=== PATIENT | male | born 1945 | race Caucasian/White ===

== ENCOUNTER → 2016-05-10 | Outpatient (CLI) | payer MEDICARE, BC ==
--- NOTE | 2016-05-10 08:05 | MR ---
MR lumbar spine wo con Leg numbness with low back pain Multiplanar, multiecho imaging of the lumbar spine was obtained without contrast on a 3 Bria magnet. REFERENCE:None. FINDINGS: There is an incompletely visualized 5.7 cm cystic lesion arising from the lower pole of th e right kidney. Paraspinal soft tissues are otherwise unremarkable. There is a mild retrolisthesis of L2 on L3 and L3-L4. Alignment is otherwise maintained. There is mil d wedging of the L2 vertebral body which appears chronic. There is marked hypertrophic spondylosis at the L2-3 level. Cord signal is normal. The conus ends at the level of the mid body of L1. At T12-L1, there is disc space loss and disc desiccation. Intervertebral foramina are reasonably well -maintained. There is a bilobed disc displacement. There is hypertrophic change in the facets. At L1-2, there is disc space loss and disc desiccation. There is mild hypertrophic spondylosis. The i ntervertebral foramina are reasonably well-maintained. There is a diffuse disc displacement. There ar e hypertrophic changes in the facets. At L2-3, there is mild retrograde listhesis of L2 on L3. This hypertrophic spondylosis. There is bila teral intervertebral foraminal narrowing. There is a pseudodisc. There are hypertrophic changes and c apsulitis within the facets. There is mild trefoiling of the thecal sac. At L3-4, there is disc desiccation and mild disc space loss. The intervertebral foramina are mildly n arrowed bilaterally. There is a diffuse disc displacement. There is hypertrophic change and capsuliti s within the facets. There is moderate central canal stenosis. At L4-5, the intervertebral foramina are reasonably well-maintained. There is a diffuse disc displace ment. There are fairly marked hypertrophic changes in the facets. There is mild lateral recess stenos is bilaterally and mild central canal compromise. At L5-S1, the intervertebral foramina are reasonably well-maintained. There is a minimal diffuse disc displacement. There are hypertrophic changes in the facets. IMPRESSION: 1. MILD, DIFFUSE DEGENERATIVE DISC DISEASE. 2. DIFFUSE FACET ARTHROPATHY. 3. BILATERAL INTERVERTEBRAL FORAMINAL NARROWING, L2-3 AND L3-4. 4. VARYING DEGREES OF CENTRAL CANAL COMPROMISE MOST MARKED AT L3-4. 5. MILD, BILATERAL LATERAL RECESS STENOSIS, L4-5. 6. RETROGRADE LISTHESIS OF L2 ON L3 AND L3 ON L4. 7. INCOMPLETELY VISUALIZED CYSTIC LESION ARISING FROM THE LOWER POLE THE RIGHT KIDNEY. ULTRASOUND OF THE KIDNEYS WOULD BE SUGGESTED.
== END | disposition home or self-care (01) ==
LOC: RADMRIMAIN 06:32
PROVIDERS: ATTEND Family Medicine
DX: M48.06 Spinal stenosis, lumbar region (principal); M99.73 Connective tissue and disc stenosis of intervertebral foramina of lumbar region; M43.16 Spondylolisthesis, lumbar region; M47.26 Other spondylosis with radiculopathy, lumbar region; M46.96 Unspecified inflammatory spondylopathy, lumbar region
CPT/HCPCS: 72148

== ENCOUNTER → 2018-05-16 | Outpatient (CLI) | payer MEDICARE, BC ==
--- NOTE | 2018-05-16 10:52 | XR ---
EXAMINATION TYPE: XR chest 2V DATE OF EXAM: 05/16/2018 COMPARISON: NONE HISTORY: Presurgical study. TECHNIQUE: Frontal and lateral views of the chest are obtained. FINDINGS: Overlying sternal wires with metallic aortic valve noted. There is some chronic parenchyma l change with left basilar linear scarring and/or atelectasis. Right lung is clear. No pleural effus ion or pneumothorax is seen bilaterally. The cardiac silhouette size is within normal limits with ath erosclerotic thoracic aorta. Multilevel moderate spurring anteriorly in thoracic spine is present. IMPRESSION: Chronic changes without acute pulmonary process.
[2018-05-16 11:08] LABS: HCT 42.1 % (39.0-53.0); HGB 13.8 gm/dL (13.0-17.5); MCH 28.6 pg (25.0-35.0); MCHC 32.8 g/dL (31.0-37.0); Mean Platelet Volume 6.8; Platelet Count 189 k/uL (150-450); RBC 4.83 m/uL (4.30-5.90); RDW 13.3 % (11.5-15.5); WBC 6.7 k/uL (3.8-10.6)
[2018-05-16 11:19] LABS: ALT 33 U/L (21-72); AST 23 U/L (17-59); Albumin 3.7 g/dL (3.5-5.0); Alkaline Phosphatase 70 U/L (38-126); Anion Gap 3 mmol/L; Blood Urea Nitrogen 24 mg/dL (9-20); Calcium 9.1 mg/dL (8.4-10.2); Carbon Dioxide 31 mmol/L (22-30); Chloride 107 mmol/L (98-107); Glucose 95 mg/dL (74-99); Potassium 5.1 mmol/L (3.5-5.1); Sodium 141 mmol/L (137-145); Total Bilirubin 0.8 mg/dL (0.2-1.3); Total Protein 6.4 g/dL (6.3-8.2)
== END | disposition home or self-care (01) ==
LOC: LABPAT 09:38
PROVIDERS: ATTEND Internal Medicine Cardiovascular Disease
DX: Z01.818 Encounter for other preprocedural examination (principal); Z01.812 Encounter for preprocedural laboratory examination; I25.709 Atherosclerosis of coronary artery bypass graft(s), unspecified, with unspecified angina pectoris; J98.4 Other disorders of lung
CPT/HCPCS: 71046; 80053; 85027

== ENCOUNTER → 2018-05-16 | Outpatient (CLI) | payer MEDICARE, BC | END | disposition home or self-care (01) | LOC: LABWHC1 10:31 | PROVIDERS: ATTEND Internal Medicine Cardiovascular Disease | DX: Z01.812 Encounter for preprocedural laboratory examination (principal); I20.9 Angina pectoris, unspecified | CPT/HCPCS: 36415; 80061 ==

== ENCOUNTER 2018-05-21 12:05 | Day surgery (SDC) | payer MEDICARE, BC ==
[~2018-05-21 12:05] MED LIST: ALPRAZolam 0.25 MG TAB PO PRN; ALPRAZolam 0.5 MG TAB PO PRN; ASPIRIN 325 MG TAB PO STA; ATORVASTATIN 80 MG TAB PO STA; NITROGLYCERIN SL TABS 0.4 MG TAB SUBLINGUAL PRN; SODIUM CHLORIDE 0.9% 1,000 ML in EMPTY BAG 1 BAG IV ONE
[2018-05-21] MEDS ORDERED: MIDAZOLAM (PF) 2 MG/2 ML VIAL IV ONE (14:08)
[2018-05-21] MEDS: fentaNYL (PF) 50 MCG/ML 2 ML AMP IV ONE ×2 (18:46→18:55)
[2018-05-21] MEDS ORDERED: MIDAZOLAM 2 MG/2 ML VIAL IV ONE (18:47)
[2018-05-21] MEDS ORDERED: LIDOCAINE 1% INJ 10MG/ML (20 ML MDV) SQ ONE (18:52)
[2018-05-21] MEDS ORDERED: IOPAMIDOL-370 50ML BTL INJ ONE (19:21)
[2018-05-21] MEDS ORDERED: IOPAMIDOL-370 125ML BTL INJ ONE (19:21)
[2018-05-21] MEDS ORDERED: RX INFO: IV CONTRAST WAS GIVEN 1 EACH MISC MISCELLANE PRN (19:37)
[2018-05-21] MEDS ORDERED: SODIUM CHLORIDE 0.9% 1,000 ML IV SCH (19:45)
[2018-05-21] MEDS ORDERED: HYDROmorphone 0.5 MG/0.5 ML SYRINGE IVP PRN (20:55)
[2018-05-21] MEDS ORDERED: BRIMONIDINE TARTRATE 0.2% DROPS 5 ML BTL BOTH EYES SCH (21:00)
[2018-05-21] MEDS ORDERED: TIMOLOL 0.5% OPHTH DROPS 5 ML BTL BOTH EYES SCH (21:00)
--- NOTE | 2018-05-21 22:13 | CC ---
CARDIAC CATHETERIZATION REPORT DATE OF SERVICE: 05/21/2018 PERFORMING PHYSICIAN: Kenn Su MD, [employer] operations consultant. PROCEDURE PERFORMED: 1. Selective left and right coronary angiogram. 2. Left internal mammary artery to LAD angiogram. 3. Aortic root angiogram. INDICATION: This is a 72-year-old gentleman who sees Dr. Wes Saeed in the office as an outpatient with known history of coronary artery disease and status post coronary artery bypass grafting with ROTHMAN to LAD and SVG to diagonal as well as aortic valve disease and status post aortic valve replacement as well as multiple comorbid conditions, including hypertension and dyslipidemia. He was experiencing progressive exertional dyspnea concerning for angina. He continues to be symptomatic in spite of maximized medical treatment, and because of that, a heart catheterization was advised. APPROACH: Right common femoral artery. COMPLICATIONS: None. LEVEL OF SEDATION: Moderate with sedation length of 27 minutes. PROCEDURE DESCRIPTION: After obtaining informed consent, the patient was brought to the cardiac laborer rags. The right common femoral artery was cannulated using micropuncture technique and the micropuncture wire passed easily. Then I placed a 6-[place] sheath in the right common femoral artery. I did after that selective left and right coronary angiogram using JL4 and JR4 catheters. After that I did left internal mammary artery angiogram using the JR4 catheter. I attempted to engage the graft to the diagonal and I was unable, in spite of using JR4 catheter and then an Amplatzer 1 catheter. After that I did aortic root angiogram just to assess if the graft is patent. I could not see the graft in spite of that. The procedure was completed without any complication. SELECTIVE CORONARY ANGIOGRAM: 1. The left main appeared to be angiographically normal. It bifurcates into left circumflex and left anterior descending artery. 2. The left circumflex is a medium-caliber vessel. It is a nondominant vessel. The proximal left circumflex itself appeared to be angiographically normal. 3. The LAD. The proximal LAD appeared to have intermediate lesion in the range of 50%. This is by the bifurcation of a medium-sized diagonal branch which has a lesion that appeared to be in the range of 70%, but it appeared to be unchanged compared to before. The mid LAD is subtotally occluded with competitive flow from the ROTHMAN. 4. The right coronary artery is a large-caliber vessel and a dominant vessel. The proximal right coronary artery is aneurysmal. The mid RCA appeared to have mild disease only and the RCA distally appeared to have mild disease only and bifurcates into PDA and PLV branches. Both appeared to be angiographically normal. ANGIOGRAM OF CORONARY BYPASSES: 1. The ROTHMAN to LAD is patent. 2. The SVG to diagonal appeared to be occluded. AORTIC ROOT ANGIOGRAM: The aortic root angiogram was performed in the IRAQI projection using a power injection. The aortic root appeared to be mildly dilated. At least 3 to 4+ AI was seen. CONCLUSION: 1. Severe single-vessel coronary artery disease involving the mid LAD. The LAD is protected by the ROTHMAN. 2. Severe disease involving the ostial first diagonal branch of the LAD. It appeared to be unchanged compared to before. 3. Normal left circumflex coronary artery. 4. 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 5. Three plus AI was seen. Given the above anatomy, I did recommend maximized medical treatment. If he continues to have symptoms of chest pain, I would consider doing PCI of the first diagonal branch of the LAD. MMODL / IJN: [id number] /
[2018-05-21 22:23] VITALS: BMI 31.1
[2018-05-22 07:39] VITALS: RESP 18
[2018-05-22] MEDS ORDERED: ASPIRIN 81 MG PO SCH (09:00)
[2018-05-22] MEDS ORDERED: CYANOCOBALAMIN 500 MCG TAB PO SCH (09:00)
[2018-05-22] MEDS ORDERED: LISINOPRIL 5 MG TAB PO SCH (09:00)
[2018-05-22] MEDS ORDERED: ATORVASTATIN 20 MG TAB PO SCH (09:00)
--- NOTE | 2018-05-22 11:51 | PN ---
PROGRESS NOTE This patient underwent cardiac catheterization yesterday, the ROTHMAN graft to the LAD was patent. The saphenous vein graft to the diagonal branch is occluded and the saphenous vein graft has ostial stenosis of 90%. There is a 40% to 50% stenosis in the distal RCA which is very tortuous. Patient also has about 2 to 3+ aortic regurgitation. I discussed the findings with the patient and explained. We will go ahead and schedule him for a stent to the diagonal branch. Dr. Su will do it tomorrow. After that, if he continues to have a significant problem with exertional shortness of breath, he will need a redo aortic valve replacement for his aortic regurgitation which by echocardiogram is moderate. MMODL / IJN: [id number] /
[2018-05-22 12:08] VITALS: BP 158/65; PULSE 62; TEMP 98
== END 2018-05-22 13:50 | disposition home or self-care (01) ==
LOC: CATHCVL 12:05 → 1SOBS 19:16 → CATHCVL 05-22 13:50
PROVIDERS: ATTEND Internal Medicine Cardiovascular Disease
DX: I25.110 Atherosclerotic heart disease of native coronary artery with unstable angina pectoris (principal); I25.41 Coronary artery aneurysm; I10 Essential (primary) hypertension; E78.00 Pure hypercholesterolemia, unspecified; E11.51 Type 2 diabetes mellitus with diabetic peripheral angiopathy without gangrene; Z79.4 Long term (current) use of insulin; E78.2 Mixed hyperlipidemia; Z72.0 Tobacco use; Z82.49 Family history of ischemic heart disease and other diseases of the circulatory system; Z95.2 Presence of prosthetic heart valve; Z95.1 Presence of aortocoronary bypass graft; Z79.82 Long term (current) use of aspirin; Z79.899 Other long term (current) drug therapy; Z88.3 Allergy status to other anti-infective agents
CPT/HCPCS: 93455; 93567; C1760; C1894; C1769 ×2; J2250 ×2; J2001; J3010; J1170; Q9967 ×2; 93454

== ENCOUNTER 2018-05-23 12:17 | Day surgery (SDC) | payer MEDICARE, BC ==
[~2018-05-23 12:17] MED LIST changes: +ASPIRIN 325 MG TAB PO ONE; -ASPIRIN 325 MG TAB PO STA; +ATORVASTATIN 80 MG TAB PO ONE; -ATORVASTATIN 80 MG TAB PO STA; -NITROGLYCERIN SL TABS 0.4 MG TAB SUBLINGUAL PRN
[2018-05-23] MEDS ORDERED: ASPIRIN 81 MG ONE (12:40)
[2018-05-23] MEDS ORDERED: ASPIRIN 81 MG PO ONE (12:45)
[2018-05-23 13:14] LABS: Anion Gap 8 mmol/L; Blood Urea Nitrogen 19 mg/dL (9-20); Calcium 9.6 mg/dL (8.4-10.2); Carbon Dioxide 27 mmol/L (22-30); Chloride 105 mmol/L (98-107); Glucose 92 mg/dL (74-99); Sodium 140 mmol/L (137-145)
[2018-05-23 13:23] LABS: Potassium 5.3 mmol/L (3.5-5.1)
[2018-05-23] MEDS ORDERED: LIDOCAINE 1% INJ 10MG/ML (20 ML MDV) SQ ONE (13:23)
[2018-05-23] MEDS: fentaNYL (PF) 50 MCG/ML 2 ML AMP IVP ONE ×2 (13:23→13:52)
[2018-05-23] MEDS: MIDAZOLAM 2 MG/2 ML VIAL IVP ONE ×2 (13:23→13:52)
[2018-05-23] MEDS ORDERED: BIVALIRUDIN BOLUS 250 MG/50 ML IV ONE (13:28)
[2018-05-23] MEDS ORDERED: BIVALIRUDIN 250 MG in SODIUM CHLORIDE 0.9% 36 ML IV ONE (13:28)
[2018-05-23] MEDS ORDERED: NITROGLYCERIN 1000MCG/10ML SYRINGE INTRACORON ONE (13:54)
[2018-05-23] MEDS ORDERED: CLOPIDOGREL 75 MG TAB PO ONE (14:01)
[2018-05-23] MEDS ORDERED: IOPAMIDOL-370 125ML BTL INJ ONE (14:07)
[2018-05-23] MEDS ORDERED: NITROGLYCERIN SL TABS 0.4 MG TAB SUBLINGUAL PRN ×2 (14:08→14:09)
[2018-05-23] MEDS ORDERED: ATROPINE SULFATE 0.1 MG/ML 10ML SYRINGE IV PRN (14:09)
[2018-05-23] MEDS ORDERED: ZOLPIDEM 5 MG TAB PO PRN (14:09)
[2018-05-23] MEDS ORDERED: MAG HYDROX/AL HYDROX/SIMETH 30 ML CUP PO PRN ×2 (14:09→15:39)
[2018-05-23] MEDS ORDERED: RX INFO: IV CONTRAST WAS GIVEN 1 EACH MISC MISCELLANE PRN (14:09)
[2018-05-23] MEDS ORDERED: SODIUM CHLORIDE 0.9% 1,000 ML IV SCH (14:15)
[2018-05-23 14:43] LABS: Glucose,Whole Blood 92 mg/dL (75-99)
--- NOTE | 2018-05-23 15:07 | LTR ---
May 23, 2018 To: Dr. Boston Re: Naif Jin (43) Dear Cabrera, Mr. Naif Jin underwent successful angioplasty and stenting of the LAD and diagonal branch with good angiographic results and without any complication. I want to thank you for allowing us to participate in his care, and please do not hesitate to call with any questions or concerns. Sincerely, MD ADAN Khoury / MARITA: [id number] /
--- NOTE | 2018-05-23 15:07 | PTCA ---
PERCUTANEOUSTRANS CORORONARY ANGIOGRAPHY DATE OF PROCEDURE: 05/23/2018 PERFORMING PHYSICIAN: Kenn Su MD, lard maker. PROCEDURE PERFORMED: 1. Atherectomy of the left anterior descending coronary artery and first diagonal branch of the left anterior descending coronary artery. 2. Successful stenting of the proximal left anterior descending coronary artery as well as proximal first diagonal branch of the left anterior descending coronary artery using a 3.0 x 23 mm Xience drug-eluting stent which was post dilated using a 3.5 mm NC balloon with an excellent angiographic result and reduction of stenosis from 90% to 0%. INDICATION: This is a 72-year-old gentleman who sees Dr. Wes Saeed in the office as an outpatient with known history of coronary artery disease and prior coronary artery bypass grafting. He was experiencing symptoms of unstable angina and underwent a heart catheterization where he was found to have the occlusion. He was found to have patent ROTHMAN to LAD and occluded SVG to diagonal. The diagonal was a large diagonal and unprotected, and because of that he was brought today to undergo an intervention on the diagonal and proximal LAD. APPROACH: Right common femoral artery. COMPLICATIONS: None. LEVEL OF SEDATION: Moderate, with sedation length of 42 minutes. PROCEDURE DESCRIPTION: After obtaining informed consent, the patient was brought to the cardiac label tacker. The right common femoral artery was cannulated using micropuncture technique. The micropuncture wire passed easily. Then I placed a 6-[place] sheath in the right common femoral artery. After that anticoagulation was initiated using Angiomax. After that I engaged the left main using an XB4 after I tried an XB3.5. Subsequently I wired the diagonal using a Whisper wire. I exchanged the Whisper for a ViperWire. After that I did atherectomy of the LAD and diagonal using the orbital atherectomy device from I. After that I did balloon angioplasty using a 2.5 x deployed a 3.0 x 23 mm Xience drug-eluting stent where the stent was positioned under fluoroscopic guidance and deployed under 14 atmospheres for 20 seconds. I post-dilated the stent using 3.5 mm balloon with the final angiogram showing excellent angiographic results and the procedure was completed without any complication. POST-PROCEDURE MANAGEMENT: 1. Dual anti-platelet therapy. 2. Risk factor modifications. 3. Follow up with the patient. MMODL / IJN: [id number] /
[2018-05-23] MEDS ORDERED: HYDROcodone/APAP 5-325MG 1 EACH TAB PO STA (15:48)
[2018-05-23 17:05] VITALS: BMI 30.9
[2018-05-23] MEDS: NITROGLYCERIN SL TABS 0.4 MG TAB SUBLINGUAL PRN ×2 (20:43→20:49)
[2018-05-23] MEDS ORDERED: TIMOLOL 0.5% OPHTH DROPS 5 ML BTL BOTH EYES SCH (21:00)
[2018-05-23] MEDS ORDERED: BRIMONIDINE TARTRATE 0.2% DROPS 5 ML BTL BOTH EYES SCH (21:00)
[2018-05-24 07:59] LABS: Basophils % (A) 1 %; Eosinophils # (A) 0.1 k/uL (0-0.7); Eosinophils % (A) 2 %; HCT 40.2 % (39.0-53.0); HGB 13.7 gm/dL (13.0-17.5); Lymphocytes # (A) 1.2 k/uL (1.0-4.8); Lymphocytes % (A) 15 %; MCH 28.6 pg (25.0-35.0); MCV 84.3 fL (80.0-100.0); Mean Platelet Volume 9.1; Monocytes # (A) 0.5 k/uL (0-1.0); Monocytes % (A) 6 %; Neutrophils # (A) 6.1 k/uL (1.3-7.7); Neutrophils % (A) 75 %; Platelet Count 167 k/uL (150-450); RBC 4.77 m/uL (4.30-5.90); RDW 15.6 % (11.5-15.5); WBC 8.1 k/uL (3.8-10.6)
[2018-05-24 08:21] LABS: Anion Gap 7 mmol/L; Blood Urea Nitrogen 17 mg/dL (9-20); Calcium 9.1 mg/dL (8.4-10.2); Carbon Dioxide 27 mmol/L (22-30); Chloride 102 mmol/L (98-107); Glucose 138 mg/dL (74-99); Potassium 4.4 mmol/L (3.5-5.1); Sodium 136 mmol/L (137-145)
[2018-05-24] MEDS ORDERED: ASPIRIN 81 MG PO SCH (09:00)
[2018-05-24] MEDS ORDERED: CYANOCOBALAMIN 500 MCG TAB PO SCH (09:00)
[2018-05-24] MEDS ORDERED: ATORVASTATIN 20 MG TAB PO SCH (09:00)
[2018-05-24] MEDS ORDERED: LISINOPRIL 5 MG TAB PO SCH (09:00)
--- NOTE | 2018-05-24 13:02 | DS ---
DISCHARGE SUMMARY DATE OF ADMISSION: 05/23/2018 DATE OF DISCHARGE: 05/24/2018 BRIEF HISTORY: This is a 72-year-old gentleman who sees Dr. Wes Saeed as an outpatient with history of coronary artery disease and prior coronary artery bypass grafting with ROTHMAN to LAD and SVG to diagonal, was experiencing lately exertional chest discomfort and exertional shortness of breath. I did perform a heart catheterization for him for Dr. Saeed and that revealed patent ROTHMAN to LAD with occluded SVG to diagonal. He was admitted to the hospital yesterday and underwent an atherectomy and balloon angioplasty and stenting of the first diagonal branch of the LAD with an excellent angiographic results and reduction of stenosis from 90% to 0%. On follow up with him today, he did have mild chest discomfort this morning. The EKG did not show any significant ST or T-wave abnormalities. Currently he is chest pain free. I am going to get the patient up and around and if he is chest pain-free, he might be able to go home today. I asked the patient and the nurse if he developed any more chest discomfort. I am going to keep the patient overnight and follow up with him tomorrow morning. If he continues to have any more episodes of chest discomfort, I would consider doing a coronary angiogram on him. He is going to be discharged on dual anti-platelet therapy along with a statin. MMODL / NATHALYN: [id number] /
[2018-05-24 13:20] VITALS: PULSE 73; RESP 18
[2018-05-24] MEDS ORDERED: CLOPIDOGREL 75 MG TAB PO SCH (14:10)
[2018-05-24 14:23] VITALS: BP 151/68; TEMP 98.8
== END 2018-05-24 17:12 | disposition home or self-care (01) ==
LOC: CATHCVL 12:17 → 3SCARD 14:55 → CATHCVL 05-24 17:12
PROVIDERS: ATTEND Internal Medicine Interventional Cardiology
DX: I25.710 Atherosclerosis of autologous vein coronary artery bypass graft(s) with unstable angina pectoris (principal); I25.110 Atherosclerotic heart disease of native coronary artery with unstable angina pectoris; I10 Essential (primary) hypertension; E11.9 Type 2 diabetes mellitus without complications; F17.290 Nicotine dependence, other tobacco product, uncomplicated; E78.2 Mixed hyperlipidemia; Z95.1 Presence of aortocoronary bypass graft; Z95.2 Presence of prosthetic heart valve; Z79.899 Other long term (current) drug therapy; Z79.82 Long term (current) use of aspirin; Z79.4 Long term (current) use of insulin; Z88.1 Allergy status to other antibiotic agents; Z88.8 Allergy status to other drugs, medicaments and biological substances; Z82.49 Family history of ischemic heart disease and other diseases of the circulatory system
CPT/HCPCS: 80048 ×2; 85025; C9602; C1760; C1769 ×5; C1725 ×2; C1887; C1894; C1714; C1874; J2250; J2001; J3010; J0583; Q9967

== ENCOUNTER 2018-07-09 00:06 | Inpatient (IN) | payer MEDICARE, BC ==
[2018-07-09] MEDS ORDERED: HEPARIN SODIUM,PORCINE 5,000 UNIT/ML 1 ML VIAL IV STA (00:21)
[2018-07-09] MEDS ORDERED: MORPHINE SULFATE 4 MG/ML SYRINGE IV STA (00:21)
[2018-07-09] MEDS ORDERED: ASPIRIN 81 MG PO STA (00:21)
[2018-07-09] MEDS ORDERED: NITROGLYCERIN SL TABS 0.4 MG TAB SUBLINGUAL STA (00:21)
--- NOTE | 2018-07-09 00:27 | ED ---
Chest Pain HPI - General Chief Complaint: Chest Pain Stated Complaint: Chest Pain Source: patient Mode of arrival: ambulatory Limitations: no limitations - History of Present Illness Initial Comments: This is a 72-year-old gentleman with known coronary artery disease status post bypass in the past as well as cardiac catheterization May of this month with stenting of occlusions of the bypass. Patient reports that around 9 PM tonight he was walking when he developed chest pain, he's noticed since it began chest pain improves slightly when he is resting gets worse when he gets up to walk at all. Pain is been persistent for 3 hours which prompted his to bring him to the emergency department for evaluation. Patient is on aspirin and Plavix daily. - Related Data Home Medications Medication Instructions Recorded Confirmed Aspirin [Adult Low Dose Aspirin EC] 81 mg PO DAILY 05/19/18 07/09/18 Brimonidine Tartrate/Timolol 1 drop BOTH EYES HS 05/19/18 07/09/18 [Combigan 0.2%-0.5% Eye Drops] Cyanocobalamin (Vitamin B-12) 2,500 mcg PO DAILY 05/19/18 07/09/18 [Vitamin B-12] Ibuprofen [Motrin Ib] 200 - 400 mg PO Q6H PRN 05/19/18 07/09/18 Lisinopril [Zestril] 5 mg PO DAILY 05/19/18 07/09/18 Simvastatin [Zocor] 40 mg PO DAILY 05/19/18 07/09/18 Ascorbic Acid [Vitamin C] 2,500 mg PO DAILY 05/23/18 07/09/18 Previous Rx's Medication Instructions Recorded Nitroglycerin Sl Tabs [Nitrostat] 0.4 mg SUBLINGUAL Q5M PRN #1 bottle 05/22/18 Clopidogrel [Plavix] 75 mg PO DAILY #90 tab 05/24/18 Allergies Allergy/AdvReac Type Severity Reaction Status Date / Time aloe Allergy Rash/Hives Verified 05/19/18 12:46 bacitracin Allergy Rash/Hives Verified 05/19/18 12:46 [From Neosporin ([id number])] neomycin Allergy Rash/Hives Verified 05/19/18 12:46 [From Neosporin ([id number])] polymyxin B Allergy Rash/Hives Verified 05/19/18 12:46 [From Neosporin ([id number])] Review of Systems ROS Statement: Those systems with pertinent positive or pertinent negative responses have been documented in the HPI. ROS Other: All systems not noted in ROS Statement are negative. EKG Findings - EKG Comments: EKG Findings:: EKG was obtained for evaluation of chest pain, EKG obtained at 12:17 AM, rate is 79 rhythm is sinus there is a normal axis, there are normal intervals, TN 184, curious 86, QTC 400, QTC 458, there are ST elevations in aVR and ST depressions diffusely including leads 1 to aVF and leads V2 through V6. When compared to EKG obtained last month on May 24 there are significant changes including ST elevations or depressions. Past Medical History Past Medical History: Coronary Artery Disease (CAD), Chest Pain / Angina, Diabetes Mellitus, Eye Disorder, Hyperlipidemia, Hypertension, Osteoarthritis (OA), Prostate Disorder Additional Past Medical History / Comment(s): thoracic aneurysm, mari glaucoma, kidney stones, neuropathy History of Any Multi-Drug Resistant Organisms: None Reported Past Surgical History: Cardiac Valve Replacement, Cholecystectomy, Coronary Bypass/CABG, Heart Catheterization, Orthopedic Surgery Additional Past Surgical History / Comment(s): aortic valve replaced 2003, CABG double bypass Past Psychological History: Depression Smoking Status: Former smoker Past Alcohol Use History: Occasional - Past Family History Father Family Medical History: Cancer Brother(s) Family Medical History: Cancer General Exam - General Exam Comments Initial Comments: Physical Exam GENERAL: Appears uncomfortable Diaphoretic HENT: Normocephalic, Atraumatic. EYES: PERRL, EOMI PULMONARY: Unlabored respirations. No audible rales rhonchi or wheezing was noted. CARDIOVASCULAR: There is a regular rate and rhythm Systolic murmur Bounding peripheral pulses ABDOMEN: Soft and nontender with normal bowel sounds. SKIN: Bruising in left upper extremity : Deferred NEUROLOGIC: Patient is alert and oriented x3. Moving all extremities spontaneously MUSCULOSKELETAL: Normal extremities with adequate strength and full range of motion. No lower extremity swelling or edema. No calf tenderness. PSYCHIATRIC: Appropriate situational anxiety Limitations: no limitations Course Vital Signs 07/09/18 07/09/18 07/09/18 00:09 00:20 00:26 Temperature 97.6 F Pulse Rate 79 81 Respiratory 20 18 18 Rate Blood Pressure 157/73 152/59 O2 Sat by Pulse 97 Oximetry 07/09/18 07/09/18 07/09/18 00:38 00:46 00:51 Temperature Pulse Rate 88 87 82 Respiratory 18 18 18 Rate Blood Pressure 110/46 110/47 119/51 O2 Sat by Pulse 98 95 97 Oximetry Chest Pain MDM - Core Measures AMI Core Measures Followed: Yes - Differential Diagnosis AMI - MDM She was seen and evaluated upon arrival to the emergency department exam this is a 72-year-old gentleman with extensive cardiac history and known coronary artery disease presenting with chest pain that began with exertion has been persistent since then but continues to worsen with any exertion. EKG is concerning for acute ischemia. EKG changes were discussed with cardiology Dr. Arriaga who recommends activation of the Audio Visual Secretary he will contact the patroller to discuss further patient care. STEMI activation was initiated. Labs were obtained. Patient reported chest pain improved from an 8 out of 10 intensity to a 4 out of 10 intensity with sublingual nitro patient taken 2 prior to arrival. Nitropaste was ordered. Patient care was discussed with Dr. Hinds patroller agrees with hot plate plywood press laborer activation will evaluate the patient in the Audio Visual Secretary. was admitted to inpatient, patient was transferred to the Audio Visual Secretary with Dr. Arriaga at bedside - KENAN Score Age > 65: (1) Yes 3 or more CAD Risk Factors: (1) Yes Known CAD with more than 50% Stenosis: (1) Yes Aspirin use within the Past 7 Days: (1) Yes ST Deviation Greater than 0.5mm: (1) Yes Critical Care Time Critical Care Time: Yes Total Critical Care Time: 45 Critical Care Time: Critical Care Time Critical care time was exclusive of separately billable procedures and treating other patients and teaching time. Critical care was necessary to treat or prevent imminent or life-threatening deterioration. Given the critical condition in which the patient arrived, the patient was immediately assessed by myself and the nurse, and cardiac monitoring initiated due to the potential for rapid decompensation of the patient's clinical condition. During the course of the patients stay, I spent a considerable amount of time at the bedside performing serial re-evaluations of the patient's hemodynamic and clinical status because of the recognized potential threat to life or limb in this condition. I then had a chance to review not only all of the available current laboratory and radiographic studies obtained today, but I also reviewed old records available to me at the time. Additionally, any ancillary information available including student life coordinator records were reviewed. Sequential vital signs were obtained. Disposition Clinical Impression: Angina pectoris Disposition: ADMITTED IP TO THIS HOSP Condition: Serious
[2018-07-09] MEDS ORDERED: HEPARIN SOD,PORK IN 0.45% NACL 25,000 UNIT in 0.45% NACL 1 250ML.BAG IV SCH (00:30)
[2018-07-09] MEDS ORDERED: NALOXONE 0.4 MG/ML 1 ML VIAL IV PRN (00:45)
[2018-07-09 00:46] LABS: Calcium 9.5 mg/dL (8.4-10.2); Total Bilirubin 0.8 mg/dL (0.2-1.3)
[2018-07-09 00:48] LABS: Basophils # (A) 0.1 k/uL (0-0.2); Basophils % (A) 1 %; Eosinophils # (A) 0.3 k/uL (0-0.7); Eosinophils % (A) 3 %; HCT 38.9 % (39.0-53.0); HGB 13.1 gm/dL (13.0-17.5); Lymphocytes # (A) 1.7 k/uL (1.0-4.8); Lymphocytes % (A) 21 %; MCHC 33.7 g/dL (31.0-37.0); MCV 86.2 fL (80.0-100.0); Mean Platelet Volume 7.8; Monocytes # (A) 0.7 k/uL (0-1.0); Monocytes % (A) 8 %; Neutrophils # (A) 5.3 k/uL (1.3-7.7); Neutrophils % (A) 64 %; Platelet Count 190 k/uL (150-450); RBC 4.51 m/uL (4.30-5.90); RDW 14.3 % (11.5-15.5); WBC 8.3 k/uL (3.8-10.6)
[2018-07-09] MEDS ORDERED: NITROGLYCERIN OINT 1 INCH/GM PACKET TOPICAL STA (00:51)
[2018-07-09 00:54] LABS: Albumin 4.2 g/dL (3.5-5.0); Magnesium 2.2 mg/dL (1.6-2.3); Potassium 4.9 mmol/L (3.5-5.1); Total Protein 6.9 g/dL (6.3-8.2)
--- NOTE | 2018-07-09 00:59 | XR ---
EXAM: XR Chest, 1 View CLINICAL HISTORY: ITS.REASON XR Reason: Chest Pain TECHNIQUE: Frontal view of the chest. COMPARISON: 05/16/18. FINDINGS: Redemonstrated left basilar atelectasis with elevation of the hemidiaphragm. No definite consolidation. No vascular congestion. Sternotomy for coronary revascularization. Calcified aorta. IMPRESSION: Stable chronic changes. No evidence of acute pulmonary disease.
[2018-07-09] MEDS ORDERED: LIDOCAINE 1% INJ 10MG/ML (20 ML MDV) ONE (01:01)
[2018-07-09] MEDS ORDERED: fentaNYL (PF) 50 MCG/ML 2 ML AMP ONE (01:01)
[2018-07-09] MEDS ORDERED: VERAPAMIL 2.5 MG/ML 2 ML AMP ONE (01:01)
[2018-07-09 01:06] LABS: Creatine Kinase MB 2.5 ng/mL (0.0-2.4)
[2018-07-09 01:07] LABS: Troponin I 0.042 ng/mL (0.000-0.034)
[2018-07-09] MEDS ORDERED: HEPARIN SODIUM 1,000 UN/ML (10ML VL) ONE (01:09)
--- NOTE | 2018-07-09 01:13 | P.CRDCN ---
History of Present Illness History of present illness: This is Dr. Arriaga dictating a consult on this patient The patient was interviewed and examined by me IMPRESSION / ASSESSMENT: Acute coronary syndrome/crescendo angina Coronary artery disease coronary artery bypass grafting Coronary stenting in May the proximal LAD and diagonal vessel Prostatic aortic valve leak Her decamps him Hypertension and type 2 diabetes PLAN: Continue IV heparin Nitropaste and proceed emergently to the [facility] Officer Discussed with the attending and Dr. Ambriz HPI 72-year-old male patient presenting to the hospital with recurrent chest discomfort with minimal exertion midsternal. Transient relief with sublingual nitroglycerin. Now on a Nitropaste and IV heparin According to his he's been having) chest discomfort for more than several days He was scheduled to have a JESSI with Dr. Saeed for paravalvular aortic valve leak He also has [place] aneurysm Past history of hypertension type 2 diabetes coronary artery disease coronary artery bypass grafting Recent coronary stenting to the proximal LAD and diagonal proximal LAD and diagonal vessel in May by Dr. Su Twelve-lead ECG shows sinus rhythm normal NE interval ST elevation in aVR and ST depression V2-V6 and in the lateral precordial leads ROS: No fever chills or rigors, no cough, phlegm or expectoration, no nausea, vomiting or diarrhea, no hematuria, dysuria, no musculoskeletal complaints, no strokes or seizures, no skin lesions. EXAMINATION: On examination he is resting comfortably in bed did currently pain-free Blood pressure 119/51 mmHg heart rate in the 80s normal respirations Mild bilateral lower extremity edema Murmur of aortic stenosis over the precordium Abdomen soft nontender Mild lower extremity edema bilaterally REVIEW OF LABS, ECG & MEDICAL DATA hemoglobin 13.1 potassium 4.9 BUN 29 and creatinine 1.13 Troponin 0.04 to BNP 1420 Normal liver function Past Medical History Past Medical History: Coronary Artery Disease (CAD), Chest Pain / Angina, Diabetes Mellitus, Eye Disorder, Hyperlipidemia, Hypertension, Osteoarthritis (OA), Prostate Disorder Additional Past Medical History / Comment(s): thoracic aneurysm, mari glaucoma, kidney stones, neuropathy History of Any Multi-Drug Resistant Organisms: None Reported Past Surgical History: Cardiac Valve Replacement, Cholecystectomy, Coronary Bypass/CABG, Heart Catheterization, Orthopedic Surgery Additional Past Surgical History / Comment(s): aortic valve replaced 2003, CABG double bypass Past Psychological History: Depression Smoking Status: Former smoker Past Alcohol Use History: Occasional - Past Family History Father Family Medical History: Cancer Brother(s) Family Medical History: Cancer Medications and Allergies Home Medications Medication Instructions Recorded Confirmed Type Aspirin [Adult Low Dose Aspirin EC] 81 mg PO DAILY 05/19/18 07/09/18 History Brimonidine Tartrate/Timolol 1 drop BOTH EYES HS 05/19/18 07/09/18 History [Combigan 0.2%-0.5% Eye Drops] Cyanocobalamin (Vitamin B-12) 2,500 mcg PO DAILY 05/19/18 07/09/18 History [Vitamin B-12] Ibuprofen [Motrin Ib] 200 - 400 mg PO Q6H PRN 05/19/18 07/09/18 History Lisinopril [Zestril] 5 mg PO DAILY 05/19/18 07/09/18 History Simvastatin [Zocor] 40 mg PO DAILY 05/19/18 07/09/18 History Nitroglycerin Sl Tabs [Nitrostat] 0.4 mg SUBLINGUAL Q5M PRN #1 bottle 05/22/18 07/09/18 Rx Ascorbic Acid [Vitamin C] 2,500 mg PO DAILY 05/23/18 07/09/18 History Clopidogrel [Plavix] 75 mg PO DAILY #90 tab 05/24/18 07/09/18 Rx Allergies Allergy/AdvReac Type Severity Reaction Status Date / Time aloe Allergy Rash/Hives Verified 05/19/18 12:46 bacitracin Allergy Rash/Hives Verified 05/19/18 12:46 [From Neosporin ([id number])] neomycin Allergy Rash/Hives Verified 05/19/18 12:46 [From Neosporin ([id number])] polymyxin B Allergy Rash/Hives Verified 05/19/18 12:46 [From Neosporin ([id number])] Physical Exam Vitals: Vital Signs Temp Pulse Resp BP Pulse Ox 07/09/18 00:51 82 18 119/51 97 07/09/18 00:46 87 18 110/47 95 07/09/18 00:38 88 18 110/46 98 07/09/18 00:26 81 18 152/59 07/09/18 00:20 18 07/09/18 00:09 97.6 F 79 20 157/73 97 Intake and Output 07/08/18 07/08/18 07/09/18 14:59 22:59 06:59 Other: Weight 107.955 kg Results 07/09/18 00:23 07/09/18 00:23 Cardiac Enzymes 07/09/18 07/09/18 Range/Units 00:23 00:23 AST 34 (17-59) U/L CK-MB (CK-2) 2.5 H (0.0-2.4) ng/mL Troponin I 0.042 H* (0.000-0.034) ng/mL CBC 07/09/18 Range/Units 00:23 WBC 8.3 (3.8-10.6) k/uL RBC 4.51 (4.30-5.90) m/uL Hgb 13.1 (13.0-17.5) gm/dL Hct 38.9 L (39.0-53.0) % Plt Count 190 (150-450) k/uL Comprehensive Metabolic Panel 07/09/18 Range/Units 00:23 Sodium 140 (137-145) mmol/L Potassium 4.9 (3.5-5.1) mmol/L Chloride 109 H (98-107) mmol/L Carbon Dioxide 24 (22-30) mmol/L BUN 29 H (9-20) mg/dL Creatinine 1.13 (0.66-1.25) mg/dL Glucose 108 H (74-99) mg/dL Calcium 9.5 (8.4-10.2) mg/dL AST 34 (17-59) U/L ALT 22 (21-72) U/L Alkaline Phosphatase 66 (38-126) U/L Total Protein 6.9 (6.3-8.2) g/dL Albumin 4.2 (3.5-5.0) g/dL Intake and Output 07/08/18 07/08/18 07/09/18 14:59 22:59 06:59 Other: Weight 107.955 kg Patient Weight 07/09/18 06:59 Weight 107.955 kg 07/09/18 00:23 07/09/18 00:23
[2018-07-09] MEDS ORDERED: SODIUM CHLORIDE 0.9% 1,000 ML IV ONE (01:15)
[2018-07-09 01:17] LABS: INR 1.1 (<1.2); Prothrombin Time 11.3 sec (9.0-12.0)
[2018-07-09] MEDS ORDERED: LIDOCAINE 1% INJ 10MG/ML (20 ML MDV) SQ ONE (01:21)
[2018-07-09] MEDS ORDERED: fentaNYL (PF) 50 MCG/ML 2 ML AMP IV ONE (01:22)
[2018-07-09 01:27] LABS: Partial Thromboplastin Time 67.7 sec (22.0-30.0)
[2018-07-09] MEDS ORDERED: IOPAMIDOL-370 125ML BTL INJ ONE (01:48)
[2018-07-09] MEDS ORDERED: RX INFO: IV CONTRAST WAS GIVEN 1 EACH MISC MISCELLANE PRN (01:56)
[2018-07-09] MEDS ORDERED: NITROGLYCERIN SL TABS 0.4 MG TAB SUBLINGUAL PRN (01:57)
[2018-07-09] MEDS ORDERED: SODIUM CHLORIDE 0.9% 1,000 ML IV SCH (02:00)
[2018-07-09 02:07] LABS: Glucose,Whole Blood 149 mg/dL (75-99)
[2018-07-09 02:23] VITALS: BMI 33.1
--- NOTE | 2018-07-09 07:03 | P.HPIM ---
History of Present Illness This is a pleasant 72 years old male with past medical history of coronary artery disease, status post CABG and stent placement to LAD in May , diabetes mellitus, hypertension, hyperlipidemia, osteoarthritis, thoracic aortic aneur ysm, bilateral glaucoma, kidney stones and neuropathy. He is a patient of Dr. hand. This Patient presents with chest pain, On the left side of a few days' duration radiating to the right arm as per patient. Nonspecific inequality about 8/10 in severity, and down to 4/10. Associated with some cough and white phlegm for 1 week, and some dyspnea. Vitals his stable and patient is afebrile. CBC and BMP were unremarkable. Creatinine 1.1. INR 1.1. Glucose is 149. Elevated troponin at 0.04 and 0.48. EKG showing normal sinus rhythm at 79, SCDs depression in the anterio-lateral leads . Chest x-ray: Chronic changes with no acute process. Patient is already on aspirin and Plavix. He is also on heparin drip started in the emergency room. Normal slightly attended later per hour. Patient today regarding his been evaluated by travograph operator and he underwent cardiac cath Review of Systems CONSTITUTIONAL: No fever, no malaise, no fatigue. HEENT: No recent visual problems or hearing problems. Denied any sore throat. CARDIOVASCULAR: No orthopnea, PND, no palpitations, no syncope. PULMONARY: No shortness of breath, no cough, no hemoptysis. GASTROINTESTINAL: No diarrhea, no nausea, no vomiting, no abdominal pain. Normoactive bowel sounds. NEUROLOGICAL: No headaches, no weakness, no numbness. HEMATOLOGICAL: Denies any bleeding or petechiae. GENITOURINARY: Denies any burning micturition, frequency, or urgency. MUSCULOSKELETAL/RHEUMATOLOGICAL: Denies any joint pain, swelling, or any muscle pain. ENDOCRINE: Denies any polyuria or polydipsia. Past Medical History Past Medical History: Coronary Artery Disease (CAD), Chest Pain / Angina, Diabetes Mellitus, Eye Disorder, Hyperlipidemia, Hypertension, Osteoarthritis (OA), Prostate Disorder Additional Past Medical History / Comment(s): thoracic aneurysm, mari glaucoma, kidney stones, neuropathy History of Any Multi-Drug Resistant Organisms: None Reported Past Surgical History: Cardiac Valve Replacement, Cholecystectomy, Coronary Bypass/CABG, Heart Catheterization, Orthopedic Surgery Additional Past Surgical History / Comment(s): aortic valve replaced 2003, CABG double bypass Past Anesthesia/Blood Transfusion Reactions: No Reported Reaction Additional Past Anesthesia/Blood Transfusion Reaction / Comment(s): no problems with anesthesia, unsure if patient has had blood transfusion in the past. Date of Last Stent Placement:: 05/23/18 Past Psychological History: Depression Smoking Status: Former smoker Past Alcohol Use History: Occasional - Past Family History Father Family Medical History: Cancer Brother(s) Family Medical History: Cancer Medications and Allergies Home Medications Medication Instructions Recorded Confirmed Type Aspirin [Adult Low Dose Aspirin EC] 81 mg PO DAILY 05/19/18 07/09/18 History Brimonidine Tartrate/Timolol 1 drop BOTH EYES HS 05/19/18 07/09/18 History [Combigan 0.2%-0.5% Eye Drops] Cyanocobalamin (Vitamin B-12) 2,500 mcg PO DAILY 05/19/18 07/09/18 History [Vitamin B-12] Ibuprofen [Motrin Ib] 200 - 400 mg PO Q6H PRN 05/19/18 07/09/18 History Lisinopril [Zestril] 5 mg PO DAILY 05/19/18 07/09/18 History Simvastatin [Zocor] 40 mg PO DAILY 05/19/18 07/09/18 History Nitroglycerin Sl Tabs [Nitrostat] 0.4 mg SUBLINGUAL Q5M PRN #1 bottle 05/22/18 07/09/18 Rx Ascorbic Acid [Vitamin C] 2,500 mg PO DAILY 05/23/18 07/09/18 History Clopidogrel [Plavix] 75 mg PO DAILY #90 tab 05/24/18 07/09/18 Rx Allergies Allergy/AdvReac Type Severity Reaction Status Date / Time aloe Allergy Rash/Hives Verified 05/19/18 12:46 bacitracin Allergy Rash/Hives Verified 05/19/18 12:46 [From Neosporin ([id number])] neomycin Allergy Rash/Hives Verified 05/19/18 12:46 [From Neosporin ([id number])] polymyxin B Allergy Rash/Hives Verified 05/19/18 12:46 [From Neosporin ([id number])] Physical Exam Vitals: Vital Signs Temp Pulse Pulse Resp BP BP Pulse Ox 07/09/18 06:00 77 18 118/48 90 L 07/09/18 05:41 73 13 118/48 91 L 07/09/18 05:00 73 17 110/50 91 L 07/09/18 04:52 75 23 110/50 92 L 07/09/18 04:41 73 16 110/50 95 07/09/18 03:56 74 18 07/09/18 03:41 74 18 119/45 92 L 07/09/18 03:11 80 15 131/50 93 L 07/09/18 02:41 73 16 116/49 91 L 07/09/18 02:26 76 20 118/42 95 07/09/18 02:11 75 20 119/47 93 L 07/09/18 02:10 97.7 F 74 24 121/49 93 L 07/09/18 01:00 119/51 07/09/18 00:51 82 18 119/51 97 07/09/18 00:50 84 20 110/47 94 L 07/09/18 00:46 87 18 110/47 95 07/09/18 00:40 91 20 110/46 94 L 07/09/18 00:38 88 18 110/46 98 07/09/18 00:30 84 14 152/59 98 07/09/18 00:26 81 18 152/59 07/09/18 00:21 81 13 07/09/18 00:20 18 07/09/18 00:09 97.6 F 79 20 157/73 97 Intake and Output 07/08/18 07/08/18 07/09/18 14:59 22:59 06:59 Intake Total 475 Output Total 400 Balance 75 Intake: IV 75 Intake, IV Titration 400 Amount Sodium Chloride 0.9% 1, 400 000 ml @ 100 mls/hr IV . Q10H [facility] Rx#:[id number] Output: Urine 400 Other: Voiding Method Urinal Weight 107.955 kg GENERAL: The patient is alert and oriented x3, not in any acute distress. Well developed, well nourished. HEENT: Pupils are round and equally reacting to light. EOMI. No scleral icterus. No conjunctival pallor. Normocephalic, atraumatic. No pharyngeal erythema. No thyromegaly. CARDIOVASCULAR: S1 and S2 present. No murmurs, rubs, or gallops. PULMONARY: Chest is clear to auscultation, no wheezing or crackles. ABDOMEN: Soft, nontender, nondistended, normoactive bowel sounds. No palpable organomegaly. MUSCULOSKELETAL: No joint swelling or deformity. EXTREMITIES: No cyanosis, clubbing, or pedal edema. NEUROLOGICAL: Gross neurological examination did not reveal any focal deficits. SKIN: No rashes. Results CBC & Chem 7: 07/09/18 00:23 07/09/18 00:23 Labs: Abnormal Lab Results - Last 24 Hours (Table) 07/09/18 07/09/18 07/09/18 Range/Units 00:23 00:23 00:23 Hct 38.9 L (39.0-53.0) % APTT (22.0-30.0) sec Chloride 109 H (98-107) mmol/L BUN 29 H (9-20) mg/dL Glucose 108 H (74-99) mg/dL POC Glucose (mg/dL) (75-99) mg/dL CK-MB (CK-2) 2.5 H (0.0-2.4) ng/mL Troponin I 0.042 H* (0.000-0.034) ng/mL 07/09/18 07/09/18 07/09/18 Range/Units 01:00 02:05 05:53 Hct (39.0-53.0) % APTT 67.7 H (22.0-30.0) sec Chloride (98-107) mmol/L BUN (9-20) mg/dL Glucose (74-99) mg/dL POC Glucose (mg/dL) 149 H (75-99) mg/dL CK-MB (CK-2) (0.0-2.4) ng/mL Troponin I 0.482 H* (0.000-0.034) ng/mL Thrombosis Risk Factor Assmnt - Choose All That Apply Any of the Below Risk Factors Present?: Yes Each Factor Represents 1 point: Medical pt on bed rest, Obesity (BMI >25) Other Risk Factors: Yes Each Risk Factor Represents 2 Points: Age 61-74 years Other congenital or acquired thrombophilia - If yes, enter type in comment: No Thrombosis Risk Factor Assessment Total Risk Factor Score: 4 Thrombosis Risk Factor Assessment Level: Moderate Risk Assessment and Plan Assessment: Acute coronary syndrome History of coronary artery disease, status post CABG Prosthetic aortic valve Essential hypertension Diabetes mellitus Hyperlipidemia Osteoarthritis History of bilateral glaucoma History of kidney stone History of neuropathy Plan: This is a pleasant 72 years old male who presents with acute coronary syndrome. Cardiology evaluation is appreciated. Patient is status post cardiac cath. Continue with aspirin and Plavix and anticoagulations as per cardiology recommendations. Labs and medication were reviewed.. Continue same treatment. Continue with symptomatic treatment. Resume home medication. Monitor lytes and vitals. DVT and GI prophylaxis. Further recommendations of the clinical course of the patient DVT prophylaxis:heparin GI Prophylaxis: Pepcid Prognosis is guarded
--- NOTE | 2018-07-09 07:22 | CC ---
CARDIAC CATHETERIZATION REPORT Mr. Jin is a 72-year-old male with a known history of aortic valve replacement, coronary artery bypass grafting who is followed by Dr. Wes Saeed who early in May, underwent cardiac catheterization by Dr. Su and was found to have patent ROTHMAN to the LAD and occluded saphenous vein graft to diagonal branch with lesion in the LAD and the diagonal branch. He underwent stenting of that vessel. He has a known history of at least moderate aortic regurgitation with paravalvular leak. Patient for the last few weeks has been complaining of chest discomfort, came into the emergency room and had diffuse ST-segment depression. He was evaluated by Dr. Arriaga and recommendation was made regarding cardiac catheterization. The procedure as well as the risks and complications were discussed with the patient who is in full understanding and agreement. PROCEDURE: Patient was brought to operations label clerk in a fasting semi-sedated state after receiving fentanyl and Benadryl and achieving moderate conscious sedated state. Using Xylocaine anesthesia and Seldinger technique, a 6-Bahamian sheath was introduced in the right femoral artery. Selective right and left coronary angiography were performed using 6- Bahamian EBU 4 guiding catheter and 6-Bahamian right [place] catheter. Images of the coronary arteries including hemiaxial views obtained. Following that, an PHYLICIA catheter was used to cannulate the ROTHMAN to LAD and images of the grafts were obtained. Following that, catheter and sheath were removed. Hemostasis was obtained with deployment of an Angio-Seal. There was no immediate complication. Patient was returned to his room in stable condition. FINDINGS: FLUOROSCOPY: There was calcification involving the coronary arteries. LEFT MAIN: This is a large-sized vessel bifurcating in left circumflex, left anterior descending artery. Left main coronary artery has no evidence of high-grade stenosis. LEFT ANTERIOR DESCENDING ARTERY: This vessel stented segment proximally extending into the diagonal branch is patent. There is no evidence of thrombosis and the flow into the diagonal branch is brisk. The LAD beyond the stent has competitive flow with slow antegrade flow and subsequently it appears to be totally occluded. LEFT CIRCUMFLEX: This is a small nondominant vessel giving rise to an obtuse marginal branch that has no evidence of high-grade stenosis. RIGHT CORONARY ARTERY: This is a large dominant vessel bifurcating distally PDA and posterolateral segment and branches. The vessel is aneurysmal. Proximally it has a 50% plaque and beyond that there is a large aneurysm. The vessel has diffuse intimal disease without any evidence of focal lesion. The ROTHMAN to LAD: The distal anastomotic site is patent. The flow into the LAD is brisk. There is retrograde flow into the second diagonal branch. LEFT VENTRICULOGRAM: Left ventriculogram is not performed. CONCLUSION: 1. Patent stent to the proximal LAD and the first diagonal branch. 2. Subtotally occluded mid LAD with patent ROTHMAN to the LAD. 3. 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 RECOMMENDATION: At this time, I see no progression of coronary artery disease compared with the images obtained in May. His chest discomfort could be related to his aortic regurgitation. We will obtain further evaluation by echocardiography to see if the aortic valve needs to be intervened on. Those findings and recommendations were discussed with the patient and his family who are in full understanding and agreement. DURATION OF PROCEDURE: 29 minutes. MMODL / IJN: [id number] /
[2018-07-09] MEDS: MORPHINE SULFATE 4 MG/ML SYRINGE IV PRN (07:34)
[2018-07-09] MEDS: CLOPIDOGREL 75 MG TAB PO SCH (08:26)
[2018-07-09] MEDS: ASPIRIN 81 MG PO SCH (08:26)
[2018-07-09] MEDS: LISINOPRIL 5 MG TAB PO SCH (08:26)
[2018-07-09] MEDS: ASCORBIC ACID 500 MG TAB PO SCH (08:27)
[2018-07-09] MEDS: CYANOCOBALAMIN 500 MCG TAB PO SCH (08:27)
[2018-07-09] MEDS: ISOSORBIDE MONONITRATE ER 60 MG TAB.ER.24H PO SCH (08:30)
[2018-07-09] MEDS: ATORVASTATIN 40 MG TAB PO SCH (08:30)
--- NOTE | 2018-07-09 08:37 | PN ---
PROGRESS NOTE Mr. Jin is a 72-year-old male with a history of coronary artery disease, status post aortic valve replacement and coronary artery bypass grafting with history of stenting done early in May to the proximal LAD as well as into the diagonal branch with patent ROTHMNA to the LAD who presented yesterday with symptoms of chest discomfort. He was evaluated by Dr. Arriaga and subsequently underwent cardiac catheterization that revealed a patent stent. He is having some discomfort this morning, but it is more respirophasic. His breathing is unchanged. He denies any dizziness or palpitation. Hemodynamically, he is stable. He had significant ST-segment depression yesterday across the precordial leads. He has no arrhythmia. His medications include aspirin once a day, Lipitor 20 mg daily, Plavix 75 mg daily, isosorbide mononitrate 30 mg daily, lisinopril 5 mg daily. PHYSICAL EXAMINATION: Blood pressure 119/50 with the heart rate in the 80s. LUNGS: Clear. HEART: Regular rate and rhythm. S1, S2. No S3 with systolic murmur and diastolic murmur at the base. No rub. ABDOMEN: Soft, nontender. EXTREMITIES: No edema. Right groin intact with no hematoma. EKG revealed sinus mechanism, rate of 76, normal axis and intervals with nonspecific T wave changes, much improved compared to yesterday. LAB DATA: Lab data revealed troponin 0.042 and 0.482. BUN and creatinine 29 and 1.13. Hemoglobin is 13.1. IMPRESSION: 1. Episode of chest discomfort with significant EKG changes with no evidence of progression of disease compared with the cardiac catheterization that was done in May with patent stent to the diagonal. 2. Aortic regurgitation with paravalvular leak according to the prior report, echo pending. 3. [id number] elevation myocardial infarction. 4. Hypertension. 5. Hyperlipidemia. RECOMMENDATION: From the cardiac standpoint, I will obtain echocardiogram with Doppler to evaluate left ventricular systolic function. We will follow his lab data. Increase his activity gradually. The etiology of his pain and EKG changes are unclear to me. I see no clear culprit lesion unless he had a vasospastic disease. Depending on results of testing, further recommendation will be made. MMODL / IJN: [id number] /
[2018-07-09] MEDS ORDERED: ISOSORBIDE MONONITRATE ER 30 MG TAB.ER.24H PO SCH (09:00)
[2018-07-09] MEDS ORDERED: ATORVASTATIN 20 MG TAB PO SCH (09:00)
[2018-07-09] MEDS ORDERED: SODIUM CHLORIDE 0.9% 500 ML 500 ML IV ONE (10:14)
--- NOTE | 2018-07-09 11:22 | ECHOF ---
Referral Reason:ai MEASUREMENTS -------- HEIGHT: 180.3 cm WEIGHT: 108.0 kg BP: 118/48 IVSd: 1.5 cm (0.6 - 1.1) LVIDd: 5.9 cm (3.9 - 5.3) LVPWd: 2.0 cm (0.6 - 1.1) IVSs: 2.4 cm LVIDs: 2.9 cm LVPWs: 2.5 cm MV E Surendra: 1.12 m/s MV DecT: 218 ms MV A Surendra: 0.61 m/s MV E/A Ratio: 1.82 AV maxP.12 mmHg AV meanP.72 mmHg AR PHT: 131 ms RAP: 5.00 mmHg RVSP: 10.80 mmHg FINDINGS -------- Sinus rhythm. This was a technically difficult study with suboptimal views. The left ventricular size is normal. There is moderate concentric left ventricular hypertrophy. O verall left ventricular systolic function is normal with, an EF between 55 - 60 %. The right ventricle is normal in size. The left atrial size is normal. The right atrial size is normal. Lumason used Interatrial and interventricular septum intact. There is mild aortic regurgitation. Peak/mean gradient across the Aortic Valve is 32.12mmHg / 17.72 mmHg. Normally functioning bioprosthetic valve. The mitral valve leaflets are mildly thickened. Mild mitral annular calcification present. Mild m itral regurgitation is present. Mild tricuspid regurgitation present. Right ventricular systolic pressure is normal at < 35 mmHg. There is no pulmonic regurgitation present. The aortic root size is normal. IVC Not well visulized. There is no pericardial effusion. CONCLUSIONS -------- 1. Sinus rhythm. 2. This was a technically difficult study with suboptimal views. 3. The left ventricular size is normal. 4. There is moderate concentric left ventricular hypertrophy. 5. Overall left ventricular systolic function is normal with, an EF between 55 - 60 %. 6. The right ventricle is normal in size. 7. The left atrial size is normal. 8. The right atrial size is normal. 9. Lumason used 10. Interatrial and interventricular septum intact. 11. There is mild aortic regurgitation. 12. Peak/mean gradient across the Aortic Valve is 32.12mmHg / 17.72mmHg. 13. Normally functioning bioprosthetic valve. 14. The mitral valve leaflets are mildly thickened. 15. Mild mitral annular calcification present. 16. Mild mitral regurgitation is present. 17. Mild tricuspid regurgitation present. 18. Right ventricular systolic pressure is normal at < 35 mmHg. 19. There is no pulmonic regurgitation present. 20. The aortic root size is normal. 21. IVC Not well visulized. 22. There is no pericardial effusion. GENERATION TECHNOLOGIST: Tiffany Vivas RDCS
[2018-07-09] MEDS: ACETAMINOPHEN TAB 325 MG TAB PO PRN (16:10)
--- NOTE | 2018-07-09 16:22 | P.CNPUL ---
History of Present Illness Consult date: 07/09/18 Reason for consult: dyspnea, chest pain History of present illness: This is a 72-year-old male patient came into the hospital yesterday because of recurrent chest pain and exertional pain and dyspnea. He had some transient relief with sublingual nitroglycerin. The patient is known to have coronary artery disease. The patient undergone previous bypass surgery. The patient also has undergone aortic valve replacement. The surgery was done and back in 2003. Note that the patient underwent a recent cardiac catheterization by Dr. Serrano and the patient was found to have patent ROTHMAN to LAD and occluded saphenous vein graft to diagonal branch with a lesion in the LAD and the diagonal branch. He underwent stenting of the vessel. The patient is also known to have moderate aortic regurgitation with paravalvular leak. He was started on IV heparin. He was started on Nitropaste. His troponins were minimally elevated and the patient had ST segment depression. The patient was taken for cardiac catheterization and the patient was found to have patent stent in the proximal LAD and first diagonal branch. There was subtotal occlusion in the mid LAD and patent ROTHMAN to LAD. 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 Based on this, no further intervention was done and the patient was brought back to the ICU. This morning, history of any chest pain. He was having some limited shortness of breath. Chest x-ray showed no acute abnormalities and the patient was on oxygen 2 L per minute nasal cannula. He has a harsh cardiac murmur and for that reason a repeat echocardiogram was ordered regarding his mitral regurgitation and paravalvular leak. He has no fever. No chills. No significant cough or sputum production. No nausea or vomiting or diarrhea. His troponin peaked at 2.4. Influenza screen was negative. The proBNP level was 1420 Review of Systems Constitutional: Reports fatigue Eyes: denies blurred vision, denies bulging eye, denies decreased vision Ears: deny: ear discharge, earache, tinnitus Ears, nose, mouth and throat: Denies headache, Denies sore throat Cardiovascular: Reports chest pain, Reports dyspnea on exertion Respiratory: Reports dyspnea Gastrointestinal: Denies abdominal pain, Denies diarrhea, Denies nausea, Denies vomiting Genitourinary: Reports as per HPI Musculoskeletal: Reports as per HPI Musculoskeletal: absent: ankle pain, ankle stiffness, ankle swelling Integumentary: Denies pruritus, Denies rash Neurological: Reports as per HPI Psychiatric: Reports as per HPI Endocrine: Reports as per HPI Hematologic/Lymphatic: Reports as per HPI Allergic/Immunologic: Reports as per HPI Past Medical History Past Medical History: Coronary Artery Disease (CAD), Chest Pain / Angina, Diabetes Mellitus, Eye Disorder, Hyperlipidemia, Hypertension, Osteoarthritis (OA), Prostate Disorder Additional Past Medical History / Comment(s): On the artery disease with previous bypass surgery in 2003, previous aortic valve replacement, previous coronary intervention and stenting as mentioned above in the HPI, diabetes chandan itus, hypertension, hyperlipidemia, thoracic aneurysm, bilateral glaucoma, any stones, peripheral neuropathy, osteoarthritis History of Any Multi-Drug Resistant Organisms: None Reported Past Surgical History: Cardiac Valve Replacement, Cholecystectomy, Coronary Bypass/CABG, Heart Catheterization, Orthopedic Surgery Additional Past Surgical History / Comment(s): aortic valve replaced 2003, CABG double bypass Past Anesthesia/Blood Transfusion Reactions: No Reported Reaction Additional Past Anesthesia/Blood Transfusion Reaction / Comment(s): no problems with anesthesia, unsure if patient has had blood transfusion in the past. Date of Last Stent Placement:: 05/23/18 Past Psychological History: Depression Smoking Status: Former smoker Past Alcohol Use History: Occasional - Past Family History Father Family Medical History: Cancer Brother(s) Family Medical History: Cancer Medications and Allergies Home Medications Medication Instructions Recorded Confirmed Type Aspirin [Adult Low Dose Aspirin EC] 81 mg PO DAILY 05/19/18 07/09/18 History Brimonidine Tartrate/Timolol 2 drop BOTH EYES HS 05/19/18 07/09/18 History [Combigan 0.2%-0.5% Eye Drops] Ibuprofen [Motrin Ib] 400 mg PO Q6H PRN 05/19/18 07/09/18 History Lisinopril [Zestril] 5 mg PO DAILY 05/19/18 07/09/18 History Nitroglycerin Sl Tabs [Nitrostat] 0.4 mg SUBLINGUAL Q5M PRN #1 bottle 05/22/18 07/09/18 Rx Clopidogrel [Plavix] 75 mg PO DAILY #90 tab /08/0607/09/18 Rx Rosuvastatin [Crestor] 20 mg PO DAILY 07/09/18 07/09/18 History Allergies Allergy/AdvReac Type Severity Reaction Status Date / Time aloe Allergy Rash/Hives Verified 07/09/18 07:52 bacitracin Allergy Rash/Hives Verified 07/09/18 07:52 [From Neosporin ([id number])] neomycin Allergy Rash/Hives Verified 07/09/18 07:52 [From Neosporin ([id number])] polymyxin B Allergy Rash/Hives Verified 07/09/18 07:52 [From Neosporin ([id number])] Physical Exam Vitals: Vital Signs Temp Pulse Pulse Resp BP BP Pulse Ox 07/09/18 15:00 79 23 103/41 93 L 07/09/18 14:00 79 25 H 98/43 93 L 07/09/18 13:00 81 24 110/60 93 L 07/09/18 12:50 80 30 H 110/60 93 L 07/09/18 12:40 79 23 110/60 92 L 07/09/18 12:30 80 13 110/60 92 L 07/09/18 12:20 75 25 H 110/60 92 L 07/09/18 12:10 75 21 110/60 92 L 07/09/18 12:00 98.7 F 75 22 103/39 93 L 07/09/18 11:50 73 17 103/39 92 L 07/09/18 11:40 73 20 103/39 91 L 07/09/18 11:30 74 22 103/39 92 L 07/09/18 11:20 73 25 H 103/39 93 L 07/09/18 11:10 74 21 103/39 92 L 07/09/18 11:00 74 23 111/44 93 L 07/09/18 10:50 76 24 111/44 94 L 07/09/18 10:40 76 19 120/49 93 L 07/09/18 10:30 81 24 92/43 94 L 07/09/18 10:20 70 24 88/41 93 L 07/09/18 10:00 73 22 128/50 88 L 07/09/18 09:00 77 17 121/44 93 L 07/09/18 08:00 98.1 F 75 26 H 125/47 90 L 07/09/18 07:00 84 22 119/46 87 L 07/09/18 06:00 77 18 118/48 90 L 07/09/18 05:41 73 13 118/48 91 L 07/09/18 05:00 73 17 110/50 91 L 07/09/18 04:52 75 23 110/50 92 L 07/09/18 04:41 73 16 110/50 95 07/09/18 03:56 74 18 07/09/18 03:41 74 18 119/45 92 L 07/09/18 03:11 80 15 131/50 93 L 07/09/18 02:41 73 16 116/49 91 L 07/09/18 02:26 76 20 118/42 95 07/09/18 02:11 75 20 119/47 93 L 07/09/18 02:10 97.7 F 74 24 121/49 93 L 07/09/18 01:00 119/51 07/09/18 00:51 82 18 119/51 97 07/09/18 00:50 84 20 110/47 94 L 07/09/18 00:46 87 18 110/47 95 07/09/18 00:40 91 20 110/46 94 L 07/09/18 00:38 88 18 110/46 98 07/09/18 00:30 84 14 152/59 98 07/09/18 00:26 81 18 152/59 07/09/18 00:21 81 13 07/09/18 00:20 18 07/09/18 00:09 97.6 F 79 20 157/73 97 Intake and Output 07/09/18 07/09/18 07/09/18 06:59 14:59 22:59 Intake Total 475 600 Output Total 400 0 0 Balance 75 600 0 Intake: IV 75 500 .9 500 ml bolus 500 Intake, IV Titration 400 100 Amount Sodium Chloride 0.9% 1, 400 100 000 ml @ 100 mls/hr IV . Q10H [facility] Rx#:[id number] Output: Urine 400 0 0 Other: Voiding Method Urinal Urinal # Voids 0 Weight 107.955 kg Gen. appearance, comfortable likely distress Head exam was generally normal. There was no scleral icterus or corneal arcus. Mucous membranes were moist. Neck was supple and without jugular venous distension, thyromegaly, or carotid bruits. Carotids were easily palpable bilaterally. There was no adenopathy. Lungs sounds are diminished bilaterally especially lung bases. Otherwise clear. Heart sounds are positive for a systolic ejection murmur grade 3/6 systolic the precordium. There is also diastolic murmur. The second heart sound is accentuated. No significant right ventricular heave or thrill. Abdominal exam revealed normal bowel sounds. The abdomen was soft, non-tender, and without masses, organomegaly, or appreciable enlargement of the abdominal aorta. Examination of the extremities revealed easily palpable radial, femoral and pedal pulses. There was no cyanosis, clubbing or edema. Examination of the skin revealed no evidence of significant rashes, suspicious appearing nevi or other concerning lesions. Neurologically the patient is awake and alert and there is no focal neurological deficits. Results - Laboratory Findings CBC and BMP: 07/09/18 00:23 07/09/18 00:23 PT/INR, D-dimer PT 11.3 sec (9.0-12.0) 07/09/18 01:00 INR 1.1 (<1.2) 07/09/18 01:00 Abnormal lab findings: Abnormal Labs 07/09/18 07/09/18 07/09/18 00:23 00:23 00:23 Hct 38.9 L APTT Chloride 109 H BUN 29 H Glucose 108 H POC Glucose (mg/dL) CK-MB (CK-2) 2.5 H Troponin I 0.042 H* 07/09/18 07/09/18 07/09/18 01:00 02:05 05:53 Hct APTT 67.7 H Chloride BUN Glucose POC Glucose (mg/dL) 149 H CK-MB (CK-2) Troponin I 0.482 H* 07/09/18 12:16 Hct APTT Chloride BUN Glucose POC Glucose (mg/dL) CK-MB (CK-2) Troponin I 2.420 H* - Diagnostic Findings Chest x-ray: image reviewed Assessment and Plan Plan: 1 acute chest pain/shortness of breath with ST segment depression and elevation of troponin, suggestive an acute non-ST segment elevation myocardial infarction. Nevertheless, the cardiac catheterization was done showed no progression of his disease compared to the previous cardiac catheterization from May 2018. The coronary stents were patent and the proximal LAD and the first diagonal branch. There is a subtotally occluded mid LAD with a patent ROTHMAN to LAD. 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 2 coronary artery disease with previous coronary artery bypass surgery, 2003 3 history aortic valve replacement with known history of perivalvular leak and aortic regurgitation 4 diabetes mellitus 5 hypertension 6 hyperlipidemia 7 questionable history of thoracic aortic aneurysm 8 history of glucoma 9 history of kidney stones PLAN No clear explanation for the patient's symptom. Obviously this point is elevated and the patient had some ST segment depression. The coronary anatomy is unchanged compared to May 2018. As such, this raises a concern for other possibilities including pulmonary embolism. The presentation is not consistent with dissection. In any rate, I think it's worthwhile to do a computed tomography scan of the chest using the CT angios protocol. This will be done 24 hours after the cardiac catheterization to prevent any contrast nephropathy. I would suggest doing this test first thing in the morning, 24 hours after administration of the contrast during catheterization. The patient will have an echocardiogram to reevaluate the aortic valve and LV function. The patient be kept in ICU for further monitoring. Cardiology is on the case. He is on aspirin. He is on Plavix. Outpatient medications of been ordered resume. W e'll continue to follow.
[2018-07-09] MEDS: Brimonidine Tartrate/Timolol [Combigan 0.2%-0.5% Eye Drops] BOTH EYES SCH (20:00)
[2018-07-10] MEDS: MORPHINE SULFATE 4 MG/ML SYRINGE IV PRN ×2 (00:19→08:38)
[2018-07-10 06:00] LABS: Basophils # (A) 0.1 k/uL (0-0.2); Basophils % (A) 1 %; Eosinophils # (A) 0.1 k/uL (0-0.7); Eosinophils % (A) 1 %; HCT 38.4 % (39.0-53.0); HGB 12.3 gm/dL (13.0-17.5); Lymphocytes # (A) 1.2 k/uL (1.0-4.8); Lymphocytes % (A) 12 %; MCH 28.3 pg (25.0-35.0); MCHC 32.1 g/dL (31.0-37.0); MCV 88.1 fL (80.0-100.0); Mean Platelet Volume 7.3; Monocytes # (A) 0.7 k/uL (0-1.0); Monocytes % (A) 8 %; Neutrophils # (A) 7.3 k/uL (1.3-7.7); Neutrophils % (A) 76 %; Platelet Count 154 k/uL (150-450); RBC 4.36 m/uL (4.30-5.90); RDW 14.4 % (11.5-15.5); WBC 9.6 k/uL (3.8-10.6)
[2018-07-10 06:10] LABS: Anion Gap 4 mmol/L; Blood Urea Nitrogen 24 mg/dL (9-20); Calcium 8.9 mg/dL (8.4-10.2); Carbon Dioxide 25 mmol/L (22-30); Chloride 106 mmol/L (98-107); Glucose 121 mg/dL (74-99); Potassium 4.6 mmol/L (3.5-5.1); Sodium 135 mmol/L (137-145)
[2018-07-10] MEDS: ATORVASTATIN 40 MG TAB PO SCH (08:36)
[2018-07-10] MEDS: ASPIRIN 81 MG PO SCH (08:36)
[2018-07-10] MEDS: CYANOCOBALAMIN 500 MCG TAB PO SCH (08:36)
[2018-07-10] MEDS: ASCORBIC ACID 500 MG TAB PO SCH (08:36)
[2018-07-10] MEDS: LISINOPRIL 5 MG TAB PO SCH (08:36)
[2018-07-10] MEDS: CLOPIDOGREL 75 MG TAB PO SCH (08:36)
[2018-07-10] MEDS: ISOSORBIDE MONONITRATE ER 60 MG TAB.ER.24H PO SCH (08:36)
[2018-07-10] MEDS: NITROGLYCERIN SL TABS 0.4 MG TAB SUBLINGUAL PRN (09:08)
--- NOTE | 2018-07-10 09:56 | XR ---
EXAMINATION TYPE: XR chest 1V portable DATE OF EXAM: 07/10/2018 COMPARISON: Prior chest x-ray 07/09/2018 HISTORY: Shortness of breath and chest pain TECHNIQUE: Single frontal view of the chest is obtained. FINDINGS: Patient is post median sternotomy. Heart is enlarged. Technique is apical lordotic. Inters titium is increased. There is blunting of the costophrenic angles. No pneumothorax. Aorta is dense. P erihilar vascular indistinctness noted. IMPRESSION: Findings suggest pulmonary venous hypertension and interstitial edema. Correlate. Follow -up recommended. There may be small effusions.
[2018-07-10] MEDS ORDERED: FUROSEMIDE 10 MG/ML 4 ML VIAL IV STA (10:08)
[2018-07-10] MEDS: HEPARIN SODIUM,PORCINE 5,000 UNIT/ML 1 ML VIAL SQ SCH ×3 (10:31→22:40)
[2018-07-10] MEDS: SENNOSIDES 8.6 MG TAB PO PRN (14:53)
[2018-07-10] MEDS: ACETAMINOPHEN TAB 325 MG TAB PO PRN (14:53)
--- NOTE | 2018-07-10 15:39 | P.PN ---
Subjective Progress Note Date: 07/10/18 This 72-year-old gentleman with history of hypertension, diabetes, coronary artery disease with prior bypass surgery, he underwent recent coronary stenting to the proximal LAD and diagonal in May by Dr. Serrano. He presented to the hospital with symptoms of recurrent chest discomfort. He was also scheduled as an outpatient to undergo a JESSI with Dr. Saeed for evaluation of his aortic valve. On presentation here, the patient's EKG showed diffuse ST segment depression in the anterior leads. He underwent a cardiac catheterization yesterday by Dr. Ambriz itch revealed a patent stent to the proximal LAD and first diagonal branch. 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 This morning patient developed symptoms of chest pressure and heaviness with mild associated shortness of breath, and EKG was performed which revealed significant ST depression in the anterior lateral leads. Patient was given a morphine by the nurse, by the time she went into given nitro his pain had a Mcelroy resolved. He did shortly thereafter become quite short of breath, stat chest x-ray was performed which did reveal evidence of interstitial edema. Patient was given a dose of IV Lasix, within an hour he was feeling quite well and has had no further symptoms of chest discomfort today. His blood pressure is 106/40 with a heart rate in the 70s, 96% on 5 L of oxygen. White blood cell count 9.6, hemoglobin 12.3, platelet count 154. Sodium 135, potassium 4.6, BUN 24 and creatinine 0.8. Troponin 2.7 this morning. Objective - Vital Signs Vital signs: Vital Signs Temp 98.4 F 07/10/18 15:03 Pulse 93 07/10/18 15:03 Resp 18 07/10/18 15:03 BP 107/45 07/10/18 15:03 Pulse Ox 96 07/10/18 15:03 Intake & Output 07/09/18 07/10/18 07/10/18 18:59 06:59 18:59 Intake Total 600 200 480 Output Total 0 Balance 600 200 480 Weight 105 kg Intake: IV 500 .9 500 ml bolus 500 Intake, IV Titration 100 Amount Sodium Chloride 0.9% 1, 100 000 ml @ 100 mls/hr IV . Q10H [facility] Rx#:[id number] Oral 200 480 Output: Urine 0 Other: Voiding Method Toilet Toilet Toilet Urinal Urinal Urinal # Voids 0 1 - Exam PHYSICAL EXAMINATION: GENERAL: 72-year-old gentleman in no acute distress at the time of my examination HEENT: Head is atraumatic, normocephalic. Pupils equal, round. Sclera anicteric. Conjunctiva are clear. Mucous membranes of the mouth are moist. Neck is supple. There is no elevated jugular venous pressure. No carotid bruit is heard. HEART EXAMINATION: S1 and S2 diastolic murmur is heard CHEST EXAMINATION: Lungs are clear to auscultation and precussion. No chest wall tenderness is noted on palpation or with deep breathing. ABDOMEN: Soft, nontender. Bowel sounds are heard. No organomegaly noted. EXTREMITIES: 2+ peripheral pulses with no evidence of peripheral edema and no calf tenderness noted. Right groin is soft, no evidence of any hematoma. NEUROLOGIC patient is awake, alert and oriented 3 . . - Labs CBC & Chem 7: 07/10/18 05:42 07/10/18 05:42 Labs: Abnormal Lab Results - Last 24 Hours (Table) 07/10/18 07/10/18 07/10/18 Range/Units 05:42 05:42 05:42 Hgb 12.3 L (13.0-17.5) gm/dL Hct 38.4 L (39.0-53.0) % Sodium 135 L (137-145) mmol/L BUN 24 H (9-20) mg/dL Glucose 121 H (74-99) mg/dL Troponin I 2.780 H* (0.000-0.034) ng/mL Assessment and Plan Plan: Assessment and plan #1 symptoms of chest discomfort with evidence of elevation in troponin, status post cardiac catheterization which revealed a patent stent in the LAD and diagonal branch, medical therapy advised #2 known history of coronary artery disease with prior bypass surgery and recent LAD and diagonal stenting #3 hypertension #4 hyperlipidemia #5 diabetes Plan Patient is currently on 60 mg of Imdur, we will continue to monitor him for another 24 hours. If patient has recurrence of symptoms, we may need to repeat a cardiac catheterization. We will repeat an EKG in the morning Further recommendations to follow. DNP note has been reviewed, I agree with a documented findings and plan of care. Patient was seen and examined.
[2018-07-10] MEDS: FUROSEMIDE 10 MG/ML 4 ML VIAL IV SCH (16:43)
--- NOTE | 2018-07-10 18:18 | P.PN ---
Subjective Progress Note Date: 07/10/18 Principal diagnosis: Dyspnea, chest pain, hypoxemia This is a 72-year-old male patient came into the hospital yesterday because of recurrent chest pain and exertional pain and dyspnea. He had some transient relief with sublingual nitroglycerin. The patient is known to have coronary artery disease. The patient undergone previous bypass surgery. The patient also has undergone aortic valve replacement. The surgery was done and back in 2003. Note that the patient underwent a recent cardiac catheterization by Dr. Serrano and the patient was found to have patent ROTHMAN to LAD and occluded saphenous vein graft to diagonal branch with a lesion in the LAD and the diagonal branch. He underwent stenting of the vessel. The patient is also known to have moderate aortic regurgitation with paravalvular leak. He was started on IV heparin. He was started on Nitropaste. His troponins were minimally elevated and the patient had ST segment depression. The patient was taken for cardiac catheterization and the patient was found to have patent stent in the proximal LAD and first diagonal branch. There was subtotal occlusion in the mid LAD and patent ROTHMAN to LAD. 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 Based on this, no further intervention was done and the patient was brought back to the ICU. This morning, history of any chest pain. He was having some limited shortness of breath. Chest x-ray showed no acute abnormalities and the patient was on oxygen 2 L per minute nasal cannula. He has a harsh cardiac murmur and for that reason a repeat echocardiogram was ordered regarding his mitral regurgitation and paravalvular leak. He has no fever. No chills. No significant cough or sputum production. No nausea or vomiting or diarrhea. His troponin peaked at 2.4. Influenza screen was negative. The proBNP level was 1420 On 07/10/2018 patient seen in follow-up on selective care unit, and patient is still having intermittent episodes of chest pain, and ST depression in anterolateral leads, and patient is been getting IV morphine with relief of his chest pain. Chest x-ray was obtained and revealed evidence of interstitial edema, patient was given a dose of IV Lasix with improvement of his shortness of breath and chest discomfort. Troponin is 2.7 this morning, cardiology is following. Patient was started on the oral Imdur. We will give the patient on the dose of IV Lasix, he is currently on 5 L of oxygen with a pulse ox of 94- 95%, she afebrile, lung sounds are clear, no rales, no rhonchi, no wheezes. His labs have been reviewed, no leukocytosis, electrolytes and renal profile are unremarkable. We will consult with cardiology in regards to obtaining ages chest to rule out possibility of pulmonary embolism Objective - Vital Signs Vital signs: Vital Signs Temp 98.4 F 07/10/18 15:03 Pulse 93 07/10/18 15:03 Resp 18 07/10/18 15:03 BP 107/45 07/10/18 15:03 Pulse Ox 97 07/10/18 16:15 Intake & Output 07/09/18 07/10/18 07/10/18 18:59 06:59 18:59 Intake Total 600 200 480 Output Total 0 Balance 600 200 480 Weight 105 kg Intake: IV 500 .9 500 ml bolus 500 Intake, IV Titration 100 Amount Sodium Chloride 0.9% 1, 100 000 ml @ 100 mls/hr IV . Q10H [facility] Rx#:[id number] Oral 200 480 Output: Urine 0 Other: Voiding Method Toilet Toilet Toilet Urinal Urinal Urinal # Voids 0 1 3 - Exam GENERAL EXAM: Alert, pleasant, 72-year-old white male liters of oxygen and the pulse ox of 94% comfortable in no apparent distress. HEAD: Normocephalic/atraumatic. EYES: Normal reaction of pupils, equal size. Conjunctiva pink, sclera white. NOSE: Clear with pink turbinates. THROAT: No erythema or exudates. NECK: No masses, no JVD, no thyroid enlargement, no adenopathy. CHEST: No chest wall deformity. Symmetrical expansion. LUNGS: Equal air entry with no crackles, wheeze, rhonchi or dullness. CVS: Regular rate and rhythm, normal S1 and S2, no gallops, no murmurs, no rubs ABDOMEN: Soft, nontender. No hepatosplenomegaly, normal bowel sounds, no guarding or rigidity. EXTREMITIES: No clubbing, no edema, no cyanosis, 2+ pulses and upper and lower extremities. MUSCULOSKELETAL: Muscle strength and tone normal. SPINE: No scoliosis or deformity SKIN: No rashes CENTRAL NERVOUS SYSTEM: Alert and oriented -3. No focal deficits, tone is normal in all 4 extremities. PSYCHIATRIC: Alert and oriented -3. Appropriate affect. Intact judgment and insight. - Labs CBC & Chem 7: 07/10/18 05:42 07/10/18 05:42 Labs: Abnormal Lab Results - Last 24 Hours (Table) 07/10/18 07/10/18 07/10/18 Range/Units 05:42 05:42 05:42 Hgb 12.3 L (13.0-17.5) gm/dL Hct 38.4 L (39.0-53.0) % Sodium 135 L (137-145) mmol/L BUN 24 H (9-20) mg/dL Glucose 121 H (74-99) mg/dL Troponin I 2.780 H* (0.000-0.034) ng/mL Assessment and Plan Plan: 1 acute chest pain/shortness of breath with ST segment depression and elevation of troponin, suggestive an acute non-ST segment elevation myocardial infarction. Nevertheless, the cardiac catheterization was done showed no progression of his disease compared to the previous cardiac catheterization from May 2018. The coronary stents were patent and the proximal LAD and the first diagonal branch. There is a subtotally occluded mid LAD with a patent ROTHMAN to LAD. 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 2 coronary artery disease with previous coronary artery bypass surgery, 2003 3 history aortic valve replacement with known history of perivalvular leak and aortic regurgitation 4 diabetes mellitus 5 hypertension 6 hyperlipidemia 7 questionable history of thoracic aortic aneurysm 8 history of glucoma 9 history of kidney stones Plan: Continue current medical treatment, will continue to closely follow with cardiology, patient was given a dose of IV Lasix 's morning, we will give patient on the dose of IV Lasix for evidence of interstitial edema fluid volume overload on the chest x-ray. Will consult with cardiology in regards to the possibility of obtaining CT angios chest to rule out possibility of pulmonary embolism. I performed a history & physical examination of the patient and discussed their management with my nurse practitioner, Natalia Krishna. I reviewed the nurse practitioner's note and agree with the documented findings and plan of care. Lung sounds are positive for clear breath sounds. The findings and the i mpression was discussed with the patient. I attest to the documentation by the nurse practitioner. Time with Patient: Less than 30
[2018-07-10] MEDS: Brimonidine Tartrate/Timolol [Combigan 0.2%-0.5% Eye Drops] BOTH EYES SCH (19:40)
[2018-07-11] MEDS: NITROGLYCERIN SL TABS 0.4 MG TAB SUBLINGUAL PRN (05:12)
[2018-07-11] MEDS: MORPHINE SULFATE 4 MG/ML SYRINGE IV PRN ×2 (05:29→20:48)
[2018-07-11 06:35] LABS: Anion Gap 7 mmol/L; Blood Urea Nitrogen 24 mg/dL (9-20); Calcium 8.6 mg/dL (8.4-10.2); Carbon Dioxide 26 mmol/L (22-30); Chloride 102 mmol/L (98-107); Glucose 104 mg/dL (74-99); Potassium 4.1 mmol/L (3.5-5.1); Sodium 135 mmol/L (137-145)
[2018-07-11] MEDS: FUROSEMIDE 10 MG/ML 4 ML VIAL IV SCH (08:48)
[2018-07-11] MEDS: CYANOCOBALAMIN 500 MCG TAB PO SCH (08:48)
[2018-07-11] MEDS: CLOPIDOGREL 75 MG TAB PO SCH (08:49)
[2018-07-11] MEDS: ASCORBIC ACID 500 MG TAB PO SCH (08:49)
[2018-07-11] MEDS: HEPARIN SODIUM,PORCINE 5,000 UNIT/ML 1 ML VIAL SQ SCH ×3 (08:49→23:07)
[2018-07-11] MEDS: LISINOPRIL 5 MG TAB PO SCH (08:49)
[2018-07-11] MEDS: ASPIRIN 81 MG PO SCH (08:49)
[2018-07-11] MEDS: ATORVASTATIN 40 MG TAB PO SCH (08:49)
[2018-07-11] MEDS: ISOSORBIDE MONONITRATE ER 60 MG TAB.ER.24H PO SCH (08:49)
[2018-07-11] MEDS ORDERED: ASPIRIN 325 MG TAB PO STA (11:19)
[2018-07-11] MEDS ORDERED: SODIUM CHLORIDE 0.9% 1,000 ML in EMPTY BAG 1 BAG IV ONE (11:19)
[2018-07-11] MEDS ORDERED: ATORVASTATIN 40 MG TAB PO STA (11:19)
[2018-07-11] MEDS ORDERED: ALPRAZolam 0.25 MG TAB PO PRN (11:19)
[2018-07-11] MEDS ORDERED: ALPRAZolam 0.5 MG TAB PO PRN (11:19)
[2018-07-11] MEDS ORDERED: NITROGLYCERIN SL TABS 0.4 MG TAB SUBLINGUAL PRN (11:19)
--- NOTE | 2018-07-11 12:10 | P.PN ---
Subjective Progress Note Date: 07/11/18 This 72-year-old gentleman with history of hypertension, diabetes, coronary artery disease with prior bypass surgery, he underwent recent coronary stenting to the proximal LAD and diagonal in May by Dr. Serrano. He presented to the hospital with symptoms of recurrent chest discomfort. He was also scheduled as an outpatient to undergo a JESSI with Dr. Saeed for evaluation of his aortic valve. On presentation here, the patient's EKG showed diffuse ST segment depression in the anterior leads. He underwent a cardiac catheterization yesterday by Dr. Ambriz itch revealed a patent stent to the proximal LAD and first diagonal branch. 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 This morning patient developed symptoms of chest pressure and heaviness with mild associated shortness of breath, and EKG was performed which revealed significant ST depression in the anterior lateral leads. Patient was given a morphine by the nurse, by the time she went into given nitro his pain had a Mcelroy resolved. He did shortly thereafter become quite short of breath, stat chest x-ray was performed which did reveal evidence of interstitial edema. Patient was given a dose of IV Lasix, within an hour he was feeling quite well and has had no further symptoms of chest discomfort today. His blood pressure is 106/40 with a heart rate in the 70s, 96% on 5 L of oxygen. White blood cell count 9.6, hemoglobin 12.3, platelet count 154. Sodium 135, potassium 4.6, BUN 24 and creatinine 0.8. Troponin 2.7 this morning. 07/11/2018 Patient seen and examined this morning, he did have another episode of chest discomfort earlier this morning, patient states that he feels more short of breath overall today. After the symptoms subsided, I did have the nurse ambulating in the hallway, his O2 sats dropped to 88% and he was quite short of breath. Blood pressure 115/40 with a heart rate in the 80s, 94% on 3 L. Sodium 135, potassium 4.1, BUN 24 and creatinine 0.9. Objective - Vital Signs Vital signs: Vital Signs Temp 99.2 F 07/11/18 12:00 Pulse 90 07/11/18 12:00 Resp 18 07/11/18 12:00 BP 115/45 07/11/18 12:00 Pulse Ox 94 L 07/11/18 12:00 Intake & Output 07/10/18 07/11/18 07/11/18 18:59 06:59 18:59 Intake Total 840 240 0 Balance 840 240 0 Weight 103.4 kg Intake: Oral 840 240 0 Other: Voiding Method Toilet Toilet Toilet Urinal Urinal Urinal # Voids 3 1 - Exam PHYSICAL EXAMINATION: GENERAL: 72-year-old gentleman in no acute distress at the time of my examination HEENT: Head is atraumatic, normocephalic. Pupils equal, round. Sclera anict jimmy. Conjunctiva are clear. Mucous membranes of the mouth are moist. Neck is supple. There is no elevated jugular venous pressure. No carotid bruit is heard. HEART EXAMINATION: S1 and S2 diastolic murmur is heard CHEST EXAMINATION: Lungs are clear to auscultation and precussion. No chest wall tenderness is noted on palpation or with deep breathing. ABDOMEN: Soft, nontender. Bowel sounds are heard. No organomegaly noted. EXTREMITIES: 2+ peripheral pulses with no evidence of peripheral edema and no calf tenderness noted. Right groin is soft, no evidence of any hematoma. NEUROLOGIC patient is awake, alert and oriented 3 . . - Labs CBC & Chem 7: 07/10/18 05:42 07/11/18 05:46 Labs: Abnormal Lab Results - Last 24 Hours (Table) 07/10/18 07/11/18 Range/Units 05:42 05:46 Sodium 135 L (137-145) mmol/L BUN 24 H (9-20) mg/dL Glucose 104 H (74-99) mg/dL Troponin I 2.780 H* (0.000-0.034) ng/mL Assessment and Plan Plan: Assessment and plan #1 symptoms of chest discomfort with evidence of elevation in troponin, status post cardiac catheterization which revealed a patent stent in the LAD and diagonal branch, medical therapy advised #2 known history of coronary artery disease with prior bypass surgery and recent LAD and diagonal stenting #3 hypertension #4 hyperlipidemia #5 diabetes Plan Chest the patient's recurrence in symptoms, he has been advised to undergo repeat cardiac catheterization, JESSI will also be performed to evaluate aortic valve. These procedures will be performed by Dr. Serrano today. Further recommendations will be based on these findings and patient's clinical course. DNP note has been reviewed, I agree with a documented findings and plan of care. Patient was seen and examined.
[2018-07-11] MEDS ORDERED: fentaNYL (PF) 50 MCG/ML 2 ML AMP ONE (12:25)
[2018-07-11 12:26] LABS: Glucose,Whole Blood 110 mg/dL (75-99)
[2018-07-11] MEDS ORDERED: IV FLUID CONTINUATION 950 ML IV ONE (12:55)
[2018-07-11] MEDS: BENZOCAINE SPRAY 1 CAN TOPICAL ONE ×2 (13:14→13:25)
[2018-07-11] MEDS ORDERED: MIDAZOLAM (PF) 2 MG/2 ML VIAL IVP ONE (13:27)
[2018-07-11] MEDS ORDERED: fentaNYL (PF) 50 MCG/ML 2 ML AMP IVP ONE (13:27)
--- NOTE | 2018-07-11 14:08 | P.PN ---
Subjective This is a pleasant 72 years old male with past medical history of coronary artery disease, status post CABG and stent placement to LAD in May , diabetes mellitus, hypertension, hyperlipidemia, osteoarthritis, thoracic aortic aneurysm, bilateral glaucoma, kidney stones and neuropathy. He is a patient of Dr. hand. This Patient presents with chest pain, On the left side of a few days' duration radiating to the right arm as per patient. Nonspecific inequality about 8/10 in severity, and down to 4/10. Associated with some cough and white phlegm for 1 week, and some dyspnea. Vitals his stable and patient is afebrile. CBC and BMP were unremarkable. Creatinine 1.1. INR 1.1. Glucose is 149. Elevated troponin at 0.04 and 0.48. EKG showing normal sinus rhythm at 79, SCDs depression in the anterio-lateral leads . Chest x-ray: Chronic changes with no acute process. Patient is already on aspirin and Plavix. He is also on heparin drip started in the emergency room. Normal slightly attended later per hour. Patient today regarding his been evaluated by onion farmer and he underwent cardiac cath 07/10/2018 Patient this morning having severe chest pain about 10/10 in severity, similar to the pain he came in with, associated with vomiting yellow stuff and food he ate this morning. He is fully awake and oriented however his in distress due to chest pain. Pain medication and antiemetic is a provided by the staff. Repeat EKG and labs were ordered. Vitas looks stable. CBC and BMP from this morning were reviewed. The looks stable with no significant changes. Troponin from last night was 2.4. Cardiology team are following the case with cardiac cath showing patent coronary arteries. Pulmonary team input is appreciated. Plan for CT angiogram of the thorax with contrast today, patient currently on aspirin and Plavix and lisinopril. Also he is on Lipitor and nitroglycerin is been added. 07/11/2018 Patient this morning has minimal chest pain of 2/10 in severity, similar to yesterday but much milder. By the time I seen him has been has subsided after he got nitroglycerin and morphine. However he remains with exertional dyspnea and desats at 88%. Hemodynamically remains stable and he is saturating 95% on 3 L. BMP was unremarkable. Cardiology team are planning to do repeat cardiac cath and JESSI. review of systems CONSTITUTIONAL: No fever, no malaise, no fatigue. HEENT: No recent visual problems or hearing problems. Denied any sore throat. CARDIOVASCULAR: No orthopnea, PND, no palpitations, no syncope. PULMONARY: no hemoptysis. GASTROINTESTINAL: No diarrhea, no nausea, no vomiting, no abdominal pain. Normoactive bowel sounds. NEUROLOGICAL: No headaches, no weakness, no numbness. HEMATOLOGICAL: Denies any bleeding or petechiae. GENITOURINARY: Denies any burning micturition, frequency, or urgency. MUSCULOSKELETAL/RHEUMATOLOGICAL: Denies any joint pain, swelling, or any muscle pain. ENDOCRINE: Denies any polyuria or polydipsia. Medication: Tylenol 650 mg, vitamin C 2500 mg, aspirin 81 mg, Lipitor 40 mg, 2 minimal eyedrops, Plavix 75 mg, vitamin B12 2500 g, Imdur 60 mg, lisinopril 5 mg daily, morphine sulfate 4 mg, nitroglycerin 0.4 mg. Objective - Vital Signs Vital signs: Vital Signs Temp 99.2 F 07/11/18 12:00 Pulse 81 07/11/18 13:50 Resp 16 07/11/18 13:50 BP 106/52 07/11/18 13:50 Pulse Ox 95 07/11/18 13:50 Intake & Output 07/10/18 07/11/18 07/11/18 18:59 06:59 18:59 Intake Total 840 240 50 Balance 840 240 50 Weight 103.4 kg Intake: IV 50 Oral 840 240 0 Other: Voiding Method Toilet Toilet Toilet Urinal Urinal Urinal # Voids 3 1 - Exam GENERAL: The patient is alert and oriented x3, not in any acute distress. Well developed, well nourished. HEENT: Pupils are round and equally reacting to light. EOMI. No scleral icterus. No conjunctival pallor. Normocephalic, atraumatic. No pharyngeal erythema. No thyromegaly. CARDIOVASCULAR: S1 and S2 present. No murmurs, rubs, or gallops. PULMONARY: Chest is clear to auscultation, no wheezing or crackles. ABDOMEN: Soft, nontender, nondistended, normoactive bowel sounds. No palpable organomegaly. MUSCULOSKELETAL: No joint swelling or deformity. EXTREMITIES: No cyanosis, clubbing, or pedal edema. NEUROLOGICAL: Gross neurological examination did not reveal any focal deficits. SKIN: No rashes. - Labs CBC & Chem 7: 07/10/18 05:42 07/11/18 05:46 Labs: Abnormal Lab Results - Last 24 Hours (Table) 07/11/18 07/11/18 Range/Units 05:46 12:24 Sodium 135 L (137-145) mmol/L BUN 24 H (9-20) mg/dL Glucose 104 H (74-99) mg/dL POC Glucose (mg/dL) 110 H (75-99) mg/dL Assessment and Plan Assessment: Chest pain with cardiac cath showing patent coronary arteries. Elevated troponins. Cardiology and pulmonary team are following. Plan for CT thorax with contrast Nausea vomiting, secondary to above History of coronary artery disease, status post CABG Prosthetic aortic valve Essential hypertension Diabetes mellitus Hyperlipidemia Osteoarthritis History of bilateral glaucoma History of kidney stone History of neuropathy Plan: This is a pleasant 72 years old male who presents with acute coronary syndrome. Cardiology evaluation is appreciated. Patient is status post cardiac cath with patent coronary arteries. Continue with aspirin and Plavix as per cardiology recommendations. Pulmonary team input is appreciated possible repeat CAT scan of the thorax today . However because of persistence of symptoms cardiology team decided to repeat the cardiac cath and JESSI. Labs and medication were reviewed.. Continue same treatment. Continue with symptomatic treatment. Resume home medication. Monitor lytes and vitals. DVT and GI prophylaxis. Further recommendations of the clinical course of the patient DVT prophylaxis:heparin GI Prophylaxis: Pepcid Prognosis is guarded
--- NOTE | 2018-07-11 14:18 | ECHOT ---
TRANSESOPHAGEAL ECHOCARDIOGRAM DATE OF SERVICE: 07/09/2018 PERFORMING PHYSICIAN: Kenn Su MD. PROCEDURE PERFORMED: Transesophageal echocardiogram. INDICATION: This is a 72-year-old gentleman with history of coronary artery disease and prior coronary artery bypass grafting as well as stenting and known aortic valve replacement with bioprosthetic valve, was experiencing intermittent episodes of chest discomfort and also he was having heart failure. He underwent a transthoracic echocardiogram, which revealed only mild aortic insufficiency. Because there was concern about the heart murmur, we did pursue with a JESSI for further clarification of the aortic insufficiency severity. COMPLICATION: None. LEVEL OF SEDATION: Moderate with sedation length of 15 minutes. PROCEDURE DESCRIPTION: After obtaining an informed consent, explaining the procedure, benefits, risks, complications and alternatives, the patient was brought to the transesophageal echocardiogram suite. A pulse oximetry and heart rate monitors were attached to the patient prior to the procedure. The patient's throat was sprayed using lidocaine locally. Following that, the patient was turned into left lateral position. A bite guard was placed and the patient was then sedated with the above doses of Versed and fentanyl in divided doses. Following that, the transesophageal echocardiogram probe was advanced through the bite guard into the mid esophagus where 2-D echocardiogram images as well as color Doppler images of various cardiac structures were obtained. We evaluated the interatrial septum using 2-D echocardiogram, color Doppler, and contrast study. The procedure was completed. There were no complications. FINDINGS: The left ventricular dimension appeared to be within normal limits. The left ventricular systolic function appeared to be normal with EF between 50%-55%. The right ventricle appeared to be mildly dilated. The left atrium appeared to be also mildly dilated. The interatrial septum appeared to be intact without any evidence of shunt. The aortic valve is bioprosthetic valve with evidence of valvular and perivalvular leak with severe aortic insufficiency by color-flow Doppler, by vena contractile, as well as by reversal flow in the descending aorta. The mitral valve seems to be mildly thickened with mild MR. There was mild tricuspid regurgitation seen. CONCLUSION: 1. Bioprosthetic aortic valve with evidence of valvular and perivalvular aortic insufficiency, appeared to be severe by color-flow Doppler, by vena contractile, as well as by reversal flow in the aorta. The vena contractile was 1.3 cm. 2. Normal left ventricular dimension and systolic function. 3. Thickened mitral valve leaflets with mild MR. 4. Mild tricuspid regurgitation. 5. Mild pulmonic insufficiency. 6. Intact interatrial septum without any evidence of shunt. 7. No evidence of pericardial effusion. MMODL / IJN: [id number] /
--- NOTE | 2018-07-11 14:41 | P.PN ---
Subjective Progress Note Date: 07/11/18 Principal diagnosis: Dyspnea, chest pain, hypoxemia This is a 72-year-old male patient came into the hospital yesterday because of recurrent chest pain and exertional pain and dyspnea. He had some transient relief with sublingual nitroglycerin. The patient is known to have coronary artery disease. The patient undergone previous bypass surgery. The patient also has undergone aortic valve replacement. The surgery was done and back in 2003. Note that the patient underwent a recent cardiac catheterization by Dr. Serrano and the patient was found to have patent ROTHMAN to LAD and occluded saphenous vein graft to diagonal branch with a lesion in the LAD and the diagonal branch. He underwent stenting of the vessel. The patient is also known to have moderate aortic regurgitation with paravalvular leak. He was started on IV heparin. He was started on Nitropaste. His troponins were minimally elevated and the patient had ST segment depression. The patient was taken for cardiac catheterization and the patient was found to have patent stent in the proximal LAD and first diagonal branch. There was subtotal occlusion in the mid LAD and patent ROTHMAN to LAD. 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 Based on this, no further intervention was done and the patient was brought back to the ICU. This morning, history of any chest pain. He was having some limited shortness of breath. Chest x-ray showed no acute abnormalities and the patient was on oxygen 2 L per minute nasal cannula. He has a harsh cardiac murmur and for that reason a repeat echocardiogram was ordered regarding his mitral regurgitation and paravalvular leak. He has no fever. No chills. No significant cough or sputum production. No nausea or vomiting or diarrhea. His troponin peaked at 2.4. Influenza screen was negative. The proBNP level was 1420 On 07/10/2018 patient seen in follow-up on selective care unit, and patient is still having intermittent episodes of chest pain, and ST depression in anterolateral leads, and patient is been getting IV morphine with relief of his chest pain. Chest x-ray was obtained and revealed evidence of interstitial edema, patient was given a dose of IV Lasix with improvement of his shortness of breath and chest discomfort. Troponin is 2.7 this morning, cardiology is following. Patient was started on the oral Imdur. We will give the patient on the dose of IV Lasix, he is currently on 5 L of oxygen with a pulse ox of 94- 95%, she afebrile, lung sounds are clear, no rales, no rhonchi, no wheezes. His labs have been reviewed, no leukocytosis, electrolytes and renal profile are unremarkable. We will consult with cardiology in regards to obtaining ages chest to rule out possibility of pulmonary embolism On 07/11/2018 patient seen in follow-up on selective care unit. The patient had another episode of chest pain last night, no chest pain this morning, he sitting up in the chair, in no acute distress, he is currently down to 3 L of oxygen, with a pulse ox of 95%, he has been diuresed, and he was given an additional dose of IV Lasix this morning per cardiology, his weight is down by 1.6 kg in the last 24 hours, lung sounds are diminished, no rales or rhonchi, no wheezing. The patient is scheduled for transesophageal echocardiogram Dr. Serrano today. Objective - Vital Signs Vital signs: Vital Signs Temp 99.2 F 07/11/18 12:00 Pulse 81 07/11/18 13:50 Resp 16 07/11/18 13:50 BP 106/52 07/11/18 13:50 Pulse Ox 95 07/11/18 13:50 Intake & Output 07/10/18 07/11/18 07/11/18 18:59 06:59 18:59 Intake Total 840 240 50 Balance 840 240 50 Weight 103.4 kg Intake: IV 50 Oral 840 240 0 Other: Voiding Method Toilet Toilet Toilet Urinal Urinal Urinal # Voids 3 1 - Exam GENERAL EXAM: Alert, pleasant, 72-year-old white male liters of oxygen and the pulse ox of 94% comfortable in no apparent distress. HEAD: Normocephalic/atraumatic. EYES: Normal reaction of pupils, equal size. Conjunctiva pink, sclera white. NOSE: Clear with pink turbinates. THROAT: No erythema or exudates. NECK: No masses, no JVD, no thyroid enlargement, no adenopathy. CHEST: No chest wall deformity. Symmetrical expansion. LUNGS: Equal air entry with no crackles, wheeze, rhonchi or dullness. CVS: Regular rate and rhythm, normal S1 and S2, no gallops, no murmurs, no rubs ABDOMEN: Soft, nontender. No hepatosplenomegaly, normal bowel sounds, no guarding or rigidity. EXTREMITIES: No clubbing, no edema, no cyanosis, 2+ pulses and upper and lower extremities. MUSCULOSKELETAL: Muscle strength and tone normal. SPINE: No scoliosis or deformity SKIN: No rashes CENTRAL NERVOUS SYSTEM: Alert and oriented -3. No focal deficits, tone is normal in all 4 extremities. PSYCHIATRIC: Alert and oriented -3. Appropriate affect. Intact judgment and insight. - Labs CBC & Chem 7: 07/10/18 05:42 07/11/18 05:46 Labs: Abnormal Lab Results - Last 24 Hours (Table) 07/11/18 07/11/18 Range/Units 05:46 12:24 Sodium 135 L (137-145) mmol/L BUN 24 H (9-20) mg/dL Glucose 104 H (74-99) mg/dL POC Glucose (mg/dL) 110 H (75-99) mg/dL Assessment and Plan Plan: 1 acute chest pain/shortness of breath with ST segment depression and elevation of troponin, suggestive an acute non-ST segment elevation myocardial infarction. Nevertheless, the cardiac catheterization was done showed no progression of his disease compared to the previous cardiac catheterization from May 2018. The coronary stents were patent and the proximal LAD and the first diagonal branch. There is a subtotally occluded mid LAD with a patent ROTHMAN to LAD. 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 2 coronary artery disease with previous coronary artery bypass surgery, 2004 3 history aortic valve replacement with known history of perivalvular leak and aortic regurgitation 4 diabetes mellitus 5 hypertension 6 hyperlipidemia 7 questionable history of thoracic aortic aneurysm 8 history of glucoma 9 history of kidney stones Plan: We'll continue to follow along with cardiology, patient received an additional dose of IV Lasix, for JESSI today. I performed a history & physical examination of the patient and discussed their management with my nurse practitioner, Natalia Krishna. I reviewed the nurse practitioner's note and agree with the documented findings and plan of care. Lung sounds are positive for clear breath sounds. The findings and the impression was discussed with the patient. I attest to the documentation by the nurse practitioner. Time with Patient: Less than 30
[2018-07-11] MEDS: SENNOSIDES 8.6 MG TAB PO PRN (15:58)
[2018-07-11 16:09] VITALS: RESP 18
[2018-07-11 17:26] LABS: T4, Free (Free Thyroxine) 1.41 ng/dL (0.78-2.19)
--- NOTE | 2018-07-11 17:33 | P.GSCN ---
History of Present Illness Consult date: 07/11/18 Reason for Consult: Severe aortic insufficiency, surgical recommendations Requesting physician: Kenn Su History of present illness: This is a 72-year-old gentleman who follows on an outpatient basis with Dr. [place]. He has a previous medical history of coronary artery disease and aortic stenosis status post CABG 2 with bioprosthetic aortic valve replacement completed in 2003, with subsequent drug-eluting stent to the [place] proximal LAD and diagonal coronary artery on 05/23/2018, hypertension, hyperlipidemia, diabetes mellitus, previous tobacco dependence, daily EtOH, and family history of cancer. He has been following with [facility] months for continued follow-up related to his aortic valve, and was in fact scheduled for transesophageal echocardiogram next month to evaluate known paravalvular aortic valve leak. He presented to [facility] emergency room on 07/09/2018 with complaints of chest pain and shortness of breath. Apparently he has been having substernal chest pain and shortness of breath off and on for months, however the pain and shortness of breath increased to the point of needing emergency care. His 12-lead EKG demonstrated ST depression in leads I, II aVL, and V2-V6. In addition his troponins were elevated, he was ruled in for non-STEMI, and taken urgently to the cardiac director of labor relations where Dr. Ambriz performed heart catheterization which demonstrated a patent stent to the proximal LAD and first diagonal branch, subtotally occluded mid LAD with patent ROTHMAN to the LAD and aneurysmal right coronary artery with moderate disease and n o progression of the disease compared with his heart catheterization films in May, and no interventions were completed. He had a transthoracic echocardiogram demonstrating normal LV function with EF 55-60%, mild aortic regurgitation, peak/mean gradient across aortic valve 32.12 mmHg/17.72 mmHg with a normally functioning bioprosthetic valve, mild mitral and mild tricuspid regurgitation. He was managed medically and started on Imdur and given IV Lasix. Due to a very loud harsh murmur a transesophageal echocardiogram was completed today confirming normal LV function with EF 50-55%, but the bioprosthetic aortic valve did have evidence of perivalvular leak and there was severe aortic insufficiency seen by color flow Doppler, by vena contractile which was 1.3 cm, as well as by reversal flow in the aorta. Due to these findings Dr. Aparicio from cardiothoracic surgery was consulted for surgical recommendations. Review of Systems Review of systems was completed and was negative except as noted. - Cardiovascular Reports chest pain, Reports decreased exercise tolerance, Reports dyspnea on exertion, Reports shortness of breath Past Medical History Past Medical History: Coronary Artery Disease (CAD), Chest Pain / Angina, Diabetes Mellitus, Eye Disorder, Hyperlipidemia, Hypertension, Osteoarthritis (OA), Prostate Disorder Additional Past Medical History / Comment(s): On the artery disease with previous bypass surgery in 2003, previous aortic valve replacement, previous coronary intervention and stenting as mentioned above in the HPI, diabetes mellitus, hypertension, hyperlipidemia, thoracic aneurysm, bilateral glaucoma, any stones, peripheral neuropathy, osteoarthritis History of Any Multi-Drug Resistant Organisms: None Reported Past Surgical History: Cardiac Valve Replacement, Cholecystectomy, Coronary Bypass/CABG, Heart Catheterization, Orthopedic Surgery Additional Past Surgical History / Comment(s): aortic valve replaced 2003, CABG double bypass ; drug-eluting stent to the proximal LAD and diagonal May 2018 Past Anesthesia/Blood Transfusion Reactions: No Reported Reaction Additional Past Anesthesia/Blood Transfusion Reaction / Comm: no problems with anesthesia, unsure if patient has had blood transfusion in the past. Date of Last Stent Placement:: 05/23/18 Past Psychological History: Depression Smoking Status: Former smoker Past Alcohol Use History: Daily Additional Past Alcohol Use History / Comment(s): Drinks 1 beer daily Past Drug Use History: None Reported - Past Family History Father Family Medical History: Cancer Brother(s) Family Medical History: Cancer Medications and Allergies Home Medications Medication Instructions Recorded Confirmed Type Aspirin [Adult Low Dose Aspirin EC] 81 mg PO DAILY 05/19/18 07/09/18 History Brimonidine Tartrate/Timolol 2 drop BOTH EYES HS 05/19/18 07/09/18 History [Combigan 0.2%-0.5% Eye Drops] Ibuprofen [Motrin Ib] 400 mg PO Q6H PRN 05/19/18 07/09/18 History Lisinopril [Zestril] 5 mg PO DAILY 05/19/18 07/09/18 History Nitroglycerin Sl Tabs [Nitrostat] 0.4 mg SUBLINGUAL Q5M PRN #1 bottle 05/22/18 07/09/18 Rx Clopidogrel [Plavix] 75 mg PO DAILY #90 tab 04/06/19 05/22/19 Rx Rosuvastatin [Crestor] 20 mg PO DAILY 07/09/18 07/09/18 History Allergies Allergy/AdvReac Type Severity Reaction Status Date / Time aloe Allergy Rash/Hives Verified 07/09/18 07:52 bacitracin Allergy Rash/Hives Verified 07/09/18 07:52 [From Neosporin ([id number])] neomycin Allergy Rash/Hives Verified 07/09/18 07:52 [From Neosporin ([id number])] polymyxin B Allergy Rash/Hives Verified 07/09/18 07:52 [From Neosporin ([id number])] Surgical - Exam Vital Signs Temp Pulse Resp BP Pulse Ox 97.6 F 79 20 157/73 97 07/09/18 00:09 07/09/18 00:09 07/09/18 00:09 07/09/18 00:09 07/09/18 00:09 - General well developed, well nourished, no distress, no pain, obese - Eyes PERRL, normal ocular movement - ENT no hearing loss - Neck no masses, no bruits, trachea midline - Respiratory Lung sounds diminished bilaterally. Respirations even, nonlabored. Currently on 3 L nasal cannula with oxygen saturation 93%. - Cardiovascular S1, S2 present, loud harsh murmur heard. Regular rate and rhythm, sinus rhythm on telemetry. Palpable peripheral pulses bilaterally. No edema present. No calf pain or tenderness noted. No varicosities noted. - Abdomen Abdomen: soft, non tender, bowel sounds - Genitourinary Deferred - Rectum Deferred - Integumentary Well-healed midsternal chest scar, left lower extremity EVH site. no rash, no growths - Neurologic normal coordination, normal sensation - Musculoskeletal normal posture - Psychiatric oriented to time, oriented to person, oriented to place, speech is normal, memory intact Results - Labs 07/10/18 05:42 07/11/18 05:46 Abnormal Lab Results - Last 24 Hours (Table) 07/11/18 07/11/18 07/11/18 Range/Units 05:46 05:46 12:24 Sodium 135 L (137-145) mmol/L BUN 24 H (9-20) mg/dL Glucose 104 H (74-99) mg/dL POC Glucose (mg/dL) 110 H (75-99) mg/dL Troponin I (0.000-0.034) ng/mL TSH 6.320 H (0.465-4.680) mIU/L 07/11/18 Range/Units 15:00 Sodium (137-145) mmol/L BUN (9-20) mg/dL Glucose (74-99) mg/dL POC Glucose (mg/dL) (75-99) mg/dL Troponin I 3.620 H* (0.000-0.034) ng/mL TSH (0.465-4.680) mIU/L Diabetes panel 07/11/18 Range/Units 05:46 Sodium 135 L (137-145) mmol/L Potassium 4.1 (3.5-5.1) mmol/L Chloride 102 (98-107) mmol/L Carbon Dioxide 26 (22-30) mmol/L BUN 24 H (9-20) mg/dL Creatinine 0.96 (0.66-1.25) mg/dL Glucose 104 H (74-99) mg/dL Calcium 8.6 (8.4-10.2) mg/dL Thyroid panel 07/11/18 Range/Units 05:46 TSH 6.320 H (0.465-4.680) mIU/L Calcium panel 07/11/18 Range/Units 05:46 Calcium 8.6 (8.4-10.2) mg/dL Pituitary panel 07/11/18 07/11/18 Range/Units 05:46 05:46 Sodium 135 L (137-145) mmol/L Potassium 4.1 (3.5-5.1) mmol/L Chloride 102 (98-107) mmol/L Carbon Dioxide 26 (22-30) mmol/L BUN 24 H (9-20) mg/dL Creatinine 0.96 (0.66-1.25) mg/dL Glucose 104 H (74-99) mg/dL Calcium 8.6 (8.4-10.2) mg/dL TSH 6.320 H (0.465-4.680) mIU/L Adrenal panel 07/11/18 Range/Units 05:46 Sodium 135 L (137-145) mmol/L Potassium 4.1 (3.5-5.1) mmol/L Chloride 102 (98-107) mmol/L Carbon Dioxide 26 (22-30) mmol/L BUN 24 H (9-20) mg/dL Creatinine 0.96 (0.66-1.25) mg/dL Glucose 104 H (74-99) mg/dL Calcium 8.6 (8.4-10.2) mg/dL - Imaging Chest x-ray: report reviewed, image reviewed EKG: image reviewed Additional studies: Heart catheterization films, echocardiogram films reviewed Assessment and Plan Assessment: 1. Severe aortic insufficiency 2. History of coronary artery disease, status post 2 vessel CABG in 2003, with subsequent drug-eluting stent placed to the proximal LAD and diagonal on 05/23/2018 3. History of aortic stenosis status post bioprosthetic aortic valve replacement in 2003 4. Hypertension 5. Hyperlipidemia 6. Diabetes mellitus 7. Previous tobacco dependence 8. Daily beer consumption 9. Family history of cancer Plan: The patient was seen and examined at the bedside. Chart/diagnostics were reviewed. The case was discussed in detail with Dr. Aparicio from cardiothoracic surgery. The states they were told the patient would be a possible candidate for transcatheter aortic valve replacement, and they are really not interested in an open procedure. TAVR is not an urgent or emergent procedure, and the patient would need specific computed tomography scan of the chest to be performed in a TAVR facility, as well as dental clearance prior to surgery. This was discussed in detail with the patient and his family. At this time we will obtain preoperative testing. We will calculate a risk score to determine eligibility for TAVR. In the meantime, patient's current acute issues continue to be managed by primary care, cardiology, and pulmonology. Continue aspirin and statin, Imdur. Slowly increase activity as patient tolerates. More recommendations to follow once testing completed and risk score calculated. Thank you Dr. Su for this consult. We look forward to working with you in the care of this patient. Time with Patient: Greater than 30
--- NOTE | 2018-07-11 17:43 | US ---
EXAMINATION TYPE: US carotid duplex BILAT DATE OF EXAM: 07/11/2018 COMPARISON: NONE CLINICAL HISTORY: preop open heart. Pre op cardiac surgery - valve replacement EXAM MEASUREMENTS: RIGHT: Peak Systolic Velocity (PSV) cm/sec ----- Right CCA: 127.4 ----- Right ICA: 137.1 ----- Right ECA: 238.9 ICA/CCA ratio: 1.1 RIGHT: End Diastole cm/sec ----- Right CCA: 14.4 ----- Right ICA: 16.0 ----- Right ECA: 0.0 LEFT: Peak Systolic Velocity (PSV) cm/sec ----- Left CCA: 143.6 ----- Left ICA: 157.4 ----- Left ECA: 192.1 ICA/CCA ratio: 1.1 LEFT: End Diastole cm/sec ----- Left CCA: 2.2 ----- Left ICA: 11.6 ----- Left ECA: 0.0 VERTEBRALS (direction of flow): Right Vertebral: Antegrade Left Vertebral: Antegrade Rhythm: Normal Moderate plaque bilateral bifurcations. Generally increased velocities throughout bilaterally, with h ighest velocities at bilateral ECA's and left ICA IMPRESSION: There is antegrade flow in the vertebral arteries. The images and measurements suggest 50-70% stenosis in both internal and external carotid arteries. Bilateral plaque formation. Criteria for Assigning % of Stenosis / Diameter reduction (Estimation based on the indirect measurements of the internal carotid artery velocities (ICA PSV). 1. Normal (no stenosis)=ICA PSV < 125 cm/s: ratio < 2.0: ICA EDV<40 cm/s. 2. Less than 50% stenosis=ICA PSV < 125 cm/s: ratio < 2.0: ICA EDV<40 cm/s. 3. 50 to 69% stenosis=ICA PSV of 125 to 230 cm/s: ration 2.0 ? 4.0: ICA EDV 40-100 cm/s. 4. Greater than 70% stenosis to near occlusion= ICA PSV > 230 cm/s: ratio > 4.0: ICA EDV > 100 cm/s. 5. Near occlusion= ICA PSV velocities may be low or undetectable: variable ratio and ICA EDV. 6. Total occlusion=unable to detect flow.
[2018-07-11] MEDS: Brimonidine Tartrate/Timolol [Combigan 0.2%-0.5% Eye Drops] BOTH EYES SCH (20:53)
[2018-07-11 21:17] LABS: Hemoglobin A1C 6.1 % (4.0-6.0)
[2018-07-12 06:27] LABS: Basophils # (A) 0.1 k/uL (0-0.2); Basophils % (A) 1 %; Eosinophils # (A) 0.2 k/uL (0-0.7); Eosinophils % (A) 2 %; HCT 36.7 % (39.0-53.0); HGB 11.7 gm/dL (13.0-17.5); Lymphocytes # (A) 1.1 k/uL (1.0-4.8); Lymphocytes % (A) 12 %; MCH 27.9 pg (25.0-35.0); MCHC 31.9 g/dL (31.0-37.0); MCV 87.4 fL (80.0-100.0); Mean Platelet Volume 7.5; Monocytes # (A) 0.8 k/uL (0-1.0); Monocytes % (A) 9 %; Neutrophils # (A) 6.5 k/uL (1.3-7.7); Neutrophils % (A) 73 %; Platelet Count 148 k/uL (150-450); RDW 14.4 % (11.5-15.5); WBC 8.9 k/uL (3.8-10.6)
[2018-07-12] MEDS: HEPARIN SODIUM,PORCINE 5,000 UNIT/ML 1 ML VIAL SQ SCH (09:18)
[2018-07-12] MEDS: CLOPIDOGREL 75 MG TAB PO SCH (09:19)
[2018-07-12] MEDS: ISOSORBIDE MONONITRATE ER 60 MG TAB.ER.24H PO SCH (09:19)
[2018-07-12] MEDS: FUROSEMIDE 10 MG/ML 4 ML VIAL IV SCH (09:19)
[2018-07-12] MEDS: CYANOCOBALAMIN 500 MCG TAB PO SCH (09:19)
[2018-07-12] MEDS: ATORVASTATIN 40 MG TAB PO SCH (09:19)
[2018-07-12] MEDS: ASPIRIN 81 MG PO SCH (09:19)
[2018-07-12] MEDS: ASCORBIC ACID 500 MG TAB PO SCH (09:19)
[2018-07-12] MEDS: LISINOPRIL 5 MG TAB PO SCH (09:19)
--- NOTE | 2018-07-12 10:12 | P.PN ---
Subjective Progress Note Date: 07/12/18 This 72-year-old gentleman with history of hypertension, diabetes, coronary artery disease with prior bypass surgery, he underwent recent coronary stenting to the proximal LAD and diagonal in May by Dr. Serrano. He presented to the hospital with symptoms of recurrent chest discomfort. He was also scheduled as an outpatient to undergo a JESSI with Dr. Saeed for evaluation of his aortic valve. On presentation here, the patient's EKG showed diffuse ST segment depression in the anterior leads. He underwent a cardiac catheterization yesterday by Dr. Ambriz itch revealed a patent stent to the proximal LAD and first diagonal branch. 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 This morning patient developed symptoms of chest pressure and heaviness with mild associated shortness of breath, and EKG was performed which revealed significant ST depression in the anterior lateral leads. Patient was given a morphine by the nurse, by the time she went into given nitro his pain had a Mcel[place] resolved. He did shortly thereafter become quite short of breath, stat chest x-ray was performed which did reveal evidence of interstitial edema. Patient was given a dose of IV Lasix, within an hour he was feeling quite well and has had no further symptoms of chest discomfort today. His blood pressure is 106/40 with a heart rate in the 70s, 96% on 5 L of oxygen. White blood cell count 9.6, hemoglobin 12.3, platelet count 154. Sodium 135, potassium 4.6, BUN 24 and creatinine 0.8. Troponin 2.7 this morning. 07/11/2018 Patient seen and examined this morning, he did have another episode of chest discomfort earlier this morning, patient states that he feels more short of breath overall today. After the symptoms subsided, I did have the nurse ambulating in the hallway, his O2 sats dropped to 88% and he was quite short of breath. Blood pressure 115/40 with a heart rate in the 80s, 94% on 3 L. Sodium 135, potassium 4.1, BUN 24 and creatinine 0.9. 07/12/2018 Patient was seen and examined this morning, he did have a couple more episodes of difficulty in breathing with some chest pressure. The patient underwent a JESSI yesterday, the bioprosthetic aortic valve showed evidence of valvular and perivalvular aortic insufficiency which appear to be severe by color flow Doppler, by vena contractile as well as by reversal flow in the aorta. The vena contractile was 1.3 cm. Normal left ventricular dimension and systolic function. Thickened mitral valve leaflets with mild MR. Mild tricuspid regurg, mild pulmonic insufficiency, intact intra-atrial septum without any evidence of shunt and no evidence of pericardial effusion. Cardiothoracic surgery has been consulted regarding aortic valve replacement. Blood pressure this morning 104/60, heart rate in the 80s. White blood cell count 8.9, hemoglobin 11.7, platelet count 148. We did have a discussion with the patient this morning regarding his aortic valve replacement and the fact that he may need an open aortic valve replacement, he is willing to proceed with either TAVR or open procedure, which ever is recommended . Objective - Vital Signs Vital signs: Vital Signs Temp 98.2 F 07/12/18 03:40 Pulse 104 H 07/12/18 03:40 Resp 18 07/12/18 03:40 BP 152/60 07/12/18 03:40 Pulse Ox 95 07/12/18 03:40 Intake & Output 07/11/18 07/12/18 07/12/18 18:59 06:59 18:59 Intake Total 150 Output Total 200 Balance 150 -200 Weight 102.3 kg Intake: IV 150 .9 500 ml bolus 100 Oral 0 Output: Urine 200 Other: Voiding Method Toilet Toilet Urinal Urinal # Voids 1 - Exam PHYSICAL EXAMINATION: GENERAL: 72-year-old gentleman in no acute distress at the time of my examination HEENT: Head is atraumatic, normocephalic. Pupils equal, round. Sclera anicteric. Conjunctiva are clear. Mucous membranes of the mouth are moist. Neck is supple. There is no elevated jugular venous pressure. No carotid bruit is heard. HEART EXAMINATION: S1 and S2 holodiastolic murmur is heard across the left sternal border CHEST EXAMINATION: Lungs are clear to auscultation and precussion. No chest wall tenderness is noted on palpation or with deep breathing. ABDOMEN: Soft, nontender. Bowel sounds are heard. No organomegaly noted. EXTREMITIES: 2+ peripheral pulses with no evidence of peripheral edema and no calf tenderness noted. Right groin is soft, no evidence of any hematoma. NEUROLOGIC patient is awake, alert and oriented 3 . . - Labs CBC & Chem 7: 07/12/18 05:40 07/11/18 05:46 Labs: Abnormal Lab Results - Last 24 Hours (Table) 07/11/18 07/11/18 07/11/18 Range/Units 05:42 05:46 12:24 RBC (4.30-5.90) m/uL Hgb (13.0-17.5) gm/dL Hct (39.0-53.0) % Plt Count (150-450) k/uL POC Glucose (mg/dL) 110 H (75-99) mg/dL Hemoglobin A1c 6.1 H (4.0-6.0) % Troponin I (0.000-0.034) ng/mL TSH 6.320 H (0.465-4.680) mIU/L 07/11/18 07/12/18 Range/Units 15:00 05:40 RBC 4.20 L (4.30-5.90) m/uL Hgb 11.7 L (13.0-17.5) gm/dL Hct 36.7 L (39.0-53.0) % Plt Count 148 L (150-450) k/uL POC Glucose (mg/dL) (75-99) mg/dL Hemoglobin A1c (4.0-6.0) % Troponin I 3.620 H* (0.000-0.034) ng/mL TSH (0.465-4.680) mIU/L Assessment and Plan Plan: Assessment and plan #1 symptoms of chest discomfort with evidence of elevation in troponin, status post cardiac catheterization which revealed a patent stent in the LAD and diagonal branch, medical therapy advised #2 known history of coronary artery disease with prior bypass surgery and recent LAD and diagonal stenting #3 hypertension #4 hyperlipidemia #5 diabetes #6 severe symptomatic aortic insufficiency Plan JESSI which was performed revealed valvular and paravalvular aortic insufficiency, severe. Cardiothoracic surgery has been consulted to see the patient regarding aortic valve replacement, either by open procedure or TAVR. Patient and family are willing to proceed with either procedure, which ever is recommended. At this point in time we will recommend to continue the patient on his current medications. Await evaluation of the patient by cardiothoracic surgery. DNP note has been reviewed, I agree with a documented findings and plan of care. Patient was seen and examined.
--- NOTE | 2018-07-12 11:02 | P.PN ---
Subjective Progress Note Date: 07/12/18 Principal diagnosis: Severe aortic insufficiency. Previous medical history of coronary artery disease and aortic stenosis status post CABG with bioprosthetic aortic valve replacement in 2003, with subsequent drug-eluting stent to the [place] proximal LAD and diagonal coronary artery on 05/23/2018, hypertension, hyperlipidemia, bilateral carotid artery stenosis 50-79%, diabetes mellitus with hemoglobin A1c 6.1%, previous tobacco dependence, mild COPD with FEV1 63% of predicted, social EtOH use, and family history of cancer. Patient is currently sitting up in a recliner in no acute distress. He does state he had several episodes of chest pain last night, some of which he reported to the nursing staff. States nitro does not relieve his chest pain. Currently denies pain. Discussed in detail with both patient and his surgical versus transcatheter aortic valve replacement, all questions answered to the best of my ability. Objective - Vital Signs Vital signs: Vital Signs Temp 98.2 F 07/12/18 03:40 Pulse 104 H 07/12/18 03:40 Resp 18 07/12/18 03:40 BP 152/60 07/12/18 03:40 Pulse Ox 95 07/12/18 03:40 Intake & Output 07/11/18 07/12/18 07/12/18 18:59 06:59 18:59 Intake Total 150 Output Total 200 Balance 150 -200 Weight 102.3 kg Intake: IV 150 .9 500 ml bolus 100 Oral 0 Output: Urine 200 Other: Voiding Method Toilet Toilet Urinal Urinal # Voids 1 - Constitutional General appearance: Present: cooperative, no acute distress, obese - Respiratory Details: Lungs sounds diminished bilaterally. Respirations even, nonlabored. Currently on 3 L nasal cannula with oxygen saturation 95%. Able to achieve 2000 mL on his incentive spirometry. - Cardiovascular Details: S1, S2 present with loud harsh murmur. Regular rate and rhythm, sinus rhythm on telemetry. Palpable peripheral pulses bilaterally. No edema present. No calf pain or tenderness noted. - Gastrointestinal Gastrointestinal Comment(s): Abdomen soft, nontender, nondistended. Active bowel sounds present 4 quadrants. Tolerating diet. - Genitourinary Genitourinary Comment(s): Voiding per urinal - Integumentary Integumentary Comment(s): Skin is warm and dry with evidence of good perfusion. Anterior chest scar as well as left lower extremity EVH site well healed - Neurologic Neurologic: Present: CNII-XII intact - Musculoskeletal Musculoskeletal: Present: gait normal, strength equal bilaterally - Psychiatric Psychiatric: Present: A&O x's 3, appropriate affect, intact judgment & insight - Allied health notes Allied health notes reviewed: nursing - Labs CBC & Chem 7: 07/12/18 05:40 07/11/18 05:46 Labs: Abnormal Lab Results - Last 24 Hours (Table) 07/11/18 07/11/18 07/11/18 Range/Units 05:42 05:46 12:24 RBC (4.30-5.90) m/uL Hgb (13.0-17.5) gm/dL Hct (39.0-53.0) % Plt Count (150-450) k/uL POC Glucose (mg/dL) 110 H (75-99) mg/dL Hemoglobin A1c 6.1 H (4.0-6.0) % Troponin I (0.000-0.034) ng/mL TSH 6.320 H (0.465-4.680) mIU/L 07/11/18 07/12/18 Range/Units 15:00 05:40 RBC 4.20 L (4.30-5.90) m/uL Hgb 11.7 L (13.0-17.5) gm/dL Hct 36.7 L (39.0-53.0) % Plt Count 148 L (150-450) k/uL POC Glucose (mg/dL) (75-99) mg/dL Hemoglobin A1c (4.0-6.0) % Troponin I 3.620 H* (0.000-0.034) ng/mL TSH (0.465-4.680) mIU/L - Imaging and Cardiology Carotid Dopplers, pulmonary function test results reviewed Assessment and Plan Assessment: 1. Severe aortic insufficiency 2. History of coronary artery disease, status post 2 vessel CABG in 2003, with subsequent drug-eluting stent placed to the proximal LAD and diagonal on 05/23/2018 3. History of aortic stenosis status post bioprosthetic aortic valve replacement in 2003 4. Hypertension 5. Hyperlipidemia 6. Bilateral internal carotid artery stenosis 50-79% 7. Diabetes mellitus with hemoglobin A1c 6.1% 8. Previous tobacco dependence 9. Mild COPD with FEV1 63% of predicted 10. Daily beer consumption 11. Family history of cancer Plan: The patient was seen and examined at the bedside. Chart/diagnostics were reviewed. The case was discussed in detail with Dr. Bueno and Dr. Chau, including results of heart catheterization, transthoracic and transesophageal echocardiograms. STS risk score was calculated and discussed with the patient and his . Due to the patient's continuing symptoms and the fact that he had aortic valve replacement previously, he is a candidate for transcatheter aortic valve replacement, however TAVRs are not completed at this site. TAVR is not an urgent or emergent procedure, however due to the patient's continuing symptoms the patient is to be transferred to [facility] in order to expedite the process for TAVR. The patient has been on Plavix which would make open aortic valve replacement a prohibitive risk for 5-7 days. There are no openings for TAVR at [facility] this week, and we feel the patient should have surgery as soon as possible to decrease his symptomatology. This was discussed in detail with the patient and his family and they are in agreement. This was discussed with Dr. Su as well. Time with Patient: Greater than 30
[2018-07-12 11:23] VITALS: TEMP 96.9
[2018-07-12 12:25] VITALS: BP 90/30; PULSE 84
--- NOTE | 2018-07-12 14:19 | P.PN ---
Subjective Progress Note Date: 07/12/18 On today's evaluation of 07/12/2018 the patient is calm and comfortable. No cervical shortness of breath. The patient has no chest pain. The results of the JESSI was noted from yesterday and the case was further discussed with cardiothoracic surgery and cardiology. The patient is being transferred to [facility] for possible TAVR. He is agreeable to that. No other issues for now. He is on room air. He responded nicely to diuretics at was given to him yesterday. Objective - Vital Signs Vital signs: Vital Signs Temp 96.9 F L 07/12/18 08:00 Pulse 84 07/12/18 12:00 Resp 18 07/12/18 03:40 BP 90/30 07/12/18 12:00 Pulse Ox 95 07/12/18 12:00 Intake & Output 07/11/18 07/12/18 07/12/18 18:59 06:59 18:59 Intake Total 150 600 Output Total 200 Balance 150 400 Weight 102.3 kg Intake: IV 150 .9 500 ml bolus 100 Oral 0 600 Output: Urine 200 Other: Voiding Method Toilet Toilet Urinal Urinal # Voids 1 - Exam GENERAL EXAM: Alert, pleasant, 72-year-old white male liters of oxygen and the pulse ox of 94% comfortable in no apparent distress. HEAD: Normocephalic/atraumatic. EYES: Normal reaction of pupils, equal size. Conjunctiva pink, sclera white. NOSE: Clear with pink turbinates. THROAT: No erythema or exudates. NECK: No masses, no JVD, no thyroid enlargement, no adenopathy. CHEST: No chest wall deformity. Symmetrical expansion. LUNGS: Equal air entry with no crackles, wheeze, rhonchi or dullness. CVS: Regular rate and rhythm, normal S1 and S2, no gallops, no murmurs, no rubs ABDOMEN: Soft, nontender. No hepatosplenomegaly, normal bowel sounds, no guarding or rigidity. EXTREMITIES: No clubbing, no edema, no cyanosis, 2+ pulses and upper and lower extremities. MUSCULOSKELETAL: Muscle strength and tone normal. SPINE: No scoliosis or deformity SKIN: No rashes CENTRAL NERVOUS SYSTEM: Alert and oriented -3. No focal deficits, tone is normal in all 4 extremities. PSYCHIATRIC: Alert and oriented -3. Appropriate affect. Intact judgment and insight. - Labs CBC & Chem 7: 07/12/18 05:40 07/11/18 05:46 Labs: Abnormal Lab Results - Last 24 Hours (Table) 07/11/18 07/11/18 07/11/18 Range/Units 05:42 05:46 15:00 RBC (4.30-5.90) m/uL Hgb (13.0-17.5) gm/dL Hct (39.0-53.0) % Plt Count (150-450) k/uL Hemoglobin A1c 6.1 H (4.0-6.0) % Troponin I 3.620 H* (0.000-0.034) ng/mL TSH 6.320 H (0.465-4.680) mIU/L 07/12/18 Range/Units 05:40 RBC 4.20 L (4.30-5.90) m/uL Hgb 11.7 L (13.0-17.5) gm/dL Hct 36.7 L (39.0-53.0) % Plt Count 148 L (150-450) k/uL Hemoglobin A1c (4.0-6.0) % Troponin I (0.000-0.034) ng/mL TSH (0.465-4.680) mIU/L Assessment and Plan Plan: 1 coronary artery disease currently free of any chest pain. The previous cardiac catheterization from May 2018. The coronary stents were patent and the proximal LAD and the first diagonal branch. There is a subtotally occluded mid LAD with a patent ROTHMAN to LAD. 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 Nevertheless, further investigation showed that the patient has severe aortic regurgitation and the patient is going to be transferred to [facility] for possible TaVR. 2 coronary artery disease with previous coronary artery bypass surgery, 2004 3 history aortic valve replacement with known history of perivalvular leak and aortic regurgitation, please refer to the results of the JESSI 4 diabetes mellitus 5 hypertension 6 hyperlipidemia 7 questionable history of thoracic aortic aneurysm 8 history of glucoma 9 history of kidney stones PLAN Likely stable. The patient is having any significant shortness of breath or chest pain for now. He'll be transferred to [facility] for possible TaVR.
--- NOTE | 2018-07-12 22:07 | P.PN ---
Subjective This is a pleasant 72 years old male with past medical history of coronary artery disease, status post CABG and stent placement to LAD in May , diabetes mellitus, hypertension, hyperlipidemia, osteoarthritis, thoracic aortic aneurysm, bilateral glaucoma, kidney stones and neuropathy. He is a patient of Dr. hand. This Patient presents with chest pain, On the left side of a few days' duration radiating to the right arm as per patient. Nonspecific inequality about 8/10 in severity, and down to 4/10. Associated with some cough and white phlegm for 1 week, and some dyspnea. Vitals his stable and patient is afebrile. CBC and BMP were unremarkable. Creatinine 1.1. INR 1.1. Glucose is 149. Elevated troponin at 0.04 and 0.48. EKG showing normal sinus rhythm at 79, SCDs depression in the anterio-lateral leads . Chest x-ray: Chronic changes with no acute process. Patient is already on aspirin and Plavix. He is also on heparin drip started in the emergency room. Normal slightly attended later per hour. Patient today regarding his been evaluated by cost estimating engineer and he underwent cardiac cath 07/10/2018 Patient this morning having severe chest pain about 10/10 in severity, similar to the pain he came in with, associated with vomiting yellow stuff and food he ate this morning. He is fully awake and oriented however his in distress due to chest pain. Pain medication and antiemetic is a provided by the staff. Repeat EKG and labs were ordered. Vitas looks stable. CBC and BMP from this morning were reviewed. The looks stable with no significant changes. Troponin from last night was 2.4. Cardiology team are following the case with cardiac cath showing patent coronary arteries. Pulmonary team input is appreciated. Plan for CT angiogram of the thorax with contrast today, patient currently on aspirin and Plavix and lisinopril. Also he is on Lipitor and nitroglycerin is been added. 07/11/2018 Patient this morning has minimal chest pain of 2/10 in severity, similar to yesterday but much milder. By the time I seen him has been has subsided after he got nitroglycerin and morphine. However he remains with exertional dyspnea and desats at 88%. Hemodynamically remains stable and he is saturating 95% on 3 L. BMP was unremarkable. Cardiology team are planning to do repeat cardiac cath and JESSI. 06/12/2018 Patient's sitting in chair comfortable not in distress. He has recurrent chest pain and dyspnea. However by the time I saw the patient and he was chest pain free and he has minimal tachypnea. On exam he still has bilateral basal crepitation but there were mild. Her Short patient has severe aortic regurgitation, thoracal surgeon team evaluated the patient and they transferred the patient to tertiary care facility to be evaluated by cardiothoracic surgeon for his valve disease. review of systems CONSTITUTIONAL: No fever, no malaise, no fatigue. HEENT: No recent visual problems or hearing problems. Denied any sore throat. CARDIOVASCULAR: No orthopnea, PND, no palpitations, no syncope. PULMONARY: no hemoptysis. GASTROINTESTINAL: No diarrhea, no nausea, no vomiting, no abdominal pain. Normoactive bowel sounds. NEUROLOGICAL: No headaches, no weakness, no numbness. HEMATOLOGICAL: Denies any bleeding or petechiae. GENITOURINARY: Denies any burning micturition, frequency, or urgency. MUSCULOSKELETAL/RHEUMATOLOGICAL: Denies any joint pain, swelling, or any muscle pain. ENDOCRINE: Denies any polyuria or polydipsia. Medication: Tylenol 650 mg, vitamin C 2500 mg, aspirin 81 mg, Lipitor 40 mg, 2 minimal eyedrops, Plavix 75 mg, vitamin B12 2500 g, Imdur 60 mg, lisinopril 5 mg daily, morphine sulfate 4 mg, nitroglycerin 0.4 mg. Objective - Vital Signs Vital signs: Vital Signs Temp 96.9 F L 07/12/18 08:00 Pulse 84 07/12/18 12:00 Resp 18 07/12/18 03:40 BP 90/30 07/12/18 12:00 Pulse Ox 95 07/12/18 12:00 Intake & Output 07/11/18 07/12/18 07/12/18 18:59 06:59 18:59 Intake Total 150 Output Total 200 Balance 150 -200 Weight 102.3 kg Intake: IV 150 .9 500 ml bolus 100 Oral 0 Output: Urine 200 Other: Voiding Method Toilet Toilet Urinal Urinal # Voids 1 - Exam GENERAL: The patient is alert and oriented x3, not in any acute distress. Well developed, well nourished. HEENT: Pupils are round and equally reacting to light. EOMI. No scleral icterus. No conjunctival pallor. Normocephalic, atraumatic. No pharyngeal erythema. No thyromegaly. CARDIOVASCULAR: S1 and S2 present. No murmurs, rubs, or gallops. PULMONARY: Chest is clear to auscultation, no wheezing or crackles. ABDOMEN: Soft, nontender, nondistended, normoactive bowel sounds. No palpable organomegaly. MUSCULOSKELETAL: No joint swelling or deformity. EXTREMITIES: No cyanosis, clubbing, or pedal edema. NEUROLOGICAL: Gross neurological examination did not reveal any focal deficits. SKIN: No rashes. - Labs CBC & Chem 7: 07/12/18 05:40 07/11/18 05:46 Labs: Abnormal Lab Results - Last 24 Hours (Table) 07/11/18 07/11/18 07/11/18 Range/Units 05:42 05:46 15:00 RBC (4.30-5.90) m/uL Hgb (13.0-17.5) gm/dL Hct (39.0-53.0) % Plt Count (150-450) k/uL Hemoglobin A1c 6.1 H (4.0-6.0) % Troponin I 3.620 H* (0.000-0.034) ng/mL TSH 6.320 H (0.465-4.680) mIU/L 07/12/18 Range/Units 05:40 RBC 4.20 L (4.30-5.90) m/uL Hgb 11.7 L (13.0-17.5) gm/dL Hct 36.7 L (39.0-53.0) % Plt Count 148 L (150-450) k/uL Hemoglobin A1c (4.0-6.0) % Troponin I (0.000-0.034) ng/mL TSH (0.465-4.680) mIU/L Assessment and Plan Assessment: Chest pain with cardiac cath showing patent coronary arteries. Elevated troponins. Severe aortic regurgitation Nausea vomiting, secondary to above get improved History of coronary artery disease, status post CABG Prosthetic aortic valve Essential hypertension Diabetes mellitus Hyperlipidemia Osteoarthritis History of bilateral glaucoma History of kidney stone History of neuropathy Plan: This is a pleasant 72 years old male who presents with signs and symptoms similar to heart attack, secondary to severe aortic regurgitation, associated with chest dyspnea. Symptoms is more stable now. Cardiology and cardiothoracic surgery team evaluated the patient and recommended patient to be transferred to a tertiary center to be evaluated for his valve disease. Patient and at bedside agree with the transfer. Labs and medication were reviewed.. Continue same treatment. Continue with symptomatic treatment. Resume home medication. Monitor lytes and vitals. DVT and GI prophylaxis. Further recommendations of the clinical course of the patient DVT prophylaxis:heparin GI Prophylaxis: Pepcid Prognosis is guarded
== END 2018-07-12 13:31 | disposition short-term general hospital (02) | DRG 287 ==
LOC: EC 00:06 → 2SICU 00:45 → EC 00:59 → 3SCARD 19:37
PROVIDERS: ADMIT Internal Medicine; ATTEND Internal Medicine
PROC: B2131ZZ Fluoroscopy of Multiple Coronary Artery Bypass Grafts using Low Osmolar Contrast (ICD-10-PCS; principal; 2018-07-09 00:55)
DX: I08.3 Combined rheumatic disorders of mitral, aortic and tricuspid valves (principal); E11.42 Type 2 diabetes mellitus with diabetic polyneuropathy; E78.5 Hyperlipidemia, unspecified; F32.9 Major depressive disorder, single episode, unspecified; H40.9 Unspecified glaucoma; M19.90 Unspecified osteoarthritis, unspecified site; I10 Essential (primary) hypertension; I65.23 Occlusion and stenosis of bilateral carotid arteries; J44.9 Chronic obstructive pulmonary disease, unspecified; Z80.9 Family history of malignant neoplasm, unspecified; Z79.899 Other long term (current) drug therapy; Z79.82 Long term (current) use of aspirin; Z79.02 Long term (current) use of antithrombotics/antiplatelets; Z87.442 Personal history of urinary calculi; Z90.89 Acquired absence of other organs; Z90.49 Acquired absence of other specified parts of digestive tract; Z95.1 Presence of aortocoronary bypass graft; Z95.3 Presence of xenogenic heart valve; Z95.5 Presence of coronary angioplasty implant and graft; Z87.891 Personal history of nicotine dependence; Z88.1 Allergy status to other antibiotic agents; Z88.9 Allergy status to unspecified drugs, medicaments and biological substances
CPT/HCPCS: 36415; 71045; 80048; 80053; 82550; 82553; 83036; 83735; 83880; 84439; 84443; 84484; 85025; 85347; 85610; 85730; 87040; 87502; 93005; 93306; 93312; 93320; 93325; 93455; 93880; 94150; 94760; 96365; 96375; 96376; 99291

== ENCOUNTER → 2018-07-21 | Outpatient (CLI) | payer MEDICARE, BC ==
[2018-07-21 18:19] LABS: Anion Gap 7.3 mmol/L (4.00-12.00); Carbon Dioxide 25.7 mmol/L (21.6-31.8); Potassium 4.5 mmol/L (3.5-5.5)
== END ==
LOC: LABWHC1 11:52
PROVIDERS: ATTEND Internal Medicine Cardiovascular Disease
DX: Z09 Encounter for follow-up examination after completed treatment for conditions other than malignant neoplasm (principal); Z95.820 Peripheral vascular angioplasty status with implants and grafts
CPT/HCPCS: 36415; 80051; 82565; 84520

== ENCOUNTER 2018-07-31 11:04 | Observation (INO) | payer MEDICARE, BC ==
[2018-07-31] MEDS ORDERED: NITROGLYCERIN OINT 1 INCH/GM PACKET TOPICAL STA (12:26)
[2018-07-31] MEDS ORDERED: ASPIRIN 81 MG PO STA (12:26)
--- NOTE | 2018-07-31 12:29 | ED ---
General Adult HPI - General Chief complaint: Shortness of Breath Stated complaint: fluid on lungs, chest pain Time Seen by Provider: 07/31/18 11:25 Source: patient, RN notes reviewed Mode of arrival: ambulatory Limitations: no limitations - History of Present Illness Initial comments: This a 73-year-old male who presents emergency Department with a past medical history of an aortic valve replacement as well as multiple stent placements. Patient comes in today complaining of shortness of breath and chest pain. Patient states started this morning and his pressure sensation. Patient denies radiation of the pain. Patient states his shortness of breath is what really is bothering him. Patient denies any diaphoretic episodes. Patient denies nausea patient patient any abdominal pain. Patient denies any vomiting or diarrhea. Patient denies any lightheadedness dizziness or near syncopal episode. Patient denies headache patient denies numbness weakness per patient denies any swelling to the legs or calf tenderness. - Related Data Home Medications Medication Instructions Recorded Confirmed Aspirin [Adult Low Dose Aspirin EC] 81 mg PO DAILY 05/19/18 07/31/18 Brimonidine Tartrate/Timolol 1 drop BOTH EYES HS 05/19/18 07/31/18 [Combigan 0.2%-0.5% Eye Drops] Lisinopril [Zestril] 5 mg PO DAILY 05/19/18 07/31/18 Ascorbic Acid [Vitamin C] 500 mg PO DAILY 07/31/18 07/31/18 Atorvastatin [Lipitor] 40 mg PO HS 07/31/18 07/31/18 Cyanocobalamin (Vitamin B-12) 1,000 mcg PO DAILY 07/31/18 07/31/18 [Vitamin B-12] Furosemide [Lasix] 40 mg PO DAILY 07/31/18 07/31/18 Metoprolol Tartrate [Lopressor] 50 mg PO BID 07/31/18 07/31/18 Previous Rx's Medication Instructions Recorded Nitroglycerin Sl Tabs [Nitrostat] 0.4 mg SUBLINGUAL Q5M PRN #1 bottle 05/22/18 Clopidogrel [Plavix] 75 mg PO DAILY #90 tab 05/24/18 Allergies Allergy/AdvReac Type Severity Reaction Status Date / Time aloe Allergy Rash/Hives Verified 07/31/18 13:09 bacitracin Allergy Rash/Hives Verified 07/31/18 13:09 [From Neosporin ([id number])] neomycin Allergy Rash/Hives Verified 07/31/18 13:09 [From Neosporin ([id number])] polymyxin B Allergy Rash/Hives Verified 07/31/18 13:09 [From Neosporin ([id number])] Review of Systems ROS Statement: Those systems with pertinent positive or pertinent negative responses have been documented in the HPI. ROS Other: All systems not noted in ROS Statement are negative. Past Medical History Past Medical History: Coronary Artery Disease (CAD), Chest Pain / Angina, Diabetes Mellitus, Eye Disorder, Hyperlipidemia, Hypertension, Osteoarthritis (OA), Prostate Disorder Additional Past Medical History / Comment(s): On the artery disease with previous bypass surgery in 2003, previous aortic valve replacement, previous coronary intervention and stenting as mentioned above in the HPI, diabetes mellitus, hypertension, hyperlipidemia, thoracic aneurysm, bilateral glaucoma, any stones, peripheral neuropathy, osteoarthritis History of Any Multi-Drug Resistant Organisms: None Reported Past Surgical History: Cardiac Valve Replacement, Cholecystectomy, Coronary Bypass/CABG, Heart Catheterization, Orthopedic Surgery Additional Past Surgical History / Comment(s): aortic valve replaced 2003, CABG double bypass ; drug-eluting stent to the proximal LAD and diagonal May 2018 Past Anesthesia/Blood Transfusion Reactions: No Reported Reaction Additional Past Anesthesia/Blood Transfusion Reaction / Comment(s): no problems with anesthesia, unsure if patient has had blood transfusion in the past. Date of Last Stent Placement:: 05/23/18 Past Psychological History: Depression Smoking Status: Former smoker Past Alcohol Use History: Occasional Past Drug Use History: None Reported - Past Family History Father Family Medical History: Cancer Brother(s) Family Medical History: Cancer General Exam - General Exam Comments Initial Comments: GENERAL: Patient is well-developed and well-nourished. Patient is nontoxic and well-hydr ated and is in mild distress. ENT: Neck is soft and supple. No significant lymphadenopathy is noted. Oropharynx is clear. Moist mucous membranes. Neck has full range of motion without eliciting any pain. EYES: The sclera were anicteric and conjunctiva were pink and moist. Extraocular movements were intact and pupils were equal round and reactive to light. Eyelids were unremarkable. PULMONARY: Unlabored respirations. Good breath sounds bilaterally. No audible rales rhonchi or wheezing was noted. CARDIOVASCULAR: There is a regular rate and rhythm without any murmurs gallops or rubs. ABDOMEN: Soft and nontender with normal bowel sounds. No palpable organomegaly was noted. There is no palpable pulsatile mass. SKIN: Skin is clear with no lesions or rashes and otherwise unremarkable. NEUROLOGIC: Patient is alert and oriented x3. Cranial nerves II through XII are grossly in tact. Motor and sensory are also intact. Normal speech, volume and content. Symmetrical smile. MUSCULOSKELETAL: Normal extremities with adequate strength and full range of motion. No lower extremity swelling or edema. No calf tenderness. LYMPHATICS: No significant lymphadenopathy is noted PSYCHIATRIC: Normal psychiatric evaluation. Limitations: no limitations Course Vital Signs 07/31/18 11:24 Temperature 97.6 F Pulse Rate 67 Respiratory 18 Rate Blood Pressure 137/85 O2 Sat by Pulse 97 Oximetry Medical Decision Making - Medical Decision Making EKG shows a sinus bradycardia 59 bpm WI interval is 210 QRS is 82 QT interval 442 QTC is 437. Patient has no ST segment elevation or depression. Patient does have some T-wave inversions in leads 1 and aVL. This is seen on old EKG. There is chest x-ray shows no acute abnormality. I started the patient heparin because the symptoms. I spoke with Dr. gupta he agreed to accept the patient admitted the patient wrote admitting orders and consult cardiology continued heparin and aspirin Nitropaste on the floor. - Lab Data Result diagrams: 07/31/18 12:29 07/31/18 12:29 Lab Results 07/31/18 07/31/18 07/31/18 Range/Units 12:29 12:29 12:29 WBC 6.5 (3.8-10.6) k/uL RBC 4.71 (4.30-5.90) m/uL Hgb 13.1 (13.0-17.5) gm/dL Hct 40.5 (39.0-53.0) % MCV 86.0 (80.0-100.0) fL MCH 27.9 (25.0-35.0) pg MCHC 32.4 (31.0-37.0) g/dL RDW 15.4 (11.5-15.5) % Plt Count 272 (150-450) k/uL Neutrophils % 63 % Lymphocytes % 20 % Monocytes % 7 % Eosinophils % 7 % Basophils % 1 % Neutrophils # 4.1 (1.3-7.7) k/uL Lymphocytes # 1.3 (1.0-4.8) k/uL Monocytes # 0.4 (0-1.0) k/uL Eosinophils # 0.5 (0-0.7) k/uL Basophils # 0.1 (0-0.2) k/uL PT (9.0-12.0) sec INR (<1.2) APTT (22.0-30.0) sec Sodium 141 (137-145) mmol/L Potassium 4.5 (3.5-5.1) mmol/L Chloride 106 (98-107) mmol/L Carbon Dioxide 25 (22-30) mmol/L Anion Gap 10 mmol/L BUN 30 H (9-20) mg/dL Creatinine 0.93 (0.66-1.25) mg/dL Est GFR (CKD-EPI)AfAm >90 (>60 ml/min/1.73 sqM) Est GFR (CKD-EPI)NonAf 81 (>60 ml/min/1.73 sqM) Glucose 91 (74-99) mg/dL Calcium 9.8 (8.4-10.2) mg/dL Magnesium 2.4 H (1.6-2.3) mg/dL Total Bilirubin 0.6 (0.2-1.3) mg/dL AST 22 (17-59) U/L ALT 14 L (21-72) U/L Alkaline Phosphatase 87 (38-126) U/L Troponin I (0.000-0.034) ng/mL NT-Pro-B Natriuret Pep 977 pg/mL Total Protein 7.3 (6.3-8.2) g/dL Albumin 4.3 (3.5-5.0) g/dL 07/31/18 07/31/18 Range/Units 12:29 12:29 WBC (3.8-10.6) k/uL RBC (4.30-5.90) m/uL Hgb (13.0-17.5) gm/dL Hct (39.0-53.0) % MCV (80.0-100.0) fL MCH (25.0-35.0) pg MCHC (31.0-37.0) g/dL RDW (11.5-15.5) % Plt Count (150-450) k/uL Neutrophils % % Lymphocytes % % Monocytes % % Eosinophils % % Basophils % % Neutrophils # (1.3-7.7) k/uL Lymphocytes # (1.0-4.8) k/uL Monocytes # (0-1.0) k/uL Eosinophils # (0-0.7) k/uL Basophils # (0-0.2) k/uL PT 10.1 (9.0-12.0) sec INR 0.9 (<1.2) APTT 20.9 L (22.0-30.0) sec Sodium (137-145) mmol/L Potassium (3.5-5.1) mmol/L Chloride (98-107) mmol/L Carbon Dioxide (22-30) mmol/L Anion Gap mmol/L BUN (9-20) mg/dL Creatinine (0.66-1.25) mg/dL Est GFR (CKD-EPI)AfAm (>60 ml/min/1.73 sqM) Est GFR (CKD-EPI)NonAf (>60 ml/min/1.73 sqM) Glucose (74-99) mg/dL Calcium (8.4-10.2) mg/dL Magnesium (1.6-2.3) mg/dL Total Bilirubin (0.2-1.3) mg/dL AST (17-59) U/L ALT (21-72) U/L Alkaline Phosphatase (38-126) U/L Troponin I <0.012 (0.000-0.034) ng/mL NT-Pro-B Natriuret Pep pg/mL Total Protein (6.3-8.2) g/dL Albumin (3.5-5.0) g/dL Critical Care Time Critical Care Time: Yes Total Critical Care Time: 35 Disposition Clinical Impression: Unstable angina Disposition: ADMITTED IP TO THIS [facility] Time of Disposition: 13:49
[2018-07-31 12:50] LABS: ALT 14 U/L (21-72); AST 22 U/L (17-59); African American GFR (CKD) >90 (>60 ml/min/1.73 sqM); Albumin 4.3 g/dL (3.5-5.0); Alkaline Phosphatase 87 U/L (38-126); Anion Gap 10 mmol/L; Basophils # (A) 0.1 k/uL (0-0.2); Basophils % (A) 1 %; Blood Urea Nitrogen 30 mg/dL (9-20); Calcium 9.8 mg/dL (8.4-10.2); Carbon Dioxide 25 mmol/L (22-30); Chloride 106 mmol/L (98-107); Eosinophils # (A) 0.5 k/uL (0-0.7); Eosinophils % (A) 7 %; Glucose 91 mg/dL (74-99); HCT 40.5 % (39.0-53.0); HGB 13.1 gm/dL (13.0-17.5); Lymphocytes # (A) 1.3 k/uL (1.0-4.8); Lymphocytes % (A) 20 %; MCH 27.9 pg (25.0-35.0); MCHC 32.4 g/dL (31.0-37.0); Magnesium 2.4 mg/dL (1.6-2.3); Mean Platelet Volume 6.8; Monocytes # (A) 0.4 k/uL (0-1.0); Monocytes % (A) 7 %; Neutrophils # (A) 4.1 k/uL (1.3-7.7); Neutrophils % (A) 63 %; Platelet Count 272 k/uL (150-450); Potassium 4.5 mmol/L (3.5-5.1); RBC 4.71 m/uL (4.30-5.90); RDW 15.4 % (11.5-15.5); Sodium 141 mmol/L (137-145); Total Bilirubin 0.6 mg/dL (0.2-1.3); Total Protein 7.3 g/dL (6.3-8.2); WBC 6.5 k/uL (3.8-10.6)
--- NOTE | 2018-07-31 13:00 | XR ---
EXAMINATION TYPE: XR chest 2V DATE OF EXAM: 07/31/2018 COMPARISON: 07/10/2018 TECHNIQUE: PA and lateral views submitted. HISTORY: Chest pain FINDINGS: Aortic stent valve surgery with postsurgical changes noted. There remains prominence of the right per ihilar region likely related to aortic aneurysm. Subsegmental consolidation left lower lobe. No overt failure. No pneumothorax. Hypertrophic and degenerative change of the spine. IMPRESSION: 1. Left basilar atelectasis favored over pneumonia correlate clinically. 2. Prominence the right perihilar region could related the aorta or aortic aneurysm.
[2018-07-31 13:01] LABS: INR 0.9 (<1.2); Prothrombin Time 10.1 sec (9.0-12.0)
[2018-07-31 13:04] LABS: Partial Thromboplastin Time 20.9 sec (22.0-30.0)
[2018-07-31] MEDS ORDERED: NITROGLYCERIN SL TABS 0.4 MG TAB SUBLINGUAL PRN (13:49)
[2018-07-31] MEDS ORDERED: HEPARIN SODIUM,PORCINE 5,000 UNIT/ML 1 ML VIAL IV ONE (13:51)
[2018-07-31] MEDS ORDERED: HEPARIN SOD,PORK IN 0.45% NACL 25,000 UNIT in 0.45% NACL 1 250ML.BAG IV SCH (14:00)
[2018-07-31 21:01] VITALS: BMI 30.2
[2018-07-31] MEDS: NITROGLYCERIN OINT 1 INCH/GM PACKET TOPICAL SCH ×2 (21:01→23:08)
[2018-08-01] MEDS ORDERED: HEPARIN SODIUM,PORCINE 5,000 UNIT/ML 1 ML VIAL IV PRN (00:53)
[2018-08-01 03:24] LABS: Cholesterol 152 mg/dL (<200); HDL Cholesterol 30 mg/dL (40-60); LDL Cholesterol,Calculated 89 mg/dL (0-99); Triglycerides 167 mg/dL (<150)
[2018-08-01] MEDS: NITROGLYCERIN OINT 1 INCH/GM PACKET TOPICAL SCH (06:44)
[2018-08-01 06:46] LABS: Glucose,Whole Blood 114 mg/dL (75-99)
[2018-08-01] MEDS ORDERED: NITROGLYCERIN SL TABS 0.4 MG TAB SUBLINGUAL PRN (07:18)
--- NOTE | 2018-08-01 08:11 | XR ---
EXAMINATION TYPE: XR chest 2V DATE OF EXAM: 08/01/2018 COMPARISON: 07/31/2018 HISTORY: Chest discomfort and shortness of breath TECHNIQUE: Frontal and lateral views of the chest are obtained. FINDINGS: Aortic valvular replacement and endovascular stent are again seen within the ascending tho racic aorta. Tortuosity is similar to the prior likely relating to aortic aneurysm. This is seen in b oth the ascending and descending thoracic aorta. This results in an enlarged cardiomediastinal silhou ette. Similar left basilar platelike subsegmental atelectasis and new right midlung platelike subsegm ental atelectasis are seen. Remainder the lungs are clear with no focal consolidation, pleural effusi on or pneumothorax. Moderate multilevel degenerative changes of the spine are seen with bridging ante rior osteophytes. IMPRESSION: 1. Redemonstration of aortic aneurysm with aortic valvular replacement and endovascular stent. 2. Similar appearing left basilar subsegmental atelectasis and new minimal right subsegmental atelect asis.
--- NOTE | 2018-08-01 08:17 | CONS ---
CONSULTATION Mr. Jin is a 73-year-old male who was recently admitted to the hospital with symptoms of chest discomfort and dyspnea, has a known history of coronary artery disease, status post coronary artery bypass grafting and stenting that was performed by Dr. Su. He also has a history of aortic valve replacement. He underwent cardiac catheterization on July 09 because of EKG changes and symptoms of chest discomfort and was found to have patent stent to the LAD in the first diagonal branch with subtotal occluded mid LAD and patent ROTHMAN to LAD with aneurysmal right coronary artery disease without any significant progression of disease, but he had significant aortic regurgitation with recurrent symptoms of dyspnea and congestive heart failure at that time. He underwent transesophageal echocardiogram and was transferred to [facility], underwent valve and valve TAVR procedure. He presented to the hospital with symptoms of dyspnea with no clear chest discomfort. He denies any dizziness or palpitation. He denies any significant peripheral edema. No syncope. No clear PND nor orthopnea. His coronary risk factors are remarkable for history of hypertension, hyperlipidemia. He is nondiabetic, nonsmoker. MEDICATIONS: Lopressor 50 mg twice a day, Zestril 5 mg daily, Lasix 40 mg daily, Plavix 75 mg daily, aspirin once a day, Lipitor 40 mg daily, timolol eye drops and vitamin C. REVIEW OF SYSTEMS: RESPIRATORY SYSTEM: He had dyspnea on exertion. No recent wheezing or cough. GI SYSTEM: No recent GI bleeding. No peptic ulcer disease. SYSTEM: No dysuria or hematuria. NERVOUS SYSTEM: No stroke or seizure. PHYSICAL EXAMINATION: He is a 73-year-old male, alert, oriented, in no apparent distress. Blood pressure 123/60 with a heart rate in the 60s. HEAD: Normocephalic. EYES: Sclerae nonicteric. NECK: Good upstroke, no bruit, no jugular venous distention. LUNGS: Clear to auscultation. HEART: Regular rate and rhythm, S1, S2. No S3 with systolic murmur at the base. No diastolic murmur, no rub. ABDOMEN: Soft, nontender. Positive bowel sounds, no organomegaly. EXTREMITIES: No edema, intact pulses. LAB DATA: Revealed troponin less than 0.012, 0.013 and 0.013. NT proBNP of 977, cholesterol of 152, LDL of 89. BUN and creatinine 30 and 0.93. Hemoglobin of 13.1. EKG revealed a sinus mechanism with T-wave inversion in lead 1 and aVL and minor nonspecific ST wave changes compared with the EKG performed during last admission. There is no acute changes. At that time, when he was having symptoms, he had the significant ST-segment depression. The chest x-ray performed yesterday revealed left basilar atelectasis. IMPRESSION: 1. Symptoms of dyspnea of unclear etiology, no evidence of congestive heart failure and no evidence to suggest an acute ischemic event. 2. Status post TAVR with valve in valve procedure. 3. History of coronary artery disease. 4. History of hypertension. 5. Hyperlipidemia. RECOMMENDATION: From the cardiac standpoint, I will stop the IV heparin. Will continue his home medication. I will obtain echocardiogram with Doppler. I will try to obtain the prior workup that was done at [place]. Increase his level of activity remains stable I am hopeful that he will be able to be discharged home soon. Thank you for this consult. Will follow with you. ADAN / MARITA: [phone] /
[2018-08-01] MEDS: METOPROLOL TARTRATE 50 MG TAB PO SCH ×2 (08:22→21:11)
[2018-08-01] MEDS: LISINOPRIL 5 MG TAB PO SCH (08:22)
[2018-08-01] MEDS: CYANOCOBALAMIN 500 MCG TAB PO SCH (08:22)
[2018-08-01] MEDS: ASPIRIN 81 MG PO SCH (08:22)
[2018-08-01] MEDS: CLOPIDOGREL 75 MG TAB PO SCH (08:22)
[2018-08-01] MEDS: FUROSEMIDE 40 MG TAB PO SCH (08:22)
[2018-08-01 08:38] LABS: Basophils # (A) 0.1 k/uL (0-0.2); Basophils % (A) 1 %; Eosinophils # (A) 0.4 k/uL (0-0.7); Eosinophils % (A) 6 %; HCT 37.6 % (39.0-53.0); Lymphocytes # (A) 1.5 k/uL (1.0-4.8); Lymphocytes % (A) 22 %; MCH 28.3 pg (25.0-35.0); MCV 88.6 fL (80.0-100.0); Mean Platelet Volume 6.3; Monocytes # (A) 0.4 k/uL (0-1.0); Monocytes % (A) 6 %; Neutrophils # (A) 4.4 k/uL (1.3-7.7); Neutrophils % (A) 63 %; Platelet Count 240 k/uL (150-450); RBC 4.25 m/uL (4.30-5.90); RDW 13.8 % (11.5-15.5)
[2018-08-01] MEDS ORDERED: ASPIRIN 325 MG TAB PO SCH (09:00)
[2018-08-01 09:43] LABS: African American GFR (CKD) >90 (>60 ml/min/1.73 sqM); Anion Gap 7 mmol/L; Blood Urea Nitrogen 25 mg/dL (9-20); Calcium 8.9 mg/dL (8.4-10.2); Carbon Dioxide 24 mmol/L (22-30); Chloride 108 mmol/L (98-107); Glucose 97 mg/dL (74-99); Potassium 4.7 mmol/L (3.5-5.1); Sodium 139 mmol/L (137-145)
[2018-08-01 11:44] LABS: Glucose,Whole Blood 109 mg/dL (75-99)
--- NOTE | 2018-08-01 13:10 | ECHOF ---
Referral Reason:ar MEASUREMENTS -------- HEIGHT: 180.3 cm WEIGHT: 98.4 kg BP: IVSd: 1.6 cm (0.6 - 1.1) LVIDd: 4.1 cm (3.9 - 5.3) LVPWd: 1.7 cm (0.6 - 1.1) IVSs: 2.0 cm LVIDs: 1.8 cm LVPWs: 2.0 cm Ao Diam: 3.1 cm (2.0 - 3.7) AV Cusp: 1.3 cm (1.5 - 2.6) LA Diam: 2.8 cm (2.7 - 3.8) MV EXCURSION: 15.965 mm (> 18.000) MV EF SLOPE: 100 mm/s (70 - 150) EPSS: 3.4 cm MV E Surendra: 0.88 m/s MV DecT: 322 ms MV A Surendra: 1.15 m/s MV E/A Ratio: 0.77 AV maxP.78 mmHg AV meanP.70 mmHg RAP: 5.00 mmHg RVSP: 14.20 mmHg FINDINGS -------- Sinus rhythm. This was a technically difficult study with suboptimal views. Post TAVR procedure The left ventricular size is normal. There is severe concentric left ventricular hypertrophy. Ove rall left ventricular systolic function is mildly impaired with, an EF between 45 - 50 %. There is paradoxical/dysynergic septal motion consistent with post-operative status. The right ventricle is normal in size. The left atrial size is normal. The right atrial size is normal. Lumason used The aortic valve was not well visualized. Peak/mean gradient across the Aortic Valve is 14.78mmHg / 10.70mmHg. Normally functioning bioprosthetic valve. The mitral valve leaflets are mildly thickened. There is trace mitral regurgitation. Trace tricuspid regurgitation present. There is no evidence of pulmonary hypertension. The right ventricular systolic pressure, as measured by Doppler, is 14.20mmHg. There is no pulmonic regurgitation present. The aortic root size is normal. IVC Not well visulized. There is no pericardial effusion. CONCLUSIONS -------- 1. Sinus rhythm. 2. This was a technically difficult study with suboptimal views. 3. Post TAVR procedure 4. The left ventricular size is normal. 5. There is severe concentric left ventricular hypertrophy. 6. Overall left ventricular systolic function is mildly impaired with, an EF between 45 - 50 %. 7. There is paradoxical/dysynergic septal motion consistent with post-operative status. 8. The left atrial size is normal. 9. Lumason used 10. The aortic valve was not well visualized. 11. Peak/mean gradient across the Aortic Valve is 14.78mmHg / 10.70mmHg. 12. Normally functioning bioprosthetic valve. 13. The mitral valve leaflets are mildly thickened. 14. There is trace mitral regurgitation. 15. Trace tricuspid regurgitation present. 16. There is no evidence of pulmonary hypertension. 17. There is no pulmonic regurgitation present. 18. The aortic root size is normal. 19. IVC Not well visulized. 20. There is no pericardial effusion. UNCLAIMED PROPERTY OFFICER: Tiffany Vivas RDCS
[2018-08-01 16:59] LABS: Glucose,Whole Blood 110 mg/dL (75-99)
[2018-08-01 20:09] LABS: Glucose,Whole Blood 168 mg/dL (75-99)
[2018-08-01] MEDS ORDERED: ATORVASTATIN 40 MG TAB PO SCH (21:00)
[2018-08-01] MEDS ORDERED: TIMOLOL 0.5% OPHTH DROPS 5 ML BTL BOTH EYES SCH (21:00)
[2018-08-01] MEDS ORDERED: BRIMONIDINE TARTRATE 0.2% DROPS 5 ML BTL BOTH EYES SCH (21:00)
--- NOTE | 2018-08-02 05:34 | P.HPIM ---
History of Present Illness This is a pleasant 72 years old male with past medical history of coronary artery disease, status post CABG and stent placement to LAD in May , diabetes mellitus, hypertension, hyperlipidemia, osteoarthritis, thoracic aortic aneur ysm, bilateral glaucoma, kidney stones and neuropathy. He is a patient of Dr. Boston He was recently admitted to the hospital with severe dyspnea and elevated troponin secondary to severe aortic regurgitation, patient went to [facility] where he got TAPVR placed on 07/15/2018 as per patient and at bedside. 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 No coughing. He came to emergency room and his symptoms are significantly improved with Nitropaste, as per patient he still limited his back to his usual state with no more dyspnea or chest tightness. He is hemodynamically stable, saturating 94% on room air. CBC and BMP and liver enzymes were unremarkable. EKG showing sinus bradycardia with first-degree AV block at [address]-T abnormality. Chest x-ray showing atelectasis and prominent right perihilar region We checked the patient blood pressure in his right arm is 106/66 in the left arm 112/69 Review of Systems CONSTITUTIONAL: No fever, no malaise, no fatigue. HEENT: No recent visual problems or hearing problems. Denied any sore throat. CARDIOVASCULAR: No orthopnea, PND, no palpitations, no syncope. PULMONARY: No shortness of breath, no cough, no hemoptysis. GASTROINTESTINAL: No diarrhea, no nausea, no vomiting, no abdominal pain. Normoactive bowel sounds. NEUROLOGICAL: No headaches, no weakness, no numbness. HEMATOLOGICAL: Denies any bleeding or petechiae. GENITOURINARY: Denies any burning micturition, frequency, or urgency. MUSCULOSKELETAL/RHEUMATOLOGICAL: Denies any joint pain, swelling, or any muscle pain. ENDOCRINE: Denies any polyuria or polydipsia. Past Medical History Past Medical History: Coronary Artery Disease (CAD), Chest Pain / Angina, Diabetes Mellitus, Eye Disorder, Hyperlipidemia, Hypertension, Osteoarthritis (OA), Prostate Disorder Additional Past Medical History / Comment(s): On the artery disease with previous bypass surgery in 2003, previous aortic valve replacement, previous coronary intervention and stenting as mentioned above in the HPI, diabetes mellitus, hypertension, hyperlipidemia, thoracic aneurysm, bilateral glaucoma, any stones, peripheral neuropathy, osteoarthritis History of Any Multi-Drug Resistant Organisms: None Reported Past Surgical History: Cardiac Valve Replacement, Cholecystectomy, Coronary Bypass/CABG, Heart Catheterization, Orthopedic Surgery Additional Past Surgical History / Comment(s): aortic valve replaced 2003, CABG double bypass ; drug-eluting stent to the proximal LAD and diagonal May 2018 Past Anesthesia/Blood Transfusion Reactions: No Reported Reaction Additional Past Anesthesia/Blood Transfusion Reaction / Comment(s): no problems with anesthesia, unsure if patient has had blood transfusion in the past. Date of Last Stent Placement:: 05/23/18 Past Psychological History: Depression Smoking Status: Former smoker Past Alcohol Use History: Occasional Past Drug Use History: None Reported - Past Family History Father Family Medical History: Cancer Brother(s) Family Medical History: Cancer Medications and Allergies Home Medications Medication Instructions Recorded Confirmed Type Aspirin [Adult Low Dose Aspirin EC] 81 mg PO DAILY 05/19/18 07/31/18 History Brimonidine Tartrate/Timolol 1 drop BOTH EYES HS 05/19/18 07/31/18 History [Combigan 0.2%-0.5% Eye Drops] Lisinopril [Zestril] 5 mg PO DAILY 05/19/18 07/31/18 History Nitroglycerin Sl Tabs [Nitrostat] 0.4 mg SUBLINGUAL Q5M PRN #1 bottle 05/22/18 07/31/18 Rx Clopidogrel [Plavix] 75 mg PO DAILY #90 tab 05/24/18 07/31/18 Rx Ascorbic Acid [Vitamin C] 500 mg PO DAILY 07/31/18 07/31/18 History Atorvastatin [Lipitor] 40 mg PO HS 07/31/18 07/31/18 History Cyanocobalamin (Vitamin B-12) 1,000 mcg PO DAILY 07/31/18 07/31/18 History [Vitamin B-12] Furosemide [Lasix] 40 mg PO DAILY 07/31/18 07/31/18 History Metoprolol Tartrate [Lopressor] 50 mg PO BID 07/31/18 07/31/18 History Allergies Allergy/AdvReac Type Severity Reaction Status Date / Time aloe Allergy Rash/Hives Verified 07/31/18 13:09 bacitracin Allergy Rash/Hives Verified 07/31/18 13:09 [From Neosporin ([id number])] neomycin Allergy Rash/Hives Verified 07/31/18 13:09 [From Neosporin ([id number])] polymyxin B Allergy Rash/Hives Verified 07/31/18 13:09 [From Neosporin ([id number])] Physical Exam Vitals: Vital Signs Temp Pulse Resp BP Pulse Ox 07/31/18 14:20 57 L 18 119/54 94 L 07/31/18 11:24 97.6 F 67 18 137/85 97 Intake and Output 07/31/18 07/31/18 07/31/18 06:59 14:59 22:59 Other: Weight 98.43 kg GENERAL: The patient is alert and oriented x3, not in any acute distress. Well developed, well nourished. HEENT: Pupils are round and equally reacting to light. EOMI. No scleral icterus. No conjunctival pallor. Normocephalic, atraumatic. No pharyngeal erythema. No thyromegaly. CARDIOVASCULAR: S1 and S2 present. No murmurs, rubs, or gallops. PULMONARY: Chest is clear to auscultation, no wheezing or crackles. ABDOMEN: Soft, nontender, nondistended, normoactive bowel sounds. No palpable organomegaly. MUSCULOSKELETAL: No joint swelling or deformity. EXTREMITIES: No cyanosis, clubbing, or pedal edema. NEUROLOGICAL: Gross neurological examination did not reveal any focal deficits. SKIN: No rashes. Results CBC & Chem 7: 08/01/18 07:25 08/01/18 07:25 Labs: Abnormal Lab Results - Last 24 Hours (Table) 07/31/18 07/31/18 Range/Units 12:29 12:29 APTT 20.9 L (22.0-30.0) sec BUN 30 H (9-20) mg/dL Magnesium 2.4 H (1.6-2.3) mg/dL ALT 14 L (21-72) U/L Assessment and Plan Assessment: Dyspnea, rule out cardiac etiologies recent cardiac cath showing patent coronary arteries. Elevated troponins. Severe aortic regurgitation, status post TAVR, Done on 07/15/2018 prominent right lung perihilum History of coronary artery disease, status post CABG Prosthetic aortic valve Essential hypertension Diabetes mellitus Hyperlipidemia Osteoarthritis History of bilateral glaucoma History of kidney stone History of neuropathy Plan: This is a pleasant 72 years old male who presents with dyspnea, associated with chest dyspnea. Symptoms is more stable now. Cardiology and cardiothoracic surgery team evaluated the patient and recommended patient to be transferred to a tertiary center to be evaluated for his valve disease. Patient and at bedside agree with the transfer. Labs and medication were reviewed.. Continue same treatment. Continue with symptomatic treatment. Resume home medication. Monitor lytes and vitals. DVT and GI prophylaxis. Further recommendations of the clinical course of the patient DVT prophylaxis:heparin GI Prophylaxis: Pepcid Prognosis is guarded
--- NOTE | 2018-08-02 05:43 | P.PN ---
Subjective This is a pleasant 72 years old male with past medical history of coronary artery disease, status post CABG and stent placement to LAD in May , diabetes mellitus, hypertension, hyperlipidemia, osteoarthritis, thoracic aortic aneurysm, bilateral glaucoma, kidney stones and neuropathy. He is a patient of Dr. oBston He was recently admitted to the hospital with severe dyspnea and elevated troponin secondary to severe aortic regurgitation, patient went to [facility] where he got TAPVR placed on 07/15/2018 as per patient and at bedside. 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 No coughing. He came to emergency room and his symptoms are significantly improved with Nitropaste, as per patient he still limited his back to his usual state with no more dyspnea or chest tightness. He is hemodynamically stable, saturating 94% on room air. CBC and BMP and liver enzymes were unremarkable. EKG showing sinus bradycardia with first-degree AV block at [address]-T abnormality. Chest x-ray showing atelectasis and prominent right perihilar region We checked the patient blood pressure in his right arm is 106/66 in the left arm 112/69 08/01/2018 pt feels better with no chest pain or dyspnea . 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 vitals stable, pt has repeat chest x-ray showing aortic aneurysm with aortic valve replacement . there is no significant difference in blood pressure between both arm checked yesterday. we will call cardio-thoracic surgery for consult. Objective - Vital Signs Vital signs: Vital Signs Temp 98.1 F 08/01/18 19:38 Pulse 67 08/01/18 19:38 Resp 15 08/01/18 19:38 BP 111/71 08/01/18 19:38 Pulse Ox 97 08/01/18 19:38 Intake & Output 08/01/18 08/01/18 08/02/18 06:59 18:59 06:59 Intake Total 89.333 Output Total 400 Balance -310.667 Intake: Intake, IV Titration 89.333 Amount Heparin Sod,Pork in 0.45% 89.333 NaCl 25,000 unit In 0.45 % NaCl 1 250ml.bag @ 10. 16 UNITS/KG/HR 10 mls/hr IV .Q24H FRANCESCO Rx#: [id number] Output: Urine 400 Other: Voiding Method Urinal Urinal Urinal # Voids 2 - Exam GENERAL: The patient is alert and oriented x3, not in any acute distress. Well developed, well nourished. HEENT: Pupils are round and equally reacting to light. EOMI. No scleral icterus. No conjunctival pallor. Normocephalic, atraumatic. No pharyngeal erythema. No thyromegaly. CARDIOVASCULAR: S1 and S2 present. No murmurs, rubs, or gallops. PULMONARY: Chest is clear to auscultation, no wheezing or crackles. ABDOMEN: Soft, nontender, nondistended, normoactive bowel sounds. No palpable organomegaly. MUSCULOSKELETAL: No joint swelling or deformity. EXTREMITIES: No cyanosis, clubbing, or pedal edema. NEUROLOGICAL: Gross neurological examination did not reveal any focal deficits. SKIN: No rashes. - Labs CBC & Chem 7: 08/01/18 07:25 08/01/18 07:25 Labs: Abnormal Lab Results - Last 24 Hours (Table) 07/31/18 07/31/18 08/01/18 Range/Units 12:29 23:27 06:45 RBC (4.30-5.90) m/uL Hgb (13.0-17.5) gm/dL Hct (39.0-53.0) % APTT 35.9 H (22.0-30.0) sec Chloride (98-107) mmol/L BUN (9-20) mg/dL POC Glucose (mg/dL) 114 H (75-99) mg/dL Triglycerides 167 H (<150) mg/dL HDL Cholesterol 30 L (40-60) mg/dL 08/01/18 08/01/18 08/01/18 Range/Units 07:21 07:25 07:25 RBC 4.25 L (4.30-5.90) m/uL Hgb 12.0 L (13.0-17.5) gm/dL Hct 37.6 L (39.0-53.0) % APTT 77.9 H (22.0-30.0) sec Chloride 108 H (98-107) mmol/L BUN 25 H (9-20) mg/dL POC Glucose (mg/dL) (75-99) mg/dL Triglycerides (<150) mg/dL HDL Cholesterol (40-60) mg/dL 08/01/18 08/01/18 08/01/18 Range/Units 11:43 16:48 20:08 RBC (4.30-5.90) m/uL Hgb (13.0-17.5) gm/dL Hct (39.0-53.0) % APTT (22.0-30.0) sec Chloride (98-107) mmol/L BUN (9-20) mg/dL POC Glucose (mg/dL) 109 H 110 H 168 H (75-99) mg/dL Triglycerides (<150) mg/dL HDL Cholesterol (40-60) mg/dL Assessment and Plan Assessment: Dyspnea, rule out cardiac etiologies recent cardiac cath showing patent coronary arteries. Elevated troponins. Severe aortic regurgitation, status post TAVR, Done on 07/15/2018 prominent right lung perihilum History of coronary artery disease, status post CABG Prosthetic aortic valve Essential hypertension Diabetes mellitus Hyperlipidemia Osteoarthritis History of bilateral glaucoma History of kidney stone History of neuropathy Plan: This is a pleasant 72 years old male who presents with dyspnea, associated with chest dyspnea. pt symptoms improved. cardiology already evaluated pt . 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 Continue same treatment. Continue with symptomatic treatment. Resume home medication. Monitor lytes and vitals. DVT and GI prophylaxis. Further recommendations of the clinical course of the patient Prognosis is guarded
[2018-08-02 06:41] LABS: Glucose,Whole Blood 122 mg/dL (75-99)
[2018-08-02] MEDS: CYANOCOBALAMIN 500 MCG TAB PO SCH (08:44)
[2018-08-02] MEDS: ASPIRIN 81 MG PO SCH (08:45)
[2018-08-02] MEDS: METOPROLOL TARTRATE 50 MG TAB PO SCH (08:45)
[2018-08-02] MEDS: CLOPIDOGREL 75 MG TAB PO SCH (08:45)
[2018-08-02] MEDS: LISINOPRIL 5 MG TAB PO SCH (08:45)
[2018-08-02] MEDS: FUROSEMIDE 40 MG TAB PO SCH (08:45)
--- NOTE | 2018-08-02 10:34 | P.PN ---
Subjective Progress Note Date: 08/02/18 This is 73-year-old gentleman with known case of ischemic heart disease with previous bypass surgery and also stenting done by Dr. Serrano. He had. Patient also has history of aortic valve replacement. He had a cardiac catheterization in June of this year for symptoms of chest pain and was found to have patent stent in the LAD with subtotal occluded mid LAD, patent ROTHMAN to the LAD with and is in the right coronary artery disease without any significant progression of the disease. Patient was found to have significant aortic regurgitation and subsequently underwent TAVR procedure at [facility] for replacement of the aortic valve. Patient is admitted now to the hospital with complaints of i ncreasing shortness of breath. Clinically there is no evidence of congestive heart failure. His proBNP was only 977. Echo cardiogram showed an ejection fraction of 45-50%. The prosthetic valve is functioning normally. At this point. Cardiac-bower, patient is stable. He is waiting to be evaluated by cardiac surgeon for aneurysm. From cardiac standpoint patient is stable. He could be discharged home to have follow-up with Dr. Serrano Objective - Vital Signs Vital signs: Vital Signs Temp 97.5 F L 08/02/18 08:00 Pulse 72 08/02/18 08:00 Resp 18 08/02/18 08:00 BP 127/76 08/02/18 08:00 Pulse Ox 95 08/02/18 08:00 Intake & Output 08/01/18 08/02/18 08/02/18 18:59 06:59 18:59 Other: Voiding Method Urinal Urinal Urinal # Voids 2 - Exam GENERAL EXAM: Patient is alert and oriented and doesn't appear to be in any acute distress HEENT: Normocephalic. Normal reaction of pupils, equal size, normal range of extraocular motion. No erythema or exudates in the throat. NECK: No masses, no nuchal rigidity. CHEST: No chest wall deformity. LUNGS: Equal air entry with no crackles or wheeze. HEART: S1 and S2 normal with no audible mumurs or gallops. Regular rhythm, femorals equal on both sides.. ABDOMEN: No hepatosplenomegaly, normal bowel sounds, no guarding or rigidity. SKIN: No rashes CENTRAL NERVOUS SYSTEM: No focal deficits. EXTREMITIES: No cyanosis, clubbing or edema. - Labs CBC & Chem 7: 08/01/18 07:25 08/01/18 07:25 Labs: Abnormal Lab Results - Last 24 Hours (Table) 08/01/18 08/01/18 08/01/18 Range/Units 11:43 16:48 20:08 POC Glucose (mg/dL) 109 H 110 H 168 H (75-99) mg/dL 08/02/18 Range/Units 06:39 POC Glucose (mg/dL) 122 H (75-99) mg/dL Assessment and Plan (1) Dyspnea Current Visit: Yes Status: Acute Code(s): R06.00 - DYSPNEA, UNSPECIFIED SNOMED Code(s): 650695836 (2) Coronary artery disease Current Visit: Yes Status: Acute Code(s): I25.10 - ATHSCL HEART DISEASE OF [place] CORONARY ARTERY W/O ANG PCTRS SNOMED Code(s): 02386739 (3) Status post aortic valve replacement Current Visit: Yes Status: Acute Code(s): Z95.2 - PRESENCE OF PROSTHETIC HEART VALVE SNOMED Code(s): 7114769061794 Plan: From cardiac standpoint. Patient is stable. Patient could be discharged home to follow-up with Dr. Serrano as an outpatient
[2018-08-02 11:49] LABS: Glucose,Whole Blood 91 mg/dL (75-99)
[2018-08-02 12:17] VITALS: BP 108/65; PULSE 59; RESP 16; TEMP 97.7
--- NOTE | 2018-08-02 12:35 | P.GSCN ---
History of Present Illness Consult date: 08/02/18 Reason for Consult: Possible thoracic aortic aneurysm Requesting physician: Emile E Sheet History of present illness: This is a 73-year-old gentleman who is followed by Dr. Arvind Boston an outpatient basis. The patient has a past medical history of surgical valve restenosis with aortic insufficiency, coronary artery disease status post coronary artery bypass grafting surgery in 2003 and stent placement to his left anterior descending coronary artery, diagonal coronary artery and drug-eluting stent placement to his right coronary artery in June 2018, diabetes mellitus, hyperlipidemia, hypertension, osteoarthritis, history of kidney stones, bilateral glaucoma, and neuropathy. On 07/15/2018 the patient underwent a TAVR procedure with a 26 mm core valve placed for bioprosthetic valve failure, aortic insufficiency and also underwent a drug-eluting stent was placed to his right coronary artery completed at [facility]. Subsequently, on 07/31/2018 the patient presented to the emergency department here at [facility] with complaints of chest pain and shortness of breath with exertion. The patient denies any palpitations, nausea, vomiting, fever, chills, presyncope or syncope. While in the emergency department a chest x-ray was completed which showed left basilar atelectasis, and prominence to his right perihilar region which was suspicious for an aortic aneurysm. On 07/15/2018 the patient underwent a CT angiography of the chest, abdomen and pelvis which demonstrated no evidence for aortic aneurysm or dissection. The patient also underwent a 2-D echocardiogram which was completed yesterday 08/01/2018 which demonstrated a normal aortic root size, and overall left ventricular systolic function to be mildly impaired with an ejection fraction between 45 and 50%, a peak gradient across the aortic valve of 14.78 mmHg and a mean gradient of 10.70 mmHg. A 12- lead EKG was completed which showed sinus bradycardia with a first-degree AV block heart rate 59 BPM. His initial lab results showed his troponins to be within normal limits, BUN 30, WBC 6.5 and hemoglobin 13.1. Due to the patient's chest x-ray completed in the emergency department suspicious for aortic aneurysm a consult was placed to Dr. Lisa Aparicio from cardiothoracic surgery for further evaluation. Currently the patient denies any complaints of pain or shortness of breath. He is on room air with oxygen saturation 96% and is afebrile. Review of Systems A 14 point review of systems was completed was negative except as mentioned in the HPI. Past Medical History Past Medical History: Atrial Fibrillation (Paroxysmal atrial fibrillation post CABG in 2003.), Coronary Artery Disease (CAD), Chest Pain / Angina, Diabetes Mellitus, Eye Disorder, Hyperlipidemia, Hypertension, Osteoarthritis (OA), Prostate Disorder Additional Past Medical History / Comment(s): On the artery disease with previous bypass surgery in 2003, previous aortic valve replacement, previous coronary intervention and stenting as mentioned above in the HPI, bilateral glaucoma, any stones, peripheral neuropathy. History of Any Multi-Drug Resistant Organisms: None Reported Past Surgical History: Appendectomy, Cardiac Valve Replacement, Cholecystectomy, Coronary Bypass/CABG, Heart Catheterization Additional Past Surgical History / Comment(s): aortic valve replaced 2003, CABG double bypass ; drug-eluting stent to the proximal LAD and diagonal, and a drug-eluting stent placement to his right coronary artery in June of 2018 completed at [facility]. TAVR 07/15/2018 with a 26 mm core valve completed at [facility]. Past Anesthesia/Blood Transfusion Reactions: No Reported Reaction Additional Past Anesthesia/Blood Transfusion Reaction / Comm: no problems with anesthesia, unsure if patient has had blood transfusion in the past. Date of Last Stent Placement:: 07/15/2018 Past Psychological History: Depression Smoking Status: Former smoker Past Alcohol Use History: Occasional Past Drug Use History: None Reported - Past Family History Father Family Medical History: Cancer Brother(s) Family Medical History: Cancer Medications and Allergies Home Medications Medication Instructions Recorded Confirmed Type Aspirin [Adult Low Dose Aspirin EC] 81 mg PO DAILY 05/19/18 07/31/18 History Brimonidine Tartrate/Timolol 1 drop BOTH EYES HS 05/19/18 07/31/18 History [Combigan 0.2%-0.5% Eye Drops] Lisinopril [Zestril] 5 mg PO DAILY 05/19/18 07/31/18 History Nitroglycerin Sl Tabs [Nitrostat] 0.4 mg SUBLINGUAL Q5M PRN #1 bottle 05/22/18 07/31/18 Rx Clopidogrel [Plavix] 75 mg PO DAILY #90 tab 05/24/18 07/31/18 Rx Ascorbic Acid [Vitamin C] 500 mg PO DAILY 07/31/18 07/31/18 History Atorvastatin [Lipitor] 40 mg PO HS 07/31/18 07/31/18 History Cyanocobalamin (Vitamin B-12) 1,000 mcg PO DAILY 07/31/18 07/31/18 History [Vitamin B-12] Furosemide [Lasix] 40 mg PO DAILY 07/31/18 07/31/18 History Metoprolol Tartrate [Lopressor] 50 mg PO BID 07/31/18 07/31/18 History Allergies Allergy/AdvReac Type Severity Reaction Status Date / Time aloe Allergy Rash/Hives Verified 07/31/18 13:09 bacitracin Allergy Rash/Hives Verified 07/31/18 13:09 [From Neosporin ([id number])] neomycin Allergy Rash/Hives Verified 07/31/18 13:09 [From Neosporin ([id number])] polymyxin B Allergy Rash/Hives Verified 07/31/18 13:09 [From Neosporin ([id number])] Surgical - Exam Vital Signs Temp Pulse Resp BP Pulse Ox 97.6 F 67 18 137/85 97 07/31/18 11:24 07/31/18 11:24 07/31/18 11:24 07/31/18 11:24 07/31/18 11:24 - General well developed, well nourished, no distress, no pain, obese - Eyes PERRL, normal ocular movement - ENT normal pinna, normal nares, normal mucosa, no hearing loss, no congestion - Neck Neck is supple, no lymphadenopathy, no thyromegaly. no masses, no bruits, trachea midline, no venous distension - Respiratory Lung sounds essentially clear throughout. No wheezing, rhonchi or crackles. Respirations are symmetrical and nonlabored. - Cardiovascular Regular rhythm and rate. S1 and S2 present, negative for S3, positive systolic murmur 2/6. No edema present. - Abdomen Abdomen is soft, nontender nondistended. Active bowel sounds all 4 abdominal quadrants. No guarding or rigidity. No organomegaly. - Genitourinary Deferred - Rectum Deferred - Integumentary no rash, no growths, no abnormal pigmentation - Neurologic normal coordination, normal sensation - Musculoskeletal normal gait, normal posture - Psychiatric oriented to time, oriented to person, oriented to place, speech is normal, memory intact Results - Labs 08/01/18 07:25 08/01/18 07:25 Abnormal Lab Results - Last 24 Hours (Table) 08/01/18 08/01/18 08/01/18 Range/Units 11:43 16:48 20:08 POC Glucose (mg/dL) 109 H 110 H 168 H (75-99) mg/dL 08/02/18 Range/Units 06:39 POC Glucose (mg/dL) 122 H (75-99) mg/dL - Imaging Chest x-ray: report reviewed, image reviewed Additional studies: 2-D echocardiogram results and CT angiogram of the chest, abdomen and pelvis fro m 07/15/2018 obtained from [facility] and on the chart. Assessment and Plan Assessment: 1. Dyspnea 2. Status post aortic valve replacement, TAVR procedure 3. History of coronary artery disease with previous stent placement to his LAD, diagonal and right coronary arteries 4. Prominent right lung perihilum 5. Hypertension 6. Hyperlipidemia 7. Diabetes mellitus Plan: The patient was seen and examined in the observation unit. His chart and diagnostics were reviewed. The CT angiographically study of his chest, abdomen and pelvis was obtained from [facility] and reviewed. The CT angiography results showed no evidence for aortic aneurysm or dissection. A 2-D echocardiogram results were reviewed from yesterday 08/01/2018 which demonstrated a normal aortic root size. The case was reviewed with Dr. Lisa Aparicio from cardiothoracic surgery. Due to the findings on the CT angiography and 2-D echocardiogram resultsare surgical intervention is warranted at this time. Continue instructed discharge instructions post TAVR. Maintain good blood pressure control. Medical management per primary care service. Per the cardiothoracic surgery standpoint the patient can be discharged home and follow up on an outpatient basis when okay with primary care service. Thank you Dr. Seals for this consult, and we will look forward to working with you in the care of your patient. We will follow the patient on an as-needed basis. Time with Patient: Greater than 30
== END 2018-08-02 13:20 | disposition home or self-care (01) ==
LOC: EC 11:04 → 1SOBS 13:49
PROVIDERS: ADMIT Internal Medicine; ATTEND Internal Medicine
DX: R06.00 Dyspnea, unspecified (principal); R07.89 Other chest pain; I71.2 Thoracic aortic aneurysm, without rupture; I25.10 Atherosclerotic heart disease of native coronary artery without angina pectoris; Z95.2 Presence of prosthetic heart valve; I44.0 Atrioventricular block, first degree; I48.0 Paroxysmal atrial fibrillation; I11.0 Hypertensive heart disease with heart failure; I50.9 Heart failure, unspecified; M19.90 Unspecified osteoarthritis, unspecified site; H40.9 Unspecified glaucoma; E78.5 Hyperlipidemia, unspecified; E11.42 Type 2 diabetes mellitus with diabetic polyneuropathy; R00.1 Bradycardia, unspecified; J98.11 Atelectasis; N42.9 Disorder of prostate, unspecified; F32.9 Major depressive disorder, single episode, unspecified; Z79.82 Long term (current) use of aspirin; Z79.02 Long term (current) use of antithrombotics/antiplatelets; Z79.899 Other long term (current) drug therapy; Z88.1 Allergy status to other antibiotic agents; Z91.048 Other nonmedicinal substance allergy status; Z95.1 Presence of aortocoronary bypass graft; Z95.5 Presence of coronary angioplasty implant and graft; Z87.442 Personal history of urinary calculi; Z87.891 Personal history of nicotine dependence; Z80.9 Family history of malignant neoplasm, unspecified
CPT/HCPCS: 96366 ×3; 96376 ×2; 96365; 99291; 36415; 93005; 83880; 80061; 80053; 80048; 83735; 84484; 85025 ×2; 85610; 85730 ×2; 71046 ×2; G0378 ×3; C8929; J1644 ×3; Q9950; 93306

== ENCOUNTER → 2019-04-24 | Outpatient (CLI) | payer MEDICARE, BC ==
[2019-04-24 18:25] LABS: Potassium 4.5 mmol/L (3.5-5.1)
[2019-04-24 18:27] LABS: HCT 45.3 % (39.0-53.0); HGB 14.3 gm/dL (13.0-17.5); MCH 28.1 pg (25.0-35.0); MCHC 31.6 g/dL (31.0-37.0); MCV 89.1 fL (80.0-100.0); Mean Platelet Volume 7.3; Platelet Count 250 k/uL (150-450); RBC 5.08 m/uL (4.30-5.90); RDW 13.5 % (11.5-15.5); WBC 8.1 k/uL (3.8-10.6)
== END | disposition home or self-care (01) ==
LOC: LABPAT 16:29
PROVIDERS: ATTEND Internal Medicine Interventional Cardiology
DX: Z01.812 Encounter for preprocedural laboratory examination (principal); I25.10 Atherosclerotic heart disease of native coronary artery without angina pectoris
CPT/HCPCS: 80051; 82565; 84520; 85027

== ENCOUNTER 2019-08-02 18:40 | Emergency (ER) | payer MEDICARE, BC ==
[2019-08-02 18:46] VITALS: BP 165/84; PULSE 59; RESP 16; TEMP 97.4
--- NOTE | 2019-08-02 19:37 | XR ---
EXAMINATION TYPE: XR elbow complete LT DATE OF EXAM: 08/02/2019 COMPARISON: NONE HISTORY: Elbow pain TECHNIQUE: 3 views FINDINGS: There is soft tissue swelling over the olecranon process of the ulna. I see no fracture nor dislocation. There is no sign of joint effusion. There is some spurring on the radial head. IMPRESSION: No fracture. Soft tissue swelling posteriorly could relate to olecranon bursitis.
--- NOTE | 2019-08-02 19:58 | ED ---
Trauma HPI - General Chief Complaint: Extremity Injury, Upper Stated Complaint: fall/elbow pain Time Seen by Provider: 08/02/19 18:45 Source: patient Mode of arrival: ambulatory Limitations: no limitations - History of Present Illness Initial Comments: The patient is a 74-year-old male with past history of A. fib, coronary artery disease, hypertension who presents to the emergency department with complaint of left elbow swelling. The patient reports that he was attempting to sit down on a bench. He did hit his left elbow on in ornament that decorated the bench. He began having swelling to the left lateral aspect. Denies overlying ecchymosis. Denies any restrictive range of motion. Reports that his pain is about 2 out of 10. Denies any numbness, tingling or weakness. He is on Plavix because of his significant cardiac history. Denies any other trauma. No fevers or chills. There are no other alleviating, Perceptin or modifying factors - Related Data Home Medications Medication Instructions Recorded Confirmed Aspirin [Adult Low Dose Aspirin EC] 81 mg PO DAILY 05/19/18 07/31/18 Brimonidine Tartrate/Timolol 1 drop BOTH EYES HS 05/19/18 07/31/18 [Combigan 0.2%-0.5% Eye Drops] Lisinopril [Zestril] 5 mg PO DAILY 05/19/18 07/31/18 Ascorbic Acid [Vitamin C] 500 mg PO DAILY 07/31/18 07/31/18 Atorvastatin [Lipitor] 40 mg PO HS 07/31/18 07/31/18 Cyanocobalamin (Vitamin B-12) 1,000 mcg PO DAILY 07/31/18 07/31/18 [Vitamin B-12] Furosemide [Lasix] 40 mg PO DAILY 07/31/18 07/31/18 Metoprolol Tartrate [Lopressor] 50 mg PO BID 07/31/18 07/31/18 Previous Rx's Medication Instructions Recorded Nitroglycerin Sl Tabs [Nitrostat] 0.4 mg SUBLINGUAL Q5M PRN #1 bottle 05/22/18 Clopidogrel [Plavix] 75 mg PO DAILY #90 tab 05/24/18 Allergies Allergy/AdvReac Type Severity Reaction Status Date / Time aloe Allergy Rash/Hives Verified 08/02/19 18:46 bacitracin Allergy Rash/Hives Verified 08/02/19 18:46 [From Neosporin ([id number])] neomycin Allergy Rash/Hives Verified 08/02/19 18:46 [From Neosporin ([id number])] polymyxin B Allergy Rash/Hives Verified 08/02/19 18:46 [From Neosporin ([id number])] Review of Systems ROS Statement: Those systems with pertinent positive or pertinent negative responses have been documented in the HPI. ROS Other: All systems not noted in ROS Statement are negative. Past Medical History Past Medical History: Atrial Fibrillation, Coronary Artery Disease (CAD), Chest Pain / Angina, Diabetes Mellitus, Eye Disorder, Hyperlipidemia, Hypertension, Osteoarthritis (OA), Prostate Disorder Additional Past Medical History / Comment(s): On the artery disease with previous bypass surgery in 2003, previous aortic valve replacement, previous coronary intervention and stenting as mentioned above in the HPI, bilateral glaucoma, any stones, peripheral neuropathy. History of Any Multi-Drug Resistant Organisms: None Reported Past Surgical History: Appendectomy, Cardiac Valve Replacement, Cholecystectomy, Coronary Bypass/CABG, Heart Catheterization Additional Past Surgical History / Comment(s): aortic valve replaced 2003, CABG double bypass ; drug-eluting stent to the proximal LAD and diagonal, and a drug- eluting stent placement to his right coronary artery in June of [address] [facility]. TAVR 07/15/2018 with a 26 mm core valve completed at [facility]. Past Anesthesia/Blood Transfusion Reactions: No Reported Reaction Additional Past Anesthesia/Blood Transfusion Reaction / Comment(s): no problems with anesthesia, unsure if patient has had blood transfusion in the past. Date of Last Stent Placement:: 07/15/2018 Past Psychological History: Depression Smoking Status: Former smoker Past Alcohol Use History: Occasional Past Drug Use History: None Reported - Past Family History Father Family Medical History: Cancer Brother(s) Family Medical History: Cancer General Exam Limitations: no limitations General appearance: alert, in no apparent distress Head exam: Present: atraumatic, normocephalic, normal inspection Extremities exam: Present: other (swelll lateral aspect left elbow. No joint effusion. No ecchymosis. No restrictive ROM at the shoulders or elbows. 2+ radial and ulnar pulses. Intact sensation) Course Vital Signs 08/02/19 18:44 Temperature 97.4 F L Pulse Rate 59 L Respiratory 16 Rate Blood Pressure 165/84 O2 Sat by Pulse 98 Oximetry Medical Decision Making - Medical Decision Making Upon arrival the patient is placed in room 20. A thorough history and physical exam is performed. Patient has no restrictive range of motion. He is not requesting anything for pain at this time. Clinical appearance does appear consistent with a bursitis however department x-ray the patient's left elbow. No fracture or joint effusion. Soft tissue swelling consistent with an olecranon bursitis. At this time I did discuss diagnosis, differential treatment options. The patient is wrapped in an Damian bandage with compression. He is instructed to rest, ice and elevate the extremity. Follow-up with primary care doctor in 2-4 days. Return to the emergency room if he has any new or wor sening symptoms. Patient agreement with the treatment plan and was discharged home in stable condition Disposition Clinical Impression: Traumatic bursitis Disposition: HOME SELF-CARE Condition: Stable Instructions (If sedation given, give patient instructions): Elbow Bursitis (ED ) Additional Instructions: Please follow-up with your primary care doctor in 2-4 days. Rest, ice and elevate the extremity. Wear the Damian bandage with some compression on it while active. Removed at nighttime. Follow up with the orthopedic associates if your symptoms do not improve Is patient prescribed a controlled substance at d/c from ED?: No Referrals: Digna Boston III, MD [Primary Care Provider] - 1-2 days Rene Dillon MD [STAFF PHYSICIAN] - 1-2 days Time of Disposition: 19:58
== END 2019-08-02 20:19 | disposition home or self-care (01) ==
LOC: EC 18:40
DX: M70.32 Other bursitis of elbow, left elbow (principal); I10 Essential (primary) hypertension; I25.119 Atherosclerotic heart disease of native coronary artery with unspecified angina pectoris; E78.5 Hyperlipidemia, unspecified; H40.9 Unspecified glaucoma; M19.90 Unspecified osteoarthritis, unspecified site; Z79.82 Long term (current) use of aspirin; Z79.899 Other long term (current) drug therapy; Z79.02 Long term (current) use of antithrombotics/antiplatelets; Z91.048 Other nonmedicinal substance allergy status; Z88.1 Allergy status to other antibiotic agents; Z87.891 Personal history of nicotine dependence; Z95.2 Presence of prosthetic heart valve; Z95.1 Presence of aortocoronary bypass graft
CPT/HCPCS: 99283

== ENCOUNTER 2020-01-01 16:33 | Emergency (ER) | payer MEDICARE, BC ==
[2020-01-01] MEDS ORDERED: ROCURONIUM 10 MG/ML (10 ML VIAL) IV STA (16:40)
[2020-01-01] MEDS ORDERED: NALOXONE 0.4 MG/ML 1 ML VIAL IVP STA (16:44)
[2020-01-01 16:47] LABS: Glucose,Whole Blood 133 mg/dL (75-99)
[2020-01-01] MEDS ORDERED: SODIUM CHLORIDE 0.9% 1,000 ML IV STA (16:50)
--- NOTE | 2020-01-01 16:57 | ED ---
General Adult HPI - General Stated complaint: Bull Attack Time Seen by Provider: 01/01/20 16:50 - History of Present Illness Initial comments: Dictation was produced using [employer] dictation software. please excuse any grammatical, word or spelling errors. This patient was cared for during a federal and state declared state of emergency secondary to Covid 19 Chief Complaint: 74-year-old male presents unresponsive History of Present Illness: Patient is 74-year-old male brought in by EMS after being found unresponsive. According to EMS patient was found unconscious and unresponsive in the middle of a field. Apparently there was loose cows. Enforcement went out to the scene and found patient face down with head injury. Patient allegedly has history of cardiac disease. EMS reports upon initial evaluation he was moving all extremities already wasn't making any purposeful movements or following any commands. PHYSICAL EXAM: General Impression: Obtunded, eyes closed, GCS 3 HEENT: Hematoma and facial laceration to the right maxilla Cardiovascular: Heart regular rate and rhythm Chest: Bilateral breath sounds Abdomen: Mild ecchymoses to the epigastric area Musculoskeletal: Pulses present and equal in all extremities, no peripheral edema, no step-offs crepitus or deformities to the back, weak rectal tone Neurological: Obtunded, pupils pinpoint bilaterally ED course: 74-year-old male discovered to be unresponsive in an area where there were loose animals concerned that patient was injured from a loose bull. Vital signs upon arrival are within acceptable limits. Patient does have facial trauma. He is currently GCS 3. Level I trauma was paged. Patient was intubated for airway protection. There is no other obvious signs of injury to anywhere besides the face. Patient was intubated by nurse mechanical design drafter. Given patient's pinpoint pupils and sonorous respirations he was given Narcan with no improvement of mental status. Chest x-ray and pelvis x-ray showed no acute processes. There was good placement of endotracheal tube. CT images were reviewed. There appeared to be 2 small areas of subarachnoid hemorrhage to the right hemisphere concerning for intracranial bleed. Considering that patient has signs of facial trauma is likely traumatic subarachnoid hemorrhage. No obvious findings were seen on CT of the chest abdomen and pelvis. Case was discussed with Dr. Gill and Janice Melendez was went except patient care for transfer. We're for transfer was performed at approximately 5:35 PM. According to medical office secretary there are significant delays given EMS system is very busy and EMS was able to physical transfer patient until around 6:15 PM. Radiology reads are now available. Computed tomography scan of the head and C- spine shows subarachnoid hemorrhage and zygomatic arch fracture. CT of the c hest and pelvis shows anterior abdominal hematoma. No traumatic injuries noted at this time. Patient will be transferred to [facility]. In order to not delay transfer any longer laceration will not be repaired at this time. - Related Data Home Medications Medication Instructions Recorded Confirmed Aspirin [Adult Low Dose Aspirin EC] 81 mg PO DAILY 05/19/18 07/31/18 Brimonidine Tartrate/Timolol 1 drop BOTH EYES HS 05/19/18 07/31/18 [Combigan 0.2%-0.5% Eye Drops] lisinopriL [Zestril] 5 mg PO DAILY 05/19/18 07/31/18 Ascorbic Acid [Vitamin C] 500 mg PO DAILY 07/31/18 07/31/18 Atorvastatin [Lipitor] 40 mg PO HS 07/31/18 07/31/18 Cyanocobalamin (Vitamin B-12) 1,000 mcg PO DAILY 07/31/18 07/31/18 [Vitamin B-12] Furosemide [Lasix] 40 mg PO DAILY 07/31/18 07/31/18 Metoprolol Tartrate [Lopressor] 50 mg PO BID 07/31/18 07/31/18 Previous Rx's Medication Instructions Recorded Nitroglycerin Sl Tabs [Nitrostat] 0.4 mg SUBLINGUAL Q5M PRN #1 bottle 05/22/18 Clopidogrel [Plavix] 75 mg PO DAILY #90 tab 05/24/18 Allergies Allergy/AdvReac Type Severity Reaction Status Date / Time aloe Allergy Rash/Hives Verified 08/02/19 18:46 bacitracin Allergy Rash/Hives Verified 08/02/19 18:46 [From Neosporin ([id number])] neomycin Allergy Rash/Hives Verified 08/02/19 18:46 [From Neosporin ([id number])] polymyxin B Allergy Rash/Hives Verified 08/02/19 18:46 [From Neosporin ([id number])] Review of Systems ROS Statement: Those systems with pertinent positive or pertinent negative responses have been documented in the HPI. ROS Other: All systems not noted in ROS Statement are negative. Past Medical History Past Medical History: Atrial Fibrillation, Coronary Artery Disease (CAD), Chest Pain / Angina, Diabetes Mellitus, Eye Disorder, Hyperlipidemia, Hypertension, Osteoarthritis (OA), Prostate Disorder Additional Past Medical History / Comment(s): On the artery disease with previous bypass surgery in 2003, previous aortic valve replacement, previous coronary intervention and stenting as mentioned above in the HPI, bilateral glaucoma, any stones, peripheral neuropathy. History of Any Multi-Drug Resistant Organisms: None Reported Past Surgical History: Appendectomy, Cardiac Valve Replacement, Cholecystectomy, Coronary Bypass/CABG, Heart Catheterization Additional Past Surgical History / Comment(s): aortic valve replaced 2003, CABG double bypass ; drug-eluting stent to the proximal LAD and diagonal, and a drug- eluting stent placement to his right coronary artery in June of 2018 completed at [facility]. TAVR 07/15/2018 with a 26 mm core valve completed at [facility]. Past Anesthesia/Blood Transfusion Reactions: No Reported Reaction Additional Past Anesthesia/Blood Transfusion Reaction / Comment(s): no problems with anesthesia, unsure if patient has had blood transfusion in the past. Date of Last Stent Placement:: 07/15/2018 Past Psychological History: Depression Past Alcohol Use History: Occasional Past Drug Use History: None Reported - Past Family History Father Family Medical History: Cancer Brother(s) Family Medical History: Cancer Procedures - Intubation Sedative: Propofol Paralytic: Rocuronium Laryngoscope: Frank Size: 2 Assist Device Used: Bougie ET Tube Size: 8 ET Tube Uncuffed: No Tube Secured Depth (cm): 22 Tube Secured Location: lips Tube Placement Confirmation: visualized tube passing through cords, equal breath sounds bilaterally Patient Tolerated Procedure: well Intubation Complications: none Medical Decision Making - Lab Data Lab Results 01/01/20 01/01/20 Range/Units 16:45 17:43 Sample Site R radial ABG pH 7.36 (7.35-7.45) ABG pCO2 42 (35-45) mmHg ABG pO2 326 H (83-108) mmHg ABG HCO3 24 (21-25) mmol/L ABG Total CO2 25 H (19-24) mmol/L ABG O2 Saturation 99.3 H (94-97) % ABG Base Excess -1.7 mmol/L Gautam Test Yes FiO2 100 % POC Glucose (mg/dL) 133 H (75-99) mg/dL POC Glu Bead Cutter ID Piero Krishnaary Critical Care Time Critical Care Time: Yes Total Critical Care Time: 33 Disposition Clinical Impression: Traumatic injury of head Disposition: OTHER INSTITUTION NOT DEFINED Condition: Critical Referrals: None,Stated [Primary Care Provider] - 1-2 days Time of Disposition: 17:53 - Out of Hospital Transfer - Req. Specs Out of Hospital Transfer - Requested Specifics: Other Emergency Center ([facility])
--- NOTE | 2020-01-01 17:08 | XR ---
EXAMINATION TYPE: XR pelvis AP view DATE OF EXAM: 01/01/2020 COMPARISON: NONE HISTORY: Trauma. Pain. TECHNIQUE: FINDINGS: The pelvic ring appears intact. Proximal femurs and hip joints are intact. There is mild ac etabular spurring. Sacroiliac joints appear normal. IMPRESSION: No acute abnormality the pelvis. No fracture.
--- NOTE | 2020-01-01 17:09 | XR ---
EXAMINATION TYPE: XR chest 1V portable DATE OF EXAM: 01/01/2020 COMPARISON: 08/01/2018 HISTORY: Trauma. Chest pain. TECHNIQUE: FINDINGS: Heart is normal. There are sternal wires. Lungs are clear of consolidation. Endotracheal tu be is 3.3 cm from the cathleen. There is no pleural effusion. There is no sign of a pneumothorax. There are chest leads. IMPRESSION: Inspiration decreased compared to old exam. Endotracheal tube in good position.
[2020-01-01] MEDS ORDERED: DIPH,PERTUS(ACELL)TETVAC-LF 0.5 ML VIAL IM ONE (17:18)
--- NOTE | 2020-01-01 17:38 | CT ---
EXAMINATION TYPE: CT ChestAbdPelvis w con DATE OF EXAM: 01/01/2020 COMPARISON: None HISTORY: Trauma, Multiple injuries and bruising. CT DLP: 2772.6 mGycm Automated exposure control for dose reduction was used. CONTRAST: Performed with IV Contrast, patient injected with 100 mL of Isovue 300. There is bilateral lower lobe patchy pulmonary airspace consolidation and atelectasis. Heart is sligh tly enlarged. There is small right pleural effusion. There is endotracheal tube. There is no pneumoth orax. There is nasogastric tube in the stomach. There is distended fluid-filled stomach. Thoracic aorta is atheromatous. There is aortic valve surgery. There is 4.4 cm aneurysm of the ascend ing aorta. There is no dissection. There are no hilar masses. There is no mediastinal adenopathy. Liver shows no focal defect. There are clips from cholecystectomy. Spleen is intact. There is no panc reatic mass. There is no adrenal mass. Kidneys show satisfactory contrast opacification. There is no hydronephrosi s. There is 6 cm cortical cyst lower pole right kidney. There is 3.5 cm cortical cyst upper pole left kidney. Ureters are not dilated. There is no retroperitoneal adenopathy. Abdominal aorta is atheroma tous. There is Bal catheter in the urinary bladder. Bladder is almost empty. There is no evidence o f a pelvic mass. There is no inguinal hernia. There is no free fluid in the pelvis. Appendix appears normal. There is no mesenteric edema. There is no ascites or free air. There is subc utaneous high density fluid collection in the anterior mid abdomen. This measures 1.5 cm in thickness . There is no abdominal wall hernia. There is no evidence of a bowel obstruction. There are sternal wires. Thoracic and lumbar vertebra show fairly normal alignment. There is multilev el spondylotic changes. There is no compression fracture. The ribs appear intact. The bony pelvis is intact. Proximal femurs and hip joints are intact. The pelvic ring is intact. There is some spurring at both hip joints. There is no evidence of hip fracture. I see no evidence of a rib fracture. The sh oulder joints appear intact. IMPRESSION: Small right pleural effusion with bilateral lower lobe pulmonary infiltrates and atelectasis. Thoracic aortic aneurysm. Subcutaneous hematoma over the anterior mid abdomen.
[2020-01-01 17:46] LABS: ABG Base Excess -1.7 mmol/L; ABG HCO3 24 mmol/L (21-25); ABG Oxygen Saturation 99.3 % (94-97); ABG PCO2 42 mmHg (35-45); ABG PH 7.36 (7.35-7.45); ABG PO2 326 mmHg (83-108); ABG TCO2 25 mmol/L (19-24); Allen Test Performed? Yes
--- NOTE | 2020-01-01 17:49 | CT ---
EXAMINATION TYPE: CT brain katie wo con DATE OF EXAM: 01/01/2020 COMPARISON: None HISTORY: Trauma, Multiple injuries and bruising. CT DLP: 2772.6 mGycm Automated exposure control for dose reduction was used. There is high attenuation in a sulcus of the right posterior temporal lobe. There is high attenuation along the right cerebellar tentorium. There is also some high attenuation along the interhemispheric fissure consistent with hemorrhage along the cerebral falx. There is no midline shift. There is no m ass effect. There is extensive soft tissue swelling and subcutaneous hematoma over the right zygoma. There is dep ressed fracture right zygomatic arch. The orbital margins appear intact. There is no evidence of a bl owout fracture. Ventricles have normal size. There is mild cerebral atrophy. Cervical vertebra have normal alignment. There is no compression fracture. There is hypertrophic mild spurring in the mid lower and mid cervical spine. There is multilevel cervical hypertrophic facet ar thropathy. The skull base is intact. There is normal aeration of the mastoid sinuses. Occipital bone is intact. IMPRESSION: There is acute subarachnoid hemorrhage involving right temporal parietal lobe and right occipital lob e along the cerebellar tentorium and cerebral falx. No definite parenchymal hemorrhage.. Spondylotic changes in the cervical spine. No fracture. Large right side facial hematoma with depressed fracture of the right zygomatic arch. Soft tissue air seen posteriorly consistent with laceration. Exam was discussed with ER physician at 5:45 PM.
[2020-01-01 18:05] LABS: ALT 18 U/L (4-49); AST 33 U/L (17-59); African American GFR (CKD) 66 (>60 ml/min/1.73 sqM); Albumin 3.5 g/dL (3.5-5.0); Alcohol <10 mg/dL; Alkaline Phosphatase 75 U/L (38-126); Anion Gap 9 mmol/L; Blood Urea Nitrogen 26 mg/dL (9-20); Calcium 8.8 mg/dL (8.4-10.2); Carbon Dioxide 21 mmol/L (22-30); Chloride 109 mmol/L (98-107); Glucose 107 mg/dL (74-99); Non-African American GFR(CKD) 57 (>60 ml/min/1.73 sqM); Potassium 4.6 mmol/L (3.5-5.1); Sodium 139 mmol/L (137-145); Total Bilirubin 0.6 mg/dL (0.2-1.3); Total Protein 6.2 g/dL (6.3-8.2)
[2020-01-01 18:07] LABS: Appearance,Urine Clear (Clear); Bilirubin,Urine Negative (Negative); Blood,Urine Trace (Negative); Color,Urine Yellow; Glucose,Urine (UA) Negative (Negative); Hyaline Casts,Urine 37 /lpf (0-2); Ketones,Urine Negative (Negative); Leukocyte Esterase,Urine Negative (Negative); Mucus,Urine Few /hpf; Nitrite,Urine Negative (Negative); PH, Urine 5.5 (5.0-8.0); Protein,Urine 1+ (Negative); RBC,Urine 2 /hpf (0-5); Specific Gravity,Urine 1.024 (1.001-1.035); Urobilinogen,Urine <2.0 mg/dL (<2.0); WBC,Urine 1 /hpf (0-5)
[2020-01-01 18:09] LABS: Amphetamine Screen,Urine Not Detected (NotDetected); Barbiturate Screen,Urine Not Detected (NotDetected); Benzodiazepines Screen,Urine Not Detected (NotDetected); Cocaine Screen,Urine Not Detected (NotDetected); Methadone Screen, Urine Not Detected (NotDetected); Opiate Screen,Urine Not Detected (NotDetected); Oxycodone Screen, Urine Not Detected (NotDetected); Phencyclidine Screen,Urine Not Detected (NotDetected); Tricyclic Antidepressant,Urine Not Detected (NotDetected); Urn Cannabinoid Scrn Not Detected (NotDetected)
--- NOTE | 2020-01-01 18:45 | P.GSCN ---
History of Present Illness Consult date: 01/01/20 History of present illness: 74-year-old male presents to the emergency department as a priority 1 trauma after being found unresponsive in the field, apparently next to a raging bull. EMS stated that on the scene, patient was moving extremities but was verbally not comprehensible. On my arrival to the emergency department, patient was already intubated. He was noted to have a significant ecchymotic area to the right orbit. There was no open laceration noted. Patient's pupils were pinpoint. He also was noted to have a significant amount of ecchymosis in the e pigastrium. No obvious additional deformities were noted on all extremities. No additional abrasions or lacerations were noted. FAST exam was performed by emergency department physician and was noted to be negative. Review of Systems ROS unobtainable: due to endotracheal tube Past Medical History Past Medical History: Atrial Fibrillation, Coronary Artery Disease (CAD), Chest Pain / Angina, Diabetes Mellitus, Eye Disorder, Hyperlipidemia, Hypertension, Osteoarthritis (OA), Prostate Disorder Additional Past Medical History / Comment(s): On the artery disease with previous bypass surgery in 2003, previous aortic valve replacement, previous coronary intervention and stenting as mentioned above in the HPI, bilateral glaucoma, any stones, peripheral neuropathy. History of Any Multi-Drug Resistant Organisms: None Reported Past Surgical History: Appendectomy, Cardiac Valve Replacement, Cholecystectomy, Coronary Bypass/CABG, Heart Catheterization Additional Past Surgical History / Comment(s): aortic valve replaced 2003, CABG double bypass ; drug-eluting stent to the proximal LAD and diagonal, and a drug-eluting stent placement to his right coronary artery in June of 2018 completed at [facility]. TAVR 07/15/2018 with a 26 mm core valve completed at [facility]. Past Anesthesia/Blood Transfusion Reactions: No Reported Reaction Additional Past Anesthesia/Blood Transfusion Reaction / Comm: no problems with anesthesia, unsure if patient has had blood transfusion in the past. Date of Last Stent Placement:: 07/15/2018 Past Psychological History: Depression Past Alcohol Use History: Occasional Past Drug Use History: None Reported - Past Family History Father Family Medical History: Cancer Brother(s) Family Medical History: Cancer Medications and Allergies Home Medications Medication Instructions Recorded Confirmed Type Aspirin [Adult Low Dose Aspirin EC] 81 mg PO DAILY 05/19/18 07/31/18 History Brimonidine Tartrate/Timolol 1 drop BOTH EYES HS 05/19/18 07/31/18 History [Combigan 0.2%-0.5% Eye Drops] lisinopriL [Zestril] 5 mg PO DAILY 05/19/18 07/31/18 History Nitroglycerin Sl Tabs [Nitrostat] 0.4 mg SUBLINGUAL Q5M PRN #1 bottle 05/22/18 07/31/18 Rx Clopidogrel [Plavix] 75 mg PO DAILY #90 tab 05/24/18 07/31/18 Rx Ascorbic Acid [Vitamin C] 500 mg PO DAILY 07/31/18 07/31/18 History Atorvastatin [Lipitor] 40 mg PO HS 07/31/18 07/31/18 History Cyanocobalamin (Vitamin B-12) 1,000 mcg PO DAILY 07/31/18 07/31/18 History [Vitamin B-12] Furosemide [Lasix] 40 mg PO DAILY 07/31/18 07/31/18 History Metoprolol Tartrate [Lopressor] 50 mg PO BID 07/31/18 07/31/18 History Allergies Allergy/AdvReac Type Severity Reaction Status Date / Time aloe Allergy Rash/Hives Verified 08/02/19 18:46 bacitracin Allergy Rash/Hives Verified 08/02/19 18:46 [From Neosporin ([id number])] neomycin Allergy Rash/Hives Verified 08/02/19 18:46 [From Neosporin ([id number])] polymyxin B Allergy Rash/Hives Verified 08/02/19 18:46 [From Neosporin ([id number])] Surgical - Exam Osteopathic Statement: *. No significant issues noted on an osteopathic structural exam other than those noted in the History and Physical/Consult. - General Intubated, not responsive to verbal or sensory stimuli - Eyes Large amount of ecchymosis around the right orbit, bilateral pinpoint pupils - ENT Normal mucosa, no notable hemorrhage - Neck no masses, trachea midline - Respiratory Patient is ventilated and intubated, equal chest rise bilateral - Cardiovascular Tachycardic - Abdomen Soft, ecchymosis noted in the epigastrium, nondistended, no abrasions - Integumentary no rash, no growths - Psychiatric GCS of 3T Results - Labs 01/01/20 17:50 Abnormal Lab Results - Last 24 Hours (Table) 01/01/20 Range/Units 16:45 POC Glucose (mg/dL) 133 H (75-99) mg/dL Assessment and Plan Plan: 74-year-old male found down and nonresponsive in a field next to a raging bull. - Patient was evaluated within 30 minutes of the priority 1 trauma alert - CT of the head and neck was performed. CT of the head does show an acute subarachnoid hemorrhage and right zygomatic arch fracture. - CT of the chest abdomen and pelvis was also performed with significant ecchymosis noted in the mid abdominal wall - Currently, patient is stable for transfer to a trauma center for higher acuity care. The patient will require neurosurgical evaluation due to the neurologic findings with a subarachnoid hemorrhage and unresponsive stature. Patient will also require all manifest evaluation due to the right zygomatic arch fracture. At this point, we will plan for transfer to a higher acuity trauma center.
[2020-01-01 19:58] VITALS: BP 150/87; PULSE 66; RESP 16; TEMP 97.1
== END 2020-01-01 19:57 | disposition short-term general hospital (02) ==
LOC: EC 16:33
DX: S06.6X9A Traumatic subarachnoid hemorrhage with loss of consciousness of unspecified duration, initial encounter (principal); S02.40EA Zygomatic fracture, right side, initial encounter for closed fracture; S30.1XXA Contusion of abdominal wall, initial encounter; S01.81XA Laceration without foreign body of other part of head, initial encounter; R40.2430 Glasgow coma scale score 3-8, unspecified time; Z23 Encounter for immunization; Z91.048 Other nonmedicinal substance allergy status; Z88.1 Allergy status to other antibiotic agents; Z88.8 Allergy status to other drugs, medicaments and biological substances; W55.22XA Struck by cow, initial encounter
CPT/HCPCS: 36415; 36600; 93005; 80053; 82805; 84484; 81001; 80306; 72170; 71045; 72125; 70450; 71260; 74177; 90715; 99291; 90471; 96374; 31500; G0480; J2310; J2704; Q9967; 80320; 94002

== ENCOUNTER 2020-01-31 21:43 | Emergency (ER) | payer MEDICARE, BC ==
[2020-01-31 22:01] VITALS: TEMP 97.9
--- NOTE | 2020-01-31 23:04 | CT ---
EXAMINATION TYPE: CT brain cspine wo con DATE OF EXAM: 01/31/2020 COMPARISON: 01/01/2020 HISTORY: Fall CT DLP: 1568.3 mGycm Automated exposure control for dose reduction was used. There is some cerebral cortical atrophy. There is widening of the subdural space over both frontal lo bes. There is no mass effect nor midline shift. There is no sign of intracranial hemorrhage. The calv arium is intact. Skull base is intact. Cervical vertebra have normal alignment. There is degenerative disc space narrowing at C4-5 C5-6 C6-7 . There is multilevel mild cervical hypertrophic facet arthropathy. IMPRESSION: Cerebral atrophy. Widening of the subdural space over both frontal lobes consistent with subdural hyg romas which appear new compared to recent exam. There is clearing of the subarachnoid acute hemorrhag e compared to old exam. There is clearing of the scalp and facial soft tissue swelling compared to ol d exam. No acute hemorrhage seen. Spondylotic changes in the cervical spine. No fracture. No change compared to recent exam.
--- NOTE | 2020-01-31 23:10 | XR ---
EXAMINATION TYPE: XR pelvis AP view DATE OF EXAM: 01/31/2020 COMPARISON: 01/01/2020 HISTORY: Pain TECHNIQUE: Single view FINDINGS: Pelvic ring is intact. There is left-sided acetabular spurring. Sacroiliac joints are intac t. Proximal femurs are intact. There is no evidence of a fracture. IMPRESSION: No acute abnormality the pelvis. No change.
--- NOTE | 2020-01-31 23:11 | XR ---
EXAMINATION TYPE: XR chest 1V DATE OF EXAM: 01/31/2020 COMPARISON: 01/01/2020 HISTORY: Chest pain. Fall. TECHNIQUE: FINDINGS: There is some mild atelectasis and linear infiltrate right lung base. There is no heart greg lure. There are sternal wires. Thoracic aorta is atheromatous. Costophrenic angles are fairly clear. IMPRESSION: There is new mild infiltrate and atelectasis at the right lung base compared to old exam. No heart failure.
[2020-01-31 23:25] VITALS: BP 101/79; PULSE 90; RESP 17
[2020-01-31] MEDS ORDERED: AZITHROMYCIN 500 MG TAB PO STA (23:56)
[2020-02-01] MEDS ORDERED: ACETAMINOPHEN TAB 325 MG TAB PO STA (00:35)
--- NOTE | 2020-02-01 01:41 | ED ---
General Adult HPI - General Chief complaint: Fall Stated complaint: Fall Time Seen by Provider: 01/31/20 22:10 Source: EMS, RN notes reviewed, old records reviewed Mode of arrival: EMS Limitations: no limitations - History of Present Illness Initial comments: 74 year-old male patient to ED for evaluation she doesn't history of any trauma approximate one month ago which resulted in intracranial bleed resulting in a traumatic brain injury. Patient did not have any surgery. Patient is sent in for evaluation because he has had a few falls that his facility in the last couple days and they want him evaluated. No known trauma to the head of the neck. Patient is currently at his baseline. Systemic: Pt denies fatigue, fever/chills, rash. Pt denies weakness, night sweats, weight loss. Neuro: Pt denies headache, visual disturbances, syncope or pre-syncope. HEENT: Pt denies ocular discharge or irritation, otalgia, rhinorrhea, pharyngitis or notable lymphadenopathy. Cardiopulmonary: Pt denies chest pain, SOB, heart palpitations, dyspnea on exertion. Abdominal/GI: Pt denies abdominal pain, n/v/d. : Pt denies dysuria, burning w/ urination, frequency/urgency. Denies new onset urinary or bowel incontinence. MSK: Pt denies myalgia, loss of strength or function in extremities. Neuro: Pt denies new onset weakness, paresthesias. - Related Data Home Medications Medication Instructions Recorded Confirmed Brimonidine Tartrate/Timolol 2 drops BOTH EYES HS@199905/19/18 01/31/20 [Combigan 0.2%-0.5% Eye Drops] lisinopriL [Zestril] 5 mg PO DAILY 05/19/18 01/31/20 Furosemide [Lasix] 40 mg PO DAILY 07/31/18 01/31/20 Metoprolol Tartrate [Lopressor] 50 mg PO BID@0700,1900 07/31/18 01/31/20 Acetaminophen Tab [Tylenol] 650 mg PO TID@0500,1300,2100 01/31/20 01/31/20 Aspirin 81 mg PO DAILY 01/31/20 01/31/20 Doxazosin [Cardura] 2 mg PO DAILY 01/31/20 01/31/20 Modafinil [Provigil] 50 mg PO DAILY 01/31/20 01/31/20 Tamsulosin HCl [Flomax] 0.4 mg PO HS@2000 01/31/20 01/31/20 levETIRAcetam [Keppra] 250 mg PO BID@0700,1900 01/31/20 01/31/20 Previous Rx's Medication Instructions Recorded Clopidogrel [Plavix] 75 mg PO DAILY #90 tab 05/24/18 Azithromycin [Zithromax Z-pack (6 0 mg PO DIRECTED 5 Days #6 tab 02/01/20 tabs)] Allergies Allergy/AdvReac Type Severity Reaction Status Date / Time aloe Allergy Rash/Hives Verified 01/31/20 23:04 bacitracin Allergy Rash/Hives Verified 01/31/20 23:04 [From Neosporin ([id number])] neomycin Allergy Rash/Hives Verified 01/31/20 23:04 [From Neosporin ([id number])] polymyxin B Allergy Rash/Hives Verified 01/31/20 23:04 [From Neosporin ([id number])] Review of Systems ROS Statement: Those systems with pertinent positive or pertinent negative responses have been documented in the HPI. ROS Other: All systems not noted in ROS Statement are negative. Past Medical History Past Medical History: Atrial Fibrillation, Coronary Artery Disease (CAD), Chest Pain / Angina, Diabetes Mellitus, Eye Disorder, Hyperlipidemia, Hypertension, Osteoarthritis (OA), Prostate Disorder Additional Past Medical History / Comment(s): On the artery disease with previous bypass surgery in 2003, previous aortic valve replacement, previous coronary intervention and stenting as mentioned above in the HPI, bilateral glaucoma, any stones, peripheral neuropathy. History of Any Multi-Drug Resistant Organisms: None Reported Past Surgical History: Appendectomy, Cardiac Valve Replacement, Cholecystectomy, Coronary Bypass/CABG, Heart Catheterization Additional Past Surgical History / Comment(s): aortic valve replaced 2003, CABG double bypass ; drug-eluting stent to the proximal LAD and diagonal, and a drug- eluting stent placement to his right coronary artery in June of 2018 completed at [facility]. TAVR 07/15/2018 with a 26 mm core valve completed at [facility]. Past Anesthesia/Blood Transfusion Reactions: No Reported Reaction Additional Past Anesthesia/Blood Transfusion Reaction / Comment(s): no problems with anesthesia, unsure if patient has had blood transfusion in the past. Date of Last Stent Placement:: 07/15/2018 Past Psychological History: Depression Smoking Status: Never smoker Past Alcohol Use History: Occasional Past Drug Use History: None Reported - Past Family History Father Family Medical History: Cancer Brother(s) Family Medical History: Cancer General Exam - General Exam Comments Initial Comments: Constitutional: NAD, AOX1, Pt has pleasant affect. HEENT: NC/AT, trachea midline, neck supple, no lymphadenopathy. External ears appear normal, without discharge. Mucous membranes moist. Eyes PERRLA, EOM intact. There is no scleral icterus. No pallor noted. Cardiopulmonary: RRR, no murmurs, rubs or gallops, no JVD noted. Lungs CTAB in anterior and posterior swanson. No peripheral edema. Abdominal exam: Abdomen soft and non-distended. Abdomen non-tender to palpation in all 4 quadrants. Bowel sounds active in LLQ. No hepatosplenomegaly. Neuro: CN II-XII grossly intact. No nuchal rigidity. No raccon eyes, no henson sign, no hemotympanum. No cervical spinal tenderness. No thoracic or lumbar tenderness. MSK: ROM in extremities intact. No signs of trauma. Limitations: no limitations Course Vital Signs 01/31/20 01/31/20 21:44 23:22 Temperature 97.9 F Pulse Rate 99 90 Respiratory 18 17 Rate Blood Pressure 133/80 101/79 O2 Sat by Pulse 96 97 Oximetry Medical Decision Making - Medical Decision Making 74-year-old male patient to ED for evaluation falls. Physical exam is negative for acute pathology. She is at his baseline per her [id number] who is a nurse. DT brain C-spine displayed subdural hygroma spinal like changes in the cervical spine no fracture. Plain film of pelvis negative for acute pathology. Chest x-ray displayed mild infiltrate right lung base controlled to old exam no heart failure. Patient has not been coughing does not have any fever. Long discussion with [id number] who discussed all these findings with patient's . Patient was offered transfer to [facility] for neurosurgery evaluation. This they would like to decline. I also attempted to contact patient neurologist which was unsuccessful. Daughter in law and patient are comfortable with discharge, outpatient follow up and return precautions. Patient will be placed on azithromycin. Case discussed in depth with Dr. Benjamin. Disposition Clinical Impression: Fall, Subdural hygroma Disposition: HOME SELF-CARE Condition: Stable Instructions (If sedation given, give patient instructions): Fall Prevention ( ED) Additional Instructions: Follow up with PCP and neurologist tomorrow. Return to ED with any worsening symptoms. Prescriptions: Azithromycin [Zithromax Z-pack (6 tabs)] 0 mg PO DIRECTED 5 Days #6 tab Is patient prescribed a controlled substance at d/c from ED?: No Referrals: Digna Boston III, MD [Primary Care Provider] - 1-2 days
== END 2020-02-01 02:27 | disposition home or self-care (01) ==
LOC: SUPCPDRO 21:43 → EC 21:43
DX: G96.08 Other cranial cerebrospinal fluid leak (principal); R91.8 Other nonspecific abnormal finding of lung field; I10 Essential (primary) hypertension; I25.119 Atherosclerotic heart disease of native coronary artery with unspecified angina pectoris; H40.9 Unspecified glaucoma; M19.90 Unspecified osteoarthritis, unspecified site; F32.9 Major depressive disorder, single episode, unspecified; Z79.82 Long term (current) use of aspirin; Z79.899 Other long term (current) drug therapy; Z88.1 Allergy status to other antibiotic agents; Z91.048 Other nonmedicinal substance allergy status
CPT/HCPCS: 70450; 71045; 72125; 72170; 99284

== ENCOUNTER 2020-02-03 16:48 | Emergency (ER) | payer MEDICARE, BC ==
[2020-02-03 16:56] VITALS: PULSE 88
--- NOTE | 2020-02-03 17:09 | ED ---
Fall HPI - General Chief Complaint: Fall Stated Complaint: Fall Time Seen by Provider: 02/03/20 16:48 Source: patient, EMS, RN notes reviewed, old records reviewed Mode of arrival: EMS - History of Present Illness Initial Comments: This is a 74-year-old male who is wheelchair bound he has a history of multiple medical problems who fell out of his wheelchair. He states he slipped and fell he purely struck his head against a waterfall but he denies any head neck or back pain a new findings nausea vomiting blurry vision loss of function to his upper or lower extremities. No other modifying factors MD Complaint: fall - Related Data Home Medications Medication Instructions Recorded Confirmed Brimonidine Tartrate/Timolol 2 drops BOTH EYES HS@199905/19/18 01/31/20 [Combigan 0.2%-0.5% Eye Drops] lisinopriL [Zestril] 5 mg PO DAILY 05/19/18 01/31/20 Furosemide [Lasix] 40 mg PO DAILY 07/31/18 01/31/20 Metoprolol Tartrate [Lopressor] 50 mg PO BID@0700,1900 07/31/18 01/31/20 Acetaminophen Tab [Tylenol] 650 mg PO TID@0500,1300,2100 01/31/20 01/31/20 Aspirin 81 mg PO DAILY 01/31/20 01/31/20 Doxazosin [Cardura] 2 mg PO DAILY 01/31/20 01/31/20 Modafinil [Provigil] 50 mg PO DAILY 01/31/20 01/31/20 Tamsulosin HCl [Flomax] 0.4 mg PO HS@199901/31/20 01/31/20 levETIRAcetam [Keppra] 250 mg PO BID@0700,1900 01/31/20 01/31/20 Previous Rx's Medication Instructions Recorded Clopidogrel [Plavix] 75 mg PO DAILY #90 tab 05/24/18 Azithromycin [Zithromax Z-pack (6 0 mg PO DIRECTED 5 Days #6 tab 02/01/20 tabs)] Allergies Allergy/AdvReac Type Severity Reaction Status Date / Time aloe Allergy Rash/Hives Verified 02/03/20 16:56 bacitracin Allergy Rash/Hives Verified 02/03/20 16:56 [From Neosporin ([id number])] neomycin Allergy Rash/Hives Verified 02/03/20 16:56 [From Neosporin ([id number])] polymyxin B Allergy Rash/Hives Verified 02/03/20 16:56 [From Neosporin ([id number])] Review of Systems ROS Statement: Those systems with pertinent positive or pertinent negative responses have been documented in the HPI. ROS Other: All systems not noted in ROS Statement are negative. Past Medical History Past Medical History: Atrial Fibrillation, Coronary Artery Disease (CAD), Chest Pain / Angina, Diabetes Mellitus, Eye Disorder, Hyperlipidemia, Hypertension, Osteoarthritis (OA), Prostate Disorder Additional Past Medical History / Comment(s): On the artery disease with previous bypass surgery in 2003, previous aortic valve replacement, previous coronary intervention and stenting as mentioned above in the HPI, bilateral glaucoma, any stones, peripheral neuropathy. History of Any Multi-Drug Resistant Organisms: None Reported Past Surgical History: Appendectomy, Cardiac Valve Replacement, Cholecystectomy, Coronary Bypass/CABG, Heart Catheterization Additional Past Surgical History / Comment(s): aortic valve replaced 2003, CABG double bypass ; drug-eluting stent to the proximal LAD and diagonal, and a drug- eluting stent placement to his right coronary artery in June of 2018 completed at . TAVR 07/15/2018 with a 26 mm core valve completed at . Past Anesthesia/Blood Transfusion Reactions: No Reported Reaction Additional Past Anesthesia/Blood Transfusion Reaction / Comment(s): no problems with anesthesia, unsure if patient has had blood transfusion in the past. Date of Last Stent Placement:: 07/15/2018 Past Psychological History: Depression Smoking Status: Never smoker Past Alcohol Use History: Occasional Past Drug Use History: None Reported - Past Family History Father Family Medical History: Cancer Brother(s) Family Medical History: Cancer General Exam - General Exam Comments Initial Comments: This is a well-developed well-nourished awake alert oriented times female he did come with a cervical collar in place. Limitations: no limitations General appearance: alert, in no apparent distress Head exam: Present: atraumatic, normocephalic, normal inspection Eye exam: Present: normal appearance, PERRL, EOMI. Absent: scleral icterus, conjunctival injection, periorbital swelling ENT exam: Present: normal exam, mucous membranes moist Neck exam: Present: normal inspection, full ROM, other (I did clear his neck clinically no tenderness palpation over the spinous processes no pain with range of motion). Absent: tenderness, meningismus, lymphadenopathy Respiratory exam: Present: normal lung sounds bilaterally. Absent: respiratory distress, wheezes, rales, rhonchi, stridor Cardiovascular Exam: Present: regular rate, normal rhythm, normal heart sounds. Absent: systolic murmur, diastolic murmur, rubs, gallop, clicks GI/Abdominal exam: Present: soft, normal bowel sounds. Absent: distended, tenderness, guarding, rebound, rigid Extremities exam: Present: normal inspection, full ROM, normal capillary refill. Absent: tenderness, pedal edema, joint swelling, calf tenderness Back exam: Present: normal inspection Neurological exam: Present: alert, oriented X3, CN II-XII intact Psychiatric exam: Present: normal affect, normal mood Skin exam: Present: warm, dry, intact, normal color. Absent: rash Course Vital Signs 02/03/20 16:53 Temperature 98.4 F Pulse Rate 88 Respiratory 18 Rate Blood Pressure 137/64 O2 Sat by Pulse 98 Oximetry - Reevaluation(s) Reevaluation #1: 02/03/20 17:09 Due to the patient's previous history CAT scan will be ordered. Medical Decision Making - Medical Decision Making Patient will be discharged back to his facility no overt abnormality seen on exam or imaging - Radiology Data Radiology results: report reviewed (Image reviewed no acute findings.), image reviewed Disposition Clinical Impression: Fall, Scalp contusion Disposition: HOME SELF-CARE Condition: Good Instructions (If sedation given, give patient instructions): Fall Prevention for Older Adults (ED), Scalp Contusion in Adults (ED) Is patient prescribed a controlled substance at d/c from ED?: No Referrals: Sree Roberson MD [Primary Care Provider] - 1-2 days
--- NOTE | 2020-02-03 17:38 | CT ---
EXAMINATION TYPE: CT brain wo con DATE OF EXAM: 02/03/2020 COMPARISON: 01/31/2020 HISTORY: Fall today with injury CT DLP: 1188.4 mGycm Automated exposure control for dose reduction was used. There is cerebral cortical atrophy. There is no mass effect nor midline shift. There is no sign of in tracranial hemorrhage. There is slight widening of the subdural space over the right frontoparietal l obe compared to the left. The calvarium is intact. IMPRESSION: Cerebral atrophy. Mild right side subdural hygroma without change compared to recent exam. No acute i ntracranial abnormality.
[2020-02-03] MEDS ORDERED: ACETAMINOPHEN TAB 500 MG TAB PO STA (18:31)
[2020-02-03 18:36] VITALS: BP 138/73; RESP 16; TEMP 98.3
== END 2020-02-03 19:14 | disposition home or self-care (01) ==
LOC: EC 16:48
DX: S00.03XA Contusion of scalp, initial encounter (principal); I25.119 Atherosclerotic heart disease of native coronary artery with unspecified angina pectoris; I10 Essential (primary) hypertension; M19.90 Unspecified osteoarthritis, unspecified site; H40.9 Unspecified glaucoma; F32.9 Major depressive disorder, single episode, unspecified; Z79.82 Long term (current) use of aspirin; Z79.899 Other long term (current) drug therapy; Z88.1 Allergy status to other antibiotic agents; Z91.09 Other allergy status, other than to drugs and biological substances; Z90.49 Acquired absence of other specified parts of digestive tract; Z90.89 Acquired absence of other organs; Z99.3 Dependence on wheelchair; W05.0XXA Fall from non-moving wheelchair, initial encounter
CPT/HCPCS: 70450; 99284

== ENCOUNTER 2020-02-04 12:45 | Observation (INO) | payer MEDICARE, BC ==
--- NOTE | 2020-02-04 13:12 | ED ---
General Adult HPI - General Chief complaint: Fall Stated complaint: Fall Time Seen by Provider: 02/04/20 12:54 Source: patient, EMS, RN notes reviewed, old records reviewed Mode of arrival: EMS Limitations: no limitations - History of Present Illness Initial comments: 74-year-old male presents for evaluation head injury. Patient currently resides in senior living, and has had multiple falls in the past several days. Apparently according to staff he stood without assistance and fell for striking his head. He is on aspirin and Plavix. He had recent severe injury including intracranial hemorrhage after being attacked by a loose bull. Patient had prolonged stay at [facility] and was ultimately discharged to the senior living where he currently resides. Patient states he did fall. He is unable to give the exact historic details. He denies current pain complaints including no chest pain, no abdominal pain. No headache or neck pain. - Related Data Home Medications Medication Instructions Recorded Confirmed Brimonidine Tartrate/Timolol 1 drop BOTH EYES BID@0700,1900 05/19/18 02/04/20 [Combigan 0.2%-0.5% Eye Drops] lisinopriL [Zestril] 5 mg PO DAILY 05/19/18 02/04/20 Furosemide [Lasix] 40 mg PO DAILY 07/31/18 02/04/20 Metoprolol Tartrate [Lopressor] 50 mg PO BID@0700,1900 07/31/18 02/04/20 Acetaminophen Tab [Tylenol] 650 mg PO TID@0500,1300,2100 01/31/20 02/04/20 Aspirin 81 mg PO DAILY 01/31/20 02/04/20 Doxazosin [Cardura] 2 mg PO DAILY 01/31/20 02/04/20 Modafinil [Provigil] 50 mg PO DAILY 01/31/20 02/04/20 Tamsulosin HCl [Flomax] 0.4 mg PO HS@199901/31/20 02/04/20 levETIRAcetam [Keppra] 250 mg PO BID@0700,1900 01/31/20 02/04/20 Azithromycin [Zithromax Z-pack (6 See Taper PO DAILY 02/04/20 02/04/20 tabs)] Meloxicam [Mobic] See Taper PO DAILY 02/04/20 02/04/20 Pantoprazole Sodium [Protonix] 40 mg PO DAILY 02/04/20 02/04/20 Previous Rx's Medication Instructions Recorded Clopidogrel [Plavix] 75 mg PO DAILY #90 tab 05/24/18 Allergies Allergy/AdvReac Type Severity Reaction Status Date / Time aloe Allergy Rash/Hives Verified 02/04/20 13:02 bacitracin Allergy Rash/Hives Verified 02/04/20 13:02 [From Neosporin ([id number])] neomycin Allergy Rash/Hives Verified 02/04/20 13:02 [From Neosporin ([id number])] polymyxin B Allergy Rash/Hives Verified 02/04/20 13:02 [From Neosporin ([id number])] Review of Systems ROS Statement: Those systems with pertinent positive or pertinent negative responses have been documented in the HPI. ROS Other: All systems not noted in ROS Statement are negative. Past Medical History Past Medical History: Atrial Fibrillation, Coronary Artery Disease (CAD), Chest Pain / Angina, Diabetes Mellitus, Eye Disorder, Hyperlipidemia, Hypertension, Osteoarthritis (OA), Prostate Disorder Additional Past Medical History / Comment(s): On the artery disease with previous bypass surgery in 2003, previous aortic valve replacement, previous coronary intervention and stenting as mentioned above in the HPI, bilateral glaucoma, any stones, peripheral neuropathy. History of Any Multi-Drug Resistant Organisms: None Reported Past Surgical History: Appendectomy, Cardiac Valve Replacement, Cholecystectomy, Coronary Bypass/CABG, Heart Catheterization Additional Past Surgical History / Comment(s): aortic valve replaced 2003, CABG double bypass ; drug-eluting stent to the proximal LAD and diagonal, and a drug- eluting stent placement to his right coronary artery in June of [address] [facility]. TAVR 07/15/2018 with a 26 mm core valve completed at [facility]. Past Anesthesia/Blood Transfusion Reactions: No Reported Reaction Additional Past Anesthesia/Blood Transfusion Reaction / Comment(s): no problems with anesthesia, unsure if patient has had blood transfusion in the past. Date of Last Stent Placement:: 07/15/2018 Past Psychological History: Depression Smoking Status: Never smoker Past Alcohol Use History: Occasional Past Drug Use History: None Reported - Past Family History Father Family Medical History: Cancer Brother(s) Family Medical History: Cancer General Exam Limitations: no limitations General appearance: alert Head exam: Present: other (Hematoma and 2 cm laceration on the right forehead) Eye exam: Present: normal appearance, PERRL ENT exam: Present: normal exam Neck exam: Present: normal inspection. Absent: tenderness, meningismus Respiratory exam: Present: normal lung sounds bilaterally. Absent: respiratory distress, wheezes Cardiovascular Exam: Present: regular rate, normal rhythm GI/Abdominal exam: Present: soft. Absent: distended, tenderness, guarding Extremities exam: Present: normal inspection, normal capillary refill. Absent: pedal edema, calf tenderness Neurological exam: Present: alert. Absent: motor sensory deficit Psychiatric exam: Present: normal affect, normal mood Skin exam: Present: warm, dry Course Vital Signs 02/04/20 02/04/20 02/04/20 12:48 13:57 14:00 Temperature 98.2 F Pulse Rate 84 83 83 Respiratory 18 18 18 Rate Blood Pressure 93/48 100/63 100/63 O2 Sat by Pulse 97 96 96 Oximetry EKG Findings - EKG Comments: EKG Findings:: EKG: Normal sinus rhythm, rate of 85, DE interval 204, QRS duration 88, QTC 459, no ST segment elevation. Medical Decision Making - Medical Decision Making Patient has had frequent falls and family is concerned that the Dania is receiving at the senior living is not adequate. He's fallen multiple times and has been seen both at this hospital and outside hospitals. Head CT performed which is negative for acute intracranial hemorrhage or mass effect, and CT cervical spine is negative for fracture or subluxation. Brain CT does show subacute subdural, unchanged compared to prior. Family wishes to take the patient home but need to arrange for support and resources. They request the p atient be admitted while these logistical issues are taking care of. The patient has been admitted to Dr. Weiss who is aware of the patient. Chest x-ray as well as lumbar spinal x-rays have been performed. Results pending Disposition Clinical Impression: Scalp contusion, Fall, Frequent falls Disposition: ADMITTED IP TO THIS [facility] Condition: Stable Is patient prescribed a controlled substance at d/c from ED?: No Referrals: Digna Boston III, MD [Primary Care Provider] - 1-2 days Decision to Admit Reason: Admit from EC Decision Date: 02/04/20 Decision Time: 14:42
[2020-02-04] MEDS ORDERED: MORPHINE SULFATE 2 MG/ML SYRINGE IVP STA (14:21)
[2020-02-04] MEDS ORDERED: TOPICAL SKIN ADHESIVE 1 EACH AMP TOPICAL ONE (14:21)
[2020-02-04] MEDS ORDERED: MORPHINE SULFATE 4 MG/ML SYRINGE IVP STA (14:21)
[2020-02-04] MEDS ORDERED: MORPHINE SULFATE 4 MG/ML SYRINGE IV PRN (14:38)
[2020-02-04] MEDS ORDERED: ACETAMINOPHEN TAB 325 MG TAB PO PRN (14:38)
[2020-02-04] MEDS ORDERED: NALOXONE 0.4 MG/ML 1 ML VIAL IV PRN (14:38)
--- NOTE | 2020-02-04 14:43 | CT ---
EXAMINATION TYPE: CT brain katie wo con DATE OF EXAM: 02/04/2020 COMPARISON: 02/03/2020 HISTORY: Fall, head trauma CT DLP: 1368 mGycm, Automated exposure control for dose reduction was used. CONTRAST: Patient injected with 0 mL of Isovue 300. CT of the brain is performed utilizing 3 mm thick sections through the posterior fossa and 5 mm thick sections through the remaining calvarium. Study is performed within 24 hours of arrival to the hospital. There is a subacute subdural hematoma along the right frontal region. No hyperdensity is present to s uggest acute hemorrhage within this subacute approaching chronic subdural hematoma. Maximum depth is 0.9 cm. No abnormal hyperdensity is present to suggest an acute intracranial hemorrhage. No mass lesion is evident. No acute infarcts are evident. Ventricles and sulci are prominent for the patient age. Paranasal sinuses and mastoid air cells within the [id number]-wn-[id number] are clear. IMPRESSIONS: 1. Subacute to chronic subdural hematoma right frontal region extending towards the right occipital r egion. Maximum depth of 0.9 cm. No significant change from comparison 2. Atrophy CT cervical spine. COMPARISON: None CT of the cervical spine is performed in the axial plane at 2 mm thick sections. Reconstructed image s in the coronal, and sagittal plane are reviewed on the computer. No acute fractures are evident. Vertebral body alignment is normal. Diffuse disc space narrowing is present. Note is made of anterior vertebral body spurring C4, C5, C6, and C7. This is greatest at C6-7 level Vertebral body heights are preserved. No spinal canal stenosis is evident. Uncovertebral joint hypertrophy is present contributing to severe bilateral foraminal stenosis IMPRESSIONS: 1. Degenerative changes and degenerative disc changes discussed above. 2. No acute osseous abnormality cervical spine
[2020-02-04] MEDS ORDERED: SODIUM CHLORIDE 0.9% 1,000 ML IV SCH (14:45)
--- NOTE | 2020-02-04 15:07 | XR ---
EXAMINATION TYPE: XR chest 2V DATE OF EXAM: 02/04/2020 COMPARISON: Chest x-ray [address] January 01, 2020 HISTORY: Fall injury with pain. TECHNIQUE: Frontal and lateral views of the chest are obtained. FINDINGS: Low lung volumes with patchy bibasilar opacities are redemonstrated. Overlying sternal wir es again seen. Metallic stent in the aortic root redemonstrated The cardiac silhouette size is stable and mildly enlarged with atherosclerotic and ectatic aorta. Multilevel spurring in thoracic spine re demonstrated. IMPRESSION: Low lung volumes and cardiomegaly with patchy bibasilar opacity favoring linear scarring and/or atelectasis redemonstrated. No significant change from recent x-ray.
--- NOTE | 2020-02-04 15:10 | XR ---
EXAMINATION TYPE: XR lumbar spine 2 or 3V DATE OF EXAM: 02/04/2020 CLINICAL HISTORY: Fall injury with pain TECHNIQUE: Frontal and lateral images of the lumbar spine are obtained. COMPARISON: Lumbar spine x-ray July 26, 2011 FINDINGS: There are 5 lumbar type vertebral bodies redemonstrated. Loss of normal lumbar lordosis ag ain seen. Moderate to severe anterior and lateral spurring or thoracolumbar junction with interval pr ogression. Murr-gg-pararecd disc space narrowing L1-L2 and L2-L3 levels. Facet arthropathy in the low er lumbar spine. Vascular calcification overlying abdominal aorta. Mild anterior wedging L2 level fav ored chronic. Alignment stable. IMPRESSION: As above. No acute fracture or dislocation in lumbar spine is clearly seen.
[2020-02-04] MEDS ORDERED: TAMSULOSIN 0.4 MG CAP.ER.24H PO SCH (20:00)
[2020-02-04] MEDS: levETIRAcetam 250 MG TAB PO SCH (20:53)
[2020-02-04] MEDS: METOPROLOL TARTRATE 12.5 MG TAB PO SCH (20:53)
[2020-02-04] MEDS: ACETAMINOPHEN TAB 325 MG TAB PO SCH (20:56)
[2020-02-04] MEDS: BRIMONIDINE TARTRATE 0.2% DROPS 5 ML BTL BOTH EYES SCH (20:58)
[2020-02-04] MEDS: TIMOLOL 0.5% OPHTH DROPS 5 ML BTL BOTH EYES SCH (20:59)
[2020-02-04 21:40] VITALS: RESP 16
--- NOTE | 2020-02-04 22:33 | P.HPIM ---
History of Present Illness H&P Date: 02/04/20 Chief Complaint: Multiple falls Patient is a 74-year-old male With a known history of coronary artery disease status post CABG several years ago and stent placement to the LAD in May 2018, status post TAVR in June 2018 due to severe aortic regurgitation, hypertension, hyperlipidemia, osteoarthritis, thoracic aortic aneurysm, bilateral glaucoma and renal stones and nephropathy was seen in the ER for evaluation of head injury. Patient had recent head injury and was sent to rehab. Patient had severe head injury with fractures of the facial bones and intracranial hemorrhage after being attacked by a loose bull. Patient had prolonged hospital stay to [facility] and discharged to correction few days back. Patient is currently resides in the hospital for special care. He has been having multiple falls. According to the [facility] he was trying to stand up without assistance and fell striking his head on the right frontal region with laceration and bleeding. Patient is not on any full anticoagulation now. Currently on aspirin and Plavix. Denies any headache. No neck pain. No chest pain or shortness of breath. CT head showed no acute intracranial hemorrhage or mass-effect. Does show subacute subdural unchanged compared to prior. CT cervical spine is negative for acute fractures or dislocations. Family does not want the patient to be sent to rehab and wants him to be discharged home with assistance. Review of Systems Constitutional: Patient denies any fever or chills . No generalized weakness or weight loss. Abdomen: Patient denied nausea vomiting and diarrhea and abdominal pain. Cardiovascular: Patient denies any chest pain or short of breath no palpitations. Respiratory: patient denied any cough or sputum production. No shortness of breath Neurologic: Patient denied any numbness or tingling headache. Musculoskeletal: Patient denies any complaints of joint swelling or deformity. Complete review of systems could not be obtained from the patient. Past Medical History Past Medical History: Atrial Fibrillation, Coronary Artery Disease (CAD), Chest Pain / Angina, Diabetes Mellitus, Eye Disorder, Hyperlipidemia, Hypertension, Osteoarthritis (OA), Prostate Disorder Additional Past Medical History / Comment(s): On the artery disease with previous bypass surgery in 2003, previous aortic valve replacement, previous coronary intervention and stenting as mentioned above in the HPI, bilateral glaucoma, any stones, peripheral neuropathy. History of Any Multi-Drug Resistant Organisms: None Reported Past Surgical History: Appendectomy, Cardiac Valve Replacement, Cholecystectomy, Coronary Bypass/CABG, Heart Catheterization Additional Past Surgical History / Comment(s): aortic valve replaced 2003, CABG double bypass ; drug-eluting stent to the proximal LAD and diagonal, and a drug- eluting stent placement to his right coronary artery in June of 2018 completed at [facility]. TAVR 07/15/2018 with a 26 mm core valve completed at [facility]. Past Anesthesia/Blood Transfusion Reactions: No Reported Reaction Additional Past Anesthesia/Blood Transfusion Reaction / Comment(s): no problems with anesthesia, unsure if patient has had blood transfusion in the past. Date of Last Stent Placement:: 07/15/2018 Past Psychological History: Depression Additional Psychological History / Comment(s): Mild OCC Smoking Status: Never smoker Past Alcohol Use History: Occasional Additional Past Alcohol Use History / Comment(s): Drinks 1 beer daily Past Drug Use History: None Reported Additional Drug Use History / Comment(s): Used to smoke cigars many years ago. - Past Family History Father Family Medical History: Cancer Brother(s) Family Medical History: Cancer Medications and Allergies Home Medications Medication Instructions Recorded Confirmed Type RX: Brimonidine Tartrate/Timolol 1 drop BOTH EYES BID@0700,1900 05/19/18 02/04/20 History [Combigan 0.2%-0.5% Eye Drops] RX: lisinopriL [Zestril] 5 mg PO DAILY 05/19/18 02/04/20 History RX: Clopidogrel [Plavix] 75 mg PO DAILY #90 tab 05/24/18 02/04/20 Rx RX: Furosemide [Lasix] 40 mg PO DAILY 07/31/18 02/04/20 History RX: Metoprolol Tartrate [Lopressor] 50 mg PO BID@0700,1900 07/31/18 02/04/20 History Acetaminophen Tab [Tylenol] 650 mg PO TID@0500,1300,2100 01/31/20 02/04/20 History Doxazosin [Cardura] 2 mg PO DAILY 01/31/20 02/04/20 History Modafinil [Provigil] 50 mg PO DAILY 01/31/20 02/04/20 History RX: Aspirin 81 mg PO DAILY 01/31/20 02/04/20 History Tamsulosin HCl [Flomax] 0.4 mg PO HS@199901/31/20 02/04/20 History levETIRAcetam [Keppra] 250 mg PO BID@0700,1900 01/31/20 02/04/20 History Meloxicam [Mobic] See Taper PO DAILY 02/04/20 02/04/20 History Pantoprazole Sodium [Protonix] 40 mg PO DAILY 02/04/20 02/04/20 History RX: Azithromycin [Zithromax Z-pack See Taper PO DAILY 02/04/20 02/04/20 History (6 tabs)] Allergies Allergy/AdvReac Type Severity Reaction Status Date / Time aloe Allergy Rash/Hives Verified 02/04/20 13:02 bacitracin Allergy Rash/Hives Verified 02/04/20 13:02 [From Neosporin ([id number])] neomycin Allergy Rash/Hives Verified 02/04/20 13:02 [From Neosporin ([id number])] polymyxin B Allergy Rash/Hives Verified 02/04/20 13:02 [From Neosporin ([id number])] Physical Exam Vitals: Vital Signs Temp Pulse Pulse Resp BP BP Pulse Ox 02/04/20 19:40 97.4 F L 89 16 158/93 97 02/04/20 15:24 98.2 F 80 18 109/62 96 02/04/20 15:19 97.4 F L 74 16 96/55 98 02/04/20 15:00 80 18 109/62 96 02/04/20 14:00 83 18 100/63 96 02/04/20 13:57 83 18 100/63 96 02/04/20 12:48 98.2 F 84 18 93/48 97 Intake and Output 02/04/20 02/04/20 02/04/20 06:59 14:59 22:59 Other: Weight 83.461 kg 83.461 kg PHYSICAL EXAMINATION: Patient is lying in the bed comfortably, no acute distress, awake alert and oriented but drowsy. HEENT: Normocephalic. Neck is supple. Pupils reactive. Nostrils clear. Oral cavity is moist. Ears reveal no drainage. Right-sided facial contusion and right forehead laceration with no active bleeding. Neck reveals no JVD, carotid bruits, or thyromegaly. CHEST EXAMINATION: Trachea is central. Symmetrical expansion.Bibasilar diminished air entry. Lung swanson clear to auscultation and percussion. CARDIAC: Normal S1, S2 with no gallops. No murmurs ABDOMEN: Soft. Bowel sounds normal. No organomegaly. No abdominal bruits. Extremities: reveal no edema. No clubbing or cyanosis Neurologically awake, alert, oriented x2-3 .. Able to move extremities., No gross focal deficits noted Skin: No rash or skin lesions. Psychiatric: Coperative. Nonsuicidal Musculoskeletal: No joint swelling or deformity. Normal range of motion. Thrombosis Risk Factor Assmnt - DVT/VTE Prophylaxis DVT/VTE Prophylaxis: Mechanical Prophylaxis ordered - Choose All That Apply Each Risk Factor Represents 3 Points: Age 75 years or older Thrombosis Risk Factor Assessment Total Risk Factor Score: 3 Thrombosis Risk Factor Assessment Level: Moderate Risk Assessment and Plan Assessment: Status post frequent falls and right scalp contusion and forehead laceration. Recent history of attacked by loose body and multiple facial fractures and intracranial hemorrhage with prolonged hospital stay at [facility]. Coronary artery disease history of stent placement and prior CABG History of aortic valve replacement/TAVR in June 2018 due to severe AR Hypertension Hyperlipidemia Diabetes type 2 vog-rqhizsk-uubnjolcu BPH Bilateral glaucoma Diabetic peripheral neuropathy DVT prophylaxis with SCDs due to recent intracranial hemorrhage. Plan: Patient will be continued on pain management and continue with home medications including aspirin Plavix and antiepileptic medications. Follow-up CBC and BMP tomorrow. Continue to follow closely and social work will be consulted. Possible discharge with home with home PT versus rehab.Plan discussed with his at bedside in detail. Time with Patient: Greater than 30
[2020-02-05] MEDS: ACETAMINOPHEN TAB 325 MG TAB PO SCH ×3 (03:24→12:17)
[2020-02-05] MEDS ORDERED: HALOPERIDOL LACTATE 5 MG/ML 1 ML VIAL IM ONE ×2 (05:00→05:30)
[2020-02-05 06:27] LABS: Basophils # (A) 0.1 k/uL (0-0.2); Basophils % (A) 1 %; Eosinophils # (A) 0.3 k/uL (0-0.7); Eosinophils % (A) 3 %; HCT 32.5 % (39.0-53.0); HGB 10.8 gm/dL (13.0-17.5); Lymphocytes # (A) 0.9 k/uL (1.0-4.8); Lymphocytes % (A) 10 %; MCH 29.2 pg (25.0-35.0); MCHC 33.1 g/dL (31.0-37.0); MCV 88.2 fL (80.0-100.0); Mean Platelet Volume 6.5; Monocytes # (A) 0.5 k/uL (0-1.0); Monocytes % (A) 6 %; Neutrophils # (A) 7.3 k/uL (1.3-7.7); Neutrophils % (A) 80 %; Platelet Count 372 k/uL (150-450); RBC 3.68 m/uL (4.30-5.90); RDW 14.1 % (11.5-15.5); WBC 9.1 k/uL (3.8-10.6)
[2020-02-05 08:58] VITALS: BP 97/63; PULSE 95; TEMP 97.3
[2020-02-05] MEDS ORDERED: ASPIRIN 81 MG PO SCH (09:00)
[2020-02-05] MEDS ORDERED: PANTOPRAZOLE 40 MG TABLET PO SCH (09:00)
[2020-02-05] MEDS ORDERED: CLOPIDOGREL 75 MG TAB PO SCH (09:00)
[2020-02-05] MEDS ORDERED: MELOXICAM 7.5 MG TAB PO SCH (09:00)
[2020-02-05] MEDS ORDERED: modafiniL 100 MG TAB PO SCH (09:00)
[2020-02-05] MEDS: levETIRAcetam 250 MG TAB PO SCH (09:20)
[2020-02-05] MEDS: TIMOLOL 0.5% OPHTH DROPS 5 ML BTL BOTH EYES SCH ×2 (09:21→09:22)
[2020-02-05] MEDS: METOPROLOL TARTRATE 12.5 MG TAB PO SCH (09:22)
[2020-02-05] MEDS: BRIMONIDINE TARTRATE 0.2% DROPS 5 ML BTL BOTH EYES SCH (09:22)
[2020-02-05 09:27] LABS: African American GFR (CKD) 75.7 (60.0-200.0); Albumin 3.7 g/dL (3.80-4.90); Albumin/Globulin Ratio 1.95 (1.60-3.17); Anion Gap 8.1 mmol/L (4.00-12.00); BUN/Creat Ratio 14.55 Ratio (12.00-20.00); Calcium 9.3 mg/dL (8.7-10.3); Carbon Dioxide 27.9 mmol/L (21.6-31.8); Globulin 1.9 g/dL (1.6-3.3); Magnesium 1.9 mg/dL (1.5-2.4); Non-African American GFR(CKD) 65.3 (60.0-200.0); Potassium 4.3 mmol/L (3.5-5.5); Total Bilirubin 0.6 mg/dL (0.2-1.2); Total Protein 5.6 g/dL (6.2-8.2)
--- NOTE | 2020-02-05 11:47 | P.DS ---
Providers Date of admission: 02/04/20 14:51 Expected date of discharge: 02/05/20 Attending physician: Felipe Weiss Primary care physician: Digna Boston Hospital Course: Final diagnosis Status post frequent falls and right scalp contusion and forehead laceration. Recent history of attacked by loose bull and multiple facial fractures and intracranial hemorrhage with prolonged hospital stay at [facility]. Coronary artery disease history of stent placement and prior CABG History of aortic valve replacement/TAVR in June 2018 due to severe AR Hypertension Hyperlipidemia Diabetes type 2 cze-cagaqud-ofcjyatzu BPH Bilateral glaucoma Diabetic peripheral neuropathy DVT prophylaxis Discharge disposition Patient is being discharged in a stable condition with guarded prognosis to home with home care. Patient will follow-up with Dr. Boston in the outpatient setting upon discharge. Total time taken is greater than 35 minutes. History of present illness This is a 74-year-old male who was recently admitted with frequent falls while at the [facility] facility with a right frontal scalp contusion and forehead laceration and was being closely monitored. Patient was recently hospitalized for prolonged. For head injury with fractures of the facial bones and intracranial hemorrhage and went to [facility] for continued PT/OT therapy. Apparently patient has been falling multiple times while at the facility and family's wishes are for the patient to return home with home care and will have multiple family members to assist with patient care. Descriptions provided for bedside commode as the patient is room confined along with hospital bed as the head of the bed needs to be elevated 30-45 at all times for his history of heart failure with most recent echo from 2019 showing EF of 50-55% as patient has severe aortic insuff iciency with mild tricuspid regurgitation and mild pulmonic insufficiency. Patient does have a history of CABG with stenting. Patient will also require a Haroon lift in the home as he is bedbound requiring 2 person assist to get up and into the wheelchair. Patient also will require a wheelchair to assist with ADLs that cannot be resolved with a cane or walker as patient continues to have unsteady gait and frequent falls. Patient does have a caregiver that can assist with wheelchair use and has the ability to propel the wheelchair. All of this was discussed at length with and provider and would like to take him home today. Currently no reports of chest pain, shortness of breath, or palpitations. Patient is afebrile. No reports of nausea or vomiting and patient is tolerating diet. Patient will be going home today. On exam vital signs are stable. Temp is 97.3F, pulse is 95, respirations are 16, blood pressure is 97/63, oxygen saturation is 97% on room air. Cardio S1, S2 are muffled. Respiratory system shows diminished breath sounds at the bases with no wheezing or rhonchi noted. Abdomen is soft and nontender. Nervous system shows diffuse weakness. Please refer to medication reconciliation sheet for a list of medications. Patient Condition at Discharge: Stable Plan - Discharge Summary Discharge Rx Participant: Yes New Discharge Prescriptions: No Action lisinopriL [Zestril] 5 mg PO DAILY Brimonidine Tartrate/Timolol [Combigan 0.2%-0.5% Eye Drops] 1 drop BOTH EYES BID@0700,1900 Clopidogrel [Plavix] 75 mg PO DAILY #90 tab Metoprolol Tartrate [Lopressor] 50 mg PO BID@0700,1900 Furosemide [Lasix] 40 mg PO DAILY levETIRAcetam [Keppra] 250 mg PO BID@0700,1900 Acetaminophen Tab [Tylenol] 650 mg PO TID@0500,1300,2100 Modafinil [Provigil] 50 mg PO DAILY Tamsulosin HCl [Flomax] 0.4 mg PO HS@2000 Doxazosin [Cardura] 2 mg PO DAILY Aspirin 81 mg PO DAILY Azithromycin [Zithromax Z-pack (6 tabs)] See Taper PO DAILY Meloxicam [Mobic] See Taper PO DAILY Pantoprazole Sodium [Protonix] 40 mg PO DAILY Discharge Medication List Brimonidine Tartrate/Timolol [Combigan 0.2%-0.5% Eye Drops] 1 drop BOTH EYES BID@0700,1900 05/19/18 [History] lisinopriL [Zestril] 5 mg PO DAILY 05/19/18 [History] Clopidogrel [Plavix] 75 mg PO DAILY #90 tab 05/24/18 [Rx] Furosemide [Lasix] 40 mg PO DAILY 07/31/18 [History] Metoprolol Tartrate [Lopressor] 50 mg PO BID@0700,1900 07/31/18 [History] Acetaminophen Tab [Tylenol] 650 mg PO TID@0500,1300,2100 01/31/20 [History] Aspirin 81 mg PO DAILY 01/31/20 [History] Doxazosin [Cardura] 2 mg PO DAILY 01/31/20 [History] Modafinil [Provigil] 50 mg PO DAILY 01/31/20 [History] Tamsulosin HCl [Flomax] 0.4 mg PO HS@2000 01/31/20 [History] levETIRAcetam [Keppra] 250 mg PO BID@0700,1900 01/31/20 [History] Azithromycin [Zithromax Z-pack (6 tabs)] See Taper PO DAILY 02/04/20 [History] Meloxicam [Mobic] See Taper PO DAILY 02/04/20 [History] Pantoprazole Sodium [Protonix] 40 mg PO DAILY 02/04/20 [History] Follow up Appointment(s)/Referral(s): Digna Boston III, MD [Primary Care Provider] - 1-2 days
== END 2020-02-05 16:30 | disposition home health service (06) ==
LOC: EC 12:45 → 5NMEDONC 14:51
PROVIDERS: ADMIT Internal Medicine; ATTEND Internal Medicine
DX: S01.81XA Laceration without foreign body of other part of head, initial encounter (principal); I48.91 Unspecified atrial fibrillation; I25.10 Atherosclerotic heart disease of native coronary artery without angina pectoris; E78.5 Hyperlipidemia, unspecified; I10 Essential (primary) hypertension; M19.90 Unspecified osteoarthritis, unspecified site; H40.9 Unspecified glaucoma; E11.42 Type 2 diabetes mellitus with diabetic polyneuropathy; G62.9 Polyneuropathy, unspecified; F32.9 Major depressive disorder, single episode, unspecified; N40.0 Benign prostatic hyperplasia without lower urinary tract symptoms; I35.1 Nonrheumatic aortic (valve) insufficiency; I11.0 Hypertensive heart disease with heart failure; I50.9 Heart failure, unspecified; Z74.01 Bed confinement status; R29.6 Repeated falls; Z91.81 History of falling; Z79.02 Long term (current) use of antithrombotics/antiplatelets; Z79.82 Long term (current) use of aspirin; W18.30XA Fall on same level, unspecified, initial encounter; Y92.129 Unspecified place in nursing home as the place of occurrence of the external cause; Z79.899 Other long term (current) drug therapy; Z79.1 Long term (current) use of non-steroidal anti-inflammatories (NSAID); Z88.1 Allergy status to other antibiotic agents; Z95.1 Presence of aortocoronary bypass graft; Z95.5 Presence of coronary angioplasty implant and graft; Z95.2 Presence of prosthetic heart valve; Z90.49 Acquired absence of other specified parts of digestive tract; Z87.891 Personal history of nicotine dependence; Z87.442 Personal history of urinary calculi; Z80.9 Family history of malignant neoplasm, unspecified
CPT/HCPCS: 96372; 96374; 99285; 97163; 97167; 80053; 83735; 85025; 72100; 71046; 72125; 70450; G0378 ×2; J2270; J1630; 93005

== ENCOUNTER 2020-02-24 12:33 | Inpatient (IN) | payer MEDICARE, BC ==
[2020-02-24 14:03] LABS: Basophils # (A) 0.1 k/uL (0-0.2); Basophils % (A) 1 %; Eosinophils # (A) 0.1 k/uL (0-0.7); Eosinophils % (A) 1 %; HCT 31.7 % (39.0-53.0); HGB 10.4 gm/dL (13.0-17.5); Lymphocytes # (A) 1.2 k/uL (1.0-4.8); Lymphocytes % (A) 12 %; MCH 27.6 pg (25.0-35.0); MCHC 32.8 g/dL (31.0-37.0); MCV 84.2 fL (80.0-100.0); Mean Platelet Volume 6.4; Monocytes # (A) 0.7 k/uL (0-1.0); Monocytes % (A) 7 %; Neutrophils # (A) 7.4 k/uL (1.3-7.7); Neutrophils % (A) 78 %; Platelet Count 576 k/uL (150-450); RBC 3.77 m/uL (4.30-5.90); RDW 14.4 % (11.5-15.5); WBC 9.5 k/uL (3.8-10.6)
--- NOTE | 2020-02-24 14:12 | ED ---
Chest Pain HPI - General Chief Complaint: Chest Pain Stated Complaint: Pain all over Time Seen by Provider: 02/24/20 13:00 Source: family, EMS, RN notes reviewed, old records reviewed Mode of arrival: EMS Limitations: no limitations - History of Present Illness Initial Comments: This is a 74-year-old male was brought in by EMS for complaints of not eating for the past several days decreased oral intake also inability to walk also developed some chest pain. This is a patient who had recently been treated for being kicked in the head by a ball and since that time is been demonstrate cognitive disability Also is having some difficulty urinating. Also left knee pain with swelling. He is a poor historian MD Complaint: chest pain, other - Related Data Home Medications Medication Instructions Recorded Confirmed Aspirin 81 mg PO DAILY@69901/31/20 02/24/20 ARIPiprazole [Abilify] 5 mg PO DAILY@189902/24/20 02/24/20 Acetaminophen [Tylenol] 1,000 mg PO Q4-6H PRN 02/24/20 02/24/20 Atorvastatin Calcium [Lipitor] 20 mg PO DAILY@69902/24/20 02/24/20 Celecoxib [CeleBREX] 200 mg PO DAILY@69902/24/20 02/24/20 Clopidogrel [Plavix] 75 mg PO DAILY@69902/24/20 02/24/20 Docusate [Colace] 200 mg PO HS@199902/24/20 02/24/20 Dorzolamide-Timol 2.23%/0.68% 1 drop BOTH EYES BID@699,189902/24/20 02/24/20 [Cosopt] Glucosam/Segundo-Msm1/C/Anderson/Bosw 1 tab PO DAILY@69902/24/20 02/24/20 [Glucosamine-Chondroitin Tablet] Previous Rx's Medication Instructions Recorded Metoprolol Tartrate [Lopressor] 12.5 mg PO BID@699,1899 30 Days 02/05/20 #60 tab Tamsulosin HCl [Flomax] 0.4 mg PO HS@1999 30 Days #30 cap 02/05/20 levETIRAcetam [Keppra] 250 mg PO BID@699,1899 30 Days 02/05/20 #60 tab Allergies Allergy/AdvReac Type Severity Reaction Status Date / Time aloe Allergy Rash/Hives Verified 02/24/20 15:47 bacitracin Allergy Rash/Hives Verified 02/24/20 15:47 [From Neosporin ([id number])] neomycin Allergy Rash/Hives Verified 02/24/20 15:47 [From Neosporin ([id number])] polymyxin B Allergy Rash/Hives Verified 02/24/20 15:47 [From Neosporin ([id number])] Review of Systems ROS Statement: Those systems with pertinent positive or pertinent negative responses have been documented in the HPI. ROS Other: All systems not noted in ROS Statement are negative. Past Medical History Past Medical History: Atrial Fibrillation, Coronary Artery Disease (CAD), Chest Pain / Angina, Diabetes Mellitus, Eye Disorder, Hyperlipidemia, Hypertension, Osteoarthritis (OA), Prostate Disorder Additional Past Medical History / Comment(s): On the artery disease with previous bypass surgery in 2003, previous aortic valve replacement, previous coronary intervention and stenting as mentioned above in the HPI, bilateral glaucoma, any stones, peripheral neuropathy. 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 History of Any Multi-Drug Resistant Organisms: None Reported Past Surgical History: Appendectomy, Cardiac Valve Replacement, Cholecystectomy, Coronary Bypass/CABG, Heart Catheterization Additional Past Surgical History / Comment(s): aortic valve replaced 2003, CABG double bypass ; drug-eluting stent to the proximal LAD and diagonal, and a drug- eluting stent placement to his right coronary artery in June of 2018 completed at [facility]. TAVR 07/15/2018 with a 26 mm core valve completed at [facility]. Past Anesthesia/Blood Transfusion Reactions: No Reported Reaction Additional Past Anesthesia/Blood Transfusion Reaction / Comment(s): no problems with anesthesia, unsure if patient has had blood transfusion in the past. Date of Last Stent Placement:: 07/15/2018 Past Psychological History: Depression Smoking Status: Never smoker Past Alcohol Use History: Occasional Past Drug Use History: None Reported - Past Family History Father Family Medical History: Cancer Brother(s) Family Medical History: Cancer General Exam - General Exam Comments Initial Comments: This a well-developed well-nourished lethargic male Limitations: no limitations General appearance: lethargic Head exam: Present: atraumatic, normocephalic, normal inspection Eye exam: Present: normal appearance, PERRL, EOMI. Absent: scleral icterus, conjunctival injection, periorbital swelling ENT exam: Present: mucous membranes dry Neck exam: Present: normal inspection, full ROM, other (No stridor JVD or bruits). Absent: tenderness, meningismus, lymphadenopathy Respiratory exam: Present: normal lung sounds bilaterally. Absent: respiratory distress, wheezes, rales, rhonchi, stridor Cardiovascular Exam: Present: regular rate, normal rhythm, normal heart sounds. Absent: systolic murmur, diastolic murmur, rubs, gallop, clicks GI/Abdominal exam: Present: soft, normal bowel sounds. Absent: distended, tenderness, guarding, rebound, rigid, bruit, pulsatile mass Extremities exam: Present: full ROM, normal capillary refill, other (Edema seen to the left knee no overt step-off or crepitation equivocal increased localized temperature.). Absent: tenderness, pedal edema, joint swelling, calf tenderness Back exam: Present: normal inspection Neurological exam: Present: alert, altered, CN II-XII intact Psychiatric exam: Present: flat affect Skin exam: Present: warm, dry, intact, normal color. Absent: rash Course Vital Signs 02/24/20 12:37 Temperature 98.1 F Pulse Rate 96 Respiratory 16 Rate Blood Pressure 141/82 O2 Sat by Pulse 96 Oximetry - Reevaluation(s) Reevaluation #1: 02/24/20 17:20 The patient does have x-rays which do show evidence of infiltrates Chest Pain MDM - MDM Mildly elevated troponin noted on evaluation. X-ray show the infiltrates as stated CAT scan shows no evidence of pulmonary embolism. I did a long discussion with the patient's as well as [id number] was present p oralia does have advanced directives and after long discussion patient will be made supportive care no code. Dr. Beyer did come the emergency department and has seen the patient also. Disposition Clinical Impression: Dehydration, Failure to thrive in adult, Elevated troponin, Chest pain, Pneumonitis Disposition: ADMITTED IP TO THIS HOSP Condition: Fair Referrals: Digna Boston III, MD [Primary Care Provider] - 1-2 days
[2020-02-24 14:17] LABS: ALT 93 U/L (4-49); AST 47 U/L (17-59); African American GFR (CKD) >90 (>60 ml/min/1.73 sqM); Albumin 3.4 g/dL (3.5-5.0); Alkaline Phosphatase 165 U/L (38-126); Anion Gap 10 mmol/L; Blood Urea Nitrogen 15 mg/dL (9-20); Carbon Dioxide 25 mmol/L (22-30); Chloride 98 mmol/L (98-107); Creatine Kinase 33 U/L (55-170); Glucose 104 mg/dL (74-99); Lipase 49 U/L (23-300); Magnesium 1.9 mg/dL (1.6-2.3); Non-African American GFR(CKD) >90 (>60 ml/min/1.73 sqM); Potassium 4.6 mmol/L (3.5-5.1); Sodium 133 mmol/L (137-145); Total Bilirubin 0.5 mg/dL (0.2-1.3); Total Protein 6.9 g/dL (6.3-8.2)
--- NOTE | 2020-02-24 14:38 | XR ---
EXAMINATION TYPE: XR knee complete LT DATE OF EXAM: 02/24/2020 CLINICAL HISTORY: Pain and swelling. TECHNIQUE: Three views of the left knee are obtained. COMPARISON: Bilateral knee x-rays May 12, 2012. FINDINGS: There is no acute fracture/dislocation evident in left knee. Moderate to severe narrowing and spurring patellofemoral and medial tibiofemoral compartments with progression from 2013 study not ed. Persistent large suprapatellar joint effusion. Posterior vascular calcification is more prominent . IMPRESSION: As above.
--- NOTE | 2020-02-24 14:43 | XR ---
EXAMINATION TYPE: XR chest 2V DATE OF EXAM: 02/24/2020 COMPARISON: Chest x-ray February 04, 2020 HISTORY: Chest pain. TECHNIQUE: Frontal and lateral views of the chest are obtained. FINDINGS: There is persistent low lung volumes with patchy bibasilar opacities. Overlying sternal wi res and mediastinal clips are redemonstrated. The cardiac silhouette size is stable and enlarged with stent graft in the aortic root redemonstrated. The osseous structures are intact. IMPRESSION: Overall stable findings, low lung volumes and cardiomegaly with patchy bibasilar opaciti es redemonstrated. No new infiltrates are present.
[2020-02-24 14:56] LABS: Appearance,Urine Clear (Clear); Bilirubin,Urine Negative (Negative); Blood,Urine Negative (Negative); Color,Urine Yellow; Glucose,Urine (UA) Negative (Negative); Ketones,Urine Negative (Negative); Leukocyte Esterase,Urine Negative (Negative); Mucus,Urine Few /hpf; Nitrite,Urine Negative (Negative); Protein,Urine 1+ (Negative); RBC,Urine 1 /hpf (0-5); Specific Gravity,Urine 1.032 (1.001-1.035); Squamous Epithelial Cell,Urine <1 /hpf (0-4); Urobilinogen,Urine <2.0 mg/dL (<2.0); WBC,Urine 1 /hpf (0-5)
[2020-02-24 15:08] LABS: INR 1.1 (<1.2); Partial Thromboplastin Time 23.9 sec (22.0-30.0); Prothrombin Time 11.2 sec (9.0-12.0)
[2020-02-24 15:10] LABS: D-Dimer 2.41 mg/L FEU (<0.60)
[2020-02-24] MEDS ORDERED: HYDROmorphone 1 MG/ML 1 ML SYRINGE IVP STA (15:47)
[2020-02-24] MEDS ORDERED: LORazepam 2 MG/ML INJ IV STA (15:47)
--- NOTE | 2020-02-24 16:46 | CT ---
CT CHEST FOR PULMONARY EMBOLISM. EXAMINATION TYPE: CT angio chest DATE OF EXAM: 02/24/2020 INDICATION: Positive d-dimer CT DLP: 489.5 mGycm, Automated exposure control for dose reduction was used. CONTRAST: Patient injected with 100 mL of Isovue 370. COMPARISON: 01/01/2020 TECHNIQUE: CT of the chest is performed on a spiral scan at 2 mm thick sections. Study is performed with intravenous contrast timed for evaluation for pulmonary embolism. This will limit additional po rtions of the evaluation. 3-D MIP images reconstructed by the technologist are reviewed on the compu ter in the coronal and sagittal planes. FINDINGS: No persistent filling defects are evident to suggest an acute pulmonary embolism. No mediastinal or hilar adenopathy enlarged by CT criteria is evident. The ascending aorta diameter at the level of the main pulmonary artery is 4.8 cm. The main pulmonary artery diameter at the bifur cation is 2.7 cm. No suspicious consolidations are evident. Some mild nonspecific infiltrate may be present. Limited CT section through the upper abdomen are unremarkable. IMPRESSIONS: 1. No acute pulmonary embolism.
[2020-02-24] MEDS ORDERED: NALOXONE 0.4 MG/ML 1 ML VIAL IV PRN (17:24)
[2020-02-24] MEDS ORDERED: ACETAMINOPHEN TAB 325 MG TAB PO PRN (17:24)
[2020-02-24] MEDS ORDERED: cefTRIAXone IN SWFI 1,000 MG/10 ML SYRINGE IVP STA (17:27)
[2020-02-24] MEDS ORDERED: VANCOMYCIN IV PER PHARMACY 1 EACH MISC MISCELLANE PRN (17:33)
--- NOTE | 2020-02-24 18:19 | CT ---
EXAMINATION TYPE: CT brain wo con DATE OF EXAM: 02/24/2020 COMPARISON: 02/04/2020 HISTORY: altered mental status CT DLP: 1359.4 mGycm Automated exposure control for dose reduction was used. There is cerebral cortical atrophy. There is no mass effect nor midline shift. There is some intermed iate density over the right frontal lobe convexity. This is consistent with combined acute and chroni c subdural hematoma. There is slight widening of the subdural space over the frontal lobes.: Impression Cerebral atrophy. Mixed attenuation over the right frontal lobe convexity consistent with subdural hy groma as well as small component of subacute subdural hematoma. This measures up to 5 mm in thickness . This appears new compared to old exam. This was discussed with Dr. Escalante at 6:20 PM.
[2020-02-24] MEDS ORDERED: VANCOMYCIN 1,500 MG in SODIUM CHLORIDE 0.9% 250 ML IVPB ONE (18:30)
[2020-02-24] MEDS: SODIUM CHLORIDE 0.9% 1,000 ML IV SCH (18:31)
[2020-02-24] MEDS: PANTOPRAZOLE 40 MG/10 ML VIAL IVP SCH (18:42)
[2020-02-24] MEDS: PIPERACILLIN-TAZOBACTAM 3.375 GM in SODIUM CHLORIDE 0.9% 100 ML IVPB SCH (18:42)
--- NOTE | 2020-02-24 19:00 | HP ---
HISTORY AND PHYSICAL DATE OF SERVICE: 02/24/2020 CHIEF COMPLAINTS: Shortness of breath, change in mental status and pain all over the body. HISTORY OF PRESENT ILLNESS: This 74-year-old gentleman with a past medical history of multiple medical problems, including CAD, history of atrial fibrillation, history of diabetes mellitus, type 2, hypertension, hyperlipidemia, history of DJD, history of prostate disorder, being followed by Dr. Boston in the outpatient setting, was recently admitted to [facility] with intracranial bleeding secondary to a pit bull attack. The patient had multiple diffuse lesions and the patient was apparently mechanically intubated and was in the hospital for more than 30 days. Patient was in [facility], and because of apparently falling, the family took the patient home. Currently the patient was getting weaker, confused with some shortness of breath and cough, and the patient was taken to [facility] and was admitted for further evaluation and treatment. Bilateral pneumonia was suspected. The patient was slightly agitated and is sedated at this time. Patient unable to give a coherent history. Most of the history is taken from my discussion with staff and review of the chart at this time. PAST MEDICAL HISTORY: History of atrial fibrillation, CAD, diabetes mellitus, type 2, hypertension, hyperlipidemia, history of DJD, history of cardiac valve replacement, history of CAD, CABG. HOME MEDICATIONS: Glucosamine, Colace, Celebrex, Cosopt, Lipitor, Flomax, Abilify, Keppra. Lopressor, Plavix, aspirin, Tylenol. FAMILY HISTORY: History of cancer, leukemia. SOCIAL HISTORY: Previous history of smoking. Occasional alcohol intake. REVIEW OF SYSTEMS: Review of systems could not be taken; the patient is sedated at this time. PHYSICAL EXAMINATION: Patient is sedated. Pulse is 91, blood pressure 133/80, respirations 16, temperature normal, pulse ox 98% on room air. HEENT: Conjunctivae normal. NECK: No jugular venous distention. CARDIOVASCULAR SYSTEM: S1, S2 muffled. RESPIRATORY SYSTEM: Breath sounds diminished at the bases. A few scattered rhonchi and crackles. ABDOMEN: Soft, non-tender. No mass palpable. LEGS: No edema. No swelling. NERVOUS SYSTEM: Higher functions as mentioned earlier. Moves all 4 limbs. No focal motor or sensory deficit. LYMPHATICS: No lymph node palpable in neck, axillae or groin. SKIN: No ulcer, rash, bleeding. JOINTS: No active deforming arthropathy. LABS/IMAGING: Labs at this time show WBC 9.2, hemoglobin 10.4, and D-dimer is 2.41. Sodium is 133. Troponin 0.052. ALT is 93, alkaline phosphatase 165. Creatine kinase 33. Chest x-ray and CTA are personally reviewed. ASSESSMENT: 1. Possible bilateral pneumonia with possible sepsis, present on admission, with change in mental status, acute metabolic encephalopathy, multifactorial. 2. Hyponatremia. 3. Rule out COVID-19. 4. Troponin 0.052. Rule out acute pyc-SA-rtxfddm-elevation myocardial infarction. 5. Increased ALT. 6. Anemia, normocytic. 7. Increased platelets. 8. History of recent pit bull attack and intracranial hemorrhage. 9. History of atrial fibrillation. 10.History of coronary artery disease. 11.Diabetes mellitus, type 2. 12.Hypertension. 13.Hyperlipidemia. 14.History of gait dysfunction. 15.History of prostate disorder. 16.Coronary artery disease, coronary artery bypass grafting. 17.Depression. 18.NO CODE, NO CPR, NO VENT. RECOMMENDATIONS AND DISCUSSION: In this 74-year-old gentleman who presented with multiple complex medical issues, we will monitor the patient closely, continue the current medications, continue symptomatic treatment. Initiate broad-spectrum IV antibiotics. Obtain cultures. PT/OT evaluation. I would also recommend a cardiology consultation and neurology consultation, CT scan of the brain. Prognosis guarded because of multiple complex medical issues. Further recommendations to follow. A copy of this dictation is being forwarded to Dr. Boston, who is the primary physician. Discussed with family at length. The patient is also planning to go to [facility] home after discharge. Prognosis guarded. MMODL / IJN: [id number] /
[2020-02-24] MEDS: ARIPiprazole 5 MG TAB PO SCH (23:52)
[2020-02-24] MEDS: DORZOLAMIDE-TIMOLOL 2.23%/0.68 10ML BTL BOTH EYES SCH (23:52)
[2020-02-24] MEDS: levETIRAcetam 250 MG TAB PO SCH (23:53)
[2020-02-24] MEDS: HEPARIN SODIUM,PORCINE 5,000 UNIT/ML 1 ML VIAL SQ SCH (23:53)
[2020-02-24] MEDS: DOCUSATE 100 MG CAP PO SCH (23:53)
[2020-02-24] MEDS: TAMSULOSIN 0.4 MG CAP.ER.24H PO SCH (23:53)
[2020-02-24] MEDS: METOPROLOL TARTRATE 12.5 MG TAB PO SCH (23:53)
[2020-02-25] MEDS: SODIUM CHLORIDE 0.9% 1,000 ML IV SCH ×2 (01:59→15:47)
[2020-02-25] MEDS: PIPERACILLIN-TAZOBACTAM 3.375 GM in SODIUM CHLORIDE 0.9% 100 ML IVPB SCH ×3 (02:06→17:10)
[2020-02-25] MEDS: VANCOMYCIN 1,500 MG in SODIUM CHLORIDE 0.9% 250 ML IVPB SCH ×2 (05:59→17:11)
[2020-02-25 06:15] LABS: Basophils # (A) 0.1 k/uL (0-0.2); Basophils % (A) 1 %; Eosinophils % (A) 1 %; HCT 31.4 % (39.0-53.0); HGB 10.1 gm/dL (13.0-17.5); Hypochromasia Slight; Lymphocytes # (A) 0.7 k/uL (1.0-4.8); Lymphocytes % (A) 9 %; MCHC 32.1 g/dL (31.0-37.0); MCV 84.1 fL (80.0-100.0); Mean Platelet Volume 6.2; Monocytes # (A) 0.7 k/uL (0-1.0); Monocytes % (A) 8 %; Neutrophils # (A) 6.8 k/uL (1.3-7.7); Neutrophils % (A) 80 %; Platelet Count 501 k/uL (150-450); RBC 3.73 m/uL (4.30-5.90); RDW 14.6 % (11.5-15.5); WBC 8.5 k/uL (3.8-10.6)
[2020-02-25 06:53] LABS: ALT 72 U/L (4-49); AST 35 U/L (17-59); African American GFR (CKD) >90 (>60 ml/min/1.73 sqM); Albumin/Globulin Ratio 0.9; Alkaline Phosphatase 157 U/L (38-126); Anion Gap 9 mmol/L; Blood Urea Nitrogen 12 mg/dL (9-20); Calcium 9.4 mg/dL (8.4-10.2); Carbon Dioxide 24 mmol/L (22-30); Chloride 99 mmol/L (98-107); Globulin 3.3 g/dL; Glucose 93 mg/dL (74-99); Non-African American GFR(CKD) >90 (>60 ml/min/1.73 sqM); Potassium 4.5 mmol/L (3.5-5.1); Sodium 132 mmol/L (137-145); Total Bilirubin 0.5 mg/dL (0.2-1.3); Total Protein 6.3 g/dL (6.3-8.2)
[2020-02-25] MEDS ORDERED: NON FORMULARY DRUG (Glucosam/Chon-Msm1/C/Mang/Bosw [Glucosamine-Chondroitin Tablet] 1 EACH PO SCH (07:00)
[2020-02-25] MEDS ORDERED: ASPIRIN 81 MG PO SCH (07:00)
[2020-02-25] MEDS: HEPARIN SODIUM,PORCINE 5,000 UNIT/ML 1 ML VIAL SQ SCH ×2 (07:13→22:06)
[2020-02-25] MEDS: CLOPIDOGREL 75 MG TAB PO SCH (07:14)
[2020-02-25] MEDS: DORZOLAMIDE-TIMOLOL 2.23%/0.68 10ML BTL BOTH EYES SCH ×2 (07:14→17:11)
[2020-02-25] MEDS: levETIRAcetam 250 MG TAB PO SCH (07:14)
[2020-02-25] MEDS: ATORVASTATIN 20 MG TAB PO SCH (07:14)
[2020-02-25] MEDS: METOPROLOL TARTRATE 12.5 MG TAB PO SCH ×2 (07:14→17:11)
[2020-02-25] MEDS: MELOXICAM 7.5 MG TAB PO SCH (07:14)
[2020-02-25] MEDS: PANTOPRAZOLE 40 MG/10 ML VIAL IVP SCH (07:15)
--- NOTE | 2020-02-25 09:34 | P.CNNES ---
History of Present Illness Consult date: 02/25/20 Requesting physician: Christine Beyer Reason for Consult: altered mental status History of Present Illness: This is a 74-year-old gentleman with history of atrial fibrillation, coronary artery disease status post stenting and CABG as well as aortic valve replacement, diabetes, hyperlipidemia, hypertension and bilateral glaucoma that presented to the emergency department on 02/24/2020 for chest pain. History is obtained from medical records since the patient is unable to provide history. Patient has been having decreased oral intake for the last several days. It is documented By the primary team that the patient was admitted that to [facility] with intracranial bleed secondary to a pit bull attack. The patient had multiple diffusion lesion and the patient was apparently mechanically intubated and was in the hospital for more than 30 days. The patient was in the ER matter lodged and because of apparent following, and the family took the patient home. Currently the patient was getting weaker, confused with some shortness of breath and cough as a result the patient was taken to [facility] and the patient was slightly agitated in the ED and as a result he was given Ativan 1 mg. Upon reviewing the home medication the patient is on Keppra 250 mg 1 tablet twice a day. Upon seeing the patient he was agitated and he said "get me out of here". Per the patient nurse, he's been agitated and restless wanting to leave. There is no seizure-like activity. Per the patient nurse that she stated that the his mentation has been the same since the the pit bull attack. Workup in the hospital consisted of: Initial vitals: Blood pressure of 141/82, heart rate of 96, respiratory of 16, temperature of 98.1 Fahrenheit oral and pulse ox of 96% at room air. CT of the head is reported as cerebral atrophy. Mixed attenuation over the right frontal lobe convexity consistent with subdural hygroma as well as small component of subacute subdural hematoma. This measures up to 5 mm in thickness. This appears new compared to the old exam on the 02/04/2020. Personally reviewed the images and I also compared with old images the patient had subdural on 01/31/2020 over right hemisphere mostly in the right frontal region and the I feel like this subdural sizre compared to the 01/31/2020 and 02/04/2020 image seems to be improving. If the patient does have new subdural over the right frontal seems very minimal and is seems the subacute and not acute. White blood cell is 9 provide initial presentation repeated is 8.5 as normal. Platelets is 576 was seems high and likely reactive. ESR is 96. S x-ray and a showed overall stable finding, low lung volume on cardiomegaly with patchy bibasilar opacities redemonstrated. No new infiltrates are present Initial sodium is 133. Initial serum glucose is 104. AST of 47 and ALT of 93. TSH is 3.7-0. Troponin is 0.052. The CRP is 254. Urine analysis is negative for urinary tract infection. Coronavirus PCR was not detected. Yesterday, I was contacted by the nurse practitioner from the primary team regarding that CT of the head findings and she notified me that the family does not want any intervention/neurosurgery. She stated that the patient is DO NOT RESUSCITATE. The primary team feels the patient possibly has bilateral pneumonia Review of Systems Review of system is limited because of patient's condition but the pertinent positive and negative as per HPI. Past Medical History Past Medical History: Atrial Fibrillation, Coronary Artery Disease (CAD), Chest Pain / Angina, Diabetes Mellitus, Eye Disorder, Hyperlipidemia, Hypertension, Osteoarthritis (OA), Prostate Disorder Additional Past Medical History / Comment(s): On the artery disease with previous bypass surgery in 2003, previous aortic valve replacement, previous coronary intervention and stenting as mentioned above in the HPI, bilateral glaucoma, any stones, peripheral neuropathy. 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 History of Any Multi-Drug Resistant Organisms: None Reported Past Surgical History: Appendectomy, Cardiac Valve Replacement, Cholecystectomy, Coronary Bypass/CABG, Heart Catheterization Additional Past Surgical History / Comment(s): aortic valve replaced 2003, CABG double bypass ; drug-eluting stent to the proximal LAD and diagonal, and a drug- eluting stent placement to his right coronary artery in June of [address] [facility]. TAVR 07/15/2018 with a 26 mm core valve completed at [facility]. Past Anesthesia/Blood Transfusion Reactions: No Reported Reaction Additional Past Anesthesia/Blood Transfusion Reaction / Comment(s): no problems with anesthesia, unsure if patient has had blood transfusion in the past. Date of Last Stent Placement:: 07/15/2018 Past Psychological History: Depression Additional Psychological History / Comment(s): Mild OCC Smoking Status: Never smoker Past Alcohol Use History: Occasional Additional Past Alcohol Use History / Comment(s): Drinks 1 beer daily Past Drug Use History: None Reported Additional Drug Use History / Comment(s): Used to smoke cigars many years ago. - Past Family History Father Family Medical History: Cancer Brother(s) Family Medical History: Cancer Medications and Allergies Home Medications Medication Instructions Recorded Confirmed Type Aspirin 81 mg PO DAILY@0700 01/31/20 02/24/20 History Metoprolol Tartrate [Lopressor] 12.5 mg PO BID@699,1899 30 Days 02/05/20 02/24/20 Rx #60 tab Tamsulosin HCl [Flomax] 0.4 mg PO HS@1999 30 Days #30 cap 02/05/20 02/24/20 Rx levETIRAcetam [Keppra] 250 mg PO BID@699,1899 30 Days 02/05/20 02/24/20 Rx #60 tab ARIPiprazole [Abilify] 5 mg PO DAILY@189902/24/20 02/24/20 History Acetaminophen [Tylenol] 1,000 mg PO Q4-6H PRN 02/24/20 02/24/20 History Atorvastatin Calcium [Lipitor] 20 mg PO DAILY@69902/24/20 02/24/20 History Celecoxib [CeleBREX] 200 mg PO DAILY@69902/24/20 02/24/20 History Clopidogrel [Plavix] 75 mg PO DAILY@69902/24/20 02/24/20 History Docusate [Colace] 200 mg PO HS@199902/24/20 02/24/20 History Dorzolamide-Timol 2.23%/0.68% 1 drop BOTH EYES BID@0700,189902/24/20 02/24/20 History [Cosopt] Glucosam/Segundo-Msm1/C/Anderson/Bosw 1 tab PO DAILY@69902/24/20 02/24/20 History [Glucosamine-Chondroitin Tablet] Allergies Allergy/AdvReac Type Severity Reaction Status Date / Time aloe Allergy Rash/Hives Verified 02/24/20 15:47 bacitracin Allergy Rash/Hives Verified 02/24/20 15:47 [From Neosporin ([id number])] neomycin Allergy Rash/Hives Verified 02/24/20 15:47 [From Neosporin ([id number])] polymyxin B Allergy Rash/Hives Verified 02/24/20 15:47 [From Neosporin ([id number])] Physical Examination - Vital Signs Vital Signs: Vital Signs Temp Pulse Pulse Resp BP BP Pulse Ox 02/25/20 07:24 98.2 F 93 19 149/81 95 02/25/20 02:15 99.5 F 93 18 142/69 98 02/24/20 20:20 98.8 F 91 20 139/74 99 02/24/20 19:27 98.3 F 96 18 139/88 100 02/24/20 17:00 17 02/24/20 16:00 91 16 133/80 98 02/24/20 15:00 132/80 02/24/20 14:00 87 17 141/82 02/24/20 13:00 141/82 02/24/20 12:41 97 02/24/20 12:37 98.1 F 96 16 141/82 96 Intake and Output 02/24/20 02/25/20 02/25/20 22:59 06:59 14:59 Intake Total 1050 Output Total 700 Balance 350 Intake: Intake, IV Titration 1050 Amount Piperacillin-Tazobactam 3 200 .375 gm In Sodium Chloride 0.9% 100 ml @ 25 mls/hr IVPB Q8H [facility] Rx#: [id number] Sodium Chloride 0.9% 1, 600 000 ml @ 75 mls/hr IV . [id number] [facility] Rx#:[id number] Vancomycin 1,500 mg In 250 Sodium Chloride 0.9% 250 ml @ 125 mls/hr IVPB Q12H [facility] Rx#:[id number] Output: Urine 700 Uretheral (Bal) 700 Other: Voiding Method Indwelling Catheter Weight 81.647 kg GENERAL: The patient is lying in bed and is agitated and restless. CHEST: The heart rate is regular rate rhythm. No murmurs to auscultation. LUNG: Clear to auscultation bilaterally no wheezing noted throughout. Not labored breathing. ABDOMEN/GI: Bowel sounds present in all 4 quadrants. No tenderness to palpation throughout. NEUROLOGICAL: Limited because of his cooperation. Higher mental function: The patient is awake, alert, oriented to self but not place or time. He said it was in and month was August. Patient is following simple commands. No neglect. Cranial nerves: The pupils are round, equal and reactive to light and accommodation. Visual swanson are unable to assess because of his cooperation. Extraocular movement is intact no nystagmus is noted. The facial strength is normal throughout. Mild dysarthria is noted. Rest of the cranial nerves could not be assessed because of his condition. Motor: Gait is deferred because of his condition. The strength is moving all extremities above gravity without focality. I could not assess individual muscl e because of his cooperation. Normal tone and bulk. Cerebellum: Could not assess because of his cooperation. Sensation: Could not assess because of cooperation. Reflexes (right/left): Could not assess because kept of pulling his extremities upon assessing. Plantars are downgoing bilaterally. Results - Laboratory Findings CBC and BMP: 02/25/20 05:53 02/25/20 05:53 Abnormal Lab Findings: Abnormal Labs 02/24/20 02/24/20 02/24/20 13:52 13:52 13:52 RBC 3.77 L Hgb 10.4 L Hct 31.7 L Plt Count 576 H Lymphocytes # ESR D-Dimer 2.41 H Sodium 133 L Creatinine 0.60 L Glucose 104 H ALT 93 H Alkaline Phosphatase 165 H Creatine Kinase 33 L Troponin I C-Reactive Protein Albumin 3.4 L Urine Protein Urine Mucus 02/24/20 02/24/20 02/24/20 13:52 13:52 13:52 RBC Hgb Hct Plt Count Lymphocytes # ESR D-Dimer Sodium Creatinine Glucose ALT Alkaline Phosphatase Creatine Kinase Troponin I 0.052 H* C-Reactive Protein 254.1 H Albumin Urine Protein 1+ H Urine Mucus Few H 02/24/20 02/25/20 02/25/20 18:48 05:53 05:53 RBC 3.73 L Hgb 10.1 L Hct 31.4 L Plt Count 501 H Lymphocytes # 0.7 L ESR 96 H D-Dimer Sodium 132 L Creatinine 0.58 L Glucose ALT 72 H Alkaline Phosphatase 157 H Creatine Kinase Troponin I C-Reactive Protein Albumin 3.0 L Urine Protein Urine Mucus Assessment and Plan Assessment: This is a 74-year-old gentleman with multiple medical problems that presented emergency department that because of confusion, chest pain and decreased oral intake the past several days. Per the primary team note it is mentioned that the patient had the intracranial bleeds and it was admitted to [facility] and the bleed was due to pitbull attack and was hospitalized for 30 days.He had multiple falls at [facility]. Encephalopathy likely multifactorial toxic metabolic encephalopathy as well as from underlying infection . 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 Upon reviewing the image there is improvement in current CT compared to 01/31/2020. There might be new minimal to small right frontal subactue subdural Chest pain Mild Hyponatremia Increase ALT Atrial fibrillation coronary artery disease status post stenting and CABG s/p aortic valve replacement Diabetes Hyperlipidemia Hypertension Bilateral glaucoma Plan: CT of the head is reported as cerebral atrophy. Mixed attenuation over the right frontal lobe convexity consistent with subdural hygroma as well as small component of subacute subdural hematoma. This measures up to 5 mm in thickness. This appears new compared to the old exam on the 02/04/2020. Personally reviewed the images and I also compared with old images the patient had subdural on 01/31/2020 over right hemisphere mostly in the right frontal region and the I feel like this subdural compared to the 01/31/2020 and 02/04/2020 image seems to be improving. I feel if there is new finding, there might be new minimal to small right frontal subdural. I was notified by the nurse practitioner that the patient/family does not want any intervention. The patient is DO NOT RESUSCITATE. The patient is currently on the Keppra 250 mg 1 tablet twice a day. I will increase the Keppra to 500 mg 1 tablet twice a day. I'll not get a routine EEG since the patient will not be able to cooperate for it and it will not change management coordinator. If any clinical seizure like-activity or worsening of his current mentation then might consider getting routine EEG. y Currently the patient is on aspirin 81 mg daily as well as Plavix 75 mg daily. Also patient is on 20 mg daily. Patient is on thiamine 100 mg daily. Vitamin B12 and folate is ordered and is pending. He is on folic acid 1 mg daily. Please avoid any sedation/opiates or narcotics that would the affect and mentation of possible. Consider low dose of Seroquel for agitation. Patient is on vancomycin as well as Zosyn and that was started by the primary team. We'll defer the medical managements/rest to primary team. The plan was discussed with the patient's nurse. Thank You for the Consultation. Carlos Escobar M.D. Neuro-Hospitalist Time with Patient: Greater than 30
[2020-02-25] MEDS ORDERED: levETIRAcetam 250 MG TAB PO ONE (09:45)
[2020-02-25] MEDS: HYDROcodone/APAP 5-325MG 1 EACH TAB PO PRN ×2 (10:35→19:07)
[2020-02-25] MEDS ORDERED: HALOPERIDOL LACTATE 5 MG/ML 1 ML VIAL IM PRN ×2 (10:46→11:41)
[2020-02-25] MEDS: LORazepam 2 MG/ML INJ IV PRN ×2 (11:55→19:25)
[2020-02-25] MEDS: THIAMINE 100 MG TAB PO SCH (12:07)
[2020-02-25] MEDS: FOLIC ACID 1 MG TAB PO SCH (12:07)
[2020-02-25] MEDS: MULTIVITAMINS, THERA 1 EACH TAB PO SCH (12:07)
--- NOTE | 2020-02-25 14:54 | PN ---
PROGRESS NOTE DATE OF SERVICE: 02/25/2020 This 74-year-old gentleman who was admitted with multiple medical problems and change in mental status and pain over the body, has significant subdural hygromas, which is rather chronic according to the neurologist. The patient is confused and combative. The patient needed IM Haldol for chemical restraint. Otherwise, patient will be closely monitored. The sodium is 132. Patient also had multiple other abnormalities and elevated liver enzymes. COVID-19 is negative. PAST MEDICAL HISTORY: Reviewed. REVIEW OF SYSTEMS: Could not be taken, the patient is confused and combative. CURRENT MEDICATIONS: Current medications are Tylenol, [place], Abilify, Colace, Cosopt, Haldol, Keppra. Doses are reviewed. PHYSICAL EXAMINATION: Patient is conscious, confused. Pulse 93, blood pressure 149/81, respiration 19, temperature 98.2, pulse ox 95% on 2 L. HEENT: Conjunctivae normal. NECK: No jugular venous distention. CARDIOVASCULAR: S1, S2 muffled. RESPIRATORY: Breath sounds diminished at the bases. No rhonchi, no crackles. ABDOMEN: Soft, nontender. LEGS: No edema. No swelling. NERVOUS SYSTEM: No focal deficits. LABS: WBC 8.5, hemoglobin 10.1, sodium 132. Other labs are noted. ASSESSMENT: 1. Possible bilateral pneumonia with possible sepsis present on admission with change in mental status acute metabolic encephalopathy multifactorial. Consider hospital acute pneumonia. 2. Hyponatremia. 3. Bilateral subdural hygroma. 4. Rule out COVID-19. 5. Troponin 0.052. Rule out acute [id number]-elevation myocardial infarction. 6. Increased ALT. 7. Anemia, normocytic. 8. Increased platelets. 9. History of recent pit bull attack and intracranial hemorrhage treated elsewhere for a prolonged period for a month. 10.History atrial fibrillation, chronic. 11.History of coronary artery disease. 12.Diabetes mellitus type 2. 13.Hypertension. 14.Hyperlipidemia. 15.History of gait dysfunction. 16.History of prostate disorder. 17.History of coronary artery disease, coronary artery bypass grafting. 18.Depression. 19.NO CODE, NO CPR, NO VENT. RECOMMENDATIONS AND DISCUSSION: Recommend to continue current medications, continue symptomatic treatment. Otherwise, at this time I recommend to continue with broad-spectrum IV antibiotics. Closely follow with multiple consultants. Initial COVID-19 test is negative at this time but otherwise we will continue to monitor. Patient also has significant lesions on the CT scan including possible dementia and as well as bilateral subdural hygroma. Neurology is following the patient closely. Continue with DVT prophylaxis. We will hold off the anticoagulants, antiplatelet agents at this time. PT, OT evaluation. The family clearly indicated that they do not want any invasive evaluations or surgery at this time. We will continue to monitor. Prognosis guarded. See orders for details. MMODL / IJN: [id number] /
[2020-02-25] MEDS: ARIPiprazole 5 MG TAB PO SCH (17:11)
[2020-02-25] MEDS: DOCUSATE 100 MG CAP PO SCH (19:07)
[2020-02-25] MEDS: TAMSULOSIN 0.4 MG CAP.ER.24H PO SCH (19:07)
[2020-02-25] MEDS: levETIRAcetam 500 MG TAB PO SCH (22:06)
[2020-02-25] MEDS: risperiDONE 2 MG TAB PO SCH (22:06)
[2020-02-26] MEDS: LORazepam 2 MG/ML INJ IV PRN ×3 (00:05→21:11)
[2020-02-26] MEDS: PIPERACILLIN-TAZOBACTAM 3.375 GM in SODIUM CHLORIDE 0.9% 100 ML IVPB SCH ×3 (01:23→17:17)
[2020-02-26] MEDS ORDERED: VANCOMYCIN TROUGH DUE 1 EACH MISC MISCELLANE ONE (05:00)
[2020-02-26] MEDS: VANCOMYCIN 1,500 MG in SODIUM CHLORIDE 0.9% 250 ML IVPB SCH ×3 (05:48→23:15)
[2020-02-26 06:31] LABS: Basophils # (A) 0.1 k/uL (0-0.2); Basophils % (A) 1 %; Eosinophils # (A) 0.1 k/uL (0-0.7); Eosinophils % (A) 1 %; HCT 31.9 % (39.0-53.0); HGB 10.4 gm/dL (13.0-17.5); Hypochromasia Slight; Lymphocytes # (A) 0.7 k/uL (1.0-4.8); Lymphocytes % (A) 8 %; MCH 27.3 pg (25.0-35.0); MCHC 32.5 g/dL (31.0-37.0); Mean Platelet Volume 6.2; Monocytes # (A) 0.6 k/uL (0-1.0); Monocytes % (A) 7 %; Neutrophils % (A) 83 %; Platelet Count 479 k/uL (150-450); RDW 14.5 % (11.5-15.5); WBC 8.4 k/uL (3.8-10.6)
--- NOTE | 2020-02-26 07:32 | XR ---
EXAMINATION TYPE: XR chest 1V portable DATE OF EXAM: 02/26/2020 COMPARISON: 02/24/2020 INDICATION: Pneumonia TECHNIQUE: Single frontal view of the chest is obtained. FINDINGS: The heart size is normal. The pulmonary vasculature is normal. Bibasilar infiltrates are present, greater on the left. Findings are worsening over the interval. Cor relate for atelectasis. Developing pneumonia should be considered. IMPRESSION: 1. Worsening bibasilar infiltrates. Correlate for atelectasis.
[2020-02-26] MEDS: FOLIC ACID 1 MG TAB PO SCH (08:08)
[2020-02-26] MEDS: CLOPIDOGREL 75 MG TAB PO SCH (08:08)
[2020-02-26] MEDS: HEPARIN SODIUM,PORCINE 5,000 UNIT/ML 1 ML VIAL SQ SCH ×2 (08:08→21:10)
[2020-02-26] MEDS: MULTIVITAMINS, THERA 1 EACH TAB PO SCH (08:08)
[2020-02-26] MEDS: METOPROLOL TARTRATE 12.5 MG TAB PO SCH ×2 (08:08→17:17)
[2020-02-26] MEDS: ATORVASTATIN 20 MG TAB PO SCH (08:08)
[2020-02-26] MEDS: THIAMINE 100 MG TAB PO SCH (08:08)
[2020-02-26] MEDS: MELOXICAM 7.5 MG TAB PO SCH (08:08)
[2020-02-26] MEDS: PANTOPRAZOLE 40 MG/10 ML VIAL IVP SCH (08:09)
[2020-02-26] MEDS: DORZOLAMIDE-TIMOLOL 2.23%/0.68 10ML BTL BOTH EYES SCH ×2 (08:09→17:18)
[2020-02-26] MEDS: levETIRAcetam 500 MG TAB PO SCH ×2 (09:07→21:09)
[2020-02-26] MEDS: SODIUM CHLORIDE 0.9% 1,000 ML IV SCH (09:54)
[2020-02-26 10:10] LABS: African American GFR (CKD) 122.9 (60.0-200.0); Albumin 3.6 g/dL (3.80-4.90); Albumin/Globulin Ratio 1.44 (1.60-3.17); Anion Gap 9.8 mmol/L (4.00-12.00); Carbon Dioxide 26.2 mmol/L (21.6-31.8); Globulin 2.5 g/dL (1.6-3.3); Potassium 4.3 mmol/L (3.5-5.5); Total Bilirubin 0.4 mg/dL (0.2-1.2); Total Protein 6.1 g/dL (6.2-8.2)
--- NOTE | 2020-02-26 11:22 | P.CN ---
Psychiatric Consult - . Consult date: 02/26/20 Consult:: IDENTIFYING DATA: This patient is a 74-year-old, , retired, male who was admitted for chest pain. HISTORY OF PRESENT ILLNESS: The patient presented to the hospital on 02/24/2020 in by EMS for complaints of not eating, decreased oral intake, and ability to walk, and new onset chest pain. The patient is unable to provide any significant history or participate in the psychiatric interview. History was primarily obtained through his medical records as well as collateral information provided by the patient's Herminia Jin. The patient was recently treated for a traumatic brain injury secondary to a bull attack. He was managed at [facility] for treatment of an intracranial bleed and was apparently intubated and admitted for more than 30 days. Since returning home, the patient's reports that "he is not the same person." She states that prior to the bull attack that occurred on 01/01/2020, the patient has been functional and not displaying any significant signs or symptoms of dementia. She states that since returning home, the patient has been unable to ambulate, is typically bedridden, and intermittently agitated and confused. She reports that the patient would be agitated during his waking hours and has been noted to not sleep well at night. She does report that the patient's moods tend to be worsen at night. She does report that the patient has a history of depression and often expressed to her that "he told me that he did not want to live if he could not walk." She states that he was prescribed a medication for depression by her outpatient doctor but that he only took the medication for one month and stopped it himself. She reports that the patient has no significant history of psychosis and denies any history of auditory or visual hallucinations. As per discussion with the patient's nurse, the patient appears to be alert to self only. He is able to follow commands. He has been agitated during the hospital stay attempting to get out of bed frequently. PAST PSYCHIATRIC HISTORY: Patient has a a history of depression. Unsure what was prescribed by the outpatient doctor for depression management as per but the patient's home medication list that includes Abilify 5 mg by mouth daily. He is also prescribed Risperdal 2 mg by mouth at bedtime. No prior psychiatric hospitalizations. No outpatient psychiatric follow-up. Patient's denies that the patient has any history of attempts at suicide in the past. PAST MEDICAL HISTORY: Past Medical History: Atrial Fibrillation, Coronary Artery Disease (CAD), Chest Pain / Angina, Diabetes Mellitus, Eye Disorder, Hyperlipidemia, Hypertension, Osteoarthritis (OA), Prostate Disorder Additional Past Medical History / Comment(s): On the artery disease with previous bypass surgery in 2004, previous aortic valve replacement, previous coronary intervention and stenting as mentioned above in the HPI, bilateral glaucoma, any stones, peripheral neuropathy. 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 History of Any Multi-Drug Resistant Organisms: None Reported Past Surgical History: Appendectomy, Cardiac Valve Replacement, Cholecystectomy, Coronary Bypass/CABG, Heart Catheterization Additional Past Surgical History / Comment(s): aortic valve replaced 2003, CABG double bypass ; drug-eluting stent to the proximal LAD and diagonal, and a drug- eluting stent placement to his right coronary artery in June of 2018 completed at [facility]. TAVR 07/15/2018 with a 26 mm core valve completed at [facility]. Past Anesthesia/Blood Transfusion Reactions: No Reported Reaction Additional Past Anesthesia/Blood Transfusion Reaction / Comment(s): no problems with anesthesia, unsure if patient has had blood transfusion in the past. Date of Last Stent Placement:: 07/15/2018 Past Psychological History: Depression Additional Psychological History / Comment(s): Mild OCC Smoking Status: Never smoker Past Alcohol Use History: Occasional Additional Past Alcohol Use History / Comment(s): Drinks 1 beer daily Past Drug Use History: None Reported Additional Drug Use History / Comment(s): Used to smoke cigars many years ago. ALLERGIES: Aloe, bacitracin, neomycin, polymyxin B CHEMICAL DEPENDENCY HISTORY: Patient's reports that the patient used to drink 1 beer per day for 10 years. She reports that he quit smoking 40 years ago. She reports no history of the patient ever using any illicit drugs. FAMILY PSYCHIATRIC/SUBSTANCE USE HISTORY: The patient's denies any family history of psychiatric pathology or substance abuse. SOCIAL HISTORY: Patient is to his current for 40 years. He has 3 children. He previously worked at the [employer] for 42 years and retired 11 years ago. MENTAL STATUS EXAM: General Appearance: Patient appears to be stated age is is currently somnolent, not alert, and unable to cooperate. Patient appears disheveled. He has a jaeger and is currently wearing mitts. Behavior: Patient is lying in bed without any agitated behavior. He appears to be somnolent and difficult to arouse. Speech: Could not assess Mood/Affect: Could not assess Suicidality/Homicidality: Could not assess Perceptions: Could not assess Though content/process: Could not assess Memory and concentration: Could not assess Judgment and insight: Very poor at baseline. IMPRESSIONS: Encephalopathy Delirium History of depression -The patient's expressed significant concern for the treatment of depression and PTSD. Although the patient remains mostly nonverbal, the patient did express significant symptoms of depression to his primary care provider as per history provided by his . Depression may at times display itself as agitation and confusion in the elderly. She is wishing an antidepressant to be started. PLAN: -At this time patient DOES NOT meet criteria for inpatient psychiatric admission. -Patient DOES NOT have decision making capacity at this time and is unable to reason through and communicate/appreciate the risks, benefits and alternatives to treatment. -Delirium precautions recommended with patient including - avoiding use of narcotics and OIL GAUGER sedatives, limit anticholinergic medications when possible, frequent re-orientation, minimize use of restraints, open window shades during the day and close them at night -EKG reviewed, QTC of 452 ms. This provider discussed at length the patient's regarding the use of antipsychotic medications for management of agitation and the black box warning including risk of cardiac dysfunction and . The patient's states that the patient would not want to live like this and that she just wants him to be comfortable. The patient is currently DO NOT RESUSCITATE. -Would recommend the following medication changes/additions: -We will discontinue Abilify and start Risperdal 0.5 mg by mouth every morning and continue his Risperdal 2 mg by mouth daily at bedtime. -We will start Remeron 7.5 mg by mouth at bedtime for insomnia/depression. -Continue Haldol 5 mg IM every 6 hours when necessary for agitation/psychosis -Psychiatry Will continue to follow along 02/26/20 10:29
--- NOTE | 2020-02-26 13:09 | P.PN ---
Subjective Progress Note Date: 02/26/20 Per the patient nurse she stated that the patient was the agitated the overnight was restless. There is no seizure-like activity noted overnight or today. As a result the patient was given Ativan 1 mg every 4 hours. His last Ativan was given at 446 today in the a.m. As well as the patient was started on Risperdal. He is also on Haldol and he was given 5 mg at 2216 on 0107 As well as the patient continues to have an order of note: 5 mg every 6 hours as needed. Upon seeing the patient today he was sleeping Objective - Vital Signs Vital signs: Vital Signs Temp 97.6 F 02/26/20 07:47 Pulse 109 H 02/26/20 07:47 Resp 22 02/26/20 07:47 BP 174/83 02/26/20 07:47 Pulse Ox 94 L 02/26/20 07:47 Intake & Output 02/25/20 02/26/20 02/26/20 18:59 06:59 18:59 Intake Total 1210 Output Total 300 700 Balance -300 510 Intake: Intake, IV Titration 850 Amount Piperacillin-Tazobactam 3 200 .375 gm In Sodium Chloride 0.9% 100 ml @ 25 mls/hr IVPB Q8H [facility] Rx#: [id number] Sodium Chloride 0.9% 1, 400 000 ml @ 50 mls/hr IV . Q20H [facility] Rx#:[id number] Vancomycin 1,500 mg In 250 Sodium Chloride 0.9% 250 ml @ 125 mls/hr IVPB Q12H [facility] Rx#:[id number] Oral 240 Blood Product 120 Output: Urine 300 700 Uretheral (Bal) 700 Other: Voiding Method Indwelling Catheter - Exam GENERAL: The patient is lying in bed and sleeping. NEUROLOGICAL: Limited because of his condition. Higher mental function: The patient was sleeping (from medication he received). Cranial nerves: The pupils are round, equal and reactive to light Could not assess rest of his condition because of his condition. Motor: Gait is deferred because of his condition. Could not assess because of his condition. Normal tone and bulk. Could not assess rest of neurological exam because of his condition. Plantars are downgoing bilaterally. I came back later and patient and was moving all extremities and was waking up and opening his eyes. - Labs CBC & Chem 7: 02/26/20 05:38 02/26/20 05:38 Labs: Abnormal Lab Results - Last 24 Hours (Table) 02/26/20 02/26/20 Range/Units 05:38 05:38 RBC 3.80 L (4.30-5.90) m/uL Hgb 10.4 L (13.0-17.5) gm/dL Hct 31.9 L (39.0-53.0) % Plt Count 479 H (150-450) k/uL Lymphocytes # 0.7 L (1.0-4.8) k/uL Creatinine 0.5 L (0.6-1.5) mg/dL AST 38 H (14-35) U/L ALT 63 H (10-49) U/L Alkaline Phosphatase 158 H (41-126) U/L Total Protein 6.1 L (6.2-8.2) g/dL Albumin 3.60 L (3.80-4.90) g/dL Albumin/Globulin Ratio 1.44 L (1.60-3.17) g/dL Microbiology - Last 24 Hours (Table) 02/24/20 13:52 Urine Culture - Final Urine,Catheterized 02/24/20 18:48 Blood Culture Gram Stain - Preliminary Blood 02/24/20 18:48 Blood Culture - Final Blood Assessment and Plan Assessment: This is a 74-year-old gentleman with multiple medical problems that presented emergency department that because of confusion, chest pain and decreased oral intake the past several days. Per the primary team note it is mentioned that the patient had the intracranial bleeds and it was admitted to [facility] and the bleed was due to pitbull attack and was hospitalized for 30 days.He had multiple falls at [facility]. Encephalopathy likely multifactorial toxic metabolic encephalopathy as well as from underlying infection . 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 Upon reviewing the image there is improvement in current CT compared to 01/31/2020. There might be new minimal to small right frontal subactue subdural Chest pain Mild Hyponatremia--resolved Increase ALT--slight tending down. Atrial fibrillation coronary artery disease status post stenting and CABG s/p aortic valve replacement Diabetes Hyperlipidemia Hypertension Bilateral glaucoma Plan: CT of the head is reported as cerebral atrophy. Mixed attenuation over the right frontal lobe convexity consistent with subdural hygroma as well as small component of subacute subdural hematoma. This measures up to 5 mm in thickness. This appears new compared to the old exam on the 02/04/2020. Personally reviewed the images and I also compared with old images the patient had subdural on 01/31/2020 over right hemisphere mostly in the right frontal region and the I feel like this subdural compared to the 01/31/2020 and 02/04/2020 image seems to be improving. I feel if there is new finding, there might be new minimal to small right frontal subdural. Per the patient's , she stated the patient wishes were no intervention or heroic measures. The patient is DO NOT RESUSCITATE. Continue Keppra to 500 mg 1 tablet twice a day. If any clinical seizure like-activity or worsening of his current mentation then might consider getting routine EEG. Currently the patient is on aspirin 81 mg daily as well as Plavix 75 mg daily. Also patient is on 20 mg daily. Patient is on thiamine 100 mg daily. Vitamin B12: 733 (normal). Folate is pending. He is on folic acid 1 mg daily. Please avoid any sedation/opiates or narcotics that would the affect and mentation if possible. The patient's notified me that the she is having difficulty team care of her . He is agitated is very restless. And as a result the falls and hits his head and that's how he gets the subdurals. She stated that the hit the patient's wishes is no surgical intervention or heroic measures. She is asking if that there is a medication that can that keep the patient more calm. Psychiatry team is on board We'll defer the medical managements/rest to primary team. The plan was discussed with the patient's and his nurse. There is no neurology service over the weekend. Please Perfect Serve if needed. Dr. Reid will take over this coming-up Saturday. Carlos Escobar M.D. Neuro-Hospitalist Time with Patient: Less than 30
--- NOTE | 2020-02-26 18:57 | PN ---
PROGRESS NOTE DATE OF SERVICE: 02/26/2020 This 74 -year-old gentleman admitted with change in mental status, thought to have bilateral pneumonia. The patient also had some change in mental status. Patient also had recent head trauma with hemorrhage which was treated symptomatically and the patient had bilateral subdural hygromas and the patient continues to be restless. Multiple consultants are following the patient closely, including Neurology. The patient has some agitation, which is being treated and neurology following the patient closely regarding the CT scan. No intervention measures were requested at this time. The patient is DNR. Past medical history reviewed. Review of systems was not taken, the patient is confused. CURRENT MEDICATIONS: Reviewed and include: Tylenol, [place], Lipitor, Plavix, Cosopt, folic acid, Haldol, Keppra. Doses are reviewed. PHYSICAL EXAM: Patient is confused, conscious, arousable. Pulse 97, blood pressure 120/74, respiration 18, temperature 97.2, pulse ox 97% on room air. HEENT: Conjunctivae normal. Neck: No JVD. CARDIOVASCULAR: S1, S2 muffled. Respiration: Breath sounds diminished in the bases. A few scattered rhonchi and crackles. ABDOMEN: Soft, nontender. Legs are no edema. No swelling. NERVOUS SYSTEM: Diffusely weak. LABS: WBC 8.2, hemoglobin 10.4, RBCs 1253. ASSESSMENT: 1. Possible bilateral pneumonia with sepsis present on admission with change in mental status, acute metabolic encephalopathy multifactorial. Also consider hospital- acquired pneumonia. 2. Hyponatremia. 3. Bilateral subdural hygroma. 4. COVID-19 ruled out. Covid 19 rapid test is negative. 5. Troponin 0.052. Rule out acute non ST segment myocardial infarction. 6. Increased ALT. 7. Anemia normocytic. 8. Increased platelets. 9. History of recent pupil attack and multiple intracranial hemorrhages and treated elsewhere for prolonged period for a month. 10.History of atrial fibrillation, chronic. 11.History of coronary artery disease. 12.History of diabetes type 2. 13.Hypertension. 14.Hyperlipidemia. 15.History of gait dysfunction. 16.History of prostate cancer. 17.History of coronary artery disease, coronary artery bypass grafting. 18.Depression. 19.NO CODE, NO CPR, NO VENT. RECOMMENDATION: Recommend to continue current medications, symptomatic treatment. Otherwise at this time I would recommend continue with empiric antibiotics. Continue the rest of medications. I would also recommend closely follow with Neurology. The blood culture is showing coagulase-negative Staph. I would also recommend infectious disease evaluation. Guarded prognosis because of multiple complex medical issues. Further recommendations to follow. MMODL / IJN: [id number] /
[2020-02-26] MEDS: DOCUSATE 100 MG CAP PO SCH (21:09)
[2020-02-26] MEDS: risperiDONE 2 MG TAB PO SCH (21:09)
[2020-02-26] MEDS: TAMSULOSIN 0.4 MG CAP.ER.24H PO SCH (21:09)
[2020-02-26] MEDS: MIRTAZAPINE 15 MG TAB PO SCH (21:10)
[2020-02-27] MEDS: PIPERACILLIN-TAZOBACTAM 3.375 GM in SODIUM CHLORIDE 0.9% 100 ML IVPB SCH ×3 (02:10→17:20)
[2020-02-27] MEDS: SODIUM CHLORIDE 0.9% 1,000 ML IV SCH (05:42)
[2020-02-27 07:09] LABS: Basophils # (A) 0.1 k/uL (0-0.2); Basophils % (A) 1 %; Eosinophils # (A) 0.2 k/uL (0-0.7); Eosinophils % (A) 2 %; HCT 31.6 % (39.0-53.0); HGB 10.1 gm/dL (13.0-17.5); Hypochromasia Slight; Lymphocytes # (A) 0.9 k/uL (1.0-4.8); Lymphocytes % (A) 11 %; MCH 27.2 pg (25.0-35.0); MCHC 32.1 g/dL (31.0-37.0); MCV 84.8 fL (80.0-100.0); Mean Platelet Volume 6.7; Monocytes # (A) 0.6 k/uL (0-1.0); Monocytes % (A) 8 %; Neutrophils # (A) 6.5 k/uL (1.3-7.7); Neutrophils % (A) 78 %; Platelet Count 524 k/uL (150-450); RBC 3.72 m/uL (4.30-5.90); RDW 14.5 % (11.5-15.5); WBC 8.3 k/uL (3.8-10.6)
[2020-02-27] MEDS: DORZOLAMIDE-TIMOLOL 2.23%/0.68 10ML BTL BOTH EYES SCH ×2 (08:45→20:53)
[2020-02-27] MEDS: MELOXICAM 7.5 MG TAB PO SCH (08:46)
[2020-02-27] MEDS: HEPARIN SODIUM,PORCINE 5,000 UNIT/ML 1 ML VIAL SQ SCH ×2 (08:46→20:54)
[2020-02-27] MEDS: FOLIC ACID 1 MG TAB PO SCH (08:46)
[2020-02-27] MEDS: ATORVASTATIN 20 MG TAB PO SCH (08:47)
[2020-02-27] MEDS: CLOPIDOGREL 75 MG TAB PO SCH (08:47)
[2020-02-27] MEDS: PANTOPRAZOLE 40 MG/10 ML VIAL IVP SCH (08:47)
[2020-02-27] MEDS: METOPROLOL TARTRATE 12.5 MG TAB PO SCH ×2 (08:47→20:54)
[2020-02-27] MEDS: MULTIVITAMINS, THERA 1 EACH TAB PO SCH (08:47)
[2020-02-27] MEDS: THIAMINE 100 MG TAB PO SCH (08:47)
[2020-02-27] MEDS: levETIRAcetam 500 MG TAB PO SCH ×2 (08:48→20:54)
[2020-02-27] MEDS: risperiDONE 0.5 MG TAB PO SCH (08:49)
[2020-02-27] MEDS: VANCOMYCIN 1,500 MG in SODIUM CHLORIDE 0.9% 250 ML IVPB SCH ×2 (08:51→15:00)
[2020-02-27 10:39] LABS: Albumin 3.5 g/dL (3.80-4.90); Albumin/Globulin Ratio 1.52 (1.60-3.17); Anion Gap 11.5 mmol/L (4.00-12.00); BUN/Creat Ratio 13.33 Ratio (12.00-20.00); Calcium 9.1 mg/dL (8.7-10.3); Carbon Dioxide 24.5 mmol/L (21.6-31.8); Globulin 2.3 g/dL (1.6-3.3); Non-African American GFR(CKD) 98.4 (60.0-200.0); Potassium 4.3 mmol/L (3.5-5.5); Total Bilirubin 0.5 mg/dL (0.3-1.2); Total Protein 5.8 g/dL (6.2-8.2)
--- NOTE | 2020-02-27 13:51 | P.PN ---
Progress Note - Text Progress Note Date: 02/27/20 Interval History: Patient was seen resting in bed and was arousable but mainly unresponsive. Patient is unable to participate in the psychiatric interview at this time. As noted by the patient's nurse, the patient has not displayed any significant agitation and has been bedridden and mostly somnolent. He is currently on a regimen of Risperdal 0.5 mg by mouth every morning, Risperdal 2 mg by mouth daily at bedtime, and Remeron 7.5 mg by mouth at bedtime. He is also prescribed Keppra. Mental Status Exam: General Appearance: Patient appears to be stated age, is currently somnolent, not alert, and unable to cooperate in the psychiatric interview. He appears slightly disheveled. Behavior: Patient is somnolent and laying in bed without any agitation. Speech: Unable to assess Mood/Affect: Unable to assess Suicidality/Homicidality: Unable to assess Perceptions: Unable to assess Though content/process: Unable to assess Memory and concentration: Unable to assess Judgment and insight: Poor at baseline Assessment Encephalopathy Delirium History of depression Plan: At this time patient DOES NOT meet criteria for inpatient psychiatric admission. -Patient DOES NOT have decision making capacity at this time and is unable to reason through and communicate/appreciate the risks, benefits and alternatives to treatment. -Delirium precautions recommended with patient including - avoiding use of narcotics and VEGET[employer] FARMWORK[employer] sedatives, limit anticholinergic medications when possible, frequent re-orientation, minimize use of restraints, open window shades during the day and close them at night -EKG reviewed, QTC of 452 ms. This provider discussed at length the patient's regarding the use of antipsychotic medications for management of agitation and the black box warning including risk of cardiac dysfunction and . The patient's states that the patient would not want to live like this and that she just wants him to be comfortable. The patient is currently DO NOT RESUSCITATE. -Continue Risperdal 0.5 mg every morning, Risperdal 2 mg by mouth daily at bedtime mood stabilization/agitation. -Continue Remeron 7.5 mg by mouth at bedtime for insomnia/depression. -Continue Haldol 5 mg IM every 6 hours when necessary for agitation/psychosis -Psychiatry will sign off at this time. Please call for any questions or concerns. Reconsult if necessary.
--- NOTE | 2020-02-27 16:04 | P.PN ---
Subjective Progress Note Date: 02/27/20 Principal diagnosis: Acute encephalopathy Mr. Jin is a 73-year-old gentleman admitted for mental status changes, thought to have bilateral pneumonia. Patient had a recent history of head trauma with hemorrhage that was treated symptomatically and the patient has bilateral subdural hygromas. Multiple consultants on board and following the patient closely. On 02/27/2020 - patient is resting in his bed comfortably. As per discussion with nursing staff he is slightly agitated and received Haldol to calm him down. Patient does not give any history. He opened his eyes on calling his name and went back to sleep. On reviewing his vitals 91, respiratory rate 18, blood p ressure 127/71, saturating at 96% on room air and T-max of 97.6. On reviewing his labs from this morning patient has a white count of 8.3, hemoglobin 10.1, platelets 524. Sodium 1374.3, chloride 101, bicarbonate 24, the urine 8, creatinine 0.6. Patient had blood cultures positive for Staphylococcus epidermidis. He is on antibiotics in the form of Zosyn and vancomycin. ID Dr. Day has been consulted yesterday. Active Medications Acetaminophen (Acetaminophen Tab 325 Mg Tab) 650 mg PO Q6HR PRN PRN Reason: Mild Pain or Fever > 100.5 Hydrocodone Bitart/Acetaminophen (Hydrocodone/Apap 5-325mg 1 Each Tab) 1 each PO Q6HR PRN PRN Reason: Pain Last Admin: 02/25/20 19:07 Dose: 1 each Documented by: Atorvastatin Calcium (Atorvastatin 20 Mg Tab) 20 mg PO DAILY@0700 [facility] Last Admin: 02/27/20 08:47 Dose: 20 mg Documented by: Clopidogrel Bisulfate (Clopidogrel 75 Mg Tab) 75 mg PO DAILY@0700 [facility] Last Admin: 02/27/20 08:47 Dose: 75 mg Documented by: Docusate Sodium (Docusate 100 Mg Cap) 200 mg PO HS@2000 [facility] Last Admin: 02/26/20 21:09 Dose: 200 mg Documented by: Dorzolamide/Timolol (Dorzolamide-Timolol 2.23%/0.68 10ml Btl) 1 drops BOTH EYES BID@0700,1900 [facility] Last Admin: 02/27/20 08:45 Dose: 1 drops Documented by: Folic Acid (Folic Acid 1 Mg Tab) 1 mg PO DAILY@1200 [facility] Last Admin: 02/27/20 08:46 Dose: 1 mg Documented by: Haloperidol Lactate (Haloperidol Lactate 5 Mg/Ml 1 Ml Vial) 5 mg IM Q6HR PRN PRN Reason: Agitation or Acute Psychosis Last Admin: 02/25/20 22:16 Dose: 5 mg Documented by: Heparin Sodium (Porcine) (Heparin Sodium,Porcine 5,000 Unit/Ml 1 Ml Vial) 5,000 unit SQ Q12HR [facility] Last Admin: 02/27/20 08:46 Dose: 5,000 unit Documented by: Sodium Chloride (Saline 0.9%) 1,000 mls @ 50 mls/hr IV .Q20H [facility] Last Admin: 02/27/20 05:42 Dose: 50 mls/hr Documented by: Piperacillin Sod/Tazobactam (Sod 3.375 gm/ Sodium Chloride) 100 mls @ 25 mls/hr IVPB Q8H [facility] Last Admin: 02/27/20 09:58 Dose: 25 mls/hr Documented by: Vancomycin HCl 1,500 mg/ (Sodium Chloride) 250 mls @ 125 mls/hr IVPB Q8HR [facility]; Protocol Last Admin: 02/27/20 15:00 Dose: 125 mls/hr Documented by: Levetiracetam (Levetiracetam 500 Mg Tab) 500 mg PO Q12HR [facility] Last Admin: 02/27/20 08:48 Dose: 500 mg Documented by: Lorazepam (Lorazepam 2 Mg/Ml Inj) 1 mg IV Q4HR PRN PRN Reason: Anxiety Last Admin: 02/26/20 21:11 Dose: 1 mg Documented by: Meloxicam (Meloxicam 7.5 Mg Tab) 7.5 mg PO DAILY@0700 [facility] Last Admin: 02/27/20 08:46 Dose: 7.5 mg Documented by: Metoprolol Tartrate (Metoprolol Tartrate 12.5 Mg Tab) 12.5 mg PO BID@0700,1900 [facility] Last Admin: 02/27/20 08:47 Dose: 12.5 mg Documented by: Mirtazapine (Mirtazapine 15 Mg Tab) 7.5 mg PO HS [facility] Last Admin: 02/26/20 21:10 Dose: 7.5 mg Documented by: Miscellaneous Information (Vancomycin Trough Due 1 Each Misc) 0 each MISCELLANE DIRECTED ONE Stop: 02/28/20 07:01 Multivitamins (Multivitamins, Thera 1 Each Tab) 1 each PO DAILY@1200 [facility] Last Admin: 02/27/20 08:47 Dose: 1 each Documented by: Naloxone HCl (Naloxone 0.4 Mg/Ml 1 Ml Vial) 0.2 mg IV Q2M PRN PRN Reason: Opioid Reversal Pantoprazole Sodium (Pantoprazole 40 Mg/10 Ml Vial) 40 mg IVP DAILY [facility] Last Admin: 02/27/20 08:47 Dose: 40 mg Documented by: Risperidone (Risperidone 2 Mg Tab) 2 mg PO HS [facility] Last Admin: 02/26/20 21:09 Dose: 2 mg Documented by: Risperidone (Risperidone 0.5 Mg Tab) 0.5 mg PO DAILY [facility] Last Admin: 02/27/20 08:49 Dose: 0.5 mg Documented by: Tamsulosin HCl (Tamsulosin 0.4 Mg Cap.Er.24h) 0.4 mg PO HS@2000 [facility] Last Admin: 02/26/20 21:09 Dose: 0.4 mg Documented by: Thiamine HCl (Thiamine 100 Mg Tab) 100 mg PO DAILY@1200 [facility] Last Admin: 02/27/20 08:47 Dose: 100 mg Documented by: Objective - Vital Signs Vital signs: Vital Signs Temp 97.6 F 02/27/20 14:00 Pulse 91 02/27/20 14:00 Resp 18 02/27/20 14:00 BP 127/71 02/27/20 14:00 Pulse Ox 96 02/27/20 14:00 Intake & Output 02/26/20 02/27/20 02/27/20 18:59 06:59 18:59 Intake Total 400 Output Total 650 1050 Balance 400 -650 -1050 Intake: Intake, IV Titration 400 Amount Sodium Chloride 0.9% 1, 400 000 ml @ 50 mls/hr IV . Q20H [facility] Rx#:[id number] Output: Urine 650 1050 Other: Voiding Method Indwelling Catheter Indwelling Catheter # Bowel Movements 0 - Exam PHYSICAL EXAM Patient is confused conscious and arousable. HEENT conjunctivae normal Neck no JVD Cardiovascular- S1-S2 heard Respiratory- bilateral breath sounds are positive. Diminished at the lower lung bases with few rhonchi and crackles. 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 deficits - Labs CBC & Chem 7: 02/27/20 06:07 02/27/20 06:07 Labs: Abnormal Lab Results - Last 24 Hours (Table) 02/27/20 02/27/20 Range/Units 06:07 06:07 RBC 3.72 L (4.30-5.90) m/uL Hgb 10.1 L (13.0-17.5) gm/dL Hct 31.6 L (39.0-53.0) % Plt Count 524 H (150-450) k/uL Lymphocytes # 0.9 L (1.0-4.8) k/uL BUN 8.0 L (9.0-27.0) mg/dL AST 56 H (14-35) U/L ALT 75 H (10-49) U/L Alkaline Phosphatase 168 H (41-126) U/L Total Protein 5.8 L (6.2-8.2) g/dL Albumin 3.50 L (3.80-4.90) g/dL Albumin/Globulin Ratio 1.52 L (1.60-3.17) g/dL Microbiology - Last 24 Hours (Table) 02/24/20 18:48 Blood Culture Gram Stain - Final Blood Blood Culture - Final Staphylococcus epidermidis Assessment and Plan Assessment: ASSESSMENT Possible bilateral pneumonia with sepsis present on admission Acute metabolic encephalopathy multifactorial ? Hospital-acquired pneumonia Hyponatremia Bilateral subdural hygroma Slightly elevated troponin Normocytic anemia Thrombocytosis Multiple intracranial hemorrhages recently Atrial fibrillation chronic Coronary artery disease Diabetes mellitus Hypertension Hyperlipidemia Chronic debility No code PLAN: Patient is currently continued on empiric antibiotics in the form of vancomycin and Zosyn, ID Dr. Day has been consulted. Neurology on board and following the patient. Continue with the current medication regimen. Overall prognosis is guarded secondary to multiple chronic medical conditions. Patient is a no code. Further recommendations depending on the progress of the patient.
--- NOTE | 2020-02-27 20:25 | CONS ---
CONSULTATION DATE OF SERVICE: 02/27/2020. REASON FOR CONSULTATION: Questionable sepsis. HISTORY OF PRESENT ILLNESS: The patient is a 74-year-old male with multiple comorbidities, including atrial fibrillation, coronary artery disease, aortic valve replacement, in this patient recently admitted at [facility] with intracranial bleed secondary to pit bull attack. This patient apparently was in the hospital for almost 30 days and was on the vent as well. The patient subsequently was sent to the group home for rehab. Apparently the patient was followed but not improving, and the patient's family took him home. The patient now presented to [facility] ER on February 24, 2020, for chest pain and for pain to the left knee area and apparently with decreased oral intake. The patient seemed to have evidence of agitation. Since admission to the hospital, this patient has had no fever. The patient did have a normal white count throughout his hospital stay. He was noted to have elevated sedimentation rate and CRP. Urine has been negative. [place] PCR was negative. The patient did have a chest x- ray followed by CT angiogram of the chest that was negative for PE and did not show any acute pulmonary abnormality. There is no consolidation. Knee x-ray shows moderate to severe narrowing and spurring. Chest x-ray repeated yesterday showed worsening bibasilar infiltrate; correlate for atelectasis. The patient has been treated with vancomycin, as the blood cultures were positive for Staph epidermidis. Infectious Disease was consulted last evening with questionable sepsis and positive blood culture. Most of this information has been obtained from review of the chart and talking to nursing staff, as the patient himself is not able to provide any reliable history. REVIEW OF SYSTEMS: Positive points have been mentioned in HPI. Complete review could not be obtained. PAST MEDICAL HISTORY: Atrial fibrillation, coronary artery disease, subdural hematoma, diabetes mellitus, hypertension, hyperlipidemia, osteoarthritis, prostate disorder. PAST SURGICAL HISTORY: Appendectomy, cardiac valve replacement, cholecystectomy, coronary artery bypass grafting, heart catheterization. SOCIAL HISTORY: No history of smoking. Occasionally drinks. No drug use. FAMILY HISTORY: Both parents with history of cancer. ALLERGIES: POLYMYXIN, NEOMYCIN, BACITRACIN. MEDICATIONS: The patient is currently on Tylenol, Stanton, Lipitor, Plavix, Colace, Cosopt, Tylenol, heparin, Keppra, Mobic, Lopressor, Remeron, Theragran, Zosyn, Risperdal and vancomycin. PHYSICAL EXAMINATION: Blood pressure 127/71 with a pulse of 91, temperature 97.6. He is 96% on room air. General description is an elderly male lying in bed in no distress. No tachypnea or accessory muscle of respiration use. HEENT: Examination shows slight pallor. No scleral icterus. Oral mucous membrane is dry. NECK: Trachea is central. No thyromegaly. LUNGS: Unlabored breathing. Decreased breath sounds at bases. No wheeze or crackle. HEART: S1, S2. Regular rate and rhythm. ABDOMEN: Soft. No tenderness. No guarding or rigidity. EXTREMITIES: No edema of feet. SKIN EXAMINATION: No rash or mass palpable. Neurologically the patient remains lethargic. Orientation could not be determined. LABS: Hemoglobin is 10.2, white count 8.3, BUN of 8, creatinine 0.68. Liver enzymes mildly elevated. Urine is negative. DIAGNOSTIC IMPRESSION AND PLAN: Patient admitted to hospital with mental status changes and weakness which is likely multifactorial in this patient with a recent intracranial bleed from trauma with possible source not entirely excluded. The patient did have a positive blood culture with Staph epi, more likely contaminant and not a source of his infection. Pneumonia less likely but not entirely excluded, and a question of possible aspiration or Gram-negative. PLAN: 1. Discontinue vancomycin to decrease risk of nephrotoxicity. 2. Will repeat blood cultures, CRP, culture. 3. Continue with Zosyn 3.375 grams q.8 hours. 4. Will follow clinical condition and cultures to further adjust medication if needed. Thank you for this consultation. Will follow this patient along with you. MMODL / IJN: [id number] /
[2020-02-27] MEDS: DOCUSATE 100 MG CAP PO SCH (20:54)
[2020-02-27] MEDS: risperiDONE 2 MG TAB PO SCH (20:54)
[2020-02-27] MEDS: TAMSULOSIN 0.4 MG CAP.ER.24H PO SCH (20:54)
[2020-02-27] MEDS: MIRTAZAPINE 15 MG TAB PO SCH (20:54)
[2020-02-28] MEDS: PIPERACILLIN-TAZOBACTAM 3.375 GM in SODIUM CHLORIDE 0.9% 100 ML IVPB SCH ×3 (01:39→17:27)
[2020-02-28] MEDS: SODIUM CHLORIDE 0.9% 1,000 ML IV SCH ×2 (01:44→20:20)
[2020-02-28] MEDS ORDERED: VANCOMYCIN TROUGH DUE 1 EACH MISC MISCELLANE ONE (07:00)
[2020-02-28 07:39] LABS: Basophils # (A) 0.1 k/uL (0-0.2); Basophils % (A) 1 %; Eosinophils # (A) 0.3 k/uL (0-0.7); Eosinophils % (A) 3 %; HCT 30.7 % (39.0-53.0); Hypochromasia Slight; Lymphocytes # (A) 0.6 k/uL (1.0-4.8); Lymphocytes % (A) 7 %; MCH 27.5 pg (25.0-35.0); MCHC 32.6 g/dL (31.0-37.0); MCV 84.3 fL (80.0-100.0); Mean Platelet Volume 6.5; Monocytes # (A) 0.5 k/uL (0-1.0); Monocytes % (A) 6 %; Neutrophils # (A) 7.2 k/uL (1.3-7.7); Neutrophils % (A) 83 %; Platelet Count 543 k/uL (150-450); RBC 3.64 m/uL (4.30-5.90); RDW 14.4 % (11.5-15.5); WBC 8.8 k/uL (3.8-10.6)
[2020-02-28] MEDS: ATORVASTATIN 20 MG TAB PO SCH (07:50)
[2020-02-28] MEDS: METOPROLOL TARTRATE 12.5 MG TAB PO SCH ×2 (07:50→20:16)
[2020-02-28] MEDS: HEPARIN SODIUM,PORCINE 5,000 UNIT/ML 1 ML VIAL SQ SCH ×2 (07:51→20:18)
[2020-02-28] MEDS: CLOPIDOGREL 75 MG TAB PO SCH (07:51)
[2020-02-28] MEDS: levETIRAcetam 500 MG TAB PO SCH ×2 (07:51→20:16)
[2020-02-28] MEDS: risperiDONE 0.5 MG TAB PO SCH (07:51)
[2020-02-28] MEDS: PANTOPRAZOLE 40 MG/10 ML VIAL IVP SCH (07:51)
[2020-02-28] MEDS: MELOXICAM 7.5 MG TAB PO SCH (07:51)
[2020-02-28] MEDS: DORZOLAMIDE-TIMOLOL 2.23%/0.68 10ML BTL BOTH EYES SCH ×2 (07:53→20:19)
[2020-02-28] MEDS: MULTIVITAMINS, THERA 1 EACH TAB PO SCH (11:56)
[2020-02-28] MEDS: THIAMINE 100 MG TAB PO SCH (11:56)
[2020-02-28] MEDS: FOLIC ACID 1 MG TAB PO SCH (11:56)
[2020-02-28 11:57] LABS: Anion Gap 7.6 mmol/L (4.00-12.00); BUN/Creat Ratio 11.43 Ratio (12.00-20.00); Calcium 8.8 mg/dL (8.7-10.3); Carbon Dioxide 28.4 mmol/L (21.6-31.8); Non-African American GFR(CKD) 92.3 (60.0-200.0); Potassium 3.8 mmol/L (3.5-5.5)
--- NOTE | 2020-02-28 18:27 | P.PN ---
Subjective Progress Note Date: 02/28/20 Principal diagnosis: Acute encephalopathy Mr. Jin is a 73-year-old gentleman admitted for mental status changes, thought to have bilateral pneumonia. Patient had a recent history of head trauma with hemorrhage that was treated symptomatically and the patient has bilateral subdural hygromas. Multiple consultants on board and following the patient closely. On 02/27/2020 - patient is resting in his bed comfortably. As per discussion with nursing staff he is slightly agitated and received Haldol to calm him down. Patient does not give any history. He opened his eyes on calling his name and went back to sleep. On reviewing his vitals 91, respiratory rate 18, blood pressure 127/71, saturating at 96% on room air and T-max of 97.6. On reviewing his labs from this morning patient has a white count of 8.3, hemoglobin 10.1, platelets 524. Sodium 1374.3, chloride 101, bicarbonate 24, the urine 8, creatinine 0.6. Patient had blood cultures positive for Staphylococcus epidermidis. He is on antibiotics in the form of Zosyn and vancomycin. ID Dr. Day has been consulted yesterday. On 02/28/2020 - patient is resting in bed comfortably. As per discussion with nursing staff patient was much more awake compared to yesterday. Patient opened his eyes on calling his name and went back to sleep. He does not give much history. On reviewing her vitals temperature 98.3, heart rate 92, respiratory 16, blood pressure 03/13/2066 saturating at 95% on room air. Reviewing the labs hemoglobin is 10.0, white count 8.8, platelets 543. Sodium 140, impression 3.8, chloride 104, bicarb 28, when necessary 8, creatinine 0.7. ID Dr. Day has been consulted, he discontinued his vancomycin and to continue with Zosyn for now. Repeat blood cultures currently pending. Active Medications Acetaminophen (Acetaminophen Tab 325 Mg Tab) 650 mg PO Q6HR PRN PRN Reason: Mild Pain or Fever > 100.5 Hydrocodone Bitart/Acetaminophen (Hydrocodone/Apap 5-325mg 1 Each Tab) 1 each PO Q6HR PRN PRN Reason: Pain Last Admin: 02/25/20 19:07 Dose: 1 each Documented by: Atorvastatin Calcium (Atorvastatin 20 Mg Tab) 20 mg PO DAILY@0700 [facility] Last Admin: 02/28/20 07:50 Dose: 20 mg Documented by: Clopidogrel Bisulfate (Clopidogrel 75 Mg Tab) 75 mg PO DAILY@0700 [facility] Last Admin: 02/28/20 07:51 Dose: 75 mg Documented by: Docusate Sodium (Docusate 100 Mg Cap) 200 mg PO HS@2000 [facility] Last Admin: 02/27/20 20:54 Dose: 200 mg Documented by: Dorzolamide/Timolol (Dorzolamide-Timolol 2.23%/0.68 10ml Btl) 1 drops BOTH EYES BID@0700,1900 [facility] Last Admin: 02/28/20 07:53 Dose: 1 drops Documented by: Folic Acid (Folic Acid 1 Mg Tab) 1 mg PO DAILY@1200 [facility] Last Admin: 02/28/20 11:56 Dose: 1 mg Documented by: Haloperidol Lactate (Haloperidol Lactate 5 Mg/Ml 1 Ml Vial) 5 mg IM Q6HR PRN PRN Reason: Agitation or Acute Psychosis Last Admin: 02/25/20 22:16 Dose: 5 mg Documented by: Heparin Sodium (Porcine) (Heparin Sodium,Porcine 5,000 Unit/Ml 1 Ml Vial) 5,000 unit SQ Q12HR [facility] Last Admin: 02/28/20 07:51 Dose: 5,000 unit Documented by: Sodium Chloride (Saline 0.9%) 1,000 mls @ 50 mls/hr IV .Q20H [facility] Last Admin: 02/28/20 01:44 Dose: Not Given Documented by: Piperacillin Sod/Tazobactam (Sod 3.375 gm/ Sodium Chloride) 100 mls @ 25 mls/hr IVPB Q8H [facility] Last Admin: 02/28/20 17:27 Dose: 25 mls/hr Documented by: Levetiracetam (Levetiracetam 500 Mg Tab) 500 mg PO Q12HR [facility] Last Admin: 02/28/20 07:51 Dose: 500 mg Documented by: Lorazepam (Lorazepam 2 Mg/Ml Inj) 1 mg IV Q4HR PRN PRN Reason: Anxiety Last Admin: 02/26/20 21:11 Dose: 1 mg Documented by: Meloxicam (Meloxicam 7.5 Mg Tab) 7.5 mg PO DAILY@0700 [facility] Last Admin: 02/28/20 07:51 Dose: 7.5 mg Documented by: Metoprolol Tartrate (Metoprolol Tartrate 12.5 Mg Tab) 12.5 mg PO BID@0700,1900 [facility] Last Admin: 02/28/20 07:50 Dose: 12.5 mg Documented by: Mirtazapine (Mirtazapine 15 Mg Tab) 7.5 mg PO [facility] Last Admin: 02/27/20 20:54 Dose: 7.5 mg Documented by: Multivitamins (Multivitamins, Thera 1 Each Tab) 1 each PO DAILY@1200 [facility] Last Admin: 02/28/20 11:56 Dose: 1 each Documented by: Naloxone HCl (Naloxone 0.4 Mg/Ml 1 Ml Vial) 0.2 mg IV Q2M PRN PRN Reason: Opioid Reversal Pantoprazole Sodium (Pantoprazole 40 Mg/10 Ml Vial) 40 mg IVP DAILY [facility] Last Admin: 02/28/20 07:51 Dose: 40 mg Documented by: Risperidone (Risperidone 2 Mg Tab) 2 mg PO [facility] Last Admin: 02/27/20 20:54 Dose: 2 mg Documented by: Risperidone (Risperidone 0.5 Mg Tab) 0.5 mg PO DAILY [facility] Last Admin: 02/28/20 07:51 Dose: 0.5 mg Documented by: Tamsulosin HCl (Tamsulosin 0.4 Mg Cap.Er.24h) 0.4 mg PO HS@1999 [facility] Last Admin: 02/27/20 20:54 Dose: 0.4 mg Documented by: Thiamine HCl (Thiamine 100 Mg Tab) 100 mg PO DAILY@1200 [facility] Last Admin: 02/28/20 11:56 Dose: 100 mg Documented by: Objective - Vital Signs Vital signs: Vital Signs Temp 98.3 F 02/28/20 14:00 Pulse 92 02/28/20 14:00 Resp 16 02/28/20 14:00 BP 124/67 02/28/20 14:00 Pulse Ox 95 02/28/20 14:00 Intake & Output 02/27/20 02/28/20 02/28/20 18:59 06:59 18:59 Output Total 1050 1025 Balance -1050 -1025 Output: Urine 1050 1025 Other: Voiding Method Indwelling Catheter Indwelling Catheter Indwelling Catheter - Exam PHYSICAL EXAM Patient is confused conscious and arousable. HEENT conjunctivae normal Neck no JVD Cardiovascular- S1-S2 heard Respiratory- bilateral breath sounds are positive. Diminished at the lower lung bases with few rhonchi and crackles. 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 - Labs CBC & Chem 7: 02/28/20 07:22 02/28/20 07:22 Labs: Abnormal Lab Results - Last 24 Hours (Table) 02/27/20 02/27/20 02/28/20 Range/Units 17:55 17:55 07:22 RBC (4.30-5.90) m/uL Hgb (13.0-17.5) gm/dL Hct (39.0-53.0) % Plt Count (150-450) k/uL Lymphocytes # (1.0-4.8) k/uL BUN 8.0 L (9.0-27.0) mg/dL BUN/Creatinine Ratio 11.43 L (12.00-20.00) Ratio C-Reactive Protein 300.3 H (<10.0) mg/L Procalcitonin 0.12 H (0.02-0.09) ng/mL 02/28/20 Range/Units 07:22 RBC 3.64 L (4.30-5.90) m/uL Hgb 10.0 L (13.0-17.5) gm/dL Hct 30.7 L (39.0-53.0) % Plt Count 543 H (150-450) k/uL Lymphocytes # 0.6 L (1.0-4.8) k/uL BUN (9.0-27.0) mg/dL BUN/Creatinine Ratio (12.00-20.00) Ratio C-Reactive Protein (<10.0) mg/L Procalcitonin (0.02-0.09) ng/mL Assessment and Plan Assessment: ASSESSMENT Possible bilateral pneumonia with sepsis present on admission Acute metabolic encephalopathy multifactorial ? Hospital-acquired pneumonia Hyponatremia Bilateral subdural hygroma Slightly elevated troponin Normocytic anemia Thrombocytosis Multiple intracranial hemorrhages recently Atrial fibrillation chronic Coronary artery disease Diabetes mellitus Hypertension Hyperlipidemia Chronic debility No code PLAN: Patient is currently continued on empiric antibiotics in the form of Zo syn, ID Dr. Day has been consulted. Neurology on board and following the patient. Continue with the current medication regimen. Overall prognosis is guarded secondary to multiple chronic medical conditions. Patient is a no code. Further recommendations depending on the progress of the patient.
[2020-02-28] MEDS: LORazepam 2 MG/ML INJ IV PRN (20:15)
[2020-02-28] MEDS: DOCUSATE 100 MG CAP PO SCH (20:16)
[2020-02-28] MEDS: TAMSULOSIN 0.4 MG CAP.ER.24H PO SCH (20:16)
[2020-02-28] MEDS: MIRTAZAPINE 15 MG TAB PO SCH (20:17)
[2020-02-28] MEDS: risperiDONE 2 MG TAB PO SCH (20:19)
--- NOTE | 2020-02-28 20:40 | PN ---
PROGRESS NOTE DATE OF SERVICE: 02/28/2020 REASON FOR FOLLOWUP: 1. Positive blood culture. 2. Possible aspiration pneumonia and bacteremia. INTERVAL HISTORY: The patient is currently afebrile. He was noted to be slightly more awake and alert. He is responding to his name but did not provide any history. He is currently on room air. No vomiting or diarrhea reported by the nursing staff or any other changes in clinical condition. PHYSICAL EXAMINATION: Blood pressure 154/84, pulse of 87, temperature 98.2. He is 97% on room air. General description is an elderly male lying in bed in no distress. RESPIRATORY SYSTEM: Unlabored breathing with decreased breath sounds at the base. No wheeze. HEART: S1, S2. Regular rate and rhythm. ABDOMEN: Soft. No tenderness. LABS: Hemoglobin is 10, white count 8.8. BUN of 8, creatinine 0.7. CRP was 300. Procalcitonin 0.12. DIAGNOSTIC IMPRESSION AND PLAN: 1. Patient with a positive blood culture, Staph epidermidis, likely contaminant. No need for further workup for the same. Vancomycin has been discontinued. 2. Patient with concern for possible pneumonia. Currently covered with Zosyn; to continue and monitor his clinical course closely. MMODL / IJN: [id number] /
[2020-02-29] MEDS: PIPERACILLIN-TAZOBACTAM 3.375 GM in SODIUM CHLORIDE 0.9% 100 ML IVPB SCH ×3 (01:01→17:08)
[2020-02-29] MEDS: MELOXICAM 7.5 MG TAB PO SCH (07:59)
[2020-02-29] MEDS: METOPROLOL TARTRATE 12.5 MG TAB PO SCH ×2 (07:59→19:53)
[2020-02-29] MEDS: DORZOLAMIDE-TIMOLOL 2.23%/0.68 10ML BTL BOTH EYES SCH ×2 (08:00→19:54)
[2020-02-29] MEDS: CLOPIDOGREL 75 MG TAB PO SCH (08:00)
[2020-02-29] MEDS: ATORVASTATIN 20 MG TAB PO SCH (08:00)
[2020-02-29] MEDS: HEPARIN SODIUM,PORCINE 5,000 UNIT/ML 1 ML VIAL SQ SCH ×2 (08:00→19:54)
[2020-02-29] MEDS: PANTOPRAZOLE 40 MG/10 ML VIAL IVP SCH (08:01)
[2020-02-29] MEDS: levETIRAcetam 500 MG TAB PO SCH ×2 (08:01→19:53)
[2020-02-29] MEDS: risperiDONE 0.5 MG TAB PO SCH (08:01)
[2020-02-29] MEDS: LORazepam 2 MG/ML INJ IV PRN (10:29)
[2020-02-29 11:06] LABS: Non-African American GFR(CKD) 98.4 (60.0-200.0)
[2020-02-29] MEDS: FOLIC ACID 1 MG TAB PO SCH (11:44)
[2020-02-29] MEDS: MULTIVITAMINS, THERA 1 EACH TAB PO SCH (11:45)
[2020-02-29] MEDS: THIAMINE 100 MG TAB PO SCH (11:45)
[2020-02-29] MEDS: SODIUM CHLORIDE 0.9% 1,000 ML IV SCH (17:08)
--- NOTE | 2020-02-29 17:35 | PN ---
PROGRESS NOTE DATE OF SERVICE: 02/29/2020 REASON FOR FOLLOWUP: Possible aspiration pneumonia. INTERVAL HISTORY: The patient is currently afebrile. The patient did receive a dose of Ativan, as he was agitated; hence the patient was and unable to provide any history. No vomiting or diarrhea reported by nursing staff. He is currently on room air. PHYSICAL EXAMINATION: Blood pressure 172/84 with a pulse of 97, temperature 98.7. He is 94% on room air. General description is an elderly male lying in bed in no distress. RESPIRATORY SYSTEM: Unlabored breathing with decreased breath sounds at the base. No wheeze. HEART: S1, S2. Regular rate and rhythm. ABDOMEN: Soft. No tenderness. LABS: Creatinine 0.6. Blood culture repeat negative. DIAGNOSTIC IMPRESSION AND PLAN: 1. Patient with positive blood culture, Staph epidermidis, likely contaminant. Repeat blood culture negative. No need for further workup. 2. Patient with possible pneumonia, aspiration etiology. He is covered with Zosyn. Transition to oral Augmentin for about a week with close outpatient followup. MMODL / IJN: [id number] /
[2020-02-29] MEDS: HYDROcodone/APAP 5-325MG 1 EACH TAB PO PRN (19:53)
[2020-02-29] MEDS: DOCUSATE 100 MG CAP PO SCH (19:53)
[2020-02-29] MEDS: TAMSULOSIN 0.4 MG CAP.ER.24H PO SCH (19:53)
[2020-02-29] MEDS: risperiDONE 2 MG TAB PO SCH (19:54)
[2020-02-29] MEDS: MIRTAZAPINE 15 MG TAB PO SCH (20:07)
--- NOTE | 2020-02-29 22:14 | P.PN ---
Subjective Progress Note Date: 02/29/20 Principal diagnosis: Acute encephalopathy Mr. Jin is a 73-year-old gentleman admitted for mental status changes, thought to have bilateral pneumonia. Patient had a recent history of head trauma with hemorrhage that was treated symptomatically and the patient has bilateral subdural hygromas. Multiple consultants on board and following the patient closely. On 02/27/2020 - patient is resting in his bed comfortably. As per discussion with nursing staff he is slightly agitated and received Haldol to calm him down. Patient does not give any history. He opened his eyes on calling his name and went back to sleep. On reviewing his vitals 91, respiratory rate 18, blood p ressure 127/71, saturating at 96% on room air and T-max of 97.6. On reviewing his labs from this morning patient has a white count of 8.3, hemoglobin 10.1, platelets 524. Sodium 1374.3, chloride 101, bicarbonate 24, the urine 8, creatinine 0.6. Patient had blood cultures positive for Staphylococcus epidermidis. He is on antibiotics in the form of Zosyn and vancomycin. ID Dr. Day has been consulted yesterday. On 02/28/2020 - patient is resting in bed comfortably. As per discussion with nursing staff patient was much more awake compared to yesterday. Patient opened his eyes on calling his name and went back to sleep. He does not give much history. On reviewing her vitals temperature 98.3, heart rate 92, respiratory 16, blood pressure 03/13/2066 saturating at 95% on room air. Reviewing the labs hemoglobin is 10.0, white count 8.8, platelets 543. Sodium 140, impression 3.8, chloride 104, bicarb 28, when necessary 8, creatinine 0.7. ID Dr. Day has been consulted, he discontinued his vancomycin and to continue with Zosyn for now. Repeat blood cultures currently pending. On 02/28/2019 -patient was sitting comfortably in the bed appears to be in no acute distress. As per discussion with nursing staff, patient was agitated and so given a dose of Ativan after which he calmed down. Since receiving Ativan patient has been sleeping all through the day. Patient does not give much history. On reviewing the vitals T-max of 99.2, heart rate 99, respiratory rate 20, blood pressure 148 x 83, saturating at 98% on room air. Patient's labs from yesterday white count of 8.8, hemoglobin 10 platelets 543. Creatinine 0.7. Objective - Vital Signs Vital signs: Vital Signs Temp 99.2 F 02/29/20 08:00 Pulse 99 02/29/20 08:00 Resp 20 02/29/20 08:00 BP 148/83 02/29/20 08:00 Pulse Ox 98 02/29/20 08:00 Intake & Output 02/28/20 02/29/20 02/29/20 18:59 06:59 18:59 Output Total 1200 600 Balance -1200 -600 Output: Urine 1200 600 Other: Voiding Method Indwelling Catheter Indwelling Catheter Indwelling Catheter - Exam PHYSICAL EXAM Patient is confused conscious and arousable. HEENT conjunctivae normal Neck no JVD Cardiovascular- S1-S2 heard Respiratory- Diminished at the lower lung bases with few rhonchi and crackles. 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 Hospital-acquired pneumonia Hyponatremia Bilateral subdural hygroma Slightly elevated troponin Normocytic anemia Thrombocytosis Multiple intracranial hemorrhages recently Atrial fibrillation chronic Coronary artery disease Diabetes mellitus Hypertension Hyperlipidemia Chronic debility No code PLAN: Patient is currently continued on empiric antibiotics in the form of Zosyn, ID Dr. Day. Patient received a dose of Ativan, so has been sleeping all through the day. Discussed with the nursing staff to avoid all narcotics and sedatives. Continue with the current medication regimen. Overall prognosis is guarded secondary to multiple chronic medical conditions. Patient is a no code. Further recommendations depending on the progress of the patient. Anticipate discharge in the next 24 to 48 hours.
[2020-03-01] MEDS: PIPERACILLIN-TAZOBACTAM 3.375 GM in SODIUM CHLORIDE 0.9% 100 ML IVPB SCH ×3 (02:30→16:50)
[2020-03-01] MEDS: HYDROcodone/APAP 5-325MG 1 EACH TAB PO PRN ×3 (03:01→20:59)
[2020-03-01 06:07] LABS: Basophils # (A) 0.1 k/uL (0-0.2); Basophils % (A) 1 %; Eosinophils # (A) 0.3 k/uL (0-0.7); Eosinophils % (A) 3 %; HCT 32.4 % (39.0-53.0); HGB 10.5 gm/dL (13.0-17.5); Hypochromasia Moderate; Lymphocytes # (A) 0.8 k/uL (1.0-4.8); Lymphocytes % (A) 8 %; MCH 27.3 pg (25.0-35.0); MCHC 32.4 g/dL (31.0-37.0); MCV 84.3 fL (80.0-100.0); Mean Platelet Volume 6.4; Monocytes # (A) 0.5 k/uL (0-1.0); Monocytes % (A) 5 %; Neutrophils # (A) 7.5 k/uL (1.3-7.7); Neutrophils % (A) 82 %; Platelet Count 563 k/uL (150-450); RBC 3.84 m/uL (4.30-5.90); RDW 14.7 % (11.5-15.5); WBC 9.2 k/uL (3.8-10.6)
[2020-03-01] MEDS: MELOXICAM 7.5 MG TAB PO SCH (06:55)
[2020-03-01] MEDS: CLOPIDOGREL 75 MG TAB PO SCH (06:55)
[2020-03-01] MEDS: ATORVASTATIN 20 MG TAB PO SCH (06:55)
[2020-03-01] MEDS: HEPARIN SODIUM,PORCINE 5,000 UNIT/ML 1 ML VIAL SQ SCH ×2 (06:56→20:59)
[2020-03-01] MEDS: METOPROLOL TARTRATE 12.5 MG TAB PO SCH ×2 (06:56→20:35)
[2020-03-01] MEDS: DORZOLAMIDE-TIMOLOL 2.23%/0.68 10ML BTL BOTH EYES SCH ×2 (06:56→23:15)
[2020-03-01] MEDS: risperiDONE 0.5 MG TAB PO SCH (06:57)
[2020-03-01] MEDS: PANTOPRAZOLE 40 MG/10 ML VIAL IVP SCH (06:57)
[2020-03-01] MEDS: levETIRAcetam 500 MG TAB PO SCH ×2 (06:57→20:35)
[2020-03-01 07:14] LABS: Glucose,Whole Blood 115 mg/dL (75-99)
--- NOTE | 2020-03-01 09:40 | XR ---
EXAMINATION TYPE: XR chest 1V DATE OF EXAM: 03/01/2020 COMPARISON: 02/26/2020 HISTORY: 74-year-old male follow-up pneumonia TECHNIQUE: Single frontal view of the chest is obtained. FINDINGS: Median sternotomy wires are present. Endovascular aortic valve replacement demonstrated. Some patchy left basilar opacities are noted. Pulmonary vasculature within normal limits. Heart normal size. Mild elongation/ectasia of the thoracic aorta. IMPRESSION: Prior CABG and endovascular aortic valve replacement. Patchy left basilar opacity remains. Improving aeration at the right base.
[2020-03-01] MEDS: QUEtiapine 50 MG TAB PO PRN (10:04)
[2020-03-01 10:23] LABS: Albumin 3.5 g/dL (3.80-4.90); Albumin/Globulin Ratio 1.52 (1.60-3.17); Anion Gap 7.3 mmol/L (4.00-12.00); BUN/Creat Ratio 17.14 Ratio (12.00-20.00); Calcium 9.2 mg/dL (8.7-10.3); Carbon Dioxide 26.7 mmol/L (21.6-31.8); Globulin 2.3 g/dL (1.6-3.3); Non-African American GFR(CKD) 92.3 (60.0-200.0); Potassium 4.3 mmol/L (3.5-5.5); Total Bilirubin 0.4 mg/dL (0.3-1.2); Total Protein 5.8 g/dL (6.2-8.2)
[2020-03-01 11:14] LABS: Glucose,Whole Blood 111 mg/dL (75-99)
[2020-03-01] MEDS: MULTIVITAMINS, THERA 1 EACH TAB PO SCH (11:48)
[2020-03-01] MEDS: FOLIC ACID 1 MG TAB PO SCH (11:48)
[2020-03-01] MEDS: THIAMINE 100 MG TAB PO SCH (11:48)
--- NOTE | 2020-03-01 12:00 | CT ---
EXAMINATION TYPE: CT brain wo con DATE OF EXAM: 03/01/2020 COMPARISON: 02/24/2020 HISTORY: Headache, continued AMS CT DLP: 1133.4 mGycm Automated exposure control for dose reduction was used. FINDINGS: moderate generalized degenerative change. There is low-attenuation along both cerebral convexities mo st pronounced along the frontal bones. Appears to be of low attenuation and suggestive of chronic mari ateral subdural hematoma. No midline shift or mass effect. There is no evidence of acute hemorrhage. Calvarium stable in appearance. Nonspecific low attenuation in the white matter. IMPRESSION: BILATERAL PROMINENT CSF FLUID COLLECTIONS APPEAR TO BE OF LOW ATTENUATION ON TODAY'S EXAM AND MOST TY PICAL OF CHRONIC SUBDURAL HEMATOMA WITH NO EVIDENCE OF ACUTE HEMORRHAGE. 2. DEGENERATIVE AND NONSPECIFIC WHITE MATTER CHANGES MOST TYPICAL REMOTE WHITE MATTER ISCHEMIA.
[2020-03-01 12:46] LABS: Erythrocyte Sedimentation Rate 106 mm/Hr (0-20)
--- NOTE | 2020-03-01 13:06 | P.CNOR ---
History of Present Illness - HPI Consult date: 03/01/20 Consult reason: other (Left knee swelling) History of present illness: Patient is a 74-year-old male who was admitted to [facility] with failure to thrive symptoms along with new onset chest pain. Patient has a very detailed medical history over the last few months. Patient sustained a traumatic head injury after being attacked by a bull, he was treated at [facility], apparently he was intubated for an extended period of time. Patient after his hospital stay was transferred to [facility] and since then has been at home. According to other medical specialty notes, the patient has never been the same since returning home from the initial injury. He is being followed by multiple medical specialties for multiple medical problems at this time. Our orthopedic team was consulted today with regards to left knee swelling. Patient was examined today at bedside, he was very obtunded and no past medical history or HPI was achieved. A physical exam was very minimal also due to his current medical state. Review of Systems Constitutional: Reports as per HPI (Unobtainable) Past Medical History Past Medical History: Atrial Fibrillation, Coronary Artery Disease (CAD), Chest Pain / Angina, Diabetes Mellitus, Eye Disorder, Hyperlipidemia, Hypertension, Osteoarthritis (OA), Prostate Disorder Additional Past Medical History / Comment(s): On the artery disease with previ ous bypass surgery in 2003, previous aortic valve replacement, previous coronary intervention and stenting as mentioned above in the HPI, bilateral glaucoma, any stones, peripheral neuropathy. 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 History of Any Multi-Drug Resistant Organisms: None Reported Past Surgical History: Appendectomy, Cardiac Valve Replacement, Cholecystectomy, Coronary Bypass/CABG, Heart Catheterization Additional Past Surgical History / Comment(s): aortic valve replaced 2003, CABG double bypass ; drug-eluting stent to the proximal LAD and diagonal, and a drug- eluting stent placement to his right coronary artery in June of 2018 completed at [facility]. TAVR 07/15/2018 with a 26 mm core valve completed at [facility]. Past Anesthesia/Blood Transfusion Reactions: No Reported Reaction Additional Past Anesthesia/Blood Transfusion Reaction / Comm: no problems with anesthesia, unsure if patient has had blood transfusion in the past. Date of Last Stent Placement:: 07/15/2018 Past Psychological History: Depression Additional Psychological History / Comment(s): Mild OCC Smoking Status: Never smoker Past Alcohol Use History: Occasional Additional Past Alcohol Use History / Comment(s): Drinks 1 beer daily Past Drug Use History: None Reported Additional Drug Use History / Comment(s): Used to smoke cigars many years ago. - Past Family History Father Family Medical History: Cancer Brother(s) Family Medical History: Cancer Medications and Allergies Home Medications Medication Instructions Recorded Confirmed Type Aspirin 81 mg PO DAILY@0700 01/31/20 02/24/20 History Metoprolol Tartrate [Lopressor] 12.5 mg PO BID@699,1899 30 Days 02/05/20 02/24/20 Rx #60 tab Tamsulosin HCl [Flomax] 0.4 mg PO HS@1999 30 Days #30 cap 02/05/20 02/24/20 Rx levETIRAcetam [Keppra] 250 mg PO BID@699,1899 30 Days 02/05/20 02/24/20 Rx #60 tab ARIPiprazole [Abilify] 5 mg PO DAILY@189902/24/20 02/24/20 History Acetaminophen [Tylenol] 1,000 mg PO Q4-6H PRN 02/24/20 02/24/20 History Atorvastatin Calcium [Lipitor] 20 mg PO DAILY@69902/24/20 02/24/20 History Celecoxib [CeleBREX] 200 mg PO DAILY@69902/24/20 02/24/20 History Clopidogrel [Plavix] 75 mg PO DAILY@69902/24/20 02/24/20 History Docusate [Colace] 200 mg PO HS@199902/24/20 02/24/20 History Dorzolamide-Timol 2.23%/0.68% 1 drop BOTH EYES BID@0700,189902/24/20 02/24/20 History [Cosopt] Glucosam/Segundo-Msm1/C/Anderson/Bosw 1 tab PO DAILY@69902/24/20 02/24/20 History [Glucosamine-Chondroitin Tablet] Allergies Allergy/AdvReac Type Severity Reaction Status Date / Time aloe Allergy Rash/Hives Verified 02/24/20 15:47 bacitracin Allergy Rash/Hives Verified 02/24/20 15:47 [From Neosporin ([id number])] neomycin Allergy Rash/Hives Verified 02/24/20 15:47 [From Neosporin ([id number])] polymyxin B Allergy Rash/Hives Verified 02/24/20 15:47 [From Neosporin ([id number])] Physical Examination Left lower extremity: Obvious effusion is present over the left knee. There is no areas of erythema or increased warmth to the skin. With patients current medical state, he was not able to listen to commands with regards to motion. Passive motion of the knee reproduces no exhibited stimuli. Palpation surrounding the knee, hip, lower leg, foot or ankle reproduces no response from the patient. There are no skin changes noted throughout the remaining extremity including the upper thigh and lower leg. Calf is soft with palpation. Results - Labs Labs: Abnormal Lab Results - Last 24 Hours (Table) 03/01/20 03/01/20 03/01/20 Range/Units 05:43 05:43 05:43 RBC 3.84 L (4.30-5.90) m/uL Hgb 10.5 L (13.0-17.5) gm/dL Hct 32.4 L (39.0-53.0) % Plt Count 563 H (150-450) k/uL Lymphocytes # 0.8 L (1.0-4.8) k/uL ESR 106 H (0-20) mm/Hr POC Glucose (mg/dL) (75-99) mg/dL AST 64 H (14-35) U/L ALT 106 H (10-49) U/L Alkaline Phosphatase 163 H (41-126) U/L C-Reactive Protein 24.0 H (0.0-0.8) mg/dL Total Protein 5.8 L (6.2-8.2) g/dL Albumin 3.50 L (3.80-4.90) g/dL Albumin/Globulin Ratio 1.52 L (1.60-3.17) g/dL Procalcitonin 0.10 H (0.02-0.09) ng/mL 03/01/20 03/01/20 Range/Units 07:13 11:13 RBC (4.30-5.90) m/uL Hgb (13.0-17.5) gm/dL Hct (39.0-53.0) % Plt Count (150-450) k/uL Lymphocytes # (1.0-4.8) k/uL ESR (0-20) mm/Hr POC Glucose (mg/dL) 115 H 111 H (75-99) mg/dL AST (14-35) U/L ALT (10-49) U/L Alkaline Phosphatase (41-126) U/L C-Reactive Protein (0.0-0.8) mg/dL Total Protein (6.2-8.2) g/dL Albumin (3.80-4.90) g/dL Albumin/Globulin Ratio (1.60-3.17) g/dL Procalcitonin (0.02-0.09) ng/mL Microbiology - Last 24 Hours (Table) 02/27/20 17:55 Blood Culture - Preliminary Blood No Growth after 48 hours H & H 02/24/20 02/25/20 02/26/20 Range/Units 13:52 05:53 05:38 Hgb 10.4 L 10.1 L 10.4 L (13.0-17.5) gm/dL Hct 31.7 L 31.4 L 31.9 L (39.0-53.0) % 02/27/20 02/28/20 03/01/20 Range/Units 06:07 07:22 05:43 Hgb 10.1 L 10.0 L 10.5 L (13.0-17.5) gm/dL Hct 31.6 L 30.7 L 32.4 L (39.0-53.0) % Coagulation 02/24/20 Range/Units 13:52 INR 1.1 (<1.2) Result Diagrams: 03/01/20 05:43 03/01/20 05:43 - Diagnostic results Knee x-ray: report reviewed, image reviewed (Images reviewed of the left knee, there is no acute fractures or dislocations. Severe resting arthritic changes are noted mainly involving the medial and patellofemoral joint) Assessment and Plan Assessment: Left knee effusion Left knee severe osteoarthritis Multiple medical comorbidities Plan: I was able to discuss the case, including with physical exam findings and imag ing studies my attending Dr. Vu. With the patient's current medical status I would recommend conservative treatment, this to include ice and elevation. If the patient's mental status does improve, we can reassess the left knee. We could consider an aspiration with intra-articular cortisone injection or possibility of an anti-inflammatory if the patient's knee is causing him symptoms We'll be available for any further questions regarding this patient Time with Patient: Less than 30
--- NOTE | 2020-03-01 14:28 | P.PN ---
Subjective From the records: The patient could not provide information so it was obtained from records and staff Mr. Jin is a 73-year-old gentleman admitted for mental status changes, thought to have bilateral pneumonia. Patient had a recent history of head trauma with hemorrhage that was treated symptomatically and the patient has bilateral subdural hygromas. Multiple consultants on board and following the patient closely. On 02/27/2020 - patient is resting in his bed comfortably. As per discussion with nursing staff he is slightly agitated and received Haldol to calm him down. Patient does not give any history. He opened his eyes on calling his name and went back to sleep. On reviewing his vitals 91, respiratory rate 18, blood pressure 127/71, saturating at 96% on room air and T-max of 97.6. On reviewing his labs from this morning patient has a white count of 8.3, hemoglobin 10.1, platelets 524. Sodium 1374.3, chloride 101, bicarbonate 24, the urine 8, creatinine 0.6. Patient had blood cultures positive for Staphylococcus epide rmpete. He is on antibiotics in the form of Zosyn and vancomycin. ID Dr. Day has been consulted yesterday. On 02/28/2020 - patient is resting in bed comfortably. As per discussion with nursing staff patient was much more awake compared to yesterday. Patient opened his eyes on calling his name and went back to sleep. He does not give much history. On reviewing her vitals temperature 98.3, heart rate 92, respiratory 16, blood pressure 03/13/2066 saturating at 95% on room air. Reviewing the labs hemoglobin is 10.0, white count 8.8, platelets 543. Sodium 140, impression 3.8, chloride 104, bicarb 28, when necessary 8, creatinine 0.7. ID Dr. Day has been consulted, he discontinued his vancomycin and to continue with Zosyn for now. Repeat blood cultures currently pending. On 02/28/2019 -patient was sitting comfortably in the bed appears to be in no acute distress. As per discussion with nursing staff, patient was agitated and so given a dose of Ativan after which he calmed down. Since receiving Ativan patient has been sleeping all through the day. Patient does not give much history. On reviewing the vitals T-max of 99.2, heart rate 99, respiratory rate 20, blood pressure 148 x 83, saturating at 98% on room air. Patient's labs from yesterday white count of 8.8, hemoglobin 10 platelets 543. Creatinine 0.7. Subjective: This is the first 19 care of the patient 03/01/2020 This is a pleasant 74 years old male with multiple medical problems was admitted because of confusion, today he is awake and he follows, however is confused to time place and person, is mildly agitated at times He is hemodynamically stable, blood pressure on the high side 172/84 Labs including CBC and BMP are unremarkable, liver enzymes are slightly elevated. Procalcitonin is slightly high at 0.10. Blood culture is positive for staph epidermidis, mostly contamination as per ID team. Repeat blood culture is negative so far. CT of the brain showing bilateral chronic subdural hematoma with no evidence of acute hemorrhage per radiologist. Patient is currently on Plavix, he is not on home aspirin currently. Repeat chest x-ray:. CABG. Patchy left basilar opacity remains. Improved a eration of the right lung base Orthopedic input is appreciated for left knee severe osteoarthritis and left knee effusion and they recommended medical management for now Objective - Vital Signs Vital signs: Vital Signs Temp 98.0 F 03/01/20 08:00 Pulse 92 03/01/20 08:00 Resp 18 03/01/20 08:00 BP 172/84 03/01/20 08:00 Pulse Ox 97 03/01/20 08:00 Intake & Output 02/29/20 03/01/20 03/01/20 18:59 06:59 18:59 Output Total 800 550 Balance -800 -550 Output: Urine 800 550 Other: Voiding Method Indwelling Catheter Indwelling Catheter Indwelling Catheter - Exam -GENERAL: The patient is awake and confused but follows commands. Looks calm and slightly agitated at times, not in any acute distress. Well developed, well nourished. HEENT: Pupils are round and equally reacting to light. EOMI. No scleral icterus. No conjunctival pallor. Normocephalic, atraumatic. No pharyngeal erythema. No thyromegaly. CARDIOVASCULAR: S1 and S2 present. No murmurs, rubs, or gallops. PULMONARY: Chest is clear to auscultation, no wheezing or crackles. ABDOMEN: Soft, nontender, nondistended, normoactive bowel sounds. No palpable organomegaly. MUSCULOSKELETAL: No joint swelling or deformity. EXTREMITIES: No cyanosis, clubbing, or pedal edema. NEUROLOGICAL: Gross neurological examination did not reveal any focal deficits. SKIN: No rashes. no petechiae. - Labs CBC & Chem 7: 03/01/20 05:43 03/01/20 05:43 Labs: Abnormal Lab Results - Last 24 Hours (Table) 03/01/20 03/01/20 03/01/20 Range/Units 05:43 05:43 05:43 RBC 3.84 L (4.30-5.90) m/uL Hgb 10.5 L (13.0-17.5) gm/dL Hct 32.4 L (39.0-53.0) % Plt Count 563 H (150-450) k/uL Lymphocytes # 0.8 L (1.0-4.8) k/uL ESR 106 H (0-20) mm/Hr POC Glucose (mg/dL) (75-99) mg/dL AST 64 H (14-35) U/L ALT 106 H (10-49) U/L Alkaline Phosphatase 163 H (41-126) U/L C-Reactive Protein 24.0 H (0.0-0.8) mg/dL Total Protein 5.8 L (6.2-8.2) g/dL Albumin 3.50 L (3.80-4.90) g/dL Albumin/Globulin Ratio 1.52 L (1.60-3.17) g/dL Procalcitonin 0.10 H (0.02-0.09) ng/mL 03/01/20 03/01/20 Range/Units 07:13 11:13 RBC (4.30-5.90) m/uL Hgb (13.0-17.5) gm/dL Hct (39.0-53.0) % Plt Count (150-450) k/uL Lymphocytes # (1.0-4.8) k/uL ESR (0-20) mm/Hr POC Glucose (mg/dL) 115 H 111 H (75-99) mg/dL AST (14-35) U/L ALT (10-49) U/L Alkaline Phosphatase (41-126) U/L C-Reactive Protein (0.0-0.8) mg/dL Total Protein (6.2-8.2) g/dL Albumin (3.80-4.90) g/dL Albumin/Globulin Ratio (1.60-3.17) g/dL Procalcitonin (0.02-0.09) ng/mL Microbiology - Last 24 Hours (Table) 02/27/20 17:55 Blood Culture - Preliminary Blood No Growth after 48 hours Assessment and Plan Assessment: Possible bilateral hospital acquired pneumonia with sepsis present on admission Acute metabolic encephalopathy multifactorial Chronic bilateral subdural hematoma Slightly elevated troponin, secondary to demand/supply mismatch Normocytic anemia Thrombocytosis Recent history of intracranial hemorrhage Atrial fibrillation chronic Coronary artery disease Diabetes mellitus Hypertension Hyperlipidemia Chronic debility No code Plan: This is a pleasant 74 years old male who presents with encephalopathy possible pneumonia. Possible improvement in his mentation and chest x-ray. Continue with Zosyn. Continue with close monitoring of his mental status. Several consultants on the case including psychiatrist, neurologist, infectious disease team. Check echocardiogram and liver ultrasound. Orthopedic consult for his left knee effusion recommended conservative management. Labs and medication were reviewed.. Continue same treatment. Continue with symptomatic treatment. Resume home medication. Monitor lytes and vitals. DVT and GI prophylaxis. Further recommendationsas per clinical course of the patient DVT prophylaxis: Subcutaneous heparin GI Prophylaxis: Pepcid PT/OT: Pending Prognosis is guarded
[2020-03-01 16:34] LABS: Glucose,Whole Blood 116 mg/dL (75-99)
[2020-03-01] MEDS: SODIUM CHLORIDE 0.9% 1,000 ML IV SCH (16:51)
--- NOTE | 2020-03-01 17:15 | XR ---
EXAMINATION TYPE: XR knee complete LT DATE OF EXAM: 03/01/2020 COMPARISON: 02/24/2020 HISTORY: 74-year-old male with knee swelling TECHNIQUE: 3 views FINDINGS: Moderate to severe narrowing of medial compartment cartilage and joint space, tricompartmental degene rative spurring, and a persistent moderate to large suprapatellar joint effusion. No lipohemarthrosis . Extensor mechanism appears intact. No acute fracture, subluxation, dislocation is clearly identifie d. IMPRESSION: 1. Tricompartmental osteoarthrosis, moderate to severe in the medial compartment. 2. Persistent moderate to large joint effusion. No lipohemarthrosis. Consider MRI if concern for inte rnal derangement.
[2020-03-01] MEDS: DOCUSATE 100 MG CAP PO SCH (20:35)
[2020-03-01] MEDS: TAMSULOSIN 0.4 MG CAP.ER.24H PO SCH (20:37)
[2020-03-01] MEDS: FAMOTIDINE 20 MG/2 ML VIAL IV SCH (20:38)
[2020-03-01] MEDS: risperiDONE 2 MG TAB PO SCH (20:59)
[2020-03-01] MEDS: MIRTAZAPINE 15 MG TAB PO SCH (20:59)
[2020-03-01 22:06] LABS: Glucose,Whole Blood 93 mg/dL (75-99)
--- NOTE | 2020-03-01 22:14 | PN ---
PROGRESS NOTE DATE OF SERVICE: 03/01/2020 REASON FOR FOLLOWUP: Aspiration pneumonia. INTERVAL HISTORY: The patient is currently afebrile. The patient seems slightly more awake, alert. He was noted to have slight choking after he was fed his dinner, though no vomiting or diarrhea reported by the nursing staff. The patient himself was unable to provide reliable history. PHYSICAL EXAMINATION: Blood pressure 146/78 with a pulse of 93, temperature 98.7. He is 97% on room air. General description is an elderly male lying in bed in no distress. RESPIRATORY SYSTEM: Unlabored breathing with decreased intensity of breath sounds. No wheeze. HEART: S1, S2. Regular rate and rhythm. ABDOMEN: Soft. No tenderness. LABS: Hemoglobin is 10.5, white count 9.2, creatinine 0.7. DIAGNOSTIC IMPRESSION AND PLAN: 1. Patient with concern for aspiration pneumonia in this patient admitted to hospital weak and lethargic with decreased level of consciousness. Patient is covered with Zosyn. Transition to oral Augmentin on discharge. He needs to have a swallow evaluation. 2. Patient with positive blood culture, Staphylococcus epidermidis, likely a contaminant. Repeat culture negative. No need for further workup for the same. MMODL / IJN: [id number] /
[2020-03-02] MEDS: PIPERACILLIN-TAZOBACTAM 3.375 GM in SODIUM CHLORIDE 0.9% 100 ML IVPB SCH ×3 (02:49→17:48)
[2020-03-02 07:04] LABS: Glucose,Whole Blood 93 mg/dL (75-99)
[2020-03-02] MEDS: METOPROLOL TARTRATE 12.5 MG TAB PO SCH ×2 (08:20→20:38)
[2020-03-02] MEDS: HEPARIN SODIUM,PORCINE 5,000 UNIT/ML 1 ML VIAL SQ SCH ×2 (08:20→20:38)
[2020-03-02] MEDS: FAMOTIDINE 20 MG/2 ML VIAL IV SCH ×2 (08:20→20:38)
[2020-03-02] MEDS: ATORVASTATIN 20 MG TAB PO SCH (08:25)
[2020-03-02] MEDS: CLOPIDOGREL 75 MG TAB PO SCH (08:25)
[2020-03-02] MEDS: levETIRAcetam 500 MG TAB PO SCH ×2 (08:26→20:38)
[2020-03-02] MEDS: risperiDONE 0.5 MG TAB PO SCH (08:26)
[2020-03-02] MEDS: MELOXICAM 7.5 MG TAB PO SCH (08:26)
[2020-03-02] MEDS: DORZOLAMIDE-TIMOLOL 2.23%/0.68 10ML BTL BOTH EYES SCH ×2 (08:28→20:40)
[2020-03-02 10:14] LABS: Albumin 3.5 g/dL (3.80-4.90); Albumin/Globulin Ratio 1.46 (1.60-3.17); Bilirubin, Conjugated 0.2 mg/dL (0.20-0.40); Bilirubin,Unconjugated 0.2 mg/dL; Globulin 2.4 g/dL (1.6-3.3); Total Bilirubin 0.4 mg/dL (0.3-1.2); Total Protein 5.9 g/dL (6.2-8.2)
--- NOTE | 2020-03-02 10:22 | ECHOF ---
Referral Reason:chf MEASUREMENTS -------- HEIGHT: 162.6 cm WEIGHT: 82.1 kg BP: RVIDd: 3.7 cm (< 3.3) IVSd: 1.1 cm (0.6 - 1.1) LVIDd: 4.3 cm (3.9 - 5.3) LVPWd: 1.7 cm (0.6 - 1.1) IVSs: 1.1 cm LVIDs: 2.8 cm LVPWs: 0.9 cm Ao Diam: 3.2 cm (2.0 - 3.7) MV E Surendra: 0.78 m/s MV DecT: 271 ms MV A Surendra: 1.23 m/s MV E/A Ratio: 0.64 RAP: 5.00 mmHg FINDINGS -------- Sinus rhythm. This was a techncally difficult study with suboptimal views, , Lumason utilized for enhancement of im ages. The left ventricular size is normal. Overall left ventricular systolic function is low-normal with, an EF between 50 - 55 %. The right ventricle is mildly enlarged. The left atrial size is normal. The right atrial size is normal. 5.0mg OF Lumason UTLIZED: 2 OR MORE WALL SEGMENTS NOT VISUALIZED. The aortic valve was not well visualized. The mitral valve was not well visualized. The tricuspid valve was not well visualized. The pulmonic valve was not well visualized. The aortic root size is normal. There is no pericardial effusion. CONCLUSIONS -------- 1. This was a techncally difficult study with suboptimal views, , Lumason utilized for enhancement of images. 2. The left ventricular size is normal. 3. Overall left ventricular systolic function is low-normal with, an EF between 50 - 55 %. 4. The right ventricle is mildly enlarged. 5. The left atrial size is normal. 6. The right atrial size is normal. 7. 5.0mg OF Lumason UTLIZED: 2 OR MORE WALL SEGMENTS NOT VISUALIZED. 8. The aortic valve was not well visualized. 9. The mitral valve was not well visualized. 10. The tricuspid valve was not well visualized. 11. The pulmonic valve was not well visualized. 12. The aortic root size is normal. 13. There is no pericardial effusion. PUMP STATION OPERATOR: Veda Womack RDCS
--- NOTE | 2020-03-02 10:57 | US ---
EXAMINATION TYPE: US liver DATE OF EXAM: 03/02/2020 COMPARISON: NONE CLINICAL HISTORY: 74-year-old male elevated liver enzymes. Abnormal labs. AMS. Poor historian. TECHNIQUE: Multiple sonographic images of the right upper quadrant are obtained. FINDINGS: EXAM MEASUREMENTS: Liver Length: 14.7 cm Right Kidney: 10.8 x 5.1 x 5.6 cm Pancreas: Obscured by bowel gas Liver: Scanned through ribs due to overlying bowel gas. Some images suggest echogenic periportal fat. Gallbladder: Not visualized, unable to determine presence or absence of gallbladder Evidence for sonographic Taylor's sign: neg CBD: Obscured by overlying bowel gas Right Kidney: Lower pole cystic appearing lesion = 5.4 x 5.3 x 5.7 cm . No hydronephrosis seen. IMPRESSION: Some images suggest echogenic periportal fat within the liver. Findings may be seen in the setting of hepatitis. Clinically correlate. Unable to adequately visualize the bile duct. Unable to visualize the gallbladder.
[2020-03-02 11:47] LABS: Glucose,Whole Blood 91 mg/dL (75-99)
--- NOTE | 2020-03-02 12:00 | P.PN ---
Subjective From the records: The patient could not provide information so it was obtained from records and staff Mr. Jin is a 73-year-old gentleman admitted for mental status changes, thought to have bilateral pneumonia. Patient had a recent history of head trauma with hemorrhage that was treated symptomatically and the patient has bilateral subdural hygromas. Multiple consultants on board and following the patient closely. On 02/27/2020 - patient is resting in his bed comfortably. As per discussion with nursing staff he is slightly agitated and received Haldol to calm him down. Patient does not give any history. He opened his eyes on calling his name and went back to sleep. On reviewing his vitals 91, respiratory rate 18, blood pressure 127/71, saturating at 96% on room air and T-max of 97.6. On reviewing his labs from this morning patient has a white count of 8.3, hemoglobin 10.1, platelets 524. Sodium 1374.3, chloride 101, bicarbonate 24, the urine 8, creatinine 0.6. Patient had blood cultures positive for Staphylococcus shye alice. He is on antibiotics in the form of Zosyn and vancomycin. ID Dr. Day has been consulted yesterday. Subjective 03/01/2020 This is a pleasant 74 years old male with multiple medical problems was admitted because of confusion, today he is awake and he follows, however is confused to time place and person, is mildly agitated at times He is hemodynamically stable, blood pressure on the high side 172/84 Labs including CBC and BMP are unremarkable, liver enzymes are slightly elevated. Procalcitonin is slightly high at 0.10. Blood culture is positive for staph epidermidis, mostly contamination as per ID team. Repeat blood culture is negative so far. CT of the brain showing bilateral chronic subdural hematoma with no evidence of acute hemorrhage per radiologist. Patient is currently on Plavix, he is not on home aspirin currently. Repeat chest x-ray:. CABG. Patchy left basilar opacity remains. Improved aeration of the right lung base Orthopedic input is appreciated for left knee severe osteoarthritis and left knee effusion and they recommended medical management for now 03/02/2020 Patient still confused, however he follows commands clearly. He is oriented to state only as he knows he is in [place] however he does not know his in hospital, he thought 08/07/1988 and the president is open, patient is partially oriented to the surrounding, very similar to yesterday or slightly improved regarding his mentation. He does not seem in distress. Vitals are stable. L abs showed trending down liver enzymes. Liver ultrasound: An findings suggest echogenic periportal fat within the liver. Finding may be seen in the setting of hepatitis. Clinically correlate. Inability to visualize the bile duct or the gallbladder We will send for hepatitis panel Orthopedic team input is appreciated for his left knee swelling and they recommended continued conservative management, patient does not complain from pain or weakness in his left knee. No restriction of movement. His echocardiogram from 02/24 showing ejection fraction of 50-55%. Patient still treated for aspiration pneumonia and he is currently on Zosyn and normal saline at 50 mL/h. Neurologist also added Keppra for possible seizure. Infectious disease team on the case and their input is recommended follow-up evaluation Discontinue Bal catheter and check bladder scan Objective - Vital Signs Vital signs: Vital Signs Temp 98.1 F 03/02/20 08:00 Pulse 87 03/02/20 08:00 Resp 18 03/02/20 08:00 BP 162/83 03/02/20 08:00 Pulse Ox 96 03/02/20 08:00 Intake & Output 03/01/20 03/02/20 03/02/20 18:59 06:59 18:59 Intake Total 100 Output Total 750 Balance -650 Intake: Oral 100 Output: Urine 750 Other: Voiding Method Indwelling Catheter Indwelling Catheter # Voids 550 - Exam -GENERAL: The patient is awake and confused, he is partially oriented to place and person but not to time, he follows commands. Looks calm and slightly agitated at times, not in any acute distress. Well developed, well nourished. HEENT: Pupils are round and equally reacting to light. EOMI. No scleral icterus. No conjunctival pallor. Normocephalic, atraumatic. No pharyngeal erythema. No thyromegaly. CARDIOVASCULAR: S1 and S2 present. No murmurs, rubs, or gallops. PULMONARY: Chest is clear to auscultation, no wheezing or crackles. ABDOMEN: Soft, nontender, nondistended, normoactive bowel sounds. No palpable organomegaly. MUSCULOSKELETAL: No joint swelling or deformity. EXTREMITIES: No cyanosis, clubbing, or pedal edema. NEUROLOGICAL: Gross neurological examination did not reveal any focal deficits. SKIN: No rashes. no petechiae. - Labs CBC & Chem 7: 03/01/20 05:43 03/01/20 05:43 Labs: Abnormal Lab Results - Last 24 Hours (Table) 03/01/20 03/01/20 03/01/20 Range/Units 05:43 05:43 16:33 ESR 106 H (0-20) mm/Hr POC Glucose (mg/dL) 116 H (75-99) mg/dL AST (14-35) U/L ALT (10-49) U/L Alkaline Phosphatase (41-126) U/L Total Protein (6.2-8.2) g/dL Albumin (3.80-4.90) g/dL Albumin/Globulin Ratio (1.60-3.17) g/dL Procalcitonin 0.10 H (0.02-0.09) ng/mL 03/02/20 Range/Units 05:38 ESR (0-20) mm/Hr POC Glucose (mg/dL) (75-99) mg/dL AST 48 H (14-35) U/L ALT 88 H (10-49) U/L Alkaline Phosphatase 150 H (41-126) U/L Total Protein 5.9 L (6.2-8.2) g/dL Albumin 3.50 L (3.80-4.90) g/dL Albumin/Globulin Ratio 1.46 L (1.60-3.17) g/dL Procalcitonin (0.02-0.09) ng/mL Microbiology - Last 24 Hours (Table) 02/27/20 17:55 Blood Culture - Preliminary Blood No Growth after 72 hours Assessment and Plan Assessment: Possible bilateral hospital acquired pneumonia with sepsis present on admission Acute metabolic encephalopathy multifactorial Chronic bilateral subdural hematoma Slightly elevated troponin, secondary to demand/supply mismatch Normocytic anemia Thrombocytosis Recent history of intracranial hemorrhage Atrial fibrillation chronic Coronary artery disease Diabetes mellitus Hypertension Hyperlipidemia Chronic debility No code Plan: This is a pleasant 74 years old male who presents with encephalopathy possible pneumonia. Possible improvement in his mentation and chest x-ray. Continue with Zosyn. Continue with close monitoring of his mental status. Several consultants on the case including psychiatrist, neurologist, infectious disease team. Orthopedic consult for his left knee effusion recommended conservative management. We will check for swallow evaluation. Check bladder scan after discontinue Bal catheter. Check acute hepatitis panel and follow-up liver test. Labs and medication were reviewed.. Continue same treatment. Continue with symptomatic treatment. Resume home medication. Monitor lytes and vitals. DVT and GI prophylaxis. Further recommendationsas per clinical course of the patient DVT prophylaxis: Subcutaneous heparin GI Prophylaxis: Pepcid PT/OT: Pending Prognosis is guarded
[2020-03-02 12:49] VITALS: BMI 25.1
--- NOTE | 2020-03-02 13:03 | CDI ---
Documentation Clarification Form Date: 03/02/2020 12:46:16 PM From: Karolina Collins RN, CCDS Admit Date: 02/24/2020 05:24:00 PM Patient Name: Naif Jin Visit Number: [id number] ATTENTION: The Clinical Documentation Specialists (CDI) and [facility] Coding Staff appreciate your assistance in clarifying documentation. Please respond to the clarification below the line at the bottom and electronically sign. The CDI & [facility] Coding staff will review the response and follow-up if needed. Please note: Queries are made part of the Legal Health Record. If you have any questions, please contact the author of this message via ITS. Dr. Baptiste E Sheet "Slightly elevated troponin, secondary to demand/supply mismatch" has been documented and requires further specificity. Patient History/Risk Factors: Chronic Atrial Fib, CAD, DM2, HTN, HLD, valve replacement, CAD, CABG, Normocytic Anemia, recent intracranial hemorrhage Clinical Indicators: 03/01-03/02 Attending Progress notes: "Slightly elevated troponin, secondary to demand/supply mismatch Normocytic anemia." 02/23 H&P - 02/25 Attending Progress note: "Troponin 0.052.Rule out acute upr-ZR-irncnem-elevation myocardial infarction." 02/23 EKG Results: NSR 02/24 Echo: EF 50-55%, RV mildly enlarged Treatment: 02/24 ASA 81 mg PO QD x 1 dose 02/24 Lipitor 20 mg PO QD 02/24 Plavix 75 mg Po QD 02/23 Heparin 5,000 units SQ Q 12 hrs 02/23 Lopressor 12.5 mg PO BID For accurate documentation please indicate the underlying etiology of the demand/supply mismatch. Type II [place] NSTEMI Etiology Anemia CHF Arrhythmia Sepsis Unable to determine Other Condition, please specify (Last Revision: February 2019) secondary to Sepsis and anemia MTDD
[2020-03-02] MEDS: MULTIVITAMINS, THERA 1 EACH TAB PO SCH (13:56)
[2020-03-02] MEDS: FOLIC ACID 1 MG TAB PO SCH (13:56)
[2020-03-02] MEDS: THIAMINE 100 MG TAB PO SCH (13:56)
[2020-03-02] MEDS: QUEtiapine 50 MG TAB PO PRN (13:56)
--- NOTE | 2020-03-02 15:28 | PN ---
PROGRESS NOTE DATE OF SERVICE: 03/02/2020 REASON FOR FOLLOWUP: Aspiration pneumonia. INTERVAL HISTORY: The patient is currently afebrile. The patient is breathing comfortably. Seems to be slightly more awake and alert; trying to take his off. Currently on room air. No vomiting or diarrhea reported by the nursing staff. The patient himself is unable to provide any history. PHYSICAL EXAMINATION: Blood pressure is 153/78 with pulse of 68, temperature 99.2. He is 96% on room air. General description is an elderly male lying in bed in no distress. RESPIRATORY SYSTEM: Unlabored breathing. Clear to auscultation anteriorly. HEART: S1, S2. Regular rate and rhythm. ABDOMEN: Soft. No tenderness. LABS: Reviewed. Culture so far negative. DIAGNOSTIC IMPRESSION AND PLAN: 1. Patient with a positive blood culture, likely contamination. 2. Patient with a question of pneumonia, possible aspiration, covered with Zosyn. Transition to Augmentin on discharge. Continue with supportive care. MMODL / IJN: [id number] /
[2020-03-02 16:29] LABS: Glucose,Whole Blood 99 mg/dL (75-99)
[2020-03-02] MEDS: HYDROcodone/APAP 5-325MG 1 EACH TAB PO PRN ×2 (17:48→23:17)
[2020-03-02] MEDS: DOCUSATE 100 MG CAP PO SCH (20:38)
[2020-03-02] MEDS: MIRTAZAPINE 15 MG TAB PO SCH (20:38)
[2020-03-02] MEDS: risperiDONE 2 MG TAB PO SCH (20:39)
[2020-03-02] MEDS: TAMSULOSIN 0.4 MG CAP.ER.24H PO SCH (20:40)
[2020-03-02 20:49] LABS: Glucose,Whole Blood 127 mg/dL (75-99)
[2020-03-02] MEDS: SODIUM CHLORIDE 0.9% 1,000 ML IV SCH (21:00)
[2020-03-03] MEDS: PIPERACILLIN-TAZOBACTAM 3.375 GM in SODIUM CHLORIDE 0.9% 100 ML IVPB SCH ×3 (02:02→18:08)
[2020-03-03 02:09] LABS: Hepatitis A Antibody IgM Non-Reactive (Non-Reactive); Hepatitis B Core IgM Non-Reactive (Non-Reactive); Hepatitis B Surface Antigen Non-Reactive (Non-Reactive); Hepatitis C IgG Antibody Non-Reactive (Non-Reactive)
[2020-03-03] MEDS: HYDROcodone/APAP 5-325MG 1 EACH TAB PO PRN ×2 (05:33→13:07)
[2020-03-03 06:36] LABS: Basophils # (A) 0.1 k/uL (0-0.2); Basophils % (A) 1 %; Eosinophils # (A) 0.4 k/uL (0-0.7); Eosinophils % (A) 4 %; HCT 34.2 % (39.0-53.0); HGB 10.9 gm/dL (13.0-17.5); Hypochromasia Moderate; Lymphocytes # (A) 1.1 k/uL (1.0-4.8); Lymphocytes % (A) 12 %; MCH 26.9 pg (25.0-35.0); MCHC 31.9 g/dL (31.0-37.0); MCV 84.3 fL (80.0-100.0); Mean Platelet Volume 6.2; Monocytes # (A) 0.4 k/uL (0-1.0); Monocytes % (A) 5 %; Neutrophils # (A) 6.5 k/uL (1.3-7.7); Neutrophils % (A) 76 %; Platelet Count 599 k/uL (150-450); RBC 4.05 m/uL (4.30-5.90); RDW 14.7 % (11.5-15.5); WBC 8.5 k/uL (3.8-10.6)
[2020-03-03 07:26] LABS: Glucose,Whole Blood 110 mg/dL (75-99)
[2020-03-03] MEDS: SODIUM CHLORIDE 0.9% 1,000 ML IV SCH (07:37)
[2020-03-03] MEDS: METOPROLOL TARTRATE 12.5 MG TAB PO SCH ×2 (09:27→20:19)
[2020-03-03] MEDS: levETIRAcetam 500 MG TAB PO SCH ×2 (09:27→20:19)
[2020-03-03] MEDS: MELOXICAM 7.5 MG TAB PO SCH (09:27)
[2020-03-03] MEDS: risperiDONE 0.5 MG TAB PO SCH (09:27)
[2020-03-03] MEDS: HEPARIN SODIUM,PORCINE 5,000 UNIT/ML 1 ML VIAL SQ SCH ×2 (09:28→20:17)
[2020-03-03] MEDS: CLOPIDOGREL 75 MG TAB PO SCH (09:28)
[2020-03-03] MEDS: DORZOLAMIDE-TIMOLOL 2.23%/0.68 10ML BTL BOTH EYES SCH ×2 (09:28→20:19)
[2020-03-03] MEDS: ATORVASTATIN 20 MG TAB PO SCH (09:28)
[2020-03-03] MEDS: FAMOTIDINE 20 MG/2 ML VIAL IV SCH (09:29)
--- NOTE | 2020-03-03 09:58 | P.PN ---
Subjective Progress Note Date: 03/01/20 Patient was seen for a follow-up. Initial consultation performed by Dr. Lalo Escobra. Please refer to his note for details. Patient initially seen for confusion, chest pain decreased oral intake. Patient has history of intracranial bleed and was admitted to [facility] and the bleed was due to a bull attack and stamping on his head, as per nursing report. He was hospitalized for 30 days. He had multiple falls at [facility]. Patient's encephalopathy was likely due to toxic metabolic as well as from underlying infection, and possible TBI. Patient appears very somnolent, lethargic. Patient however denies headache. Patient had computed tomography scan of the head performed today, which revealed bilateral prominent CSF fluid collections appears to be of low attenuation on today's exam and most typical of chronic subdural hematoma with no evidence of acute hemorrhage. Degenerative and nonspecific white matter changes most typical of remote white matter ischemia. No midline shift or mass effect. Objective - Vital Signs Vital signs: Vital Signs Temp 98.7 F 03/01/20 14:33 Pulse 96 03/01/20 14:33 Resp 18 03/01/20 14:33 BP 146/78 03/01/20 14:33 Pulse Ox 97 03/01/20 14:33 Intake & Output 02/29/20 03/01/20 03/01/20 18:59 06:59 18:59 Output Total 800 550 Balance -800 -550 Output: Urine 800 550 Other: Voiding Method Indwelling Catheter Indwelling Catheter Indwelling Catheter - Exam Patient is laying in the bed, comfortable, but very somnolent. Patient barely answer any questions. Patient mumbles. Sometimes speaks in single words, otherwise mumbles. Patient moves his arms and legs equally. Muscle strength appears equal. Patient did not cooperate with testing of the legs. - Labs CBC & Chem 7: 03/03/20 05:52 03/01/20 05:43 Labs: Abnormal Lab Results - Last 24 Hours (Table) 03/01/20 03/01/20 03/01/20 Range/Units 05:43 05:43 05:43 RBC 3.84 L (4.30-5.90) m/uL Hgb 10.5 L (13.0-17.5) gm/dL Hct 32.4 L (39.0-53.0) % Plt Count 563 H (150-450) k/uL Lymphocytes # 0.8 L (1.0-4.8) k/uL ESR 106 H (0-20) mm/Hr POC Glucose (mg/dL) (75-99) mg/dL AST 64 H (14-35) U/L ALT 106 H (10-49) U/L Alkaline Phosphatase 163 H (41-126) U/L C-Reactive Protein 24.0 H (0.0-0.8) mg/dL Total Protein 5.8 L (6.2-8.2) g/dL Albumin 3.50 L (3.80-4.90) g/dL Albumin/Globulin Ratio 1.52 L (1.60-3.17) g/dL Procalcitonin 0.10 H (0.02-0.09) ng/mL 03/01/20 03/01/20 Range/Units 07:13 11:13 RBC (4.30-5.90) m/uL Hgb (13.0-17.5) gm/dL Hct (39.0-53.0) % Plt Count (150-450) k/uL Lymphocytes # (1.0-4.8) k/uL ESR (0-20) mm/Hr POC Glucose (mg/dL) 115 H 111 H (75-99) mg/dL AST (14-35) U/L ALT (10-49) U/L Alkaline Phosphatase (41-126) U/L C-Reactive Protein (0.0-0.8) mg/dL Total Protein (6.2-8.2) g/dL Albumin (3.80-4.90) g/dL Albumin/Globulin Ratio (1.60-3.17) g/dL Procalcitonin (0.02-0.09) ng/mL Microbiology - Last 24 Hours (Table) 02/27/20 17:55 Blood Culture - Preliminary Blood No Growth after 48 hours Assessment and Plan Assessment: * Encephalopathy, likely multifactorial, toxic metabolic encephalopathy. * Pneumonia * Traumatic right frontal subdural hematoma, improving. * Atrial fibrillation * Anemia hemoglobin 10.5 * Elevated LFTs * Coronary artery disease status post stenting and bypass surgery. * Status post aortic valve replacement * Diabetes * Hypertension * Hyperlipidemia * Glaucoma Plan: * Repeat computed tomography scan of head today revealed bilateral prominent CSF fluid collection appears to be of low attenuation on today's exam and most typical of chronic subdural hematoma with no evidence of acute hemorrhage. Degenerative and nonspecific white matter changes most typical of remote white matter ischemia. * Patient's B12 733, RBC folate is normal. TFTs normal. Hemoglobin A1c 6.1 on 07/11/2018. * We will follow.
--- NOTE | 2020-03-03 10:04 | P.PN ---
Subjective Progress Note Date: 03/02/20 Patient was seen for a follow-up. Initial consultation performed by Dr. Lalo Escobar. Please refer to his note for details. Patient initially seen for confusion, chest pain decreased oral intake. Patient has history of intracranial bleed and was admitted to [facility] and the bleed was due to bull attack and stamping on his head, and he was hospitalized for 30 days. [facility] He had multiple falls at [facility]. Patient's encephalopathy was likely due to toxic metabolic as well as from underlying infection. Patient more alert and awake, still slightly confused. Patient however denies headache. Patient had computed tomography scan of the head 03/01/2020, which revealed bilateral prominent CSF fluid collections appears to be of low attenuation on today's exam and most typical of chronic subdural hematoma with no evidence of acute hemorrhage. Degenerative and nonspecific white matter changes most typical of remote white matter ischemia. No midline shift or mass effect. Objective - Vital Signs Vital signs: Vital Signs Temp 99.2 F 03/02/20 14:00 Pulse 68 03/02/20 14:00 Resp 16 03/02/20 14:00 BP 153/78 03/02/20 14:00 Pulse Ox 96 03/02/20 14:00 Intake & Output 03/01/20 03/02/20 03/02/20 18:59 06:59 18:59 Intake Total 100 440 Output Total 750 475 Balance -650 -35 Weight 81.647 kg Intake: Oral 100 440 Output: Urine 750 475 Other: Voiding Method Indwelling Catheter Indwelling Catheter # Voids 550 - Exam Patient is laying in the bed, comfortable, more alert and awake. Patient able to tell me his name Justo, that he is 74 years of age in that he lives in the [facility]. Patient has some slurring. Patient states it is July, then states was August. Patient did tell me that he fell was brought into the hospital. Patient's pupils are round and reacting to light. Visual swanson could not be tested. Face appears symmetric. Patient's strength appears normal in the arms, but did not cooperate for the legs. Reflexes are diminished and plantars are flat bilaterally. Tone is equal. - Labs CBC & Chem 7: 03/03/20 05:52 03/01/20 05:43 Labs: Abnormal Lab Results - Last 24 Hours (Table) 03/02/20 Range/Units 05:38 AST 48 H (14-35) U/L ALT 88 H (10-49) U/L Alkaline Phosphatase 150 H (41-126) U/L Total Protein 5.9 L (6.2-8.2) g/dL Albumin 3.50 L (3.80-4.90) g/dL Albumin/Globulin Ratio 1.46 L (1.60-3.17) g/dL Microbiology - Last 24 Hours (Table) 02/27/20 17:55 Blood Culture - Preliminary Blood No Growth after 72 hours Assessment and Plan Assessment: * Encephalopathy, likely multifactorial, toxic metabolic encephalopathy. Improved. * Pneumonia * Traumatic right frontal subdural hematoma, improving. * Atrial fibrillation * Anemia hemoglobin 10.5 * Elevated LFTs * Coronary artery disease status post stenting and bypass surgery. * Status post aortic valve replacement * Diabetes * Hypertension * Hyperlipidemia * Glaucoma Plan: * Patient appears better today. He was much better oriented, participating in the exam. Encephalopathy is slightly improved. * Repeat computed tomography scan of head 03/01/2020 revealed bilateral prominent CSF fluid collection appears to be of low attenuation on today's exam and most typical of chronic subdural hematoma with no evidence of acute hemorrhage. Degenerative and nonspecific white matter changes most typical of remote white matter ischemia. * Patient's B12 733, RBC folate is normal. TFTs normal. Hemoglobin A1c 6.1 on 07/11/2018. * Neurologically clear for transfer to rehab. May follow up with a local neurologist outpatient.
--- NOTE | 2020-03-03 10:16 | P.PN ---
Subjective From the records: The patient could not provide information so it was obtained from records and staff Mr. Jin is a 73-year-old gentleman admitted for mental status changes, thought to have bilateral pneumonia. Patient had a recent history of head trauma with hemorrhage that was treated symptomatically and the patient has bilateral subdural hygromas. Multiple consultants on board and following the patient closely. On 02/27/2020 - patient is resting in his bed comfortably. As per discussion with nursing staff he is slightly agitated and received Haldol to calm him down. Patient does not give any history. He opened his eyes on calling his name and went back to sleep. On reviewing his vitals 91, respiratory rate 18, blood pressure 127/71, saturating at 96% on room air and T-max of 97.6. On reviewing his labs from this morning patient has a white count of 8.3, hemoglobin 10.1, platelets 524. Sodium 1374.3, chloride 101, bicarbonate 24, the urine 8, creatinine 0.6. Patient had blood cultures positive for Staphylococcus shye alice. He is on antibiotics in the form of Zosyn and vancomycin. ID Dr. Day has been consulted yesterday. Subjective 03/01/2020 This is a pleasant 74 years old male with multiple medical problems was admitted because of confusion, today he is awake and he follows, however is confused to time place and person, is mildly agitated at times He is hemodynamically stable, blood pressure on the high side 172/84 Labs including CBC and BMP are unremarkable, liver enzymes are slightly elevated. Procalcitonin is slightly high at 0.10. Blood culture is positive for staph epidermidis, mostly contamination as per ID team. Repeat blood culture is negative so far. CT of the brain showing bilateral chronic subdural hematoma with no evidence of acute hemorrhage per radiologist. Patient is currently on Plavix, he is not on home aspirin currently. Repeat chest x-ray:. CABG. Patchy left basilar opacity remains. Improved aeration of the right lung base Orthopedic input is appreciated for left knee severe osteoarthritis and left knee effusion and they recommended medical management for now 03/02/2020 Patient still confused, however he follows commands clearly. He is oriented to state only as he knows he is in [place] however he does not know his in hospital, he thought 08/07/1988 and the president is open, patient is partially oriented to the surrounding, very similar to yesterday or slightly improved regarding his mentation. He does not seem in distress. Vitals are stable. L abs showed trending down liver enzymes. Liver ultrasound: An findings suggest echogenic periportal fat within the liver. Finding may be seen in the setting of hepatitis. Clinically correlate. Inability to visualize the bile duct or the gallbladder We will send for hepatitis panel Orthopedic team input is appreciated for his left knee swelling and they recommended continued conservative management, patient does not complain from pain or weakness in his left knee. No restriction of movement. His echocardiogram from 02/24 showing ejection fraction of 50-55%. Patient still treated for aspiration pneumonia and he is currently on Zosyn and normal saline at 50 mL/h. Neurologist also added Keppra for possible seizure. Infectious disease team on the case and their input is recommended follow-up evaluation Discontinue Bal catheter and check bladder scan 03/03/2020 Patient is still confused to time, place and person, however he is calm and appropriate with answering some questions, also when I told him he is in the current hospital he remembered this after 5-10 minutes and sent back to me. He follows commands. Last night in the evening patient was more agitated however Seroquel 50 mg helped him. He denies any specific complaints. No headache or weakness or numbness. However his left knee is still swollen, its more warm and patient has limited flexion. We are going to discuss with orthopedic team for reevaluation for possible aspiration. Neurologically input is appreciated and they cleared him for discharge He is hemodynamically stable. CBC is stable. Glucose is stable Patient pneumonia is improving, his breathing quietly. No coughing. No dyspnea or tachypnea. No chest pain. Also patient passed a swallow evaluation, and diet recommendation:Dysphagia Level 2 Ground diet/NT liquids, upright positioning with all PO intake, direct 1:1 assist, small bites/sips and NO STRAWS. Bal catheter was discontinued yesterday, he needed to be straight 4:00 this morning. We are going to check bladder scan Liver function tests and hepatitis panel are pending Objective - Vital Signs Vital signs: Vital Signs Temp 98.2 F 03/03/20 08:00 Pulse 92 03/03/20 08:00 Resp 18 03/03/20 08:00 BP 168/89 03/03/20 08:00 Pulse Ox 95 03/03/20 08:00 Intake & Output 03/02/20 03/03/20 03/03/20 18:59 06:59 18:59 Intake Total 440 400 Output Total 475 Balance -35 400 Weight 81.647 kg Intake: Oral 440 400 Output: Urine 475 Other: Voiding Method Indwelling Catheter - Exam -GENERAL: The patient is awake and confused, he is partially oriented to place and person but not to time, he follows commands. Looks calm and slightly agitated at times, not in any acute distress. Well developed, well nourished. HEENT: Pupils are round and equally reacting to light. EOMI. No scleral icterus. No conjunctival pallor. Normocephalic, atraumatic. No pharyngeal erythema. No thyromegaly. CARDIOVASCULAR: S1 and S2 present. No murmurs, rubs, or gallops. PULMONARY: Chest is clear to auscultation, no wheezing or crackles. ABDOMEN: Soft, nontender, nondistended, normoactive bowel sounds. No palpable organomegaly. MUSCULOSKELETAL: No joint swelling or deformity. EXTREMITIES: No cyanosis, clubbing, or pedal edema. NEUROLOGICAL: Gross neurological examination did not reveal any focal deficits. SKIN: No rashes. no petechiae. - Labs CBC & Chem 7: 03/03/20 05:52 03/01/20 05:43 Labs: Abnormal Lab Results - Last 24 Hours (Table) 03/02/20 03/02/20 03/03/20 Range/Units 05:38 20:47 05:52 RBC 4.05 L (4.30-5.90) m/uL Hgb 10.9 L (13.0-17.5) gm/dL Hct 34.2 L (39.0-53.0) % Plt Count 599 H (150-450) k/uL POC Glucose (mg/dL) 127 H (75-99) mg/dL AST 48 H (14-35) U/L ALT 88 H (10-49) U/L Alkaline Phosphatase 150 H (41-126) U/L Total Protein 5.9 L (6.2-8.2) g/dL Albumin 3.50 L (3.80-4.90) g/dL Albumin/Globulin Ratio 1.46 L (1.60-3.17) g/dL 03/03/20 Range/Units 07:16 RBC (4.30-5.90) m/uL Hgb (13.0-17.5) gm/dL Hct (39.0-53.0) % Plt Count (150-450) k/uL POC Glucose (mg/dL) 110 H (75-99) mg/dL AST (14-35) U/L ALT (10-49) U/L Alkaline Phosphatase (41-126) U/L Total Protein (6.2-8.2) g/dL Albumin (3.80-4.90) g/dL Albumin/Globulin Ratio (1.60-3.17) g/dL Microbiology - Last 24 Hours (Table) 02/27/20 17:55 Blood Culture - Preliminary Blood No Growth after 96 hours Assessment and Plan Assessment: Possible bilateral hospital acquired pneumonia with sepsis present on admission. Improving left knee swelling. Acute metabolic encephalopathy multifactorial. Improving Chronic bilateral subdural hematoma Slightly elevated troponin, secondary to demand/supply mismatch, from sepsis. Patient denies chest pain Normocytic anemia Thrombocytosis Recent history of intracranial hemorrhage Atrial fibrillation chronic Coronary artery disease Diabetes mellitus Hypertension Hyperlipidemia Chronic debility No code Plan: This is a pleasant 74 years old male who presents with encephalopathy possible pneumonia. Possible improvement in his mentation and chest x-ray. Continue with Zosyn. His pneumonia is improving, he passed swallow evaluation, infectious disease recommend switching him to Augmentin on discharge. Neurology cleared him to go to rehab since improvement in his mentation. We going to check with orthopedic team for possible aspiration of his left knee Hepatitis panel is pending Continue with close monitoring of his mental status. Several consultants on the case including psychiatrist, neurologist, infectious disease team. Orthopedic consult for his left knee effusion recommended conservative management. Bal catheter was discontinued , bladder scan is pending. Check acute hepatitis panel and follow-up liver test. Labs and medication were reviewed.. Continue same treatment. Continue with symptomatic treatment. Resume home medication. Monitor lytes and vitals. DVT and GI prophylaxis. Further recommendationsas per clinical course of the p atient DVT prophylaxis: Subcutaneous heparin GI Prophylaxis: Pepcid PT/OT: Pending Prognosis is guarded
[2020-03-03 10:47] LABS: Albumin 3.7 g/dL (3.80-4.90); Albumin/Globulin Ratio 1.42 (1.60-3.17); BUN/Creat Ratio 14.29 Ratio (12.00-20.00); Bilirubin, Conjugated 0.2 mg/dL (0.20-0.40); Bilirubin,Unconjugated 0.2 mg/dL; Calcium 9.4 mg/dL (8.7-10.3); Globulin 2.6 g/dL (1.6-3.3); Non-African American GFR(CKD) 92.3 (60.0-200.0); Potassium 3.8 mmol/L (3.5-5.5); Total Bilirubin 0.4 mg/dL (0.2-1.2); Total Protein 6.3 g/dL (6.2-8.2)
[2020-03-03 11:38] LABS: Glucose,Whole Blood 112 mg/dL (75-99)
--- NOTE | 2020-03-03 13:04 | P.PN ---
Subjective Progress Note Date: 03/03/20 Principal diagnosis: Left knee effusion, left knee osteoarthritis, history of closed head injury other medical comorbidities Patient was reevaluated today on the medical/surgical floor. The internal medicine team did contact us regarding his left knee, they are asking if we cou ld attempt an aspiration of the left knee. Patient's mental status has improved slightly over the last few days. He is still very confused, less agitation is noted. At bedside today, he does respond to his name, and the other question the patient is unable to answer. He is unable to follow commands with regards to assessing his left knee. Internal medicine did feel that the knee has increased in warmth compared to the previous days. Patient has not ambulated since being in the hospital. He continues to have a normal white blood cell count. His CRP and sed rate levels remain elevated. I did contact the today discussing his left knee, should the patient having previous aspirations with cortisone injections by his primary care doctor due to his arthritis. Objective - Vital Signs Vital signs: Vital Signs Temp 98.2 F 03/03/20 08:00 Pulse 92 03/03/20 08:00 Resp 18 03/03/20 08:00 BP 168/89 03/03/20 08:00 Pulse Ox 95 03/03/20 08:00 Intake & Output 03/02/20 03/03/20 03/03/20 18:59 06:59 18:59 Intake Total 440 400 Output Total 475 Balance -35 400 Weight 81.647 kg Intake: Oral 440 400 Output: Urine 475 Other: Voiding Method Indwelling Catheter - Exam Left lower extremity: Obvious effusion is present over the knee, there is no erythema, there are no areas of skin breakdown or open lesions Slight increase in warmth compared to the contralateral extremity Passive range of motion he lacks no visible pain cues from patient No visible pain cues with palpation over the patella, medial and lateral joint line Calf is soft Dorsalis pedis pulse is 2+ Remaining physical exam is unobtainable due to patient's mental status - Labs CBC & Chem 7: 03/03/20 05:52 03/03/20 05:52 Labs: Abnormal Lab Results - Last 24 Hours (Table) 03/02/20 03/03/20 03/03/20 Range/Units 20:47 05:52 05:52 RBC 4.05 L (4.30-5.90) m/uL Hgb 10.9 L (13.0-17.5) gm/dL Hct 34.2 L (39.0-53.0) % Plt Count 599 H (150-450) k/uL Anion Gap 14.00 H (4.00-12.00) mmol/L POC Glucose (mg/dL) 127 H (75-99) mg/dL AST 40 H (14-35) U/L ALT 74 H (10-49) U/L Alkaline Phosphatase 144 H (41-126) U/L Albumin 3.70 L (3.80-4.90) g/dL Albumin/Globulin Ratio 1.42 L (1.60-3.17) g/dL 03/03/20 03/03/20 Range/Units 07:16 11:14 RBC (4.30-5.90) m/uL Hgb (13.0-17.5) gm/dL Hct (39.0-53.0) % Plt Count (150-450) k/uL Anion Gap (4.00-12.00) mmol/L POC Glucose (mg/dL) 110 H 112 H (75-99) mg/dL AST (14-35) U/L ALT (10-49) U/L Alkaline Phosphatase (41-126) U/L Albumin (3.80-4.90) g/dL Albumin/Globulin Ratio (1.60-3.17) g/dL Microbiology - Last 24 Hours (Table) 02/27/20 17:55 Blood Culture - Preliminary Blood No Growth after 96 hours Assessment and Plan Assessment: Left knee effusion Left knee severe osteoarthritis Multiple medical comorbidities Plan: I was able to contact the patient's today regarding the current issue with the patient's left knee. I did discuss the aspiration with the patient's , she is in good understanding and gave consent for procedure. An aspiration attempt was done at bedside today, please see procedure note further detail. Patient was very agitated during the exam, I was able to only aspirate about 11 mL of fluid. The fluid appeared inflammatory in nature, no obvious purulence was noted. Proper test tubes and lab test were ordered, this including aerobic, anaerobic and fungal cultures, cell count, Gram stain, fluid joint crystal analysis Further recommendations to follow Time with Patient: Less than 30
[2020-03-03] MEDS: THIAMINE 100 MG TAB PO SCH (13:07)
[2020-03-03] MEDS: FOLIC ACID 1 MG TAB PO SCH (13:07)
[2020-03-03] MEDS: MULTIVITAMINS, THERA 1 EACH TAB PO SCH (13:07)
--- NOTE | 2020-03-03 13:09 | P.PCN ---
Date of Procedure: 03/03/20 Preoperative Diagnosis: Left knee effusion, left knee osteoarthritis Postoperative Diagnosis: Same Procedure(s) Performed: Left knee aspiration Anesthesia: none Surgeon: Lorenzo Doshi Estimated Blood Loss (ml): 1 Pathology: none sent Condition: stable Disposition: no change Indications for Procedure: Left knee effusion, abnormal labs, altered mental status Description of Procedure: Due to the current mental status of the patient, consent was obtained from the patient's , this was done prior to the procedure via the telephone. This was documented in the EMR chart. A bedside timeout was done with the nursing staff confirming the left knee being the operative site in the left knee aspiration being the procedure. Patient was in the supine position, the knee was prepped with 1 chlorhexidine swabs and 1 alcohol swabs. A 18-gauge needle was used to attempt an aspiration via the suprapatellar approach. Patient became very agitated during the exam, this to include excessive movement of the left lower extremity, also including contraction of the quadriceps muscle making it very difficult to aspirate. I was able to aspirate about 11 mL of joint fluid, it appeared inflammatory in nature. No obvious purulent material was noted from aspiration, there was a small amount of blood noted. After multiple attempts were made to calm the patient down and readjust my needle position, I then removed the needle, a bandage was placed. Fluid was placed in a culture swab, 1 red top and one green topped tube. Appropriate lab tests were ordered, and the fluid was delivered to the lab for further analysis with proper patient information.
--- NOTE | 2020-03-03 15:23 | PN ---
PROGRESS NOTE DATE OF SERVICE: 03/03/2020 REASON FOR FOLLOWUP: Pneumonia. INTERVAL HISTORY: The patient is afebrile. The patient remains to be stable. for any history. No vomiting, diarrhea or reported by the nursing staff. PHYSICAL EXAMINATION: Blood pressure is 168/89, pulse 92, temperature 98.2. He is 95% on room air. General description is an elderly male lying in bed in no distress. RESPIRATORY SYSTEM: Unlabored breathing, clear to auscultation anteriorly. HEART: S1, S2. Regular rate and rhythm. ABDOMEN: Soft, no tenderness. LABS: Hemoglobin 10.9, white count 8.5. DIAGNOSTIC IMPRESSION AND PLAN: 1. Patient admitted to the hospital with mental status changes multifactorial with concern for possible aspiration pneumonia. The patient is covered with and transitioned to oral Augmentin on discharge. 2. Positive blood culture, likely skin contamination. No need for further workup for the same. MMODL / IJN: [id number] /
[2020-03-03 16:58] LABS: Appearance,BF Blood Tinged
[2020-03-03 17:00] LABS: Nucleated Cells, Body Fluid 22000 /uL; RBC, Body Fluid 19100 /uL
[2020-03-03 17:01] LABS: Mononuclear WBC,Body Fluid 2 %; Polynuclear WBC,Body Fluid 98 %; Total Cells Counted,Body Fluid 100
[2020-03-03 17:07] LABS: Glucose,Whole Blood 108 mg/dL (75-99)
[2020-03-03] MEDS: MIRTAZAPINE 15 MG TAB PO SCH (20:17)
[2020-03-03] MEDS: FAMOTIDINE 20 MG TAB PO SCH (20:17)
[2020-03-03] MEDS: risperiDONE 2 MG TAB PO SCH (20:19)
[2020-03-03] MEDS: DOCUSATE 100 MG CAP PO SCH (20:19)
[2020-03-03] MEDS: TAMSULOSIN 0.4 MG CAP.ER.24H PO SCH (20:19)
[2020-03-03 21:10] LABS: Glucose,Whole Blood 101 mg/dL (75-99)
[2020-03-04] MEDS: PIPERACILLIN-TAZOBACTAM 3.375 GM in SODIUM CHLORIDE 0.9% 100 ML IVPB SCH ×3 (03:06→18:18)
[2020-03-04] MEDS: SODIUM CHLORIDE 0.9% 1,000 ML IV SCH (03:08)
[2020-03-04] MEDS: METOPROLOL TARTRATE 12.5 MG TAB PO SCH ×2 (06:23→20:36)
[2020-03-04] MEDS: MELOXICAM 7.5 MG TAB PO SCH (06:24)
[2020-03-04] MEDS: CLOPIDOGREL 75 MG TAB PO SCH (06:24)
[2020-03-04] MEDS: DORZOLAMIDE-TIMOLOL 2.23%/0.68 10ML BTL BOTH EYES SCH ×2 (06:24→20:53)
[2020-03-04 06:57] LABS: Glucose,Whole Blood 107 mg/dL (75-99)
[2020-03-04] MEDS: FAMOTIDINE 20 MG TAB PO SCH ×2 (09:15→20:39)
[2020-03-04] MEDS: ATORVASTATIN 20 MG TAB PO SCH (09:16)
[2020-03-04] MEDS: HEPARIN SODIUM,PORCINE 5,000 UNIT/ML 1 ML VIAL SQ SCH ×2 (09:16→20:38)
[2020-03-04] MEDS: levETIRAcetam 500 MG TAB PO SCH ×2 (09:17→20:45)
[2020-03-04] MEDS: risperiDONE 0.5 MG TAB PO SCH (09:17)
[2020-03-04 11:42] LABS: Glucose,Whole Blood 105 mg/dL (75-99)
--- NOTE | 2020-03-04 11:43 | P.PN ---
Subjective From the records: The patient could not provide information so it was obtained from records and staff Mr. Jin is a 73-year-old gentleman admitted for mental status changes, thought to have bilateral pneumonia. Patient had a recent history of head trauma with hemorrhage that was treated symptomatically and the patient has bilateral subdural hygromas. Multiple consultants on board and following the patient closely. On 02/27/2020 - patient is resting in his bed comfortably. As per discussion with nursing staff he is slightly agitated and received Haldol to calm him down. Patient does not give any history. He opened his eyes on calling his name and went back to sleep. On reviewing his vitals 91, respiratory rate 18, blood pressure 127/71, saturating at 96% on room air and T-max of 97.6. On reviewing his labs from this morning patient has a white count of 8.3, hemoglobin 10.1, platelets 524. Sodium 1374.3, chloride 101, bicarbonate 24, the urine 8, creatinine 0.6. Patient had blood cultures positive for Staphylococcus shye alice. He is on antibiotics in the form of Zosyn and vancomycin. ID Dr. Day has been consulted yesterday. Subjective 03/01/2020 This is a pleasant 74 years old male with multiple medical problems was admitted because of confusion, today he is awake and he follows, however is confused to time place and person, is mildly agitated at times He is hemodynamically stable, blood pressure on the high side 172/84 Labs including CBC and BMP are unremarkable, liver enzymes are slightly elevated. Procalcitonin is slightly high at 0.10. Blood culture is positive for staph epidermidis, mostly contamination as per ID team. Repeat blood culture is negative so far. CT of the brain showing bilateral chronic subdural hematoma with no evidence of acute hemorrhage per radiologist. Patient is currently on Plavix, he is not on home aspirin currently. Repeat chest x-ray:. CABG. Patchy left basilar opacity remains. Improved aeration of the right lung base Orthopedic input is appreciated for left knee severe osteoarthritis and left knee effusion and they recommended medical management for now 03/02/2020 Patient still confused, however he follows commands clearly. He is oriented to state only as he knows he is in [place] however he does not know his in hospital, he thought 08/07/1988 and the president is open, patient is partially oriented to the surrounding, very similar to yesterday or slightly improved regarding his mentation. He does not seem in distress. Vitals are stable. L abs showed trending down liver enzymes. Liver ultrasound: An findings suggest echogenic periportal fat within the liver. Finding may be seen in the setting of hepatitis. Clinically correlate. Inability to visualize the bile duct or the gallbladder We will send for hepatitis panel Orthopedic team input is appreciated for his left knee swelling and they recommended continued conservative management, patient does not complain from pain or weakness in his left knee. No restriction of movement. His echocardiogram from 02/24 showing ejection fraction of 50-55%. Patient still treated for aspiration pneumonia and he is currently on Zosyn and normal saline at 50 mL/h. Neurologist also added Keppra for possible seizure. Infectious disease team on the case and their input is recommended follow-up evaluation Discontinue Bal catheter and check bladder scan 03/03/2020 Patient is still confused to time, place and person, however he is calm and appropriate with answering some questions, also when I told him he is in the current hospital he remembered this after 5-10 minutes and sent back to me. He follows commands. Last night in the evening patient was more agitated however Seroquel 50 mg helped him. He denies any specific complaints. No headache or weakness or numbness. However his left knee is still swollen, its more warm and patient has limited flexion. We are going to discuss with orthopedic team for reevaluation for possible aspiration. Neurologically input is appreciated and they cleared him for discharge He is hemodynamically stable. CBC is stable. Glucose is stable Patient pneumonia is improving, his breathing quietly. No coughing. No dyspnea or tachypnea. No chest pain. Also patient passed a swallow evaluation, and diet recommendation:Dysphagia Level 2 Ground diet/NT liquids, upright positioning with all PO intake, direct 1:1 assist, small bites/sips and NO STRAWS. Bal catheter was discontinued yesterday, he needed to be straight 4:00 this morning. We are going to check bladder scan Liver function tests and hepatitis panel are pending 03/04/2020 Patient mentation is significantly improved although he is still confused but his calm and pleasant and follow command, he has memory problems as well. He is on Keppra and neurology cleared him for discharge Patient remains on Zosyn for aspiration pneumonia which is going to switch to Augmentin upon discharge, patient passed a swallow evaluation as well Mildly elevated liver enzymes, liver ultrasound and hepatitis panel were negative Patient had urinary retention and Bal catheter has to be replaced back Patient also has left knee swelling status post aspiration about 11 mL yesterday from its supra patellar fluids. Results of the tap including the crystals and culture are still pending once his back vision will be considered for discharge The case with the social work msw, patient does not qualify for inpatient rehab and his going for assisted living upon discharge Objective - Vital Signs Vital signs: Vital Signs Temp 98.1 F 03/04/20 08:00 Pulse 78 03/04/20 08:00 Resp 20 03/04/20 08:00 BP 149/80 03/04/20 08:00 Pulse Ox 98 03/04/20 08:00 Intake & Output 03/03/20 03/04/20 03/04/20 18:59 06:59 18:59 Intake Total 100 Output Total 350 Balance -250 Intake: Intake, IV Titration 100 Amount Piperacillin-Tazobactam 3 100 .375 gm In Sodium Chloride 0.9% 100 ml @ 25 mls/hr IVPB Q8H [facility] Rx#: [id number] Output: Urine 350 Other: Voiding Method Indwelling Catheter Indwelling Catheter - Exam -GENERAL: The patient is awake and confused, he is partially oriented to place and person but not to time, he follows commands. Looks calm and slightly agitated at times, not in any acute distress. Well developed, well nourished. HEENT: Pupils are round and equally reacting to light. EOMI. No scleral icterus. No conjunctival pallor. Normocephalic, atraumatic. No pharyngeal erythema. No thyromegaly. CARDIOVASCULAR: S1 and S2 present. No murmurs, rubs, or gallops. PULMONARY: Chest is clear to auscultation, no wheezing or crackles. ABDOMEN: Soft, nontender, nondistended, normoactive bowel sounds. No palpable organomegaly. MUSCULOSKELETAL: No joint swelling or deformity. EXTREMITIES: No cyanosis, clubbing, or pedal edema. NEUROLOGICAL: Gross neurological examination did not reveal any focal deficits. SKIN: No rashes. no petechiae. - Labs CBC & Chem 7: 03/03/20 05:52 03/03/20 05:52 Labs: Abnormal Lab Results - Last 24 Hours (Table) 03/03/20 03/03/20 03/04/20 Range/Units 17:06 21:08 06:41 POC Glucose (mg/dL) 108 H 101 H (75-99) mg/dL C-Reactive Protein 15.1 H (0.0-0.8) mg/dL 03/04/20 Range/Units 06:54 POC Glucose (mg/dL) 107 H (75-99) mg/dL C-Reactive Protein (0.0-0.8) mg/dL Microbiology - Last 24 Hours (Table) 03/03/20 12:17 Gram Stain - Preliminary Knee - Left Wound Culture - Preliminary 02/27/20 17:55 Blood Culture - Preliminary Blood No Growth after 120 hours 03/03/20 12:17 Fungal Culture - Preliminary Knee - Left 03/03/20 12:18 Anaerobic Culture - Preliminary Knee - Left Assessment and Plan Assessment: Possible bilateral hospital acquired pneumonia with sepsis present on admission. Improving left knee swelling. Acute metabolic encephalopathy multifactorial. Improving Chronic bilateral subdural hematoma Slightly elevated troponin, secondary to demand/supply mismatch, from sepsis. Patient denies chest pain Normocytic anemia Thrombocytosis Recent history of intracranial hemorrhage Atrial fibrillation chronic Coronary artery disease Diabetes mellitus Hypertension Hyperlipidemia Chronic debility No code Plan: This is a pleasant 74 years old male who presents with encephalopathy possible pneumonia. Possible improvement in his mentation and chest x-ray. Continue with Zosyn. His pneumonia is improving, he passed swallow evaluation, infectious disease recommend switching him to Augmentin on discharge. Neurology cleared him to go to rehab since improvement in his mentation. We going to check with orthopedic team for possible aspiration of his left knee Hepatitis panel is pending Continue with close monitoring of his mental status. Several consultants on the case including psychiatrist, neurologist, infectious disease team. Orthopedic consult for his left knee effusion recommended conservative management. Bal catheter was discontinued , bladder scan is pending. Check acute hepatitis panel and follow-up liver test. Labs and medication were reviewed.. Continue same treatment. Continue with symptomatic treatment. Resume home medication. Monitor lytes and vitals. DVT and GI prophylaxis. Further recommendationsas per clinical course of the patient DVT prophylaxis: Subcutaneous heparin GI Prophylaxis: Pepcid PT/OT: Pending Prognosis is guarded
--- NOTE | 2020-03-04 12:20 | P.PN ---
Subjective Progress Note Date: 03/04/20 Principal diagnosis: Left knee effusion, left knee osteoarthritis, history of closed head injury other medical comorbidities Patient was reevaluated today on the medical/surgical floor. Patient is more awake today at bedside, he is able to answer some of my questions. He still remains confused but much improved from yesterday. Aspiration results are pending for cultures, synovial analysis revealed no crystal and gram stain revealed no organisms. Cell count demonstrated no obvious concern for infection Objective - Vital Signs Vital signs: Vital Signs Temp 98.1 F 03/04/20 08:00 Pulse 78 03/04/20 08:00 Resp 20 03/04/20 08:00 BP 149/80 03/04/20 08:00 Pulse Ox 98 03/04/20 08:00 Intake & Output 03/03/20 03/04/20 03/04/20 18:59 06:59 18:59 Intake Total 100 Output Total 350 Balance -250 Intake: Intake, IV Titration 100 Amount Piperacillin-Tazobactam 3 100 .375 gm In Sodium Chloride 0.9% 100 ml @ 25 mls/hr IVPB Q8H [facility] Rx#: [id number] Output: Urine 350 Other: Voiding Method Indwelling Catheter Indwelling Catheter - Exam Left lower extremity: Obvious effusion is present over the knee, there is no erythema, there are no areas of skin breakdown or open lesions No increase in skin temperature compared to contra lateral leg Patient is actively flexing and extending his knee comfortable Passive range of motion he lacks no visible pain cues from patient No visible pain cues with palpation over the patella, medial and lateral joint line Calf is soft Dorsalis pedis pulse is 2+ - Labs CBC & Chem 7: 03/03/20 05:52 03/03/20 05:52 Labs: Abnormal Lab Results - Last 24 Hours (Table) 03/03/20 03/03/20 03/04/20 Range/Units 17:06 21:08 06:41 POC Glucose (mg/dL) 108 H 101 H (75-99) mg/dL C-Reactive Protein 15.1 H (0.0-0.8) mg/dL 03/04/20 03/04/20 Range/Units 06:54 11:28 POC Glucose (mg/dL) 107 H 105 H (75-99) mg/dL C-Reactive Protein (0.0-0.8) mg/dL Microbiology - Last 24 Hours (Table) 03/03/20 12:17 Gram Stain - Preliminary Knee - Left Wound Culture - Preliminary 02/27/20 17:55 Blood Culture - Preliminary Blood No Growth after 120 hours 03/03/20 12:17 Fungal Culture - Preliminary Knee - Left 03/03/20 12:18 Anaerobic Culture - Preliminary Knee - Left Assessment and Plan Assessment: Left knee effusion Left knee severe osteoarthritis Multiple medical comorbidities Plan: I discussed physical exam findings and lab results with my attending Dr. Vu. With current lab results and physical exam findings very low concern for septic arthropathy involving the left knee Continue conservative measures at this time If patients mental status continues to improve we could consider another attempt at an aspiration with possible steroid injection in the outpatient setting Will continue to follow during inpatient stay and await culture results Time with Patient: Less than 30
[2020-03-04] MEDS: THIAMINE 100 MG TAB PO SCH (12:47)
[2020-03-04] MEDS: FOLIC ACID 1 MG TAB PO SCH (12:47)
[2020-03-04] MEDS: MULTIVITAMINS, THERA 1 EACH TAB PO SCH (12:47)
--- NOTE | 2020-03-04 15:38 | PN ---
PROGRESS NOTE DATE OF SERVICE: 03/04/2020 REASON FOR FOLLOWUP: Aspiration pneumonia. INTERVAL HISTORY: The patient is currently afebrile. The patient is slightly more awake and is breathing comfortably but is unable to provide any history. No vomiting or diarrhea has been reported. PHYSICAL EXAMINATION: Blood pressure 159/80 with a pulse of 78, temperature 98.1. He is 98% on room air. General description is an elderly male lying in bed in no distress. RESPIRATORY SYSTEM: Unlabored breathing. Clear to auscultation anteriorly. HEART: S1, S2. Regular rate and rhythm. ABDOMEN: Soft. No tenderness. LABS: Sed rate of 106, CRP 15.1. Culture from the left knee is currently pending. DIAGNOSTIC IMPRESSION AND PLAN: 1. Patient with positive blood culture, likely skin contaminant. Repeat blood culture negative. 2. Patient with possible aspiration pneumonia, covered with Zosyn. Transition to oral antibiotic on discharge. 3. Left knee effusion. Did not significantly elevated white count. Cultures are pending. Continue supportive care. MMODL / IJN: [id number] /
[2020-03-04 16:56] LABS: Glucose,Whole Blood 111 mg/dL (75-99)
[2020-03-04 20:28] LABS: Glucose,Whole Blood 101 mg/dL (75-99)
[2020-03-04] MEDS: MIRTAZAPINE 15 MG TAB PO SCH (20:38)
[2020-03-04] MEDS: DOCUSATE 100 MG CAP PO SCH (20:39)
[2020-03-04] MEDS: TAMSULOSIN 0.4 MG CAP.ER.24H PO SCH (20:44)
[2020-03-04] MEDS: risperiDONE 2 MG TAB PO SCH (20:45)
[2020-03-05] MEDS: PIPERACILLIN-TAZOBACTAM 3.375 GM in SODIUM CHLORIDE 0.9% 100 ML IVPB SCH ×2 (02:20→09:40)
[2020-03-05] MEDS: SODIUM CHLORIDE 0.9% 1,000 ML IV SCH ×2 (04:28→19:27)
[2020-03-05 06:56] LABS: Glucose,Whole Blood 95 mg/dL (75-99)
[2020-03-05] MEDS: METOPROLOL TARTRATE 12.5 MG TAB PO SCH ×2 (09:40→19:36)
[2020-03-05] MEDS: MELOXICAM 7.5 MG TAB PO SCH (09:41)
[2020-03-05] MEDS: HEPARIN SODIUM,PORCINE 5,000 UNIT/ML 1 ML VIAL SQ SCH ×2 (09:41→19:36)
[2020-03-05] MEDS: CLOPIDOGREL 75 MG TAB PO SCH (09:41)
[2020-03-05] MEDS: ATORVASTATIN 20 MG TAB PO SCH (09:41)
[2020-03-05] MEDS: levETIRAcetam 500 MG TAB PO SCH ×2 (09:41→19:35)
[2020-03-05] MEDS: FAMOTIDINE 20 MG TAB PO SCH ×2 (09:41→19:35)
[2020-03-05] MEDS: risperiDONE 0.5 MG TAB PO SCH (09:41)
[2020-03-05] MEDS: DORZOLAMIDE-TIMOLOL 2.23%/0.68 10ML BTL BOTH EYES SCH ×2 (09:42→19:44)
[2020-03-05 11:16] LABS: Glucose,Whole Blood 115 mg/dL (75-99)
--- NOTE | 2020-03-05 11:16 | P.PN ---
Subjective From the records: The patient could not provide information so it was obtained from records and staff Mr. Jin is a 73-year-old gentleman admitted for mental status changes, thought to have bilateral pneumonia. Patient had a recent history of head trauma with hemorrhage that was treated symptomatically and the patient has bilateral subdural hygromas. Multiple consultants on board and following the patient closely. On 02/27/2020 - patient is resting in his bed comfortably. As per discussion with nursing staff he is slightly agitated and received Haldol to calm him down. Patient does not give any history. He opened his eyes on calling his name and went back to sleep. On reviewing his vitals 91, respiratory rate 18, blood pressure 127/71, saturating at 96% on room air and T-max of 97.6. On reviewing his labs from this morning patient has a white count of 8.3, hemoglobin 10.1, platelets 524. Sodium 1374.3, chloride 101, bicarbonate 24, the urine 8, creatinine 0.6. Patient had blood cultures positive for Staphylococcus shye alice. He is on antibiotics in the form of Zosyn and vancomycin. ID Dr. Day has been consulted yesterday. Subjective 03/01/2020 This is a pleasant 74 years old male with multiple medical problems was admitted because of confusion, today he is awake and he follows, however is confused to time place and person, is mildly agitated at times He is hemodynamically stable, blood pressure on the high side 172/84 Labs including CBC and BMP are unremarkable, liver enzymes are slightly elevated. Procalcitonin is slightly high at 0.10. Blood culture is positive for staph epidermidis, mostly contamination as per ID team. Repeat blood culture is negative so far. CT of the brain showing bilateral chronic subdural hematoma with no evidence of acute hemorrhage per radiologist. Patient is currently on Plavix, he is not on home aspirin currently. Repeat chest x-ray:. CABG. Patchy left basilar opacity remains. Improved aeration of the right lung base Orthopedic input is appreciated for left knee severe osteoarthritis and left knee effusion and they recommended medical management for now 03/02/2020 Patient still confused, however he follows commands clearly. He is oriented to state only as he knows he is in [place] however he does not know his in hospital, he thought 08/07/1988 and the president is open, patient is partially oriented to the surrounding, very similar to yesterday or slightly improved regarding his mentation. He does not seem in distress. Vitals are stable. L abs showed trending down liver enzymes. Liver ultrasound: An findings suggest echogenic periportal fat within the liver. Finding may be seen in the setting of hepatitis. Clinically correlate. Inability to visualize the bile duct or the gallbladder We will send for hepatitis panel Orthopedic team input is appreciated for his left knee swelling and they recommended continued conservative management, patient does not complain from pain or weakness in his left knee. No restriction of movement. His echocardiogram from 02/24 showing ejection fraction of 50-55%. Patient still treated for aspiration pneumonia and he is currently on Zosyn and normal saline at 50 mL/h. Neurologist also added Keppra for possible seizure. Infectious disease team on the case and their input is recommended follow-up evaluation Discontinue Bal catheter and check bladder scan 03/03/2020 Patient is still confused to time, place and person, however he is calm and appropriate with answering some questions, also when I told him he is in the current hospital he remembered this after 5-10 minutes and sent back to me. He follows commands. Last night in the evening patient was more agitated however Seroquel 50 mg helped him. He denies any specific complaints. No headache or weakness or numbness. However his left knee is still swollen, its more warm and patient has limited flexion. We are going to discuss with orthopedic team for reevaluation for possible aspiration. Neurologically input is appreciated and they cleared him for discharge He is hemodynamically stable. CBC is stable. Glucose is stable Patient pneumonia is improving, his breathing quietly. No coughing. No dyspnea or tachypnea. No chest pain. Also patient passed a swallow evaluation, and diet recommendation:Dysphagia Level 2 Ground diet/NT liquids, upright positioning with all PO intake, direct 1:1 assist, small bites/sips and NO STRAWS. Bal catheter was discontinued yesterday, he needed to be straight 4:00 this morning. We are going to check bladder scan Liver function tests and hepatitis panel are pending 03/04/2020 Patient mentation is significantly improved although he is still confused but his calm and pleasant and follow command, he has memory problems as well. He is on Keppra and neurology cleared him for discharge Patient remains on Zosyn for aspiration pneumonia which is going to switch to Augmentin upon discharge, patient passed a swallow evaluation as well Mildly elevated liver enzymes, liver ultrasound and hepatitis panel were negative Patient had urinary retention and Bal catheter has to be replaced back Patient also has left knee swelling status post aspiration about 11 mL yesterday from its supra patellar fluids. Results of the tap including the crystals and culture are still pending once his back vision will be considered for discharge The case with the social media assistant, patient does not qualify for inpatient rehab and his going for assisted living upon discharge 03/05/2020 Patient mental status has been improving gradually every day, today he is significantly better. His calm, pleasant, he denies conversations and shows understanding although he still confused about time, place and person. His left distal swollen, but less warm, he can bend it till the end before he starts f eeling pain .culture from left knee aspirate still pending We will try to take the Bal catheter out today. Patient is going to Asst. living at [facility]. Also patient qualifies for palliative care as an outpatient Objective - Vital Signs Vital signs: Vital Signs Temp 97.9 F 03/05/20 08:00 Pulse 92 03/05/20 08:00 Resp 16 03/05/20 08:00 BP 168/80 03/05/20 08:00 Pulse Ox 95 03/05/20 08:00 Intake & Output 03/04/20 03/05/20 03/05/20 18:59 06:59 18:59 Output Total 500 900 450 Balance -500 -900 -450 Output: Urine 500 900 450 Other: Voiding Method Indwelling Catheter Indwelling Catheter - Exam -GENERAL: The patient is awake and confused, he is partially oriented to place and person but not to time, he follows commands. Looks calm and slightly agitated at times, not in any acute distress. Well developed, well nourished. HEENT: Pupils are round and equally reacting to light. EOMI. No scleral icterus. No conjunctival pallor. Normocephalic, atraumatic. No pharyngeal erythema. No thyromegaly. CARDIOVASCULAR: S1 and S2 present. No murmurs, rubs, or gallops. PULMONARY: Chest is clear to auscultation, no wheezing or crackles. ABDOMEN: Soft, nontender, nondistended, normoactive bowel sounds. No palpable organomegaly. MUSCULOSKELETAL: No joint swelling or deformity. EXTREMITIES: No cyanosis, clubbing, or pedal edema. NEUROLOGICAL: Gross neurological examination did not reveal any focal deficits. SKIN: No rashes. no petechiae. - Labs CBC & Chem 7: 03/03/20 05:52 03/03/20 05:52 Labs: Abnormal Lab Results - Last 24 Hours (Table) 03/04/20 03/04/20 03/04/20 Range/Units 06:41 06:41 11:28 ESR 106 H (0-20) mm/Hr POC Glucose (mg/dL) 105 H (75-99) mg/dL C-Reactive Protein 15.1 H (0.0-0.8) mg/dL 03/04/20 03/04/20 Range/Units 16:47 20:26 ESR (0-20) mm/Hr POC Glucose (mg/dL) 111 H 101 H (75-99) mg/dL C-Reactive Protein (0.0-0.8) mg/dL Microbiology - Last 24 Hours (Table) 02/27/20 17:55 Blood Culture - Final Blood No Growth after 144 hours 03/03/20 12:17 Gram Stain - Preliminary Knee - Left Wound Culture - Preliminary Assessment and Plan Assessment: Possible bilateral hospital acquired pneumonia with sepsis present on admission. Improving left knee swelling. At this post left knee Acute metabolic encephalopathy multifactorial. Improving Chronic bilateral subdural hematoma Slightly elevated troponin, secondary to demand/supply mismatch, from sepsis. Patient denies chest pain Normocytic anemia Thrombocytosis Recent history of intracranial hemorrhage Atrial fibrillation chronic Coronary artery disease Diabetes mellitus Hypertension Hyperlipidemia Chronic debility No code Plan: This is a pleasant 74 years old male who presents with encephalopathy possible pneumonia. Possible improvement in his mentation and chest x-ray. Continue with Zosyn. His pneumonia is improving, he passed swallow evaluation, infectious disease recommend switching him to Augmentin on discharge. Neurology cleared him to go to rehab since improvement in his mentation. Pending culture from left knee aspirate Bal catheter was discontinued , bladder scan is pending. Labs and medication were reviewed.. Continue same treatment. Continue with symptomatic treatment. Resume home medication. Monitor lytes and vitals. DVT and GI prophylaxis. Further recommendationsas per clinical course of the patient DVT prophylaxis: Subcutaneous heparin GI Prophylaxis: Pepcid PT/patient is going to conference assistant living Long-term Prognosis is poor
[2020-03-05] MEDS: HYDROcodone/APAP 5-325MG 1 EACH TAB PO PRN (11:26)
[2020-03-05] MEDS: FOLIC ACID 1 MG TAB PO SCH (11:27)
[2020-03-05] MEDS: MULTIVITAMINS, THERA 1 EACH TAB PO SCH (11:27)
[2020-03-05] MEDS: THIAMINE 100 MG TAB PO SCH (11:27)
--- NOTE | 2020-03-05 14:35 | P.PN ---
Subjective Progress Note Date: 03/05/20 Principal diagnosis: Left knee effusion, left knee osteoarthritis, history of closed head injury other medical comorbidities Patient was reevaluated today on the medical/surgical floor. Patient's mental state continues to improve, he is more alert than he was yesterday. He still remains not alert to person, place or time. Patient complains of minimal discomfort in his left knee, he notices it mainly when he flexes past 100. There's been no acute changes to the left knee over the last few days. There continues to be a moderate size effusion. Objective - Vital Signs Vital signs: Vital Signs Temp 97.6 F 03/05/20 14:00 Pulse 85 03/05/20 14:00 Resp 16 03/05/20 14:00 BP 158/84 03/05/20 14:00 Pulse Ox 98 03/05/20 14:00 Intake & Output 03/04/20 03/05/20 03/05/20 18:59 06:59 18:59 Output Total 500 900 450 Balance -500 -900 -450 Output: Urine 500 900 450 Other: Voiding Method Indwelling Catheter Indwelling Catheter - Exam Left lower extremity: Obvious effusion is present over the knee, there is no erythema, there are no areas of skin breakdown or open lesions No increase in skin temperature compared to contra lateral leg Patient is actively flexing and extending his knee comfortable Passive range of motion he lacks no visible pain cues from patient No visible pain cues with palpation over the patella, medial and lateral joint line Calf is soft Dorsalis pedis pulse is 2+ - Labs CBC & Chem 7: 03/03/20 05:52 03/03/20 05:52 Labs: Abnormal Lab Results - Last 24 Hours (Table) 03/04/20 03/04/20 03/04/20 Range/Units 06:41 16:47 20:26 ESR 106 H (0-20) mm/Hr POC Glucose (mg/dL) 111 H 101 H (75-99) mg/dL 03/05/20 Range/Units 11:12 ESR (0-20) mm/Hr POC Glucose (mg/dL) 115 H (75-99) mg/dL Microbiology - Last 24 Hours (Table) 03/03/20 12:17 Gram Stain - Preliminary Knee - Left Wound Culture - Preliminary 03/03/20 12:18 Anaerobic Culture - Preliminary Knee - Left 02/27/20 17:55 Blood Culture - Final Blood No Growth after 144 hours Assessment and Plan Assessment: Left knee effusion Left knee severe osteoarthritis Multiple medical comorbidities Plan: Continues to present a very low concern for septic arthropathy Continue conservative measures at this time Discussed with patient today at bedside the possibility of an aspiration of the left knee, we may consider doing this while he is in the hospital to provide symptomatic relief. We will reassess tomorrow Will continue to follow during inpatient stay and await culture results Time with Patient: Less than 30
[2020-03-05 16:37] LABS: Glucose,Whole Blood 98 mg/dL (75-99)
--- NOTE | 2020-03-05 16:46 | PN ---
PROGRESS NOTE DATE OF SERVICE: 03/05/2020 REASON FOR FOLLOWUP: Possible aspiration pneumonia. INTERVAL HISTORY: The patient is currently afebrile. The patient is slightly more awake and alert. He is breathing comfortably on room air, though. He was unable to provide any reliable history. No vomiting or diarrhea. No other changes reported by nursing staff. PHYSICAL EXAMINATION: Blood pressure 120/84 with pulse of 85. Temperature is 97.6. He is 98% on room air. General description: The patient is an elderly male lying in bed in no distress. Respiratory system: Unlabored breathing with decreased intensity in the breath sounds. No wheeze. Heart S1, S2. Regular and rhythm. Abdomen soft, no tenderness. LABS: No new labs have been done today. Left knee culture remains to be negative. IMPRESSION/PLAN: 1. Patient with positive blood culture, Staph epi likely contaminant. Repeat blood culture negative. 2. Patient with possible aspiration pneumonia. Currently covered with Zosyn. To resume oral antibiotic on discharge. 3. Left knee pain. So far the fluid aspirate was not significantly positive and culture negative. 4. Will continue to monitor the patient closely. Continue supportive care. MMODL / IJN: [id number] /
[2020-03-05] MEDS: risperiDONE 2 MG TAB PO SCH (19:35)
[2020-03-05] MEDS: DOCUSATE 100 MG CAP PO SCH ×2 (19:35→19:43)
[2020-03-05] MEDS: MIRTAZAPINE 15 MG TAB PO SCH (19:35)
[2020-03-05] MEDS: TAMSULOSIN 0.4 MG CAP.ER.24H PO SCH (19:36)
[2020-03-05] MEDS: AMOXIC-POT CLAV 875-125MG 1 EACH TAB PO SCH (19:36)
[2020-03-05 20:14] LABS: Glucose,Whole Blood 110 mg/dL (75-99)
[2020-03-06 07:15] LABS: Glucose,Whole Blood 98 mg/dL (75-99)
[2020-03-06] MEDS: METOPROLOL TARTRATE 12.5 MG TAB PO SCH ×2 (08:17→19:33)
[2020-03-06] MEDS: ATORVASTATIN 20 MG TAB PO SCH (08:18)
[2020-03-06] MEDS: MELOXICAM 7.5 MG TAB PO SCH (08:18)
[2020-03-06] MEDS: HEPARIN SODIUM,PORCINE 5,000 UNIT/ML 1 ML VIAL SQ SCH ×2 (08:19→19:33)
[2020-03-06] MEDS: FAMOTIDINE 20 MG TAB PO SCH ×2 (08:19→19:33)
[2020-03-06] MEDS: CLOPIDOGREL 75 MG TAB PO SCH (08:19)
[2020-03-06] MEDS: AMOXIC-POT CLAV 875-125MG 1 EACH TAB PO SCH ×2 (08:21→19:34)
[2020-03-06] MEDS: risperiDONE 0.5 MG TAB PO SCH (08:21)
[2020-03-06] MEDS: levETIRAcetam 500 MG TAB PO SCH ×2 (08:21→19:34)
[2020-03-06] MEDS: THIAMINE 100 MG TAB PO SCH (08:26)
[2020-03-06] MEDS: MULTIVITAMINS, THERA 1 EACH TAB PO SCH (08:26)
[2020-03-06] MEDS: FOLIC ACID 1 MG TAB PO SCH (08:26)
[2020-03-06] MEDS: DORZOLAMIDE-TIMOLOL 2.23%/0.68 10ML BTL BOTH EYES SCH ×2 (08:28→19:34)
--- NOTE | 2020-03-06 11:16 | P.PN ---
Subjective From the records: The patient could not provide information so it was obtained from records and staff Mr. Jin is a 73-year-old gentleman admitted for mental status changes, thought to have bilateral pneumonia. Patient had a recent history of head trauma with hemorrhage that was treated symptomatically and the patient has bilateral subdural hygromas. Multiple consultants on board and following the patient closely. On 02/27/2020 - patient is resting in his bed comfortably. As per discussion with nursing staff he is slightly agitated and received Haldol to calm him down. Patient does not give any history. He opened his eyes on calling his name and went back to sleep. On reviewing his vitals 91, respiratory rate 18, blood pressure 127/71, saturating at 96% on room air and T-max of 97.6. On reviewing his labs from this morning patient has a white count of 8.3, hemoglobin 10.1, platelets 524. Sodium 1374.3, chloride 101, bicarbonate 24, the urine 8, creatinine 0.6. Patient had blood cultures positive for Staphylococcus shye alice. He is on antibiotics in the form of Zosyn and vancomycin. ID Dr. Day has been consulted yesterday. Subjective 03/01/2020 This is a pleasant 74 years old male with multiple medical problems was admitted because of confusion, today he is awake and he follows, however is confused to time place and person, is mildly agitated at times He is hemodynamically stable, blood pressure on the high side 172/84 Labs including CBC and BMP are unremarkable, liver enzymes are slightly elevated. Procalcitonin is slightly high at 0.10. Blood culture is positive for staph epidermidis, mostly contamination as per ID team. Repeat blood culture is negative so far. CT of the brain showing bilateral chronic subdural hematoma with no evidence of acute hemorrhage per radiologist. Patient is currently on Plavix, he is not on home aspirin currently. Repeat chest x-ray:. CABG. Patchy left basilar opacity remains. Improved aeration of the right lung base Orthopedic input is appreciated for left knee severe osteoarthritis and left knee effusion and they recommended medical management for now 03/02/2020 Patient still confused, however he follows commands clearly. He is oriented to state only as he knows he is in [place] however he does not know his in hospital, he thought 08/07/1988 and the president is open, patient is partially oriented to the surrounding, very similar to yesterday or slightly improved regarding his mentation. He does not seem in distress. Vitals are stable. L abs showed trending down liver enzymes. Liver ultrasound: An findings suggest echogenic periportal fat within the liver. Finding may be seen in the setting of hepatitis. Clinically correlate. Inability to visualize the bile duct or the gallbladder We will send for hepatitis panel Orthopedic team input is appreciated for his left knee swelling and they recommended continued conservative management, patient does not complain from pain or weakness in his left knee. No restriction of movement. His echocardiogram from 02/24 showing ejection fraction of 50-55%. Patient still treated for aspiration pneumonia and he is currently on Zosyn and normal saline at 50 mL/h. Neurologist also added Keppra for possible seizure. Infectious disease team on the case and their input is recommended follow-up evaluation Discontinue Bal catheter and check bladder scan 03/03/2020 Patient is still confused to time, place and person, however he is calm and appropriate with answering some questions, also when I told him he is in the current hospital he remembered this after 5-10 minutes and sent back to me. He follows commands. Last night in the evening patient was more agitated however Seroquel 50 mg helped him. He denies any specific complaints. No headache or weakness or numbness. However his left knee is still swollen, its more warm and patient has limited flexion. We are going to discuss with orthopedic team for reevaluation for possible aspiration. Neurologically input is appreciated and they cleared him for discharge He is hemodynamically stable. CBC is stable. Glucose is stable Patient pneumonia is improving, his breathing quietly. No coughing. No dyspnea or tachypnea. No chest pain. Also patient passed a swallow evaluation, and diet recommendation:Dysphagia Level 2 Ground diet/NT liquids, upright positioning with all PO intake, direct 1:1 assist, small bites/sips and NO STRAWS. Bal catheter was discontinued yesterday, he needed to be straight 4:00 this morning. We are going to check bladder scan Liver function tests and hepatitis panel are pending 03/04/2020 Patient mentation is significantly improved although he is still confused but his calm and pleasant and follow command, he has memory problems as well. He is on Keppra and neurology cleared him for discharge Patient remains on Zosyn for aspiration pneumonia which is going to switch to Augmentin upon discharge, patient passed a swallow evaluation as well Mildly elevated liver enzymes, liver ultrasound and hepatitis panel were negative Patient had urinary retention and Bal catheter has to be replaced back Patient also has left knee swelling status post aspiration about 11 mL yesterday from its supra patellar fluids. Results of the tap including the crystals and culture are still pending once his back vision will be considered for discharge The case with the criminal justice social worker, patient does not qualify for inpatient rehab and his going for assisted living upon discharge 03/05/2020 Patient mental status has been improving gradually every day, today he is significantly better. His calm, pleasant, he denies conversations and shows understanding although he still confused about time, place and person. His left distal swollen, but less warm, he can bend it till the end before he starts f eeling pain .culture from left knee aspirate still pending We will try to take the Bal catheter out today. Patient is going to Asst. living at [facility]. Also patient qualifies for palliative care as an outpatient 03/06/2020 Patient mental status is a stable, he is confused but answers some questions appropriately, follows command His left knee swelling is stable but less warm today. Left knee aspirate culture is still pending Patient Bal catheter has to be replaced back yesterday for urinary to tension for the second time. Patient will need to be discharged on Bal catheter Patient will be [facility] to [facility] as per my discussion with criminal justice social worker/case management Objective - Vital Signs Vital signs: Vital Signs Temp 98.0 F 03/06/20 07:43 Pulse 105 H 03/06/20 07:43 Resp 20 03/06/20 07:43 BP 166/90 03/06/20 07:43 Pulse Ox 96 03/06/20 07:43 Intake & Output 03/05/20 03/06/20 03/06/20 18:59 06:59 18:59 Intake Total 500 Output Total 450 800 Balance 50 -800 Intake: Intake, IV Titration 350 Amount Piperacillin-Tazobactam 3 100 .375 gm In Sodium Chloride 0.9% 100 ml @ 25 mls/hr IVPB Q8H [facility] Rx#: [id number] Sodium Chloride 0.9% 1, 250 000 ml @ 50 mls/hr IV . Q20H [facility] Rx#:[id number] Oral 150 Output: Urine 450 800 Uretheral (Bal) 300 Other: Voiding Method Indwelling Catheter Indwelling Catheter # Bowel Movements 1 - Exam -GENERAL: The patient is awake and confused, he is partially oriented to place and person but not to time, he follows commands. Looks calm and slightly agitated at times, not in any acute distress. Well developed, well nourished. HEENT: Pupils are round and equally reacting to light. EOMI. No scleral icterus. No conjunctival pallor. Normocephalic, atraumatic. No pharyngeal erythema. No thyromegaly. CARDIOVASCULAR: S1 and S2 present. No murmurs, rubs, or gallops. PULMONARY: Chest is clear to auscultation, no wheezing or crackles. ABDOMEN: Soft, nontender, nondistended, normoactive bowel sounds. No palpable organomegaly. MUSCULOSKELETAL: No joint swelling or deformity. EXTREMITIES: No cyanosis, clubbing, or pedal edema. NEUROLOGICAL: Gross neurological examination did not reveal any focal deficits. SKIN: No rashes. no petechiae. - Labs CBC & Chem 7: 03/03/20 05:52 03/03/20 05:52 Labs: Abnormal Lab Results - Last 24 Hours (Table) 03/05/20 03/05/20 Range/Units 11:12 20:13 POC Glucose (mg/dL) 115 H 110 H (75-99) mg/dL Microbiology - Last 24 Hours (Table) 03/03/20 12:17 Gram Stain - Final Knee - Left Wound Culture - Final 03/03/20 12:18 Anaerobic Culture - Preliminary Knee - Left Assessment and Plan Assessment: Possible bilateral hospital acquired pneumonia with sepsis present on admission. Improving left knee swelling. At this post left knee Acute metabolic encephalopathy multifactorial. Improving Chronic bilateral subdural hematoma Slightly elevated troponin, secondary to demand/supply mismatch, from sepsis. Patient denies chest pain Normocytic anemia Thrombocytosis Recent history of intracranial hemorrhage Atrial fibrillation chronic Coronary artery disease Diabetes mellitus Hypertension Hyperlipidemia Chronic debility No code Plan: This is a pleasant 74 years old male who presents with encephalopathy possible pneumonia. Possible improvement in his mentation and chest x-ray. Continue with Zosyn. His pneumonia is improving, he passed swallow evaluation, infectious disease recommend switching him to Augmentin on discharge. Neurology cleared him to go to rehab since improvement in his mentation. Pending culture from left knee aspirate Bal catheter was discontinued , bladder scan is pending. Labs and medication were reviewed.. Continue same treatment. Continue with symptomatic treatment. Resume home medication. Monitor lytes and vitals. DVT and GI prophylaxis. Further recommendationsas per clinical course of the patient DVT prophylaxis: Subcutaneous heparin GI Prophylaxis: Pepcid PT/patient is going to [facility] Long-term Prognosis is poor
[2020-03-06 11:38] LABS: Glucose,Whole Blood 102 mg/dL (75-99)
--- NOTE | 2020-03-06 12:38 | P.PN ---
Subjective Progress Note Date: 03/06/20 Principal diagnosis: Left knee effusion, left knee osteoarthritis, history of closed head injury other medical comorbidities Patient was reevaluated today on the medical/surgical floor. Patient's mental state continues to improve, he is more alert than he was yesterday. He still remains not alert to person, place or time. Patient complains of minimal discomfort in his left knee, he notices it mainly when he flexes past 100. There's been no acute changes to the left knee over the last few days. There continues to be a moderate size effusion. Objective - Vital Signs Vital signs: Vital Signs Temp 98.0 F 03/06/20 07:43 Pulse 105 H 03/06/20 07:43 Resp 20 03/06/20 07:43 BP 166/90 03/06/20 07:43 Pulse Ox 96 03/06/20 07:43 Intake & Output 03/05/20 03/06/20 03/06/20 18:59 06:59 18:59 Intake Total 500 Output Total 450 800 Balance 50 -800 Intake: Intake, IV Titration 350 Amount Piperacillin-Tazobactam 3 100 .375 gm In Sodium Chloride 0.9% 100 ml @ 25 mls/hr IVPB Q8H [facility] Rx#: [id number] Sodium Chloride 0.9% 1, 250 000 ml @ 50 mls/hr IV . Q20H [facility] Rx#:[id number] Oral 150 Output: Urine 450 800 Uretheral (Bal) 300 Other: Voiding Method Indwelling Catheter Indwelling Catheter # Bowel Movements 1 - Exam Left lower extremity: Obvious effusion is present over the knee, there is no erythema, there are no ar eas of skin breakdown or open lesions No increase in skin temperature compared to contra lateral leg Patient is actively flexing and extending his knee comfortable Passive range of motion he lacks no visible pain cues from patient No visible pain cues with palpation over the patella, medial and lateral joint line Calf is soft Dorsalis pedis pulse is 2+ - Labs CBC & Chem 7: 03/03/20 05:52 03/03/20 05:52 Labs: Abnormal Lab Results - Last 24 Hours (Table) 03/05/20 03/06/20 Range/Units 20:13 11:37 POC Glucose (mg/dL) 110 H 102 H (75-99) mg/dL Microbiology - Last 24 Hours (Table) 03/03/20 12:17 Gram Stain - Final Knee - Left Wound Culture - Final 03/03/20 12:18 Anaerobic Culture - Preliminary Knee - Left Assessment and Plan Assessment: Left knee effusion Left knee severe osteoarthritis Multiple medical comorbidities Plan: Continues to present a very low concern for septic arthropathy. Cultures remain negative at this time. Continue conservative measures at this time With the patient's current medical state and mental status, we'll hold off on aspiration at this time Will continue to follow during inpatient stay and await culture results
[2020-03-06 16:52] LABS: Glucose,Whole Blood 101 mg/dL (75-99)
[2020-03-06] MEDS: MIRTAZAPINE 15 MG TAB PO SCH (19:33)
[2020-03-06] MEDS: DOCUSATE 100 MG CAP PO SCH (19:33)
[2020-03-06] MEDS: TAMSULOSIN 0.4 MG CAP.ER.24H PO SCH (19:33)
[2020-03-06] MEDS: risperiDONE 2 MG TAB PO SCH (19:34)
[2020-03-06 19:57] LABS: Glucose,Whole Blood 144 mg/dL (75-99)
--- NOTE | 2020-03-06 21:50 | PN ---
PROGRESS NOTE DATE OF SERVICE: 03/06/2020 REASON FOR FOLLOWUP: Aspiration pneumonia. INTERVAL HISTORY: Patient is currently afebrile. Patient remains to be pleasantly confused. Hemodynamically he is stable. No abdominal pain. No diarrhea or any other changes reported by the nursing staff. Patient himself is unable to provide any history. EXAMINATION: Blood pressure 126/73 with a pulse of 101. Temperature 98.1. He is 95% on room air. General description is an elderly male lying in bed in no distress. Respiratory system: Unlabored breathing with decreased breath sounds in the base, with no wheeze. Heart S1, S2. Regular rate and rhythm. Abdomen soft, no tenderness. Left knee area with no swelling. No redness. LABS: Left knee culture so far negative. DIAGNOSTIC IMPRESSION/PLAN: 1. Patient with positive blood culture, likely skin contamination. Repeat blood culture negative. 2. The patient with possible component of aspiration pneumonia. The patient is currently covered with oral Augmentin. To continue for a week. 3. Left knee pain status post aspirate. Those cultures have been negative. Clinically not behaving as septic arthritis. MMODL / IJN: [id number] /
--- NOTE | 2020-03-07 00:48 | P.PN ---
Subjective Progress Note Date: 03/03/20 Patient was seen for a follow-up. Initial consultation performed by Dr. Carlos Escobar. Please refer to his note for details. Patient initially seen for confusion, chest pain decreased oral intake. Patient has history of intracranial bleed and was admitted to [facility] and the bleed was due to bull attack and stamping on his head, and he was hospitalized for 30 days. Patient was transferred to [facility]. He had multiple falls at [facility]. Patient's encephalopathy was likely due to toxic metabolic as well as from underlying infection. Patient more alert and awake, still slightly confused. Patient however denies headache. Patient had computed tomography scan of the head 03/01/2020, which revealed bilateral prominent CSF fluid collections appears to be of low attenuation on today's exam and most typical of chronic subdural hematoma with no evidence of acute hemorrhage. Degenerative and nonspecific white matter changes most typical of remote white matter ischemia. No midline shift or mass effect. Objective - Vital Signs Vital signs: Vital Signs Temp 98.0 F 03/03/20 14:00 Pulse 86 03/03/20 14:00 Resp 18 03/03/20 14:00 BP 145/78 03/03/20 14:00 Pulse Ox 97 03/03/20 14:00 Intake & Output 03/02/20 03/03/20 03/03/20 18:59 06:59 18:59 Intake Total 440 400 100 Output Total 475 350 Balance -35 400 -250 Weight 81.647 kg Intake: Intake, IV Titration 100 Amount Piperacillin-Tazobactam 3 100 .375 gm In Sodium Chloride 0.9% 100 ml @ 25 mls/hr IVPB Q8H [facility] Rx#: [id number] Oral 440 400 Output: Urine 475 350 Other: Voiding Method Indwelling Catheter - Exam Patient is laying in the bed, comfortable, more alert and awake. Patient able to tell me his name "Jorge", that he is 74 years of age in that he lives in the [facility]. Patient has some slurring, often mumbles and unintelligible speech. Patient did tell me that he fell was brought into the hospital. Patient's pupils are round and reacting to light. Visual swanson could not be tested. Face appears symmetric. Patient's strength appears normal in the arms, but did not cooperate for the legs. Reflexes are diminished and plantars are flat bilaterally. Tone is equal. - Labs CBC & Chem 7: 03/03/20 05:52 03/03/20 05:52 Labs: Abnormal Lab Results - Last 24 Hours (Table) 03/02/20 03/03/20 03/03/20 Range/Units 20:47 05:52 05:52 RBC 4.05 L (4.30-5.90) m/uL Hgb 10.9 L (13.0-17.5) gm/dL Hct 34.2 L (39.0-53.0) % Plt Count 599 H (150-450) k/uL Anion Gap 14.00 H (4.00-12.00) mmol/L POC Glucose (mg/dL) 127 H (75-99) mg/dL AST 40 H (14-35) U/L ALT 74 H (10-49) U/L Alkaline Phosphatase 144 H (41-126) U/L Albumin 3.70 L (3.80-4.90) g/dL Albumin/Globulin Ratio 1.42 L (1.60-3.17) g/dL 03/03/20 03/03/20 03/03/20 Range/Units 07:16 11:14 17:06 RBC (4.30-5.90) m/uL Hgb (13.0-17.5) gm/dL Hct (39.0-53.0) % Plt Count (150-450) k/uL Anion Gap (4.00-12.00) mmol/L POC Glucose (mg/dL) 110 H 112 H 108 H (75-99) mg/dL AST (14-35) U/L ALT (10-49) U/L Alkaline Phosphatase (41-126) U/L Albumin (3.80-4.90) g/dL Albumin/Globulin Ratio (1.60-3.17) g/dL Microbiology - Last 24 Hours (Table) 02/27/20 17:55 Blood Culture - Preliminary Blood No Growth after 96 hours Assessment and Plan Assessment: * Encephalopathy, likely multifactorial, toxic metabolic encephalopathy. Improved. * Pneumonia * Traumatic right frontal subdural hematoma, improving. * Atrial fibrillation * Anemia hemoglobin 10.5 * Elevated LFTs * Coronary artery disease status post stenting and bypass surgery. * Status post aortic valve replacement * Diabetes * Hypertension * Hyperlipidemia * Glaucoma Plan: * Patient appears better today. He was much better oriented, participating in the exam. Encephalopathy is slightly improved. * Repeat computed tomography scan of head 03/01/2020 revealed bilateral prominent CSF fluid collection appears to be of low attenuation on today's exam and most typical of chronic subdural hematoma with no evidence of acute hemorrhage. Degenerative and nonspecific white matter changes most typical of remote white matter ischemia. * Patient's B12 733, RBC folate is normal. TFTs normal. Hemoglobin A1c 6.1 on 07/11/2018. * Neurologically clear for transfer to rehab. May follow up with a local neurologist outpatient.
[2020-03-07 02:20] VITALS: RESP 20
[2020-03-07] MEDS: CLOPIDOGREL 75 MG TAB PO SCH ×2 (06:07→06:16)
[2020-03-07] MEDS: METOPROLOL TARTRATE 12.5 MG TAB PO SCH ×2 (06:08→06:17)
[2020-03-07] MEDS: MELOXICAM 7.5 MG TAB PO SCH ×2 (06:08→06:16)
[2020-03-07] MEDS: ATORVASTATIN 20 MG TAB PO SCH ×2 (06:08→06:16)
[2020-03-07] MEDS: DORZOLAMIDE-TIMOLOL 2.23%/0.68 10ML BTL BOTH EYES SCH (06:08)
[2020-03-07 06:55] LABS: Glucose,Whole Blood 164 mg/dL (75-99)
[2020-03-07 07:40] VITALS: BP 123/75; PULSE 83; TEMP 98.8
[2020-03-07] MEDS: AMOXIC-POT CLAV 875-125MG 1 EACH TAB PO SCH (08:50)
[2020-03-07] MEDS: levETIRAcetam 500 MG TAB PO SCH (08:50)
[2020-03-07] MEDS: FAMOTIDINE 20 MG TAB PO SCH (08:51)
[2020-03-07] MEDS: risperiDONE 0.5 MG TAB PO SCH (08:51)
[2020-03-07] MEDS: THIAMINE 100 MG TAB PO SCH (08:55)
[2020-03-07] MEDS: FOLIC ACID 1 MG TAB PO SCH (08:55)
[2020-03-07] MEDS: MULTIVITAMINS, THERA 1 EACH TAB PO SCH (08:55)
[2020-03-07] MEDS: HEPARIN SODIUM,PORCINE 5,000 UNIT/ML 1 ML VIAL SQ SCH (08:57)
--- NOTE | 2020-03-07 10:57 | P.PN ---
Subjective Progress Note Date: 03/07/20 Principal diagnosis: Left knee effusion, left knee osteoarthritis, history of closed head injury other medical comorbidities Patient was reevaluated today on the medical/surgical floor. He still remains not alert to person, place or time. There's been no acute changes to the left knee over the last few days. There continues to be a moderate size effusion. Objective - Vital Signs Vital signs: Vital Signs Temp 98.8 F 03/07/20 07:39 Pulse 83 03/07/20 08:30 Resp 20 03/07/20 08:30 BP 123/75 03/07/20 07:39 Pulse Ox 97 03/07/20 07:39 Intake & Output 03/06/20 03/07/20 03/07/20 18:59 06:59 18:59 Intake Total 50 Output Total 650 650 Balance 50 -650 -650 Intake: Oral 50 Output: Urine 650 650 Other: Voiding Method Indwelling Catheter Indwelling Catheter Indwelling Catheter # Voids 550 # Bowel Movements 1 1 - Exam Left lower extremity: Obvious effusion is present over the knee, there is no erythema, there are no areas of skin breakdown or open lesions No increase in skin temperature compared to contra lateral leg Patient is actively flexing and extending his knee comfortable Passive range of motion he lacks no visible pain cues from patient No visible pain cues with palpation over the patella, medial and lateral joint line Calf is soft Dorsalis pedis pulse is 2+ - Labs CBC & Chem 7: 03/03/20 05:52 03/03/20 05:52 Labs: Abnormal Lab Results - Last 24 Hours (Table) 03/06/20 03/06/20 03/06/20 Range/Units 11:37 16:51 19:56 POC Glucose (mg/dL) 102 H 101 H 144 H (75-99) mg/dL 03/07/20 Range/Units 06:51 POC Glucose (mg/dL) 164 H (75-99) mg/dL Microbiology - Last 24 Hours (Table) 03/03/20 12:17 Gram Stain - Final Knee - Left Wound Culture - Final Assessment and Plan Assessment: Left knee effusion Left knee severe osteoarthritis Multiple medical comorbidities Plan: Final cultures are negative for any growth from the left knee fluid Continue conservative measures at this time Patient is stable via the orthopedic standpoint for discharge Time with Patient: Less than 30
[2020-03-07 11:57] LABS: Glucose,Whole Blood 97 mg/dL (75-99)
--- NOTE | 2020-03-07 14:09 | P.PN ---
Subjective Progress Note Date: 03/07/20 HISTORY OF PRESENT ILLNESS This is a 74-year-old male patient treated for aspiration pneumonia. Patient is pleasantly confused. PHYSICAL EXAMINATION Gen: This is a 74-year-old male. He is resting bed and appears to be comfortable and in no acute distress. HEENT: Head is atraumatic, normocephalic. Pupils equal, round. Sclerae is anicteric. NECK: Supple. No JVD. No lymphadenopathy. LUNGS: Decreased breath sounds at the bases. No wheezes or rhonchi. No intercostal retractions. HEART: Regular rate and rhythm. No murmur. ABDOMEN: Soft. Bowel sounds are present. No masses. No tenderness. EXTREMITIES: No pedal edema. No calf tenderness. NEUROLOGICAL: Patient is awake, alert and oriented to person. ASSESSMENT Positive blood culture most likely contamination Possible aspiration pneumonia Left knee pain status post aspiration, no growth after 48 hours on aspirate cult ure PLAN Patient is cleared by infectious disease for discharge Continue Augmentin for 5 more days. The above dictated assessment and findings were discussed with Dr. Day. The impression and plan of care have been directed as dictated. Jammie Guardado nurse practitioner acting as scribe for Dr. Day. Objective - Vital Signs Vital signs: Vital Signs Temp 98.8 F 03/07/20 07:39 Pulse 83 03/07/20 08:30 Resp 20 03/07/20 08:30 BP 123/75 03/07/20 07:39 Pulse Ox 97 03/07/20 07:39 Intake & Output 03/06/20 03/07/20 03/07/20 18:59 06:59 18:59 Intake Total 50 Output Total 650 650 Balance 50 -650 -650 Intake: Oral 50 Output: Urine 650 650 Other: Voiding Method Indwelling Catheter Indwelling Catheter Indwelling Catheter # Voids 550 # Bowel Movements 1 1 - Labs CBC & Chem 7: 03/03/20 05:52 03/03/20 05:52 Labs: Abnormal Lab Results - Last 24 Hours (Table) 03/06/20 03/06/20 03/06/20 Range/Units 11:37 16:51 19:56 POC Glucose (mg/dL) 102 H 101 H 144 H (75-99) mg/dL 03/07/20 Range/Units 06:51 POC Glucose (mg/dL) 164 H (75-99) mg/dL Microbiology - Last 24 Hours (Table) 03/03/20 12:17 Gram Stain - Final Knee - Left Wound Culture - Final
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
== END 2020-03-07 16:25 | disposition home health service (06) | DRG 871 ==
LOC: EC 12:33 → 4SSUR 17:24
PROVIDERS: ADMIT Hospitalist; ATTEND Hospitalist
DX: A41.9 Sepsis, unspecified organism (principal); G92 Toxic encephalopathy; J69.0 Pneumonitis due to inhalation of food and vomit; G96.08 Other cranial cerebrospinal fluid leak; E87.1 Hypo-osmolality and hyponatremia; F23 Brief psychotic disorder; I48.20 Chronic atrial fibrillation, unspecified; Z87.820 Personal history of traumatic brain injury; D64.9 Anemia, unspecified; E11.9 Type 2 diabetes mellitus without complications; E78.5 Hyperlipidemia, unspecified; E86.0 Dehydration; F32.9 Major depressive disorder, single episode, unspecified; F41.9 Anxiety disorder, unspecified; H40.9 Unspecified glaucoma; I11.9 Hypertensive heart disease without heart failure; I25.10 Atherosclerotic heart disease of native coronary artery without angina pectoris; M17.12 Unilateral primary osteoarthritis, left knee; R13.10 Dysphagia, unspecified; R62.7 Adult failure to thrive; Y95 Nosocomial condition; Z20.822 Contact with and (suspected) exposure to COVID-19; Z51.5 Encounter for palliative care; Z66 Do not resuscitate; Z74.01 Bed confinement status; Z79.02 Long term (current) use of antithrombotics/antiplatelets; Z79.1 Long term (current) use of non-steroidal anti-inflammatories (NSAID); Z79.82 Long term (current) use of aspirin; Z79.899 Other long term (current) drug therapy; Z80.6 Family history of leukemia; Z85.46 Personal history of malignant neoplasm of prostate; M25.462 Effusion, left knee; Z87.891 Personal history of nicotine dependence; Z95.1 Presence of aortocoronary bypass graft; Z95.2 Presence of prosthetic heart valve; Z95.5 Presence of coronary angioplasty implant and graft; R45.1 Restlessness and agitation; Z88.1 Allergy status to other antibiotic agents; R53.81 Other malaise; Z90.49 Acquired absence of other specified parts of digestive tract; R79.89 Other specified abnormal findings of blood chemistry; D47.3 Essential (hemorrhagic) thrombocythemia
CPT/HCPCS: 36415; 51702; 70450; 71045; 71046; 71275; 76705; 80048; 80053; 80074; 80076; 80202; 81001; 82550; 82565; 82607; 82747; 83690; 83735; 83880; 84145; 84443; 84484; 85025; 85379; 85610; 85652; 85730; 86140; 87040; 87070; 87075; 87077; 87086; 87102; 87186; 87205; 87635; 89050; 89060; 93005; 93306; 96365; 96368; 96375; 99285

== ENCOUNTER 2020-03-12 11:13 | Emergency (ER) | payer MEDICARE, BC ==
[2020-03-12 11:24] VITALS: RESP 18
--- NOTE | 2020-03-12 11:54 | XR ---
EXAMINATION TYPE: XR chest 1V portable DATE OF EXAM: 03/12/2020 COMPARISON: 03/01/2020 INDICATION: Fever TECHNIQUE: Single frontal view of the chest is obtained. FINDINGS: The heart size is normal. The pulmonary vasculature is normal. Some mild blunting the right costophrenic angle may be present. Correlate for atelectasis or small ef fusion sternotomy wires are in the midline. Suspicious consolidations are not evident. IMPRESSION: 1. There may be some mild atelectasis or effusion at the right costophrenic angle. 2. Lung swanson otherwise appear unremarkable.
[2020-03-12 12:11] LABS: Basophils # (A) 0.1 k/uL (0-0.2); Basophils % (A) 1 %; Eosinophils # (A) 0.3 k/uL (0-0.7); Eosinophils % (A) 4 %; HCT 36.7 % (39.0-53.0); HGB 11.7 gm/dL (13.0-17.5); Hypochromasia Moderate; Lymphocytes # (A) 1.2 k/uL (1.0-4.8); Lymphocytes % (A) 15 %; MCH 26.1 pg (25.0-35.0); MCV 81.6 fL (80.0-100.0); Mean Platelet Volume 6.3; Monocytes # (A) 0.5 k/uL (0-1.0); Monocytes % (A) 6 %; Neutrophils # (A) 5.9 k/uL (1.3-7.7); Neutrophils % (A) 74 %; Platelet Count 500 k/uL (150-450); RBC 4.49 m/uL (4.30-5.90); RDW 15.1 % (11.5-15.5)
[2020-03-12 12:22] LABS: INR 1.1 (<1.2); Partial Thromboplastin Time 22.8 sec (22.0-30.0); Prothrombin Time 11.5 sec (9.0-12.0)
[2020-03-12 12:26] LABS: ALT 60 U/L (4-49); AST 40 U/L (17-59); African American GFR (CKD) >90 (>60 ml/min/1.73 sqM); Albumin 3.5 g/dL (3.5-5.0); Alkaline Phosphatase 124 U/L (38-126); Anion Gap 10 mmol/L; Blood Urea Nitrogen 19 mg/dL (9-20); Calcium 9.8 mg/dL (8.4-10.2); Carbon Dioxide 23 mmol/L (22-30); Chloride 108 mmol/L (98-107); Glucose 93 mg/dL (74-99); Non-African American GFR(CKD) 89 (>60 ml/min/1.73 sqM); Potassium 4.3 mmol/L (3.5-5.1); Sodium 141 mmol/L (137-145); Total Bilirubin 0.6 mg/dL (0.2-1.3); Total Protein 7.3 g/dL (6.3-8.2)
--- NOTE | 2020-03-12 12:45 | ED ---
Altered Mental Status HPI - General Chief Complaint: Altered Mental Status Stated Complaint: Increased Lethargy Time Seen by Provider: 03/12/20 11:38 Source: EMS Mode of arrival: EMS Limitations: no limitations, altered mental status - History of Present Illness Initial Comments: Naif is a pleasant 74-year-old gentleman with a history of TBI, patient is brought to the ER today by ambulance from nursing facility for evaluation of altered mental status and fever. History is provided by EMS and supplemented by at bedside. Patient has apparently become more somnolent over the past couple days staff noted today that he had a fever. Patient does have an indwelling Bal catheter and is concerned the urine looks dark and has sediment. also concerned the patient appears to have some old bruising on the right side of his head though she wasn't aware of any falls or injury. - Related Data Home Medications Medication Instructions Recorded Confirmed Acetaminophen [Tylenol] 1,000 mg PO Q4-6H PRN 02/24/20 02/24/20 Atorvastatin Calcium [Lipitor] 20 mg PO DAILY@69902/24/20 02/24/20 Celecoxib [CeleBREX] 200 mg PO DAILY@69902/24/20 02/24/20 Clopidogrel [Plavix] 75 mg PO DAILY@69902/24/20 02/24/20 Docusate [Colace] 200 mg PO HS@199902/24/20 02/24/20 Dorzolamide-Timol 2.23%/0.68% 1 drop BOTH EYES BID@0700,1900 02/24/20 02/24/20 [Cosopt] Glucosam/Segundo-Msm1/C/Anderson/Bosw 1 tab PO DAILY@69902/24/20 02/24/20 [Glucosamine-Chondroitin Tablet] Previous Rx's Medication Instructions Recorded Metoprolol Tartrate [Lopressor] 12.5 mg PO BID@00,1899 30 Days 02/05/20 #60 tab Tamsulosin HCl [Flomax] 0.4 mg PO HS@1999 30 Days #30 cap 02/05/20 Amoxic-Pot Clav 875-125Mg 1 each PO Q12HR 7 Days #14 tab 03/07/20 [Augmentin 875-125] Amoxicillin/Potassium Clav 1 each PO Q12HR #10 tab 03/07/20 [Augmentin 875-125 Tablet] Folic Acid 1 mg PO DAILY@1200 #30 tab 03/07/20 Mirtazapine [Remeron] 7.5 mg PO HS #30 tab 03/07/20 Multivitamins, Thera [Multivitamin 1 each PO DAILY@1200 #30 tab 03/07/20 (formulary)] QUEtiapine [SEROquel] 50 mg PO DAILY PRN #10 tab 03/07/20 Thiamine [Vitamin B-1] 100 mg PO DAILY@1200 #30 tab 03/07/20 levETIRAcetam [Keppra] 500 mg PO Q12HR #60 tab 03/07/20 risperiDONE [RisperDAL] 0.5 mg PO DAILY #30 tab 03/07/20 risperiDONE [RisperDAL] 2 mg PO HS #30 tab 03/07/20 Sulfamethox-Tmp 800-160Mg [Bactrim 1 tab PO Q12HR #14 tab 03/12/20 DS 800-160 mg] Allergies Allergy/AdvReac Type Severity Reaction Status Date / Time aloe Allergy Rash/Hives Verified 03/12/20 11:45 bacitracin Allergy Rash/Hives Verified 03/12/20 11:45 [From Neosporin ([id number])] neomycin Allergy Rash/Hives Verified 03/12/20 11:45 [From Neosporin ([id number])] polymyxin B Allergy Rash/Hives Verified 03/12/20 11:45 [From Neosporin ([id number])] Review of Systems ROS Statement: Those systems with pertinent positive or pertinent negative responses have been documented in the HPI. ROS Other: All systems not noted in ROS Statement are negative. Past Medical History Past Medical History: Atrial Fibrillation, Coronary Artery Disease (CAD), Chest Pain / Angina, Diabetes Mellitus, Eye Disorder, Hyperlipidemia, Hypertension, Osteoarthritis (OA), Prostate Disorder Additional Past Medical History / Comment(s): On the artery disease with previous bypass surgery in 2003, previous aortic valve replacement, previous coronary intervention and stenting as mentioned above in the HPI, bilateral glaucoma, any stones, peripheral neuropathy. 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 History of Any Multi-Drug Resistant Organisms: None Reported Past Surgical History: Appendectomy, Cardiac Valve Replacement, Cholecystectomy, Coronary Bypass/CABG, Heart Catheterization Additional Past Surgical History / Comment(s): aortic valve replaced 2003, CABG double bypass ; drug-eluting stent to the proximal LAD and diagonal, and a drug- eluting stent placement to his right coronary artery in June of 2018 completed at [facility]. TAVR 07/15/2018 with a 26 mm core valve completed at [facility]. Past Anesthesia/Blood Transfusion Reactions: No Reported Reaction Additional Past Anesthesia/Blood Transfusion Reaction / Comment(s): no problems with anesthesia, unsure if patient has had blood transfusion in the past. Date of Last Stent Placement:: 07/15/2018 Past Psychological History: Depression Smoking Status: Never smoker Past Alcohol Use History: Occasional Past Drug Use History: None Reported - Past Family History Father Family Medical History: Cancer Brother(s) Family Medical History: Cancer General Exam - General Exam Comments Initial Comments: Physical Exam GENERAL: Chronic ill-appearing elderly gentleman HENT: Some old bruising to the right cheek and right temporal scalp EYES: PERRL, EOMI PULMONARY: Unlabored respirations. CARDIOVASCULAR: RRR Warm and well perfused extremities ABDOMEN: Non-distended Nontender to palpation SKIN: No rash : Bal catheter in place Mild testicular edema NEUROLOGIC: Sleeping, wakes to voice, states name, does not recognize at bedside Oriented to self only MUSCULOSKELETAL: No apparent injury PSYCHIATRIC: Unable to assess due to altered Limitations: no limitations, altered mental status Course Vital Signs 03/12/20 03/12/20 03/12/20 11:18 12:00 12:51 Temperature 98.4 F Pulse Rate 97 87 88 Respiratory 18 18 18 Rate Blood Pressure 124/84 109/77 115/82 O2 Sat by Pulse 96 97 97 Oximetry 03/12/20 13:26 Temperature 98.4 F Pulse Rate 87 Respiratory 18 Rate Blood Pressure 114/74 O2 Sat by Pulse 96 Oximetry Medical Decision Making - Medical Decision Making Patient was seen and evaluated, history was obtained from EMS and at bedside as the patient has TBI and is currently somewhat altered Labs and imaging were ordered Urinalysis is consistent with a urinary tract infection patient was treated with Rocephin and will be discharged home on Bactrim Patient with no significant tachycardia or fever here in the emergency department, comfortable with plan for discharge back to retirement with oral antibiotics - Lab Data Result diagrams: 03/12/20 11:59 03/12/20 11:59 Lab Results 03/12/20 03/12/20 03/12/20 Range/Units 11:59 11:59 11:59 WBC 8.0 (3.8-10.6) k/uL RBC 4.49 (4.30-5.90) m/uL Hgb 11.7 L (13.0-17.5) gm/dL Hct 36.7 L (39.0-53.0) % MCV 81.6 (80.0-100.0) fL MCH 26.1 (25.0-35.0) pg MCHC 32.0 (31.0-37.0) g/dL RDW 15.1 (11.5-15.5) % Plt Count 500 H (150-450) k/uL MPV 6.3 Neutrophils % 74 % Lymphocytes % 15 % Monocytes % 6 % Eosinophils % 4 % Basophils % 1 % Neutrophils # 5.9 (1.3-7.7) k/uL Lymphocytes # 1.2 (1.0-4.8) k/uL Monocytes # 0.5 (0-1.0) k/uL Eosinophils # 0.3 (0-0.7) k/uL Basophils # 0.1 (0-0.2) k/uL Hypochromasia Moderate PT 11.5 (9.0-12.0) sec INR 1.1 (<1.2) APTT 22.8 (22.0-30.0) sec Sodium 141 (137-145) mmol/L Potassium 4.3 (3.5-5.1) mmol/L Chloride 108 H (98-107) mmol/L Carbon Dioxide 23 (22-30) mmol/L Anion Gap 10 mmol/L BUN 19 (9-20) mg/dL Creatinine 0.78 (0.66-1.25) mg/dL Est GFR (CKD-EPI)AfAm >90 (>60 ml/min/1.73 sqM) Est GFR (CKD-EPI)NonAf 89 (>60 ml/min/1.73 sqM) Glucose 93 (74-99) mg/dL Plasma Lactic Acid Manohar (0.7-2.0) mmol/L Calcium 9.8 (8.4-10.2) mg/dL Total Bilirubin 0.6 (0.2-1.3) mg/dL AST 40 (17-59) U/L ALT 60 H (4-49) U/L Alkaline Phosphatase 124 (38-126) U/L Total Protein 7.3 (6.3-8.2) g/dL Albumin 3.5 (3.5-5.0) g/dL Urine Color Urine Appearance (Clear) Urine pH (5.0-8.0) Ur Specific [place] (1.001-1.035) Urine Protein (Negative) Urine Glucose (UA) (Negative) Urine Ketones (Negative) Urine Blood (Negative) Urine Nitrite (Negative) Urine Bilirubin (Negative) Urine Urobilinogen (<2.0) mg/dL Ur Leukocyte Esterase (Negative) Urine RBC (0-5) /hpf Urine WBC (0-5) /hpf Ur Squamous Epith Cells (0-4) /hpf Calcium Oxalate Crystal (None) /hpf Hyaline Casts (0-2) /lpf Urine Mucus (None) /hpf Urine Yeast (Budding) (None) /hpf 03/12/20 03/12/20 Range/Units 11:59 12:51 WBC (3.8-10.6) k/uL RBC (4.30-5.90) m/uL Hgb (13.0-17.5) gm/dL Hct (39.0-53.0) % MCV (80.0-100.0) fL MCH (25.0-35.0) pg MCHC (31.0-37.0) g/dL RDW (11.5-15.5) % Plt Count (150-450) k/uL MPV Neutrophils % % Lymphocytes % % Monocytes % % Eosinophils % % Basophils % % Neutrophils # (1.3-7.7) k/uL Lymphocytes # (1.0-4.8) k/uL Monocytes # (0-1.0) k/uL Eosinophils # (0-0.7) k/uL Basophils # (0-0.2) k/uL Hypochromasia PT (9.0-12.0) sec INR (<1.2) APTT (22.0-30.0) sec Sodium (137-145) mmol/L Potassium (3.5-5.1) mmol/L Chloride (98-107) mmol/L Carbon Dioxide (22-30) mmol/L Anion Gap mmol/L BUN (9-20) mg/dL Creatinine (0.66-1.25) mg/dL Est GFR (CKD-EPI)AfAm (>60 ml/min/1.73 sqM) Est GFR (CKD-EPI)NonAf (>60 ml/min/1.73 sqM) Glucose (74-99) mg/dL Plasma Lactic Acid Manohar 1.2 (0.7-2.0) mmol/L Calcium (8.4-10.2) mg/dL Total Bilirubin (0.2-1.3) mg/dL AST (17-59) U/L ALT (4-49) U/L Alkaline Phosphatase (38-126) U/L Total Protein (6.3-8.2) g/dL Albumin (3.5-5.0) g/dL Urine Color Dark Yellow Urine Appearance Cloudy (Clear) Urine pH 5.5 (5.0-8.0) Ur Specific [place] 1.042 H (1.001-1.035) Urine Protein 1+ H (Negative) Urine Glucose (UA) Negative (Negative) Urine Ketones 1+ H (Negative) Urine Blood Moderate H (Negative) Urine Nitrite Negative (Negative) Urine Bilirubin 1+ H (Negative) Urine Urobilinogen 4.0 (<2.0) mg/dL Ur Leukocyte Esterase Moderate H (Negative) Urine RBC >182 H (0-5) /hpf Urine WBC 34 H (0-5) /hpf Ur Squamous Epith Cells 1 (0-4) /hpf Calcium Oxalate Crystal Rare H (None) /hpf Hyaline Casts 5 H (0-2) /lpf Urine Mucus Many H (None) /hpf Urine Yeast (Budding) Occasional H (None) /hpf - EKG Data -: EKG Interpreted by Me EKG Comments: EKG was obtained due to altered mental status, EKG obtained at 1131, rate is 93 rhythm is sinus with prolonged QT, CO 164 QRS 82 QTc prolonged at [address] elevations or depressions or evidence of acute ischemia, infarction or arrhythmia. Disposition Clinical Impression: Catheter-associated urinary tract infection, Injury brain, traumatic, At risk for readmission to hospital Disposition: HOME SELF-CARE Condition: Stable Prescriptions: Sulfamethox-Tmp 800-160Mg [Bactrim DS 800-160 mg] 1 tab PO Q12HR #14 tab Is patient prescribed a controlled substance at d/c from ED?: No Referrals: Digna Boston III, MD [Primary Care Provider] - 1-2 days
--- NOTE | 2020-03-12 13:02 | CT ---
EXAMINATION TYPE: CT brain katie garcía DATE OF EXAM: 03/12/2020 COMPARISON: 03/01/2020 HISTORY: altered mental status, possible fall, bruising Rt side of head CT DLP: 1472.1 mGycm, Automated exposure control for dose reduction was used. CONTRAST: Patient injected with 0 mL of Isovue 300. CT of the brain is performed utilizing 3 mm thick sections through the posterior fossa and 3 mm thick sections through the remaining calvarium. Study is performed within 24 hours of arrival to the hospital. No abnormal hyperdensity is present to suggest an acute intracranial hemorrhage. The prominence of t he extra-axial spaces along the frontal regions likely related to subdural hygroma or chronic subdura l hematomas. No acute or interval hemorrhage is evident. No mass lesion is evident. No acute infarcts are evident. There is mild periventricular white matter hypodensity, likely on the basis of chronic white matter ischemic changes Ventricles and sulci are very prominent for the patient age. Paranasal sinuses and mastoid air cells within the [id number] are clear. IMPRESSIONS: 1. Stable chronic appearing subdural hematomas or subdural hygromas. 2. No acute or interval changes CT cervical spine. COMPARISON: None CT of the cervical spine is performed in the axial plane at 2 mm thick sections. Reconstructed image s in the coronal, and sagittal plane are reviewed on the computer. No acute fractures are evident. Vertebral body alignment is normal. There is diffuse narrowing of the disc height C4-5 C5-6 C6-7. Anterior vertebral body spurring is pre sent at these levels. No spinal canal stenosis is present. Foraminal narrowing C2-3 from uncovertebra l joint hypertrophy is present on the right. Right foraminal stenosis from facet hypertrophy and unco vertebral joint hypertrophy. Severe right foraminal stenosis due to facet hypertrophy and uncovertebr al joint hypertrophy is present C4-5. Bilateral foraminal stenosis from uncovertebral joint hypertrop hy and right facet hypertrophy is at C5-6 and C6-7. Vertebral body heights are preserved. No spinal canal stenosis is evident. IMPRESSIONS: 1. Degenerative disc changes through the mid and lower cervical spine. 2. Uncovertebral joint hypertrophy supplemented with some facet hypertrophy contributing to severe fo raminal stenosis discussed above
[2020-03-12 13:06] LABS: Appearance,Urine Cloudy (Clear); Bilirubin,Urine 1+ (Negative); Blood,Urine Moderate (Negative); Budding Yeast,Urine Occasional /hpf; Calcium Oxalate Crystals,Urine Rare /hpf; Color,Urine Dark Yellow; Glucose,Urine (UA) Negative (Negative); Hyaline Casts,Urine 5 /lpf (0-2); Ketones,Urine 1+ (Negative); Leukocyte Esterase,Urine Moderate (Negative); Mucus,Urine Many /hpf; Nitrite,Urine Negative (Negative); PH, Urine 5.5 (5.0-8.0); Protein,Urine 1+ (Negative); RBC,Urine >182 /hpf (0-5); Specific Gravity,Urine 1.042 (1.001-1.035); Squamous Epithelial Cell,Urine 1 /hpf (0-4); WBC,Urine 34 /hpf (0-5)
[2020-03-12] MEDS ORDERED: cefTRIAXone IN SWFI 1,000 MG/10 ML SYRINGE IVP STA (13:11)
[2020-03-12 15:18] VITALS: BP 140/92; PULSE 90; TEMP 97.7
== END 2020-03-12 15:15 | disposition home or self-care (01) ==
LOC: EC 11:13
DX: T83.511A Infection and inflammatory reaction due to indwelling urethral catheter, initial encounter (principal); N39.0 Urinary tract infection, site not specified; S06.9X0A Unspecified intracranial injury without loss of consciousness, initial encounter; E78.5 Hyperlipidemia, unspecified; M19.90 Unspecified osteoarthritis, unspecified site; H40.9 Unspecified glaucoma; Z79.02 Long term (current) use of antithrombotics/antiplatelets; Z79.899 Other long term (current) drug therapy; Z79.1 Long term (current) use of non-steroidal anti-inflammatories (NSAID); Z88.8 Allergy status to other drugs, medicaments and biological substances; Z88.1 Allergy status to other antibiotic agents; Z96.0 Presence of urogenital implants; Y93.89 Activity, other specified
CPT/HCPCS: 36415; 93005; 80053; 83605; 85025; 85610; 85730; 81001; 87040; 87086; 71045; 72125; 70450; 99285; 96374; J0696